=== PATIENT | female | born 1940 | race Caucasian/White ===

== ENCOUNTER 2019-02-15 12:17 | Inpatient (IN) | payer MEDICARE, OTHER ==
[~2019-02-15] VITALS: Ht 162.6 cm; Wt 83.1 kg
[~2019-02-15 12:17] MED LIST: ASP81TEC PO; MECL12.579 PO; OMG1KC PO; SULF1TAB38 PO
[2019-02-15] MEDS ORDERED: VITA1TAB17 PO (15:45)
[2019-02-15] MEDS ORDERED: [UNRECOGNIZED DRUG - OTHER] PO (15:45)
[2019-02-15] MEDS ORDERED: [UNRECOGNIZED DRUG - OTHER] PO (15:45)
[2019-02-15] MEDS ORDERED: FLAX10004 PO (15:45)
[2019-02-15] MEDS ORDERED: HYDR-3816 PO (15:45)
[2019-02-15] MEDS ORDERED: ASPI-983 PO (15:45)
[2019-02-15] MEDS ORDERED: IBUP-30 PO (15:45)
[2019-02-15] MEDS ORDERED: MELO-170 PO (15:45)
[2019-02-15] MEDS ORDERED: POTA99TA21 PO (15:45)
[2019-02-15] MEDS ORDERED: CHOL200025 PO (15:45)
[2019-02-15] MEDS ORDERED: TRAM50TA2 PO (15:45)
[2019-02-15] MEDS ORDERED: PANT40TA2 PO (15:45)
--- NOTE | 2019-02-15 15:48 | NUR ---
UPDATED MED REC WITH DISCHARGE INSTRUCTIONS FROM [facility]. NOTE THE FOLLOWING CHANGES WERE MADE AT THAT DISCHARGE: START TAKING: MOBIC 7.5MG BID TRAMADOL 50MG 2 TABS Q6H PRN HYDROCODONE 7.5-325MG 2 Q4H PRN PROTONIX 40MG DAILY ASPIRIN 81MG DAILY I WILL UPDATE THE MED REC BACK TO THE LIST OF MEDICATIONS THE PATIENT WAS TAKING PRIOR TO DISCHARGE FROM [place] [facility] AT A LATER DATE FOR PROPER DISCHARGE TO HOME ORDERS. Addendum: 02/17/19 at 1120 by LISSY SWEET [facility] REMOVED THE 5 NEW MEDICATIONS ORDERED AT DISCHARGE FROM [facility]. THE OTHER REPORTED MEDICATIONS WERE ALL OTC MEDS. THERE WAS NO RECENTLY FILLED MAINTENANCE MEDICATIONS ON THE EXT MED HX OR [facility].
--- NOTE | 2019-02-15 15:49 | NUR ---
Kehinde Ambriz admitted to room 233-1, with an admitting diagnosis of Left Total Hip, on 02/15/19 from [facility] via private vehicle, accompanied by family member.KEHINDE AMBRIZ introduced to surroundings, call light, bed controls, phone, TV, temperature control, lights, meal times, smoking policy, visitor policy, side rail policy, bathrooms and showers. Patient Rights given to patient in the handbook.KEHINDE AMBRIZ verbalizes understanding that [facility] is not responsible for the loss or damage to any personal effects or valuables that are kept in the patients possession during their hospitalization. The following Patient Care Plans were discussed with the patient and family: Discharge Planning, Impaired Mobility, and Total Hip Replacement. KEHINDE AMBRIZ verbalizes understanding of Interdisciplinary Patient Education. Patient received Patient Rights Booklet, which includes Privacy Act Statement and Data Collection Information Summary.
--- NOTE | 2019-02-15 16:04 | Occupational Therapy Eval ---
OT Evaluation-General/PLF Medical Diagnosis Admission Date Feb 15, 2019 at 15:10 Medical Diagnosis: L MATTHIAS Onset Date: Feb 15, 2019 Therapy Diagnosis Therapy Diagnosis: impaired ADLS and mobility Precautions Precautions/Isolations: Fall Prevention, Standard Precautions Weight Bear Status Weight Bearing Restriction: Weight Bearing/Tolerated Referral Referral Reason: Activity Tolerance, Self Care, Evaluation/Treatment, Strengthening/ROM Medical History Additional Medical History pt has MATTHIAS complete. WBAT. 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 Patient completes activity by themselves 4 Supervision or touching assist (CGA). [place] provide cues , steadying assist 3 The helper provides less than half the effort to complete the activity 2 The helper provides more than half the effort to complete the activity 1 Dependent. The helper does all the effort to complete an activity 7 Patient refused to complete or attempt activity 9 The patient did not perform the activity before the current illness or injury 88 Not attempted due to Medical conditions or safety concerns Functional Abilities and Goals: Independent: Patient completed the activities by him/herself, with or without an assistive device, with no assistance from a helper. Needed Some Help: Patient needed partial assistance from another person to complete activities. Dependent: A helper completed the activities for the patient. Unknown: Not Applicable: ADL PLOF Comments indep PLOF using quad cane, driving, and completing IADLS indep (shopping, cleaning) Self Care: Independent Functional Cognition: Independent DME/Equipment: Bath Bench, Shower Drive Self: Yes OT Current Status Subjective pt agreed to OT eval session and OT/ PT co treatment. pt reports having OT/ PT twice this date prior to arriving to ARU. pt reports no pain. pt is mostly deaf but reads some lips and using dry erase board for communication. Mental Status/Objective Patient Orientation: Normal For Age Current Glasses/Contacts: Yes Hearing Aids: No Dentures/Partials: Yes Hand Dominance: Right Upper Extremity ROM WFL Upper Extremity Coordination WFL Upper Extremity Sensation WFL Upper Extremity Strength 4+/5 MMT slight edema francy LE ADL-Treatment Eating (FIM): 6 (dentures ) Eating (QC): 6 Grooming (FIM): 4 (CGA while standing at sink. ) Oral Hygiene (QC): 4 Bathing (FIM): 4 (pt education on use of LHS to perform LB bathing. pt demo correctly. ) Bathing Location: L Arm, R Arm, L Upper Leg, R Upper Leg, Chest, Abdomen, Buttocks, Perineal Area Shower/Bathe Self (QC): 4 Upper Body Dressing (FIM): 4 (CGA ) Upper Body Dressing (QC): 4 Lower Body Dressing (FIM): 2 (required TA for francy socks and threading francy LE through pants. pt demo abbiltiy to d pull up/ down pants. ) Lower Body Dressing (QC): 1 On/Off Footwear (QC): 1 Toileting (FIM): 4 (CGA for safety/ balance. ) Toileting Hygiene (QC): 4 Transfers (B, C, W/C) (FIM): 4 (ue of RW ) Toilet/Commode Transfer (FIM): 4 (use of RW ) Toilet Transfer (QC): 4 (use of RW ) Shower Transfer (FIM): 4 (shower chiar, GB, and use of RW ) OT/ PT co- treatment secondary of complexity of pt deficits requiring skilled of both disciplines that a rehab techn could not complete. OT focus on ADL task, use of AE, and UE positioning, while PT focus on gross movements, functional transfers, and ambulation. post session, pt laying in bed, call light within reach, all needs met. Education OT Patient Education: Energy conservation, Modified ADL techniques, Progress toward Goal/Update tx plan, Purpose of tx/functional activities, Reviewed precautions, Rehab process, Safety issues, Transfer techniques, Use of adapted equipment Teaching Recipient: Patient Teaching Methods: Demonstration, Discussion Response to Teaching: Verbalize Understanding, Return Demonstration OT Short Term Goals Short Term Goals Bathing(FIM): 5 Lower Body Dressing(FIM): 4 1=Demonstrate adherence to instructed precautions during ADL tasks. 2=Patient will verbalize/demonstrate understanding of assistive dev ices/modifications for ADL. 3=Patient will improve strength/tolerance for activity to enable patient to perform ADL's. OT Half-Way Goals Outdoor Emergency Care Technician Goals Time Frame: Mar 15, 2019 Eating (FIM): 7 Eating (QC): 6 Groomin Oral Hygiene (QC): 6 Bathing(FIM): 6 Bathing Location: L Arm, R Arm, L Upper Leg, R Upper Leg, L Lower Leg (incl uding foot), R Lower Leg (including foot), Chest, Abdomen, Buttocks, Perineal Area Shower/Bathe Self (QC): 6 Upper Body Dressing(FIM): 7 Upper Body Dressing (QC): 6 Lower Body Dressing(FIM): 6 Lower Body Dressing (QC): 6 On/Off Footwear (QC): 6 Toileting(FIM): 6 Toileting Hygiene (QC): 6 Transfers (B,C,W/C) (FIM): 6 Toilet/Commode Transfer(FIM): 6 Toilet/Commode Transfer (QC): 6 Shower Transfer(FIM): 6 Additional Goals: 1-Demonstrate ADL Tasks, 2-Verbalize Understanding, 3-Impr oveStrength/Haydee 1=Demonstrate adherence to instructed precautions during ADL tasks. 2=Patient will verbalize/demonstrate understanding of assistive devices/modifications for ADL. 3=Patient will improve strength/tolerance for activity to enable patient to perform ADL's. OT Education/Plan Problem List/Assessment Assessment: Decreased Activ Tolerance, Decreased UE Strength, Impaired Bed Mobility, Impaired Funct Balance, Impaired I ADL's, Impaired Self-Care Skills Discharge Recommendations Plan/Recommendations: Continue POC Treatment Plan/Plan of Care Treatment,Training & Education: Yes Patient would benefit from OT for education, treatment and training to promote independence in ADL's, mobility, safety and/or upper extremity function for ADL's. Plan of Care: ADL Retraining, Functional Mobility, Group Exercise/Act as Ind, UE Funct Exercise/Act Treatment Duration: Mar 15, 2019 Frequency: At least 5 of 7 days/Wk (IRF) Estimated Hrs Per Day: 1 hour per day (60-90 minutes per day ) Agreement: Yes Rehab Potential: Good Time/GCodes Start Time: 14:55 Stop Time: 16:00 Billed Treatment Time EVM 10 minutes, ([id number]) ADL 55 minutes, 4 units, ([id number]) SHANNAN VARGAS OT Feb 15, 2019 16:04
--- NOTE | 2019-02-15 16:28 | History & Physical ---
CARLOS MANUEL ESPARZA [facility] 02/15/19 1628: History of Present Illness History of Present Illness Reason for visit/HPI CC: Hip pain 2/2 L total hip arthroplasty Ms. 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 The patient has had a progressive loss of movement over the last few months. She has a history of R Total Knee arthroplasty by Dr. 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 She presented to him with increased pain in the left hip, with reduced ability to perform ADL's, increased pain, and increased night awakenings 2/2 pain. After through workup, she decided to undergo L hip arthroplasty. She has had an uneventful post-op course. She currently does not have a primary care physician. She has a history of Selene Fever at 20 yo, causing sensorineural hearing loss. She is EGEGIK and primarially communicates via lip reading and white board. Her daughter accompanies her today. 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 She has a plan with Dr. Whyte to address the other L/E joints over the next few months. Her living situation includes living alone in 1 single bedroom apartment. There are no stairs and the floor is mostly carpeted. He has a number of items from a DME standpoint due to her recent knee surgery. She is comfortable with the process of rehab and is anxious to begin. . Date of Admission Feb 15, 2019 at 15:10 I consulted on this patient on 02/15/19 15:55 Attending Physician Nya Rangel DO Admitting Physician Myriam Ozuna MD Consult Allergies and Home Medications Allergies Coded Allergies: Sulfa (Sulfonamide Antibiotics) (Verified Allergy, Severe, 02/15/19) bezafibrate (Verified Allergy, Severe, 02/15/19) doxycycline (Verified Allergy, Severe, 02/15/19) gadoteridol (Verified Allergy, Severe, 02/15/19) phenazopyridine (Verified Allergy, Severe, 02/15/19) propoxyphene (Verified Allergy, Severe, 02/15/19) Home Medications Aspirin 81 Mg Tablet.dr, 81 MG PO DAILY, (Reported) Cholecalciferol (Vitamin D3) 2,000 Unit Tablet, 2,000 UNIT PO DAILY, (Reported) Flaxseed Oil 1,000 Mg Capsule, 1,000 MG PO DAILY, (Reported) Hydrocodone/Acetaminophen 1 Each Tablet, 2 TAB PO Q4H PRN for PAIN-MODERATE, (Reported) Ibuprofen 200 Mg Tablet, 200 MG PO Q6H PRN for PAIN-MILD, (Reported) Meloxicam 7.5 Mg Tablet, 7.5 MG PO BID, (Reported) Pantoprazole Sodium 40 Mg Tablet.dr, 40 MG PO DAILY, (Reported) Potassium Gluconate 99 Mg Tablet, 99 MG PO DAILY, (Reported) Tramadol HCl 50 Mg Tablet, 100 MG PO Q6H PRN for PAIN-MODERATE, (Reported) Vitamin B Complex 1 Each Tablet, 1 TAB PO DAILY, (Reported) [Dandelion 920MG] , 920 MG PO DAILY, (Reported) [Gotu Gigi 395MG] , 395 MG PO DAILY, (Reported) Past Vthqoun-Bqhrpm-Huwlxl Hx Immunizations Up To Date Date of Influenza Vaccine: Mar 28, 2011 Physical Exam Vital Signs Capillary Refill : Height, Weight, BMI Height: '" Weight: lbs. oz. kg; BMI Method:Stated NYA RANGEL DO 02/15/192037: History of Present Illness History of Present Illness Reason for visit/HPI Verification and Attestation of Medical Student E/M Service A medical student performed and documented this service in my presence. I reviewed and verified all information documented by the medical student and made modifications to such information, when appropriate. I personally performed the physical exam and medical decision making. Nya Rangel, Feb 15, 2019,20:37 Date of Admission 02/15/19 Date Seen by a Provider: Feb 15, 2019 Time Seen by a Provider: 16:30 Allergies and Home Medications Allergies Coded Allergies: Sulfa (Sulfonamide Antibiotics) (Verified Allergy, Severe, 02/15/19) bezafibrate (Verified Allergy, Severe, 02/15/19) doxycycline (Verified Allergy, Severe, 02/15/19) gadoteridol (Verified Allergy, Severe, 02/15/19) phenazopyridine (Verified Allergy, Severe, 02/15/19) propoxyphene (Verified Allergy, Severe, 02/15/19) Home Medications Aspirin 81 Mg Tablet.dr, 81 MG PO DAILY, (Reported) Cholecalciferol (Vitamin D3) 2,000 Unit Tablet, 2,000 UNIT PO DAILY, (Reported) Flaxseed Oil 1,000 Mg Capsule, 1,000 MG PO DAILY, (Reported) Hydrocodone/Acetaminophen 1 Each Tablet, 2 TAB PO Q4H PRN for PAIN-MODERATE, (Reported) Ibuprofen 200 Mg Tablet, 200 MG PO Q6H PRN for PAIN-MILD, (Reported) Meloxicam 7.5 Mg Tablet, 7.5 MG PO BID, (Reported) Pantoprazole Sodium 40 Mg Tablet.dr, 40 MG PO DAILY, (Reported) Potassium Gluconate 99 Mg Tablet, 99 MG PO DAILY, (Reported) Tramadol HCl 50 Mg Tablet, 100 MG PO Q6H PRN for PAIN-MODERATE, (Reported) Vitamin B Complex 1 Each Tablet, 1 TAB PO DAILY, (Reported) [Dandelion 920MG] , 920 MG PO DAILY, (Reported) [Gotu Giig 395MG] , 395 MG PO DAILY, (Reported) Patient Home Medication List Home Medication List Reviewed: Yes Past Ruanmlw-Uaibwh-Avxwbi Hx Patient Social History Marrital Status: Employed/Student: retired Review of Systems Constitutional: see HPI Physical Exam General Appearance: No Apparent Distress, WD/WN Assessment/Plan Assessment and Plan Problems: (1) Status post left hip replacement Status: Acute Admission Diagnosis Admission Status: Inpatient Order (span 2 midnights) Reason for Inpatient Admission: IRF Supervisory-Addendum Brief Verification & Attestation Participated in pt care: history, MDM, physical Personally performed: exam, history, MDM, supervision of care Care discussed with: Medical Student Procedures: n/a Results interpretation: Verified all documentation Verification and Attestation of Medical Student E/M Service A medical student performed and documented this service in my presence. I reviewed and verified all information documented by the medical student and made modifications to such information, when appropriate. I personally performed the physical exam and medical decision making. Nya Rangel Feb 15, 2019,20:38 [facility] Feb 15, 2019 16:28 NYA RANGEL DO Feb 15, 2019 20:38
--- NOTE | 2019-02-15 16:29 | Physical Therapy Evaluation ---
PT Evaluation-General Medical Diagnosis Admission Date Feb 15, 2019 at 15:10 Medical Diagnosis: L MATTHIAS Onset Date: Feb 15, 2019 Therapy Diagnosis Therapy Diagnosis: abnormal gait Precautions Precautions/Isolations: Fall Prevention, Standard Precautions Precautions include no squatting. 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 Reviewed History: Yes Social History Home: Apartment Current Living Status: Alone Entry Into Home: Level Entry PT Steps Into Home: 0 Prior/Core FIM Prior Level of Function Therapy Code Descriptions/Definitions Functional [place] Measure: 0=Not Assessed/NA 4=Minimal Assistance 1=Total Assistance 5=Supervision or Setup 2=Maximal Assistance 6=Modified [place] 3=Moderate Assistance 7=Complete [place] Therapy Quality Codes: 6 Independent with activity with or without an assistive device 5 Patient requires set up or clean up by helper. Patient completes activity by themselves 4 Supervision or touching assist (CGA). Bayard provide cues , steadying assist 3 The helper provides less than half the effort to complete the activity 2 The helper provides more than half the effort to complete the activity 1 Dependent. The helper does all the effort to complete an activity 7 Patient refused to complete or attempt activity 9 The patient did not perform the activity before the current illness or injury 88 Not attempted due to Medical conditions or safety concerns Functional Abilities and Goals: Independent: Patient completed the activities by him/herself, with or without an assistive device, with no assistance from a helper. Needed Some Help: Patient needed partial assistance from another person to complete activities. Dependent: A helper completed the activities for the patient. Unknown: Not Applicable: Bed Mobility: 7 Transfers (B,C,W/C) (FIM): 7 Gait: 6 (pt was using a cane. She has a FWW) Stairs: 6 Indoor Mobility (Ambulation): Independent Stairs: Independent Prior Devices Use: Other-see list below (cane) Pt able to care for herself, drive and do her own grocery shopping. PT Evaluation-Current Subjective Pt agreeable to PT. Reports her pain is well managed. Pt reports she is happy to be here for therapyl. Pain Numeric Pain Scale: 0-No Pain Location: No Pain Reported Objective Patient Orientation: Person, Place, Time, Situation Problem Solving: Good ROM/Strength ROM Lower Extremities WFL Strenght Lower Extremities right LE WFL; left LE grossly 4-/5 Integumentary/Posture Integumentary intact Bowel Incontinence: Yes Bladder Incontinence: Yes Posture normal and symmetrical; slight rounded shoulders. Neuromuscular (Tone, Coordination, Reflexes) intact and functional Sensory Vision: Wears Glasses Hearing: Deaf (reads lips and uses a dry erase board; can hear low voices) Hand Dominance: Right Sensation Right Lower Extremit: Intact Sensation Left Lower Extremity: Intact Transfers Therapy Code Descriptions/Definitions Functional [place] Measure: 0=Not Assessed/NA 4=Minimal Assistance 1=Total Assistance 5=Supervision or Setup 2=Maximal Assistance 6=Modified [place] 3=Moderate Assistance 7=Complete [place] Therapy Quality Codes: 6 Independent with activity with or without an assistive device 5 Patient requires set up or clean up by helper. Patient completes activity by themselves 4 Supervision or touching assist (CGA). Bayard provide cues , steadying assist 3 The helper provides less than half the effort to complete the activity 2 The helper provides more than half the effort to complete the activity 1 Dependent. The helper does all the effort to complete an activity 7 Patient refused to complete or attempt activity 9 The patient did not perform the activity before the current illness or injury 88 Not attempted due to Medical conditions or safety concerns Transfers (B, C, W/C) (FIM): 3 Roll Left to Right (QC): 4 Supine to/from Sit: 3 Sit to/from Stand: 4 Sit to Lying (QC): 3 (assist to lift both legs into bed) Lying to Sitting/Side of Bed(Q: 3 Sit to Stand (QC): 3 (assist to come to a stand) Chair/Yei-ii-Svbji Xfer(QC): 4 (CGA with use of FWW) Car Transfer (QC): 3 (mod assist to get her legs outof the car) Gait Does the Patient Walk?: Yes Mode of Locomotion: Walk Anticipated Mode of Locomotion: Walk Gait (FIM): 2 Distance (FIM): 1=up to 49 ft Walk 10 feet (QC): 4 (CGA for safety) Gait Level of Assist: 4 Gait Assistive Device: FWW Comments/Gait Description Pt walked 10-20 ft x 5 reps. She tends to roll up on her toes on the right with WB left. Step to gait right with decresed velocity and step length. Requires CGA for safety due to balance deficits. Wheelchair Training Does the Pt Use a Wheelchair?: No Balance Sitting Static: Good Sitting Dynamic: Good Standing Static: Fair Standing Dynamic: Fair Picking up an Object (QC): 88 Treatment Co treat with OT due to the need of 2 skilled clinicians to complete task. Pt requires extensive verbal and visual cues due to significant hearing impairment. Required 2 therapists to coordinate U/LE use and placment for pt to complete a shower with mulitple sit to stand transfers from shower bench, transfer in/out of shower and transfers for ADL , dressing and self care. In addition, PT addressedfunctional balance and sequencing technique with transfers and safety. Reviewed ARU goals and expectations with patient and ensured she understood the process of ARU. Pt in bed post treatment with needsmet. Assessment/Needs Post elective left THR with decreased functional strength, balance and mobility that impairs her ability to transfer, perform bed mobility and ambulate. She will benefit from skilled therapy intervention to address these deficits to allow her to return home alone and care fo rherself as before. She is very motivated to particpate andher high PLOF indicate she is a good candidate for PT. Rehab Potential: Good PT Short Term Goals Short Term Goals Time Frame: Feb 22, 2019 Transfers (B,C,W/C) (FIM): 5 Gait (FIM): 4 Distance (FIM): 3=150 ft Gait Assistive Device: FWW PT Halfway Goals Halfway Goals PT Halfway Goals Time Frame: Mar 01, 2019 Transfers (B,C,W/C) (FIM): 7 Sit to Lying (QC): 6 Lying-Sitting on Side/Bed(QC): 6 Sit to Stand (QC): 6 Roll Left to Right (QC): 6 Chair/Ldd-sv-Olgxq Xfer(QC): 6 Car Transfer (QC): 5 Does the Patient Walk: Yes Gait (FIM): 6 Gait distance (FIM): 3=150 ft Walk 10 feet (QC): 6 Walk 10ft-Uneven Surface(QC): 6 Walk 50ft with 2 Turns (QC): 6 Walk 150 ft (QC): 6 Gait Assistive Device: FWW Stairs (FIM): 5 # of Steps: 4 1 Step (curb) (QC): 6 4 Steps (QC): 6 12 Steps (QC): 88 Picking up an Object (QC): 88 PT Plan Problem List Problem List: Activity Tolerance, Functional Strength, Safety, Balance, Gait, Transfer, Bed Mobility, ROM Treatment/Plan Treatment Plan: Continue Plan of Care Treatment Plan: Bed Mobility, Education, Functional Activity Haydee, Functional Strength, Group Therapy, Gait, Safety, Therapeutic Exercise, Transfers Treatment Duration: Mar 01, 2019 Frequency: Modified Program (IRF) Estimated Hrs Per Day: 1.5 hours per day Patient and/or Family Agrees t: Yes Safety Risks/Education Patient Education: Transfer Techniques, Safety Issues Teaching Recipient: Patient Teaching Methods: Demonstration, Discussion Response to Teaching: Reinforcement Needed Discharge Recommendations Therapy D/C Recommendations: Physical Therapy Home Care Time/GCodes Time In: 1445 Time Out: 1610 (OT eval [id number]) Total Billed Treatment Time: 75 Total Billed Treatment visit EVM 10 FA 65 KYLEE ATKINSON PT Feb 15, 2019 16:28
[2019-02-15 17:30] VITALS: BP 149/71
[2019-02-15 17:39] VITALS: BP 122/71
--- NOTE | 2019-02-15 19:31 | PM&R H&P / Post Admit Assess ---
History of Present Illness HPI/Chief Complaint CC: s/p left hip replacement with slow recovery due to deafness and living alone POD # 1 HPI: This is a 77yoWF that has been in excellent health over the years although she does have significant hearing loss even near complete deafness since she had Scarlet Fever at 20yo. She does communicate with [employer] board. She lives alone and her daughter, who is a charge nurse at [facility] in [place], [place], is involved in her care and transporting her to [facility] inpatient rehab to improve success in returning home considering her disability of extreme deafness. Her prior level of functioning is remaining independent at home, had significant left hip pain precluding her from ambulating a great deal and she is motivated to return back home to live independently. She has intention of right hip replacement within the next 3 months as long as she recovers from this surgery well. Source: patient, family, RN/MD, old records Exam Limitations: no limitations Date Seen 02/15/19 Time Seen by a Provider: 16:30 Attending Physician Nya Gibson Julie A MD Referring Physician Date of Admission Feb 15, 2019 at 15:10 Home Medications & Allergies Home Medications Reviewed patient Home Medication Reconciliation performed by pharmacy medication reconciliations hazmat technician and/or nursing. Patients Allergies have been reviewed. 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) Alcohol Use: Denies Use Recreational Drug Use: No Smoking Status: Never a Smoker Physical Abuse Screen: No Sexual Abuse: No Recent Foreign Travel: No Contact w/other who traveled: No Recent Hopitalizations: Yes (LTHR) Recent Infectious Disease Expo: No Immunizations Up To Date Date of Pneumonia Vaccine: Feb 26, 2018 Date of Influenza Vaccine: Mar 28, 2011 Seasonal Allergies Seasonal Allergies: No Past Medical History Surgeries: Orthopedic Musculoskeletal: Arthritis, Fractures Loss of Vision: Bilateral Hearing Impairment: Deaf Psychosocial: Depression History of Blood Disorders: No Adverse Reaction to Blood [place]: No Family History Hypertension 19 FATHER Review of Systems Constitutional: see HPI EENTM: no symptoms reported Respiratory: no symptoms reported Cardiovascular: no symptoms reported Gastrointestinal: constipation Genitourinary: no symptoms reported Musculoskeletal: joint pain Skin: no symptoms reported Psychiatric/Neurological: No Symptoms Reported All Other Systems Reviewed Negative Unless Noted: Yes Physical Exam Exam Vital Signs Vital Signs Date Time Temp Pulse Resp B/P (MAP) Pulse Ox O2 Delivery O2 Flow Rate FiO2 02/15/19 17:39 98.5 75 20 122/71 (88) 94 Room Air Capillary Refill : General Appearance: No Apparent Distress, WD/WN, Chronically ill, Obese HEENT: PERRL/EOMI, Normal ENT Inspection, Pharynx Normal, Moist Mucous Membranes, Other Neck: Full Range of Motion, Normal Inspection, Non Tender, Supple Respiratory: Chest Non Tender, Lungs Clear, Normal Breath Sounds, No Accessory Muscle Use, No Respiratory Distress Cardiovascular: Regular Rate, Rhythm, No Edema, No Gallop, No JVD, No Murmur Gastrointestinal: Normal Bowel Sounds, No Organomegaly, No Pulsatile Mass, Non Tender, Soft Back: Normal Inspection, No CVA Tenderness, No Vertebral Tenderness Extremity: Normal Capillary Refill, Normal Inspection, Normal Range of Motion (except leg leg post op), Non Tender, No Calf Tenderness, No Pedal Edema Neurologic/Psychiatric: Alert, Oriented x3, No Motor/Sensory Deficits, Normal Mood/Affect Skin: Normal Color, Warm/Dry Lymphatic: No Adenopathy Results Results/Procedures Labs Patient resulted labs reviewed. Assessment/Plan Assessment and Plan Assess & Plan/Chief Complaint A/P: IRF protocols Pain control BM regimen Check labs in am (1) Status post left hip replacement Status: Acute (2) Deafness Status: Chronic Qualifiers: Laterality: bilateral Qualified Codes: H91.93 - Unspecified hearing loss, bilateral (3) Low vision Status: Chronic Qualifiers: Right eye visual impairment category: right - unspecified impairment Left eye visual impairment category: left - unspecified impairment Qualified Codes: H54.7 - Unspecified visual loss (4) Arthritis Status: Chronic Post Admission Physician Asses Date seen by provider: Feb 15, 2019 Time seen by provider: 16:30 Admisison Dx: (1) Status post left hip replacement Status: Acute The preadmission screen agrees with the post admission assessment that the patient is a good candidate for inpatient rehabilitation. The patient will have a comprehensive program of inpatient rehabilitation with a goal of maximizing level of functional independence prior to discharge home with family. The patient will have PT/OT ninety minutes per day, each discipline, five days a week for gait, strengthening, conditioning, balance, ADLs, any patient/family/caregiver training as necessary. Speech therapy to do cognitive assessment and treat as indicated. Rehabilitation nursing to assist with bowel, bladder, skin, wound care, medication administration, pain management. Customizer to assist with discharge planning, community reentry. SCD's for DVT prophylaxis. She appears to be well motivated to participate in three hours of therapy a day. She should be able to tolerate three hours of therapy a day from a medical standpoint. She should benefit from the three hours of therapy a day. She has a reasonable discharge plan, reasonable discharge rehabilitation goals and a supportive family. She has various comorbidities that need to be closely monitored with medications and treatments adjusted on a daily basis as needed. These include: see list Barriers to discharge for this patient who had been independent prior to this are for her to be modified independent to supervision for ADLs and mobility skills prior to discharge home with family, so as to lessen the burden of the caregivers. Risks for this patient include: 1. Fall 2. Fracture 3. DVT 4. Pulmonary embolism 5. Wound infection 6. Skin breakdown 7. Contractures 8. Poorly controlled pain 9. Urinary retention 10. UTI 11. Respiratory infection 12. Aspiration Estimated Length of Stay: 5 days Prognosis: Rehab prognosis appears good for goal of discharge home with family modified independent to supervision for ADLs and mobility skills. NYA GIBSON DO Feb 15, 2019 19:31
[2019-02-15] MEDS ORDERED: ONDANSETRON 4 MG (ZOFRAN) ORAL DISSOLVE TAB PO PRN (19:45)
[2019-02-15] MEDS ORDERED: CALCIUM CARBONATE 500 MG (TUMS) TAB.CHEW PO PRN (19:45)
[2019-02-15] MEDS ORDERED: HYDROcodone/APAP 5 MG/325 MG (LORTAB) TAB PO PRN (19:45)
[2019-02-15] MEDS ORDERED: LOPERAMIDE 2 MG (IMODIUM) TABLET PO PRN (19:45)
[2019-02-15] MEDS ORDERED: ALPRAZolam 0.25 MG (XANAX) TAB PO PRN (19:45)
[2019-02-15] MEDS ORDERED: diphenhydrAMINE 25 MG TAB (BENADRYL) PO PRN (19:45)
[2019-02-15] MEDS ORDERED: POLYETHYLENE GLYCOL 17 GM (MIRALAX) PACK PO ONE (21:00)
[2019-02-15] MEDS: MELATONIN 3 MG TABLET PO PRN (21:22)
[2019-02-16 06:00] VITALS: BP 123/72
[2019-02-16 06:27] LABS: BASOPHILS % (AUTO) 0 % (0-10); EOSINOPHILS # (AUTO) 0.1 10^3/uL (0.0-0.3); EOSINOPHILS % (AUTO) 1 % (0-10); HEMATOCRIT 34 % (35-52); HEMOGLOBIN 11.2 G/DL (11.5-16.0); LYMPHOCYTES # (AUTO) 1.7 X 10^3 (1.0-4.0); LYMPHOCYTES % (AUTO) 17 % (12-44); MEAN CORPUSCULAR HEMOGLOBIN 30 PG (25-34); MEAN CORPUSCULAR HGB CONC 33 G/DL (32-36); MEAN CORPUSCULAR VOLUME 92 FL (80-99); MEAN PLATELET VOLUME 10.3 FL (7.4-10.4); MONOCYTES # (AUTO) 0.9 X 10^3 (0.0-1.0); MONOCYTES % (AUTO) 9 % (0-12); NEUTROPHILS # (AUTO) 7.3 X 10^3 (1.8-7.8); NEUTROPHILS % (AUTO) 72 % (42-75); PLATELET COUNT 221 10^3/uL (130-400); RED CELL DISTRIBUTION WIDTH 15.1 % (10.0-14.5); WHITE BLOOD COUNT 10.1 10^3/uL (4.3-11.0)
[2019-02-16 06:48] LABS: ALANINE AMINOTRANSFERASE 19 U/L (0-55); ALBUMIN 3.6 GM/DL (3.2-4.5); ALKALINE PHOSPHATASE 53 U/L (40-136); BILIRUBIN,TOTAL 0.6 MG/DL (0.1-1.0); BUN/CREATININE RATIO 21; CALCIUM 9.1 MG/DL (8.5-10.1); CARBON DIOXIDE 26 MMOL/L (21-32); CHLORIDE 104 MMOL/L (98-107); CREATININE SERUM 0.62 MG/DL (0.60-1.30); GFR ESTIMATED > 60; GLUCOSE 135 MG/DL (70-105); POTASSIUM 4.2 MMOL/L (3.6-5.0); SODIUM 138 MMOL/L (135-145); TOTAL PROTEIN 6.1 GM/DL (6.4-8.2)
[2019-02-16] MEDS: ASPIRIN 81 MG CHEW (CHILDREN'S ASA) PO SCH (08:19)
--- NOTE | 2019-02-16 08:43 | Progress Note - Hospitalist ---
[facility]AR[facility] 02/16/19 0843: Progress Note Ms Ambriz had no acute events overnight Had a restless night sleep 2/2 new environment and being sensory impaired She reports feeling great and in no pain Is excited to begin a full day of rehab today NYA GIBSON DO 02/16/192045: Supervisory-Addendum Brief Verification & Attestation Participated in pt care: history, MDM, physical Personally performed: exam, history, MDM, supervision of care Care discussed with: Medical Student Procedures: n/a Results interpretation: Verified all documentation Verification and Attestation of Medical Student E/M Service A medical student performed and documented this service in my presence. I reviewed and verified all information documented by the medical student and made modifications to such information, when appropriate. I personally performed the physical exam and medical decision making. Nya Gibson, Feb 16, 2019,20:46 [facility] Feb 16, 2019 08:43 NYA GIBSON DO Feb 16, 2019 20:46
--- NOTE | 2019-02-16 09:07 | Occupational Ther Daily Note ---
OT Current Status-Daily Note Subjective pt sitting in recliner chair upon OT arrival. pt reports no pain. use of dry erase board for communication. pt read lips 30% of time. additional time noted secodnary to communication. pt stated she does not know sign language and her primary communication is white board. Mental Status/Objective Patient Orientation: Normal For Age Therapy Code Descriptions/Definitions Functional [place] Measure: 0=Not Assessed/NA 4=Minimal Assistance 1=Total Assistance 5=Supervision or Setup 2=Maximal Assistance 6=Modified [place] 3=Moderate Assistance 7=Complete [place] ADL-Treatment Therapy Code Descriptions/Definitions Functional [place] Measure: 0=Not Assessed/NA 4=Minimal Assistance 1=Total Assistance 5=Supervision or Setup 2=Maximal Assistance 6=Modified [place] 3=Moderate Assistance 7=Complete [place] Therapy Quality Codes: 6 Independent with activity with or without an assistive device 5 Patient requires set up or clean up by helper. Patient completes activity by themselves 4 Supervision or touching assist (CGA). [place] provide cues , steadying assist 3 The helper provides less than half the effort to complete the activity 2 The helper provides more than half the effort to complete the activity 1 Dependent. The helper does all the effort to complete an activity 7 Patient refused to complete or attempt activity 9 The patient did not perform the activity before the current illness or injury 88 Not attempted due to Medical conditions or safety concerns Eating (FIM): 6 (dentures ) Eating (QC): 6 Grooming (FIM): 5 (CGA for safety/ balnace while stanidng at sink. ) Upper Body Dressing (QC): 5 (bleach boiler puller shirt ) Lower Body Dressing (FIM): 4 (underpants, pants, francy socks, francy shoes. pt education on use of AE sock aid, dressing stick, vocational services specialist, and long handles shoe horn. pt demo ability to perform underpants, pants, and socks with AE. pt required assist to shona francy shoes. more education will be required ) Toileting (FIM): 5 (sba for safety./ balanc e) Transfers (B, C, W/C) (FIM): 4 (CGA for safety/ balnace. use of RW ) Toilet/Commode Transfer (FIM): 4 (CGA for safety/ balnace. use of RW ) pt ambulated into bathroom use with of RW. noted pt has abnormal walking patten to be addressed by PT. (please see PT note for further detail). pt perform all ADLs in bathroom. pt ambulated back to recliner chair. pt sitting in recliner chair post OT session. all needs met. Education OT Patient Education: Modified ADL techniques, Progress toward Goal/Update tx plan, Purpose of tx/functional activities, Reviewed precautions, Safety issues, Transfer techniques Teaching Recipient: Patient Teaching Methods: Demonstration, Discussion Response to Teaching: Verbalize Understanding, Return Demonstration OT Short Term Goals Short Term Goals Bathing(FIM): 5 Lower Body Dressing(FIM): 4 Transfers (B,C,W/C) (FIM): 5 1=Demonstrate adherence to instructed precautions during ADL tasks. 2=Patient will verbalize/demonstrate understanding of assistive devices/modific ations for ADL. 3=Patient will improve strength/tolerance for activity to enable patient to perform ADL's. OT Assisted Goals Assisted Goals Time Frame: Mar 15, 2019 Eating (FIM): 6 Eating (QC): 6 Groomin Oral Hygiene (QC): 6 Bathing(FIM): 6 Bathing Location: L Arm, R Arm, L Upper Leg, R Upper Leg, L Lower Leg (including foot), R Lower Leg (including foot), Chest, Abdomen, Buttocks, Perineal Area Shower/Bathe Self (QC): 6 Upper Body Dressing(FIM): 6 Upper Body Dressing (QC): 6 Lower Body Dressing(FIM): 6 Lower Body Dressing (QC): 6 On/Off Footwear (QC): 6 Toileting(FIM): 6 Toileting Hygiene (QC): 6 Transfers (B,C,W/C) (FIM): 6 Toilet/Commode Transfer(FIM): 6 Toilet/Commode Transfer (QC): 6 Shower Transfer(FIM): 6 Additional Goals: 1-Demonstrate ADL Tasks, 2-Verbalize Understanding, 3-ImproveStrength/[place] 1=Demonstrate adherence to instructed precautions during ADL tasks. 2=Patient will verbalize/demonstrate understanding of assistive devices/modifications for ADL. 3=Patient will improve strength/tolerance for activity to enable patient to perform ADL's. OT Education/Plan Problem List/Assessment Assessment: Decreased Activ Tolerance, Decreased Safety Aware, Impaired Funct Balance, Impaired I ADL's, Impaired Self-Care Skills Discharge Recommendations Plan/Recommendations: Continue POC Equpiment Recommendations-D/C: Hog Buyer, Sock Aide, Dressing Stick, Long Shoe Horn Treatment Plan/Plan of Care Treatment,Training & Education: Yes Patient would benefit from OT for education, treatment and training to promote independence in ADL's, mobility, safety and/or upper extremity function for ADL's. Plan of Care: ADL Retraining, Functional Mobility, Group Exercise/Act as Ind, UE Funct Exercise/Act Treatment Duration: Mar 15, 2019 Frequency: At least 5 of 7 days/Wk (IRF) Estimated Hrs Per Day: 1 hour per day (60-90 minutes per day ) Agreement: Yes Rehab Potential: Good Time/GCodes Start Time: 08:00 Stop Time: 09:00 Billed Treatment Time ADL 60 minute, 4 units SHANNAN VARGAS OT Feb 16, 2019 09:07
--- NOTE | 2019-02-16 09:24 | PM&R Progress Note ---
Subjective HPI/CC On Admission Date Seen by Provider: Feb 16, 2019 Time Seen by Provider: 09:15 CC: s/p left hip replacement with slow recovery due to deafness and living alone POD # 1 HPI: This is a 77yoWF that has been in excellent health over the years although she does have significant hearing loss even near complete deafness since she had Scarlet Fever at 20yo. She does communicate with [employer]. She lives simi e and her daughter, who is a charge nurse at [facility] in [place], [place], is involved in her care and transporting her to [facility] inpatient rehab to improve success in returning home considering her disability of extreme deafness. Her prior level of functioning is remaining independent at home, had significant left hip pain precluding her from ambulating a great deal and she is motivated to return back home to live independently. She has intention of right hip replacement within the next 3 months as long as she recovers from this surgery well. Subjective/Events-last exam Pt settling in well. Bowels are moving. Pain is not occurring at all but did get a pain pill before PT. Using IS. Reviewed labs and meds. Conferred with RN. Reviewed therapy notes. Overall dramatic improvement. Review of Systems General: Fatigue Musculoskeletal: leg pain Objective Exam Vital Signs Vital Signs Date Time Temp Pulse Resp B/P (MAP) Pulse Ox O2 Delivery O2 Flow Rate FiO2 02/16/19 09:00 95 Room Air 02/16/19 06:00 97.7 78 20 123/72 (89) Capillary Refill : General Appearance: No Apparent Distress, WD/WN HEENT: PERRL/EOMI, Normal ENT Inspection, Pharynx Normal, Moist Mucous Membranes, Other Neck: Full Range of Motion, Normal Inspection, Non Tender, Supple Respiratory: Chest Non Tender, Lungs Clear, Normal Breath Sounds, No Accessory Muscle Use, No Respiratory Distress Cardiovascular: Regular Rate, Rhythm, No Edema, No Gallop, No JVD, No Murmur Gastrointestinal: Normal Bowel Sounds, No Organomegaly, No Pulsatile Mass, Non Tender, Soft Back: Normal Inspection, No CVA Tenderness, No Vertebral Tenderness Extremity: Normal Capillary Refill, Normal Inspection, Normal Range of Motion (except leg leg post op), Non Tender, No Calf Tenderness, No Pedal Edema Neurologic/Psychiatric: Alert, Oriented x3, No Motor/Sensory Deficits, Normal Mood/Affect Skin: Normal Color, Warm/Dry Lymphatic: No Adenopathy Results/Procedures Lab Laboratory Tests 02/16/19 05:57 Patient resulted labs reviewed. FIM Transfers Therapy Code Descriptions/Definitions Functional [place] Measure: 0=Not Assessed/NA 4=Minimal Assistance 1=Total Assistance 5=Supervision or Setup 2=Maximal Assistance 6=Modified [place] 3=Moderate Assistance 7=Complete [place] Therapy Quality Codes: 6 Independent with activity with or without an assistive device 5 Patient requires set up or clean up by helper. Patient completes activity by themselves 4 Supervision or touching assist (CGA). [place] provide cues , steadying assist 3 The helper provides less than half the effort to complete the activity 2 The helper provides more than half the effort to complete the activity 1 Dependent. The helper does all the effort to complete an activity 7 Patient refused to complete or attempt activity 9 The patient did not perform the activity before the current illness or injury 88 Not attempted due to Medical conditions or safety concerns Transfers (B, C, W/C) (FIM): 4 (CGA for safety/ balnace. use of RW ) Roll Left to Right (QC): 4 Supine to/from Sit: 3 Sit to/from Stand: 4 Sit to Lying (QC): 3 (assist to lift both legs into bed) Sit to Stand (QC): 3 (assist to come to a stand) Chair/Pna-xf-Harpc Xfer(QC): 4 (CGA with use of FWW) Car Transfer (QC): 3 (mod assist to get her legs outof the car) Gait Training Does the Patient Walk?: Yes Gait (FIM): 2 Distance (FIM): 1=up to 49 ft Walk 10 feet (QC): 4 (CGA for safety) Gait Level of Assist: 4 Gait Assistive Device: FWW Wheelchair Training Does the Pt Use a Wheelchair?: No Balance Picking up an Object (QC): 88 ADL-Treatment Feedin (dentures ) Eating (QC): 6 Groomin (CGA for safety/ balnace while stanidng at sink. ) Oral Hygiene (QC): 4 Bathin (pt education on use of LHS to perform LB bathing. pt demo correctly. ) Bathing Location: L Arm, R Arm, L Upper Leg, R Upper Leg, Chest, Abdomen, Buttocks, Perineal Area Shower/Bathe Self (QC): 4 Upper Extremity Dressin (CGA ) Upper Body Dressing (QC): 5 (boat puller shirt ) Lower Extremity Dressin (underpants, pants, francy socks, francy shoes. pt education on use of AE sock aid, dressing stick, reed polisher, and long handles shoe horn. pt demo ability to perform underpants, pants, and socks with AE. pt required assist to shona francy shoes. more education will be required ) Lower Body Dressing (QC): 1 On/Off Footwear (QC): 1 Toiletin (sba for safety./ balanc e) Toileting Hygiene (QC): 4 Toilet/Commode Transfer: 4 (CGA for safety/ balnace. use of RW ) Toilet Transfer (QC): 4 (use of RW ) Shower: 4 (shower chiar, GB, and use of RW ) Assessment/Plan Assessment and Plan Assess & Plan/Chief Complaint A/P: IRF protocols Pain control BM regimen Check labs prn (1) Status post left hip replacement Status: Acute (2) Arthritis Status: Chronic (3) Deafness Status: Chronic Qualifiers: Laterality: bilateral Qualified Codes: H91.93 - Unspecified hearing loss, bilateral (4) Low vision Status: Chronic Qualifiers: Right eye visual impairment category: right - unspecified impairment Left eye visual impairment category: left - unspecified impairment Qualified Codes: H54.7 - Unspecified visual loss JÚNIOR RANGEL DO Feb 16, 2019 09:24
--- NOTE | 2019-02-16 09:24 | Individualized Plan of Care ---
Individualized Plan of Care Rehab Nursing IPOC Order Admission Date Feb 15, 2019 at 15:10 Current Orders Orders Admission Order(Inpt,Obs,Sdc) (02/15/19 12:46) Vital Signs: Per Unit Policy ( ,16,00 (02/15/19 12:46) Spar Cap Beveler-Inpt Rehab Con (02/15/19 12:46) Rehab Nursing Orders-Ipoc (02/15/19 12:46) Physical Therapy Rehab Orders (02/15/19 12:46) Occupational Therapy Rehab Ord (02/15/19 12:46) Speech Therapy Rehab Orders (02/15/19 12:46) General/Regular (02/15/19 Dinner) Intake & Output ,, (02/15/19 12:46) Precautions (Aru) (02/15/19 12:46) Weekly Weight (Lbs) WEEK (02/15/19 12:46) Initiate Admission Nursing Pro .admission (02/15/19 12:46) Cbc With Automated Diff (02/16/19 06:00) Comprehensive Metabolic Panel (02/16/19 06:00) Rehab-Intensity Of Therapy (02/15/19 13:45) Patient Visit (02/15/19 ) Pt Eval Moderate Complexity (02/15/19 ) Functional Activities, Ea 15 (02/15/19 ) Tramadol Tablet (Ultram Tablet) (02/15/19 17:00) Polyethylene Glycol Powder Pkt (Miralax (02/15/19 21:00) Alprazolam Tablet (Xanax Tablet) (02/15/19 19:45) Calcium Carbonate Chew Tablet (Antacid C (02/15/19 19:45) Diphenhydramine Tablet (Benadryl Tablet) (02/15/19 19:45) Docusate Sodium Capsule (Colace Capsule) (02/15/19 19:45) Hydrocodone/Apap 5/325 Tablet (Lortab 5 (02/15/19 19:45) Loperamide Tablet (Imodium Tablet) (02/15/19 19:45) Melatonin Tablet (Melatonin Tablet) (02/15/19 19:45) Ondansetron Oral Dissolve Tab (Zofran (02/15/19 19:45) Ibuprofen Tablet (Motrin Tablet) (02/15/19 19:45) Aspirin Chewable Tablet (Baby Aspirin Ch (02/16/19 09:00) Patient Visit (02/16/19 ) Gait Training, Ea 15 Min (02/16/19 ) Exercise Therap, Ea 15 Min (02/16/19 ) Patient Visit (02/16/19 ) Gait Training, Ea 15 Min (02/16/19 ) Patient Visit (02/16/19 ) Speech Sound Lang Comp (02/16/19 ) Polyethylene Glycol Powder Pkt (Miralax (02/16/19 21:00) Senna S Tablet (Senokot S Tablet) (02/16/19 21:00) Rehab Nursing Orders: Ongoing Assess. of Cognitive Status, Ongoing Assess. of Function Status, Bladder Management, Bowel Management, Bowel Training, Disease Management & Educaiton, DVT Prophylaxis, Fall Prevention, Fluid/Electrolyte/Nut rition Mgmt, Medication Management & Education, Management of Risks & Complications, Management of Skin Intergrity, Nutrition Management, Pain Management, Patient/Family Support, Safety Management Intensity of Therapy to be met Patient to be seen: 15 hrs over 7 cons. days PT IPOC Problem List: Activity Tolerance, Functional Strength, Safety, Balance, Gait, Transfer, Bed Mobility, ROM Treatment Plan: Continue Plan of Care Bed Mobility, Education, Functional Activity [place], Functional Strength, Group Therapy, Gait, Safety, Therapeutic Exercise, Transfers Treatment Duration: Mar 01, 2019 Frequency: Modified Program (IRF) Estimated Hrs Per Day: 1.5 hours per day OT IPOC Problems: Decreased Activ Tolerance, Decreased Safety Aware, Impaired Funct Balance, Impaired I ADL's, Impaired Self-Care Skills OT Treatment, Training and Edu: Yes Plan of Care: ADL Retraining, Functional Mobility, Group Exercise/Act as Ind, U E Funct Exercise/Act Treatment Duration: Mar 15, 2019 Frequency: At least 5 of 7 days/Wk (IRF) Estimated Hrs Per Day: 1 hour per day (60-90 minutes per day ) ST IPOC Speech Therapy Treatment Plan: Continue Plan of Care Treatment Duration: Feb 16, 2019 Frequency: 1 time per week Estimated Hrs Per Day: .25 hour per day Spar Cap Beveler/Case Mgmt Spar Cap Beveler/Case Managemen: Discharge Planning Dietitian/Diversified Crops Farmer Dietitian/Diversified Crops Farmer to monitor nutritional status and make changes and/or recommendations as needed and work with speech pathology on dietary upgrades as the occur. Physician IPOC Medical Issues being managed closely and that require the 24 hour availability of a physician: Deafness will require close monitoring and assurance she can hear instructions a nd prevent falls Medical Issues: Bowel/Bladder Function, DVT Prophylaxis, Falls Precautions, Fluid/Electrolyte/Nutrition Balance, Pain Management Brief Synthesis of Preadmission Screen, Post-Admission Evaluation, and Therapy Evaluations: PT will focus on retraining ambulation since hip replacement OT will focus on regaining ADL independence Medical Prognosis: Good Anticipated Length of Stay: 5 days JÚNIOR RANGEL DO Feb 16, 2019 09:24
--- NOTE | 2019-02-16 09:24 | ST Cognitive Linguistic Eval ---
Speech Evaluation-General Medical Diagnosis L MATTHIAS Onset Date: Feb 15, 2019 Therapy Diagnosis Therapy Diagnosis: Cognitive-Communication Precautions Precautions: Fall Precautions/Isolations: Fall Prevention, Standard Precautions Referral Referring Physician: Dr. Gibson Reason for Referral: Evaluation/Treatment Medical History Pertinent Medical History: OA Osteoarthritis Current History L MATTHIAS Reviewed History: Yes Social History Home: Assisted Living Current Living Status: Alone Speech PLF-Current Status Prior Level of Function The patient lives alone in her own apartment. Prior to her surgery she was independent for her daily needs. She does have the assistance from her daughter as needed. Subjective The patient was pleasant and cooperative with the cognitive evaluation. process. 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 Examination tasks were provided via white board writing. Language Eval: Verbal Language Completes Spontaneous Greeting: Functional Produces Auto, Serial Info: Functional Imitates Simple Words/Phrases: Functional Word Finding: Functional Requests Basic Needs: Functional States Basic Personal Info: Functional Expresses Complex Ideas: Functional Objective Cognitive Domain Memory: Mild Problem Solving: Functional Executive Functions: WNL Visuospatial Skills: WNL Composite Severity Rating: WNL Clock Drawing Severity Rating: WNL Objective Formal/Standardized Tests [facility] Mental Status ([facility]) Results , within normal range of function Oral Motor/Speech Production Within Functional Limits Impression The patient is a very pleasant 78 year old female who was admitted to the ARU s/p hip replacement. 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 She was able to complete the [facility] with lip reading and written tasks on the white board. The patient scored within the normal range and does not require skilled ST services at this time. Communication/Social Cognition Comprehension: 7 Expression: 7 Social Interaction: 7 Problem Solvin Memory: 7 Speech Patient Assess Expression of Ideas/Wants: Expression (4) Understanding Verbal Content: Understands (4) Brief Interview-Mental Status: Yes Repetition of Three Words: Three (3) Temporal Orientation: Year: Correct (3) Temporal Orientation: Month: Accurate within 5 days(2) Temporal Orientation: Day: Correct (1) Recall : Wear to say "Sock": Yes, no cue required (2) Recall : Color: Yes, no cue required (2) Recall : Bed: Yes, no cue required (2) Memory/Recall Ability: Current season, Location of own room, Staff names and faces, That he or she is in a hsp/hsp unit Speech-Plan Patient/Family Goals Patient/Family Goals: The patient plans on returning home post rehab with family support as needed. Treatment Plan Speech Therapy Treatment Plan: Discontinue ST The patient does not require skilled ST at this time. Treatment Duration: Feb 16, 2019 Frequency: 1 time per week Estimated Hrs Per Day: .25 hour per day Rehab Potential: Good Barriers to Learning: Patient is deaf, however no cognitive deficits are noted Pt/Family Agrees to Plan: Yes Safety Risks/Education Teaching Recipient: Patient Teaching Methods: Discussion Response to Teaching: Verbalize Understanding Education Topics Provided: Safety within her room Time Speech Therapy Time In: 09:00 Speech Therapy Time Out: 09:20 Total Billed Time: 20 Billed Treatment Time 1, SPSNDCOMP JOSR Beckham Feb 16, 2019 09:24
--- NOTE | 2019-02-16 10:35 | NUR ---
Pastoral care visit.
--- NOTE | 2019-02-16 12:01 | Physical Therapy Daily Note ---
PT Daily Note-Current Subjective Patient in recliner pre tx, agrees to PT, states she has no pain at rest, just with weight bearing. Patient is deaf and needs visual cues and has a white board to write on. Appearance Patient in recliner post tx with nurse call, phone, tray, all needs met. Mental Status Patient Orientation: Person, Place, Situation Transfers Therapy Code Descriptions/Definitions Functional [place] Measure: 0=Not Assessed/NA 4=Minimal Assistance 1=Total Assistance 5=Supervision or Setup 2=Maximal Assistance 6=Modified [place] 3=Moderate Assistance 7=Complete [place] Therapy Quality Codes: 6 Independent with activity with or without an assistive device 5 Patient requires set up or clean up by helper. Patient completes activity by themselves 4 Supervision or touching assist (CGA). [place] provide cues , steadying assist 3 The helper provides less than half the effort to complete the activity 2 The helper provides more than half the effort to complete the activity 1 Dependent. The helper does all the effort to complete an activity 7 Patient refused to complete or attempt activity 9 The patient did not perform the activity before the current illness or injury 88 Not attempted due to Medical conditions or safety concerns Transfers (B, C, W/C) (FIM): 4 Sit to/from Stand: 4 Bed to/from Chair: 4 CGA, slow but steady, appropriate use of hand placement Weight Bearing Right Lower Extremity: Right Full Weight Bearing Left Lower Extremity: Left Weight Bearing/Tolerated Gait Training Gait (FIM): 2 Distance: 100'x2, 50'x2 Walking 10ft/uneven surface-QC: 4 Gait Level of Assist: 4 Gait Persons Needed: 1 Gait Assistive Device: FWW CGA, slow but steady, vaults on the right side so she can clear foot on the left for advancement Stair Training Stairs (FIM): 1 #of Steps: 1 1 Step (curb) (QC): 4 Stairs: Pattern: Step to Level of Assist: 4 CGA, cues for foot placement Exercises Standing: Hip Abduction, Heel/toe raises, 3 way Ex=Flex, Abd, Ext (just with right leg), Marching (just with right leg) Standing Reps: 15 LAQ left side for 5 min Treatments transfers, ambulation, LE exercise Assessment Current Status: Fair Progress improved ambulation and transfers from yesterday PT Short Term Goals Short Term Goals Time Frame: Feb 22, 2019 Transfers (B,C,W/C) (FIM): 5 Gait (FIM): 4 Distance (FIM): 3=150 ft Gait Assistive Device: FWW PT Skilled Nursing Goals Power Grader Operator Goals PT Skilled Nursing Goals Time Frame: Mar 01, 2019 Transfers (B,C,W/C) (FIM): 7 Sit to Lying (QC): 6 Lying-Sitting on Side/Bed(QC): 6 Sit to Stand (QC): 6 Roll Left to Right (QC): 6 Chair/Kbf-ck-Riaed Xfer(QC): 6 Car Transfer (QC): 5 Does the Patient Walk: Yes Gait (FIM): 6 Gait distance (FIM): 3=150 ft Walk 10 feet (QC): 6 Walk 10ft-Uneven Surface(QC): 6 Walk 50ft with 2 Turns (QC): 6 Walk 150 ft (QC): 6 Gait Assistive Device: FWW Stairs (FIM): 5 # of Steps: 4 1 Step (curb) (QC): 6 4 Steps (QC): 6 12 Steps (QC): 88 Picking up an Object (QC): 88 PT Plan Problem List Problem List: Activity Tolerance, Functional Strength, Safety, Balance, Gait, Transfer, Bed Mobility, ROM Treatment/Plan Treatment Plan: Continue Plan of Care Treatment Plan: Bed Mobility, Education, Functional Activity [place], Functional Strength, Group Therapy, Gait, Safety, Therapeutic Exercise, Transfers Treatment Duration: Mar 01, 2019 Frequency: Modified Program (IRF) Estimated Hrs Per Day: 1.5 hours per day Patient and/or Family Agrees t: Yes Safety Risks/Education Patient Education: Gait Training, Transfer Techniques, Reviewed Precautions, Correct Positioning, Safety Issues Teaching Recipient: Patient Teaching Methods: Demonstration, Discussion Response to Teaching: Reinforcement Needed Time/GCodes Time In: 1100 Time Out: 1200 Total Billed Treatment Time: 60 Total Billed Treatment 1 visit EX 20' GT 40' STEPHANIE SOTO PT Feb 16, 2019 12:01
--- NOTE | 2019-02-16 14:38 | Occupational Ther Daily Note ---
OT Current Status-Daily Note Subjective Pt alert, sitting in recliner. Visitor present in room. Pt agrees to therapy. Mental Status/Objective Therapy Code Descriptions/Definitions Functional [place] Measure: 0=Not Assessed/NA 4=Minimal Assistance 1=Total Assistance 5=Supervision or Setup 2=Maximal Assistance 6=Modified [place] 3=Moderate Assistance 7=Complete [place] ADL-Treatment Therapy Code Descriptions/Definitions Functional [place] Measure: 0=Not Assessed/NA 4=Minimal Assistance 1=Total Assistance 5=Supervision or Setup 2=Maximal Assistance 6=Modified [place] 3=Moderate Assistance 7=Complete [place] Therapy Quality Codes: 6 Independent with activity with or without an assistive device 5 Patient requires set up or clean up by helper. Patient completes activity by themselves 4 Supervision or touching assist (CGA). [place] provide cues , steadying assist 3 The helper provides less than half the effort to complete the activity 2 The helper provides more than half the effort to complete the activity 1 Dependent. The helper does all the effort to complete an activity 7 Patient refused to complete or attempt activity 9 The patient did not perform the activity before the current illness or injury 88 Not attempted due to Medical conditions or safety concerns Other Treatment Pt ambulated to and from therapy gym with 1 recovery break using FWW. Min A for sit <--> stand due to increased fatigue and pain/stiffness. Arm bike completed 10 min duration at 15 mg resistance to increase strength and activity tolerance for daily functional tasks. After therapy, pt sitting in recliner with call light/phone in reach. All needs met in room. OT Short Term Goals Short Term Goals Bathing(FIM): 5 Lower Body Dressing(FIM): 4 Transfers (B,C,W/C) (FIM): 5 1=Demonstrate adherence to instructed precautions during ADL tasks. 2=Patient will verbalize/demonstrate understanding of assistive devices/modifications for ADL. 3=Patient will improve strength/tolerance for activity to enable patient to perform ADL's. OT Lobby Attendant Goals Retirement Goals Time Frame: Mar 15, 2019 Eating (FIM): 6 Eating (QC): 6 Groomin Oral Hygiene (QC): 6 Bathing(FIM): 6 Bathing Location: L Arm, R Arm, L Upper Leg, R Upper Leg, L Lower Leg (including foot), R Lower Leg (including foot), Chest, Abdomen, Buttocks, Perineal Area Shower/Bathe Self (QC): 6 Upper Body Dressing(FIM): 6 Upper Body Dressing (QC): 6 Lower Body Dressing(FIM): 6 Lower Body Dressing (QC): 6 On/Off Footwear (QC): 6 Toileting(FIM): 6 Toileting Hygiene (QC): 6 Transfers (B,C,W/C) (FIM): 6 Toilet/Commode Transfer(FIM): 6 Toilet/Commode Transfer (QC): 6 Shower Transfer(FIM): 6 Additional Goals: 1-Demonstrate ADL Tasks, 2-Verbalize Understanding, 3- ImproveStrength/[place] 1=Demonstrate adherence to instructed precautions during ADL tasks. 2=Patient will verbalize/demonstrate understanding of assistive devices/modifications for ADL. 3=Patient will improve strength/tolerance for activity to enable patient to perform ADL's. OT Education/Plan Problem List/Assessment Assessment: Decreased UE Strength, Impaired Self-Care Skills Discharge Recommendations Plan/Recommendations: Continue POC Treatment Plan/Plan of Care Patient would benefit from OT for education, treatment and training to promote independence in ADL's, mobility, safety and/or upper extremity function for ADL's. Plan of Care: ADL Retraining, Functional Mobility, Group Exercise/Act as Ind, UE Funct Exercise/Act Treatment Duration: Mar 15, 2019 Frequency: At least 5 of 7 days/Wk (IRF) Estimated Hrs Per Day: 1 hour per day (60-90 minutes per day ) Agreement: Yes Rehab Potential: Good Time/GCodes Start Time: 13:25 Stop Time: 13:55 Total Time Billed (hr/min): 30 Billed Treatment Time 1 visit-FA (20 min) EX (10 min) KYLEE BRUNSON Feb 16, 2019 14:38
[2019-02-16 16:00] VITALS: BP 122/71
--- NOTE | 2019-02-16 16:07 | Physical Therapy Daily Note ---
PT Daily Note-Current Subjective Pt asleep in recliner upon arrival. Pt agrees to PT. Pt is [place]AC[place] and lip reads or needs message on white board written for communication. Pain Numeric Pain Scale: 5-Moderate Pain Location: Left Location Body Site: Hip Pain Description: Ache, Tightness Comment: Pt reports no pain, just discomfort/soreness. Mental Status Patient Orientation: Person, Place, Time, Situation Transfers Therapy Code Descriptions/Definitions Functional [place] Measure: 0=Not Assessed/NA 4=Minimal Assistance 1=Total Assistance 5=Supervision or Setup 2=Maximal Assistance 6=Modified [place] 3=Moderate Assistance 7=Complete [place] Therapy Quality Codes: 6 Independent with activity with or without an assistive device 5 Patient requires set up or clean up by helper. Patient completes activity by themselves 4 Supervision or touching assist (CGA). [place] provide cues , steadying assist 3 The helper provides less than half the effort to complete the activity 2 The helper provides more than half the effort to complete the activity 1 Dependent. The helper does all the effort to complete an activity 7 Patient refused to complete or attempt activity 9 The patient did not perform the activity before the current illness or injury 88 Not attempted due to Medical conditions or safety concerns [place] Sit to/from Stand: 4 Sit to Stand (QC): 4 Weight Bearing Right Lower Extremity: Right Full Weight Bearing Left Lower Extremity: Left Weight Bearing/Tolerated Gait Training Does the Patient Walk?: Yes Gait (FIM): 4 Distance (FIM): 3=150 ft Distance: 175' Walk 10 feet (QC): 4 Walk 50 ft with 2 Turns(QC): 4 Walk 150 ft (QC): 4 Gait Level of Assist: 4 Gait Persons Needed: 1 Gait Assistive Device: FWW Pt walks as though her L LE is longer than R LE (circumduction gait pattern). Pt walks with very slow emilie and needs occasional RB for fatigue. Treatments Pt transfers from recliner to standing and ambulates in hallway before needing RB. Pt ambulates to Therapy Gym then takes short RB before ambulating in hallway back to room. Pt resting in recliner at end of tx with all needs met, call light next to pt. Assessment Current Status: Good Progress Pt's walking improves as she walks more. Pt does not fatigue as quickly on way back to room. PT Short Term Goals Short Term Goals Time Frame: Feb 22, 2019 Transfers (B,C,W/C) (FIM): 5 Gait (FIM): 4 Distance (FIM): 3=150 ft Gait Assistive Device: FWW PT Skid Road Worker Goals Skid Road Worker Goals PT Skid Road Worker Goals Time Frame: Mar 01, 2019 Transfers (B,C,W/C) (FIM): 7 Sit to Lying (QC): 6 Lying-Sitting on Side/Bed(QC): 6 Sit to Stand (QC): 6 Roll Left to Right (QC): 6 Chair/Xii-wz-Vppik Xfer(QC): 6 Car Transfer (QC): 5 Does the Patient Walk: Yes Gait (FIM): 6 Gait distance (FIM): 3=150 ft Walk 10 feet (QC): 6 Walk 10ft-Uneven Surface(QC): 6 Walk 50ft with 2 Turns (QC): 6 Walk 150 ft (QC): 6 Gait Assistive Device: FWW Stairs (FIM): 5 # of Steps: 4 1 Step (curb) (QC): 6 4 Steps (QC): 6 12 Steps (QC): 88 Picking up an Object (QC): 88 PT Plan Problem List Problem List: Activity Tolerance, Functional Strength, Safety, Balance, Gait, Transfer Treatment/Plan Treatment Plan: Continue Plan of Care Treatment Plan: Bed Mobility, Education, Functional Activity [place], Functional Strength, Group Therapy, Gait, Safety, Therapeutic Exercise, Transfers Treatment Duration: Mar 01, 2019 Frequency: Modified Program (IRF) Estimated Hrs Per Day: 1.5 hours per day Patient and/or Family Agrees t: Yes Safety Risks/Education Patient Education: Gait Training, Transfer Techniques, Correct Positioning, Safety Issues Teaching Recipient: Patient Teaching Methods: Discussion Response to Teaching: Verbalize Understanding Time/GCodes Time In: 1500 Time Out: 1530 Total Billed Treatment Time: 30 Total Billed Treatment 1, GT x2 (30m) DANIELE ARENAS CLOTH TEARER Feb 16, 2019 16:07
[2019-02-16] MEDS: DOCUSATE SODIUM 100 MG (COLACE) CAP PO PRN (17:37)
--- NOTE | 2019-02-16 17:58 | NUR ---
New order for miralax and senna from Dr Gibson. See physicians orders for further info. Pt states has not had BM since Wednesday.
[2019-02-16] MEDS: SENNA W/DOCUSATE (SENOKOT S) TABLET PO SCH (18:47)
[2019-02-16] MEDS: POLYETHYLENE GLYCOL 17 GM (MIRALAX) PACK PO SCH (18:47)
[2019-02-17 05:15] VITALS: BP 125/73
--- NOTE | 2019-02-17 08:33 | NUR ---
DRY CLEANING MANAGER met with patient to complete initial assessment. Patient was alert and oriented and agreeable to assessment. 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 Whyte. Prior to surgery patient resided alone in a health concierge apartment in [place], [place]. Patient was independent with ADLs, ambulating with assistance of a quad cane and continued to drive. Patient also possesses a shower chair, front-wheeled walker, raised toilet seat, grab bars and toilet safety rails. Primary contact identified as daughter, Delmy at [phone] and secondary contacts as neighbor, Susy at [phone] and granddaughter, Alicia at [phone]. Patient previously utilized Dr. Myriam Ozuna as primary care; however, patient intends to utilize Dr. Gibson going forward. Insurance verified as Medicare and [employer] with Silver prescription prescription coverage. Preferred pharmacy listed as [facility]. DRY CLEANING MANAGER reviewed typical ARU length of stay and weekly team conferences. Patient expresses no concerns or questions at this time. DRY CLEANING MANAGER will continue to follow.
--- NOTE | 2019-02-17 09:17 | Occupational Ther Daily Note ---
OT Current Status-Daily Note Subjective pt sitting in chair upon OT arrival. pt agreed to OT TX session with focus on increasing indep with dressing, UE strength, and activity tolerance for daily activities. . pt reports she did not sleep well last night. dry erase board used for communication. Pain Numeric Pain Scale: 0-No Pain Mental Status/Objective Therapy Code Descriptions/Definitions Functional [place] Measure: 0=Not Assessed/NA 4=Minimal Assistance 1=Total Assistance 5=Supervision or Setup 2=Maximal Assistance 6=Modified [place] 3=Moderate Assistance 7=Complete [place] ADL-Treatment Therapy Code Descriptions/Definitions Functional [place] Measure: 0=Not Assessed/NA 4=Minimal Assistance 1=Total Assistance 5=Supervision or Setup 2=Maximal Assistance 6=Modified [place] 3=Moderate Assistance 7=Complete [place] Therapy Quality Codes: 6 Independent with activity with or without an assistive device 5 Patient requires set up or clean up by helper. Patient completes activity by themselves 4 Supervision or touching assist (CGA). [place] provide cues , steadying assist 3 The helper provides less than half the effort to complete the activity 2 The helper provides more than half the effort to complete the activity 1 Dependent. The helper does all the effort to complete an activity 7 Patient refused to complete or attempt activity 9 The patient did not perform the activity before the current illness or injury 88 Not attempted due to Medical conditions or safety concerns Grooming (FIM): 5 (standing at sink ) Upper Body (FIM): 5 (set up ) Lower Body Dressing (FIM): 4 (required assist with left shoes. pt demo ability to shona pants, underpants, francy socks with use of AE. ) Toileting (FIM): 5 Transfers (B, C, W/C) (FIM): 5 (use of RW. ) Toilet/Commode Transfer (FIM): 5 (use of RW. ) Other Treatment once ADLs completed pt ambulated to TX gym with close SBA for safety/ balance. pt education on HEP with 2# weights to increase UE Strength for daily activities. pt perform 15X2 chest press, chest pulls, lateral rises, front r ises, upright rows, and biceps curls. noted slight pain at right shoulder with activity. pt then perform UBE 10 minutes with 25 WATT. post session pt ambulated back to room with use of RW and close SBA. pt seated in recliner chair,, call light within reach, all needs met. Education OT Patient Education: Correct positioning, Energy conservation, Exercise program, Home exercise program, Modified ADL techniques, Progress toward Goal/Update tx plan, Purpose of tx/functional activities, Reviewed precautions, Safety issues, Transfer techniques, Use of adapted equipment Teaching Recipient: Patient Teaching Methods: Demonstration, Discussion Response to Teaching: Verbalize Understanding, Return Demonstration OT Short Term Goals Short Term Goals Bathing(FIM): 5 Lower Body Dressing(FIM): 4 Transfers (B,C,W/C) (FIM): 5 1=Demonstrate adherence to instructed precautions during ADL tasks. 2=Patient will verbalize/demonstrate understanding of assistive devices/mo difications for ADL. 3=Patient will improve strength/tolerance for activity to enable patient to perform ADL's. OT Bander And Cellophaner Machine Helper Goals Bander And Cellophaner Machine Helper Goals Time Frame: Mar 15, 2019 Eating (FIM): 6 Eating (QC): 6 Groomin Oral Hygiene (QC): 6 Bathing(FIM): 6 Bathing Location: L Arm, R Arm, L Upper Leg, R Upper Leg, L Lower Leg (including foot), R Lower Leg (including foot), Chest, Abdomen, Buttocks, Perineal Area Shower/Bathe Self (QC): 6 Upper Body Dressing(FIM): 6 Upper Body Dressing (QC): 6 Lower Body Dressing(FIM): 6 Lower Body Dressing (QC): 6 On/Off Footwear (QC): 6 Toileting(FIM): 6 Toileting Hygiene (QC): 6 Transfers (B,C,W/C) (FIM): 6 Toilet/Commode Transfer(FIM): 6 Toilet/Commode Transfer (QC): 6 Shower Transfer(FIM): 6 Additional Goals: 1-Demonstrate ADL Tasks, 2-Verbalize Understanding, 3-ImproveStrength/[place] 1=Demonstrate adherence to instructed precautions during ADL tasks. 2=Patient will verbalize/demonstrate understanding of assistive devices/modifications for ADL. 3=Patient will improve strength/tolerance for activity to enable patient to perform ADL's. OT Education/Plan Problem List/Assessment Assessment: Decreased Activ Tolerance, Decreased UE Strength, Impaired I ADL's, Impaired Self-Care Skills Discharge Recommendations Plan/Recommendations: Continue POC Treatment Plan/Plan of Care Treatment,Training & Education: Yes Patient would benefit from OT for education, treatment and training to promote independence in ADL's, mobility, safety and/or upper extremity function for ADL's. Plan of Care: ADL Retraining, Functional Mobility, Group Exercise/Act as Ind, UE Funct Exercise/Act Treatment Duration: Mar 15, 2019 Frequency: At least 5 of 7 days/Wk (IRF) Estimated Hrs Per Day: 1 hour per day (60-90 minutes per day ) Agreement: Yes Rehab Potential: Good Time/GCodes Start Time: 08:00 Stop Time: 09:30 Billed Treatment Time ADL 45 minutes, 3 units EX 45 minutes, 3 units SHANNAN VARGAS OT Feb 17, 2019 09:17
[2019-02-17] MEDS: SENNA W/DOCUSATE (SENOKOT S) TABLET PO SCH ×2 (09:57→21:15)
[2019-02-17] MEDS: POLYETHYLENE GLYCOL 17 GM (MIRALAX) PACK PO SCH ×2 (09:58→21:15)
[2019-02-17] MEDS: ASPIRIN 81 MG CHEW (CHILDREN'S ASA) PO SCH (09:58)
--- NOTE | 2019-02-17 10:11 | PM&R Progress Note ---
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 She does communicate with [employer]. She lives alone and her daughter, who is a charge nurse at [facility] in [place], [place], is involved in her care and transporting her to [facility] inpatient rehab to improve success in returning home considering her disability of extreme deafness. Her prior level of functioning is remaining independent at home, had significant left hip pain precluding her from ambulating a great deal and she is motivated to return back home to live independently. She has intention of right hip replacement within the next 3 months as long as she recovers from this surgery well. Subjective/Events-last exam No bowel movement since 02/13 so suppository and fleets and soapsuds enema will be initiated until resolved Does not want to take the Ultram it makes her feel weird and have muscle twitc briseyda Ibuprofen will be taken instead Conferred with RN Reviewed therapy notes Check meds and labs Review of Systems General: Fatigue Neurological: Weakness Objective Exam Vital Signs Vital Signs Date Time Temp Pulse Resp B/P (MAP) Pulse Ox O2 Delivery O2 Flow Rate FiO2 02/17/19 16:00 97.3 76 16 128/74 (92) 97 Room Air Capillary Refill : General Appearance: No Apparent Distress, WD/WN HEENT: PERRL/EOMI, Normal ENT Inspection, Pharynx Normal, Moist Mucous Membranes, Other Neck: Full Range of Motion, Normal Inspection, Non Tender, Supple Respiratory: Chest Non Tender, Lungs Clear, Normal Breath Sounds, No Accessory Muscle Use, No Respiratory Distress Cardiovascular: Regular Rate, Rhythm, No Edema, No Gallop, No JVD, No Murmur Gastrointestinal: Normal Bowel Sounds, No Organomegaly, No Pulsatile Mass, Non Tender, Soft Back: Normal Inspection, No CVA Tenderness, No Vertebral Tenderness Extremity: Normal Capillary Refill, Normal Inspection, Normal Range of Motion (except leg leg post op), Non Tender, No Calf Tenderness, No Pedal Edema Neurologic/Psychiatric: Alert, Oriented x3, No Motor/Sensory Deficits, Normal Mood/Affect Skin: Normal Color, Warm/Dry Lymphatic: No Adenopathy Results/Procedures Lab Patient resulted labs reviewed. FIM Transfers Therapy Code Descriptions/Definitions Functional [place] Measure: 0=Not Assessed/NA 4=Minimal Assistance 1=Total Assistance 5=Supervision or Setup 2=Maximal Assistance 6=Modified [place] 3=Moderate Assistance 7=Complete [place] Therapy Quality Codes: 6 Independent with activity with or without an assistive device 5 Patient requires set up or clean up by helper. Patient completes activity by themselves 4 Supervision or touching assist (CGA). [place] provide cues , steadying assist 3 The helper provides less than half the effort to complete the activity 2 The helper provides more than half the effort to complete the activity 1 Dependent. The helper does all the effort to complete an activity 7 Patient refused to complete or attempt activity 9 The patient did not perform the activity before the current illness or injury 88 Not attempted due to Medical conditions or safety concerns Transfers (B, C, W/C) (FIM): 5 (use of RW. ) Scootin Roll Left to Right (QC): 4 Supine to/from Sit: 3 Sit to/from Stand: 4 Sit to Lying (QC): 3 (assist to lift both legs into bed) Sit to Stand (QC): 4 Chair/Ffh-dp-Zlujw Xfer(QC): 4 (CGA with use of FWW) Bed to/from Chair: 4 Car Transfer (QC): 3 (mod assist to get her legs outof the car) Gait Training Does the Patient Walk?: Yes Gait (FIM): 4 Distance (FIM): 3=150 ft Distance: 175' Walk 10 feet (QC): 4 Walk 50 ft with 2 Turns(QC): 4 Walk 150 ft (QC): 4 Walking 10ft/uneven surface-QC: 4 Gait Level of Assist: 4 Gait Persons Needed: 1 Gait Assistive Device: FWW Wheelchair Training Does the Pt Use a Wheelchair?: No Stair Training Stairs (FIM): 1 #of Steps: 1 1 Step (curb) (QC): 4 Stairs: Pattern: Step to Level of Assist: 4 Balance Picking up an Object (QC): 88 Mental Status/Objective Comprehension: 7 Expression: 7 Social Interaction: 7 Problem Solvin Memory: 7 ADL-Treatment Feedin (dentures ) Eating (QC): 6 Groomin (standing at sink ) Oral Hygiene (QC): 4 Bathin (pt education on use of LHS to perform LB bathing. pt demo correctly. ) Bathing Location: L Arm, R Arm, L Upper Leg, R Upper Leg, Chest, Abdomen, Buttocks, Perineal Area Shower/Bathe Self (QC): 4 Upper Extremity Dressin (set up ) Upper Body Dressing (QC): 5 (pan puller shirt ) Lower Extremity Dressin (required assist with left shoes. pt demo ability to shona pants, underpants, francy socks with use of AE. ) Lower Body Dressing (QC): 1 On/Off Footwear (QC): 1 Toiletin Toileting Hygiene (QC): 4 Toilet/Commode Transfer: 5 (use of RW. ) Toilet Transfer (QC): 4 (use of RW ) Shower: 4 (shower chiar, GB, and use of RW ) Assessment/Plan Assessment and Plan Assess & Plan/Chief Complaint A/P: IRF protocols Pain control BM regimen Check labs prn DC Ultram Ibuprofen BM regimen (1) Status post left hip replacement Status: Acute (2) Arthritis Status: Chronic (3) Deafness Status: Chronic Qualifiers: Laterality: bilateral Qualified Codes: H91.93 - Unspecified hearing loss, bilateral (4) Low vision Status: Chronic Qualifiers: Right eye visual impairment category: right - unspecified impairment Left eye visual impairment category: left - unspecified impairment Qualified Codes: H54.7 - Unspecified visual loss JÚNIOR RANGEL DO Feb 17, 2019 10:11
[2019-02-17] MEDS: IBUPROFEN TABLET 200 MG TAB PO PRN ×2 (10:20→21:15)
--- NOTE | 2019-02-17 10:45 | Progress Note - Hospitalist ---
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 Increasing bowel regimen with suppositories and Miralax Doing really well in therapy. Noticed some decomp during longer walks NYA GIBSON DO 02/17/19 2144: Supervisory-Addendum Brief Verification & Attestation Participated in pt care: history, MDM, physical Personally performed: exam, history, MDM, supervision of care Care discussed with: Medical Student Procedures: n/a Results interpretation: Verified all documentation Verification and Attestation of Medical Student E/M Service A medical student performed and documented this service in my presence. I reviewed and verified all information documented by the medical student and made modifications to such information, when appropriate. I personally performed the physical exam and medical decision making. Nya Gibson, Feb 17, 2019,21:44 CARLOS MANUEL ESPAR[facility] [place] Feb 17, 2019 10:45 NYA GIBSON DO Feb 17, 2019 21:44
--- NOTE | 2019-02-17 11:55 | Physical Therapy Daily Note ---
PT Daily Note-Current Subjective Patient in recliner pre tx, agrees to PT, has no complaints of pain at rest. Appearance Patient in recliner post tx with nurse call,phone, tray, all needs met. Mental Status Patient Orientation: Person, Place, Situation Transfers Therapy Code Descriptions/Definitions Functional [place] Measure: 0=Not Assessed/NA 4=Minimal Assistance 1=Total Assistance 5=Supervision or Setup 2=Maximal Assistance 6=Modified [place] 3=Moderate Assistance 7=Complete [place] Therapy Quality Codes: 6 Independent with activity with or without an assistive device 5 Patient requires set up or clean up by helper. Patient completes activity by themselves 4 Supervision or touching assist (CGA). [place] provide cues , steadying assist 3 The helper provides less than half the effort to complete the activity 2 The helper provides more than half the effort to complete the activity 1 Dependent. The helper does all the effort to complete an activity 7 Patient refused to complete or attempt activity 9 The patient did not perform the activity before the current illness or injury 88 Not attempted due to Medical conditions or safety concerns Transfers (B, C, W/C) (FIM): 3 Scootin Rollin Supine to/from Sit: 3 Sit to/from Stand: 4 Bed to/from Chair: 4 Min assist for sit to supine but mod assist for supine to sit. Weight Bearing Right Lower Extremity: Right Full Weight Bearing Left Lower Extremity: Left Weight Bearing/Tolerated Gait Training Gait (FIM): 4 Distance: 150', 100', 50' Gait Level of Assist: 4 Gait Assistive Device: FWW slow, antalgic, less vaulting with right side, has trouble with step through on left side. Exercises Supine Ex: Ankle pumps, Quad Set, Glut sets, Heel Slides (LLE), Short Arc Quads (LLE), Hip abd/add (LLE) Supine Reps: 15 Standing: Hip Abduction, Hamstring curls, Heel/toe raises, Marching (only RLE) Standing Reps: 15 LAQ left side for 5 min Treatments LE exercise, ambulation, bed mobility and transfers Assessment Current Status: Fair Progress improving ambulation and endurance, has a lot of difficulty with supine to sit PT Short Term Goals Short Term Goals Time Frame: Feb 22, 2019 Transfers (B,C,W/C) (FIM): 5 Gait (FIM): 4 Distance (FIM): 3=150 ft Gait Assistive Device: FWW PT Nursing Home Goals Cook Pie Goals PT Cook Pie Goals Time Frame: Mar 01, 2019 Transfers (B,C,W/C) (FIM): 7 Sit to Lying (QC): 6 Lying-Sitting on Side/Bed(QC): 6 Sit to Stand (QC): 6 Roll Left to Right (QC): 6 Chair/Jcv-je-Uggmi Xfer(QC): 6 Car Transfer (QC): 5 Does the Patient Walk: Yes Gait (FIM): 6 Gait distance (FIM): 3=150 ft Walk 10 feet (QC): 6 Walk 10ft-Uneven Surface(QC): 6 Walk 50ft with 2 Turns (QC): 6 Walk 150 ft (QC): 6 Gait Assistive Device: FWW Stairs (FIM): 5 # of Steps: 4 1 Step (curb) (QC): 6 4 Steps (QC): 6 12 Steps (QC): 88 Picking up an Object (QC): 88 PT Plan Problem List Problem List: Activity Tolerance, Functional Strength, Safety, Balance, Gait, Transfer, Bed Mobility, ROM Treatment/Plan Treatment Plan: Continue Plan of Care Treatment Plan: Bed Mobility, Education, Functional Activity [place], Functional Strength, Group Therapy, Gait, Safety, Therapeutic Exercise, Transfers Treatment Duration: Mar 01, 2019 Frequency: Modified Program (IRF) Estimated Hrs Per Day: 1.5 hours per day Patient and/or Family Agrees t: Yes Safety Risks/Education Patient Education: Gait Training, Transfer Techniques, Correct Positioning, Safety Issues Teaching Recipient: Patient Teaching Methods: Demonstration, Discussion Response to Teaching: Reinforcement Needed Time/GCodes Time In: 1100 Time Out: 1200 Total Billed Treatment Time: 60 Total Billed Treatment 1 visit GT 30' EX 30' STEPHANIE SOTO PT Feb 17, 2019 11:55
--- NOTE | 2019-02-17 14:08 | Physical Therapy Daily Note ---
PT Daily Note-Current Subjective Patient in recliner pre tx, agrees to PT, has no complaints of pain at rest. Appearance Patient in recliner post tx with nurse call, phone, tray, all needs met. Mental Status Patient Orientation: Normal For Age Transfers Therapy Code Descriptions/Definitions Functional [place] Measure: 0=Not Assessed/NA 4=Minimal Assistance 1=Total Assistance 5=Supervision or Setup 2=Maximal Assistance 6=Modified [place] 3=Moderate Assistance 7=Complete [place] Therapy Quality Codes: 6 Independent with activity with or without an assistive device 5 Patient requires set up or clean up by helper. Patient completes activity by themselves 4 Supervision or touching assist (CGA). [place] provide cues , steadying assist 3 The helper provides less than half the effort to complete the activity 2 The helper provides more than half the effort to complete the activity 1 Dependent. The helper does all the effort to complete an activity 7 Patient refused to complete or attempt activity 9 The patient did not perform the activity before the current illness or injury 88 Not attempted due to Medical conditions or safety concerns Transfers (B, C, W/C) (FIM): 5 Sit to/from Stand: 5 Bed to/from Chair: 5 sit to stand take effort but she can do it without assist Weight Bearing Right Lower Extremity: Right Full Weight Bearing Left Lower Extremity: Left Weight Bearing/Tolerated Gait Training Gait (FIM): 5 Distance: 150'x2 Gait Level of Assist: 5 Gait Persons Needed: 1 Gait Assistive Device: FWW slow, antalgic, has trouble advancing her left leg, will vault on the right side to assist this but even this has already improved Exercises NuStep Minutes: 15 NuStep Workload: 1 (ROM) Treatments LE exercise, ambulation Assessment Current Status: Fair Progress improving ambulation and endurance PT Short Term Goals Short Term Goals Time Frame: Feb 22, 2019 Transfers (B,C,W/C) (FIM): 5 Gait (FIM): 4 Distance (FIM): 3=150 ft Gait Assistive Device: FWW PT Cleaner Operator Goals Snf Goals PT Cleaner Operator Goals Time Frame: Mar 01, 2019 Transfers (B,C,W/C) (FIM): 7 Sit to Lying (QC): 6 Lying-Sitting on Side/Bed(QC): 6 Sit to Stand (QC): 6 Rollin Roll Left to Right (QC): 6 Chair/Xqu-ss-Wrypf Xfer(QC): 6 Car Transfer (QC): 5 Does the Patient Walk: Yes Gait (FIM): 6 Gait distance (FIM): 3=150 ft Walk 10 feet (QC): 6 Walk 10ft-Uneven Surface(QC): 6 Walk 50ft with 2 Turns (QC): 6 Walk 150 ft (QC): 6 Gait Assistive Device: FWW Stairs (FIM): 5 # of Steps: 4 1 Step (curb) (QC): 6 4 Steps (QC): 6 12 Steps (QC): 88 Picking up an Object (QC): 88 PT Plan Problem List Problem List: Activity Tolerance, Functional Strength, Safety, Balance, Gait, Transfer, Bed Mobility, ROM Treatment/Plan Treatment Plan: Continue Plan of Care Treatment Plan: Bed Mobility, Education, Functional Activity [place], Functional Strength, Group Therapy, Gait, Safety, Therapeutic Exercise, Transfers Treatment Duration: Mar 01, 2019 Frequency: Modified Program (IRF) Estimated Hrs Per Day: 1.5 hours per day Patient and/or Family Agrees t: Yes Safety Risks/Education Patient Education: Gait Training, Transfer Techniques, Correct Positioning, Safety Issues Teaching Recipient: Patient Teaching Methods: Demonstration, Discussion Response to Teaching: Reinforcement Needed Time/GCodes Time In: 1330 Time Out: 1400 Total Billed Treatment Time: 30 Total Billed Treatment 1 visit EX 15' GT 15' STEPHANIE SOTO PT Feb 17, 2019 14:08
[2019-02-17 16:00] VITALS: BP 128/74
[2019-02-18 06:00] VITALS: BP 119/65
[2019-02-18] MEDS: IBUPROFEN TABLET 200 MG TAB PO PRN ×2 (08:21→20:52)
[2019-02-18] MEDS: SENNA W/DOCUSATE (SENOKOT S) TABLET PO SCH ×2 (08:21→19:39)
[2019-02-18] MEDS: ASPIRIN 81 MG CHEW (CHILDREN'S ASA) PO SCH (08:21)
[2019-02-18] MEDS: POLYETHYLENE GLYCOL 17 GM (MIRALAX) PACK PO SCH ×2 (08:21→19:38)
[2019-02-18] MEDS: BISACODYL 10 MG SUPP (DULCOLAX) PR SCH (08:22)
--- NOTE | 2019-02-18 11:54 | Physical Therapy Daily Note ---
PT Daily Note-Current Subjective Agrees to PT. Denies pain, but reports she feels "sore" Transfers Therapy Code Descriptions/Definitions Functional [place] Measure: 0=Not Assessed/NA 4=Minimal Assistance 1=Total Assistance 5=Supervision or Setup 2=Maximal Assistance 6=Modified [place] 3=Moderate Assistance 7=Complete [place] Therapy Quality Codes: 6 Independent with activity with or without an assistive device 5 Patient requires set up or clean up by helper. Patient completes activity by themselves 4 Supervision or touching assist (CGA). [place] provide cues , steadying assist 3 The helper provides less than half the effort to complete the activity 2 The helper provides more than half the effort to complete the activity 1 Dependent. The helper does all the effort to complete an activity 7 Patient refused to complete or attempt activity 9 The patient did not perform the activity before the current illness or injury 88 Not attempted due to Medical conditions or safety concerns Weight Bearing Right Lower Extremity: Right Full Weight Bearing Left Lower Extremity: Left Weight Bearing/Tolerated Treatments Sit to stand with CGA and skilled cues for sequencing and hand placement. Pt ambulated 150 ft x 4 with FWW with CGA and skilled cues for foot placment and gait pattern. Sit to stand 2x 5 to promote hip and knee ext strength. Seated B LE ther ex x 15 for AP, LAQ, hip flexion and hip abduction and ham curls. Pt on toilet post treatment with needs met. Assessment Current Status: Good Progress Pt making good functional gains and reports she feels near ready to discharge home. Pt is SB-CGA with mobility for safety. PT Short Term Goals Short Term Goals Time Frame: Feb 22, 2019 Transfers (B,C,W/C) (FIM): 5 (met) Gait (FIM): 4 (met) Distance (FIM): 3=150 ft Gait Assistive Device: FWW PT Cnc Service Engineer Goals Fdc Goals PT Fdc Goals Time Frame: Mar 01, 2019 Transfers (B,C,W/C) (FIM): 7 Sit to Lying (QC): 6 Lying-Sitting on Side/Bed(QC): 6 Sit to Stand (QC): 6 Rollin Roll Left to Right (QC): 6 Chair/Kib-lx-Fjyff Xfer(QC): 6 Car Transfer (QC): 5 Does the Patient Walk: Yes Gait (FIM): 6 Gait distance (FIM): 3=150 ft Walk 10 feet (QC): 6 Walk 10ft-Uneven Surface(QC): 6 Walk 50ft with 2 Turns (QC): 6 Walk 150 ft (QC): 6 Gait Assistive Device: FWW Stairs (FIM): 5 # of Steps: 4 1 Step (curb) (QC): 6 4 Steps (QC): 6 12 Steps (QC): 88 Picking up an Object (QC): 88 PT Plan Problem List Problem List: Activity Tolerance, Functional Strength, Safety, Balance, Gait, Transfer, Bed Mobility Treatment/Plan Treatment Plan: Continue Plan of Care Treatment Plan: Bed Mobility, Education, Functional Activity [place], Functional Strength, Group Therapy, Gait, Safety, Therapeutic Exercise, Transfers Treatment Duration: Mar 01, 2019 Frequency: Modified Program (IRF) Estimated Hrs Per Day: 1.5 hours per day Patient and/or Family Agrees t: Yes Safety Risks/Education Patient Education: Transfer Techniques, Safety Issues Teaching Recipient: Patient Teaching Methods: Demonstration, Discussion Response to Teaching: Reinforcement Needed Discharge Recommendations Therapy D/C Recommendations: Physical Therapy Home Care Time/GCodes Time In: 740 Time Out: 825 Total Billed Treatment Time: 45 Total Billed Treatment visit GT 30 EX 15 KYLEE ATKINSON PT Feb 18, 2019 11:54
--- NOTE | 2019-02-18 12:28 | PM&R Progress Note ---
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 She does communicate with [employer]. She lives alone and her daughter, who is a charge nurse at [facility] in [place], [place], is involved in her care and transporting her to [facility] inpatient rehab to improve success in returning home considering her disability of extreme deafness. Her prior level of functioning is remaining independent at home, had significant left hip pain precluding her from ambulating a great deal and she is motivated to return back home to live independently. She has intention of right hip replacement within the next 3 months as long as she recovers from this surgery well. Subjective/Events-last exam Bowel evacuation achieved yesterday Does not want to take the Ultram it makes her feel weird and have muscle twitching so Ibuprofen will be taken instead Feels more confident every day Conferred with RN Reviewed therapy notes Check meds and labs Review of Systems General: Fatigue Musculoskeletal: leg pain Objective Exam Vital Signs Vital Signs Date Time Temp Pulse Resp B/P (MAP) Pulse Ox O2 Delivery O2 Flow Rate FiO2 02/18/19 17:19 99.1 74 18 135/65 (88) 99 Room Air Capillary Refill : General Appearance: No Apparent Distress, WD/WN HEENT: PERRL/EOMI, Normal ENT Inspection, Pharynx Normal, Moist Mucous Membranes, Other Neck: Full Range of Motion, Normal Inspection, Non Tender, Supple Respiratory: Chest Non Tender, Lungs Clear, Normal Breath Sounds, No Accessory Muscle Use, No Respiratory Distress Cardiovascular: Regular Rate, Rhythm, No Edema, No Gallop, No JVD, No Murmur Gastrointestinal: Normal Bowel Sounds, No Organomegaly, No Pulsatile Mass, Non Tender, Soft Back: Normal Inspection, No CVA Tenderness, No Vertebral Tenderness Extremity: Normal Capillary Refill, Normal Inspection, Normal Range of Motion (except leg leg post op), Non Tender, No Calf Tenderness, No Pedal Edema Neurologic/Psychiatric: Alert, Oriented x3, No Motor/Sensory Deficits, Normal Mood/Affect Skin: Normal Color, Warm/Dry Lymphatic: No Adenopathy Results/Procedures Lab Patient resulted labs reviewed. FIM Transfers Therapy Code Descriptions/Definitions Functional [place] Measure: 0=Not Assessed/NA 4=Minimal Assistance 1=Total Assistance 5=Supervision or Setup 2=Maximal Assistance 6=Modified [place] 3=Moderate Assistance 7=Complete [place] Therapy Quality Codes: 6 Independent with activity with or without an assistive device 5 Patient requires set up or clean up by helper. Patient completes activity by themselves 4 Supervision or touching assist (CGA). [place] provide cues , steadying assist 3 The helper provides less than half the effort to complete the activity 2 The helper provides more than half the effort to complete the activity 1 Dependent. The helper does all the effort to complete an activity 7 Patient refused to complete or attempt activity 9 The patient did not perform the activity before the current illness or injury 88 Not attempted due to Medical conditions or safety concerns Transfers (B, C, W/C) (FIM): 5 Scootin Rollin Roll Left to Right (QC): 4 Supine to/from Sit: 3 Sit to/from Stand: 5 Sit to Lying (QC): 3 (assist to lift both legs into bed) Sit to Stand (QC): 4 Chair/Qbp-rm-Cqbue Xfer(QC): 4 (CGA with use of FWW) Bed to/from Chair: 5 Car Transfer (QC): 3 (mod assist to get her legs outof the car) Gait Training Does the Patient Walk?: Yes Gait (FIM): 5 Distance (FIM): 3=150 ft Distance: 150'x2 Walk 10 feet (QC): 4 Walk 50 ft with 2 Turns(QC): 4 Walk 150 ft (QC): 4 Walking 10ft/uneven surface-QC: 4 Gait Level of Assist: 5 Gait Persons Needed: 1 Gait Assistive Device: FWW Wheelchair Training Does the Pt Use a Wheelchair?: No Stair Training Stairs (FIM): 1 #of Steps: 1 1 Step (curb) (QC): 4 Stairs: Pattern: Step to Level of Assist: 4 Balance Picking up an Object (QC): 88 Mental Status/Objective Comprehension: 7 Expression: 7 Social Interaction: 7 Problem Solvin Memory: 7 ADL-Treatment Feedin (dentures ) Eating (QC): 6 Groomin (standing at sink ) Oral Hygiene (QC): 4 Bathin (pt education on use of LHS to perform LB bathing. pt demo correctly. ) Bathing Location: L Arm, R Arm, L Upper Leg, R Upper Leg, Chest, Abdomen, Buttocks, Perineal Area Shower/Bathe Self (QC): 4 Upper Extremity Dressin (set up ) Upper Body Dressing (QC): 5 (pipe puller shirt ) Lower Extremity Dressin (required assist with left shoes. pt demo ability to shona pants, underpants, francy socks with use of AE. ) Lower Body Dressing (QC): 1 On/Off Footwear (QC): 1 Toiletin Toileting Hygiene (QC): 4 Toilet/Commode Transfer: 5 (use of RW. ) Toilet Transfer (QC): 4 (use of RW ) Shower: 4 (shower chiar, GB, and use of RW ) Assessment/Plan Assessment and Plan Assess & Plan/Chief Complaint A/P: IRF protocols Pain control BM regimen Check labs prn DC Ultram Ibuprofen BM regimen to continue to prevent constipation (1) Status post left hip replacement Status: Acute (2) Arthritis Status: Chronic (3) Deafness Status: Chronic Qualifiers: Laterality: bilateral Qualified Codes: H91.93 - Unspecified hearing loss, bilateral (4) Low vision Status: Chronic Qualifiers: Right eye visual impairment category: right - unspecified impairment Left eye visual impairment category: left - unspecified impairment Qualified Codes: H54.7 - Unspecified visual loss JÚNIOR RANGEL DO Feb 18, 2019 12:27
[2019-02-18 17:19] VITALS: BP 135/65
[2019-02-19 06:04] VITALS: BP 126/74
[2019-02-19] MEDS: ASPIRIN 81 MG CHEW (CHILDREN'S ASA) PO SCH (08:03)
[2019-02-19] MEDS: SENNA W/DOCUSATE (SENOKOT S) TABLET PO SCH ×2 (08:03→21:33)
[2019-02-19] MEDS: POLYETHYLENE GLYCOL 17 GM (MIRALAX) PACK PO SCH ×2 (08:03→19:36)
[2019-02-19] MEDS: BISACODYL 10 MG SUPP (DULCOLAX) PR SCH (08:04)
--- NOTE | 2019-02-19 12:03 | PM&R Progress Note ---
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 She does communicate with [employer]. She lives alone and her daughter, who is a charge nurse at [facility] in [place], [place], is involved in her care and transporting her to [facility] inpatient rehab to improve success in returning home considering her disability of extreme deafness. Her prior level of functioning is remaining independent at home, had significant left hip pain precluding her from ambulating a great deal and she is motivated to return back home to live independently. She has intention of right hip replacement within the next 3 months as long as she recovers from this surgery well. Subjective/Events-last exam Bowel evacuation achieved Wednesday but she wants Colace every day to prevent repeat Ibuprofen handling the pain Had some congestion in the morning but she has this at home and declines any meds Feels more confident every day Conferred with RN Reviewed therapy notes Check meds and labs Review of Systems General: Fatigue Musculoskeletal: leg pain Objective Exam Vital Signs Vital Signs Date Time Temp Pulse Resp B/P (MAP) Pulse Ox O2 Delivery O2 Flow Rate FiO2 02/19/19 09:59 Room Air 02/19/19 06:04 97.6 76 16 126/74 (91) 96 Capillary Refill : General Appearance: No Apparent Distress, WD/WN HEENT: PERRL/EOMI, Normal ENT Inspection, Pharynx Normal, Moist Mucous Membranes, Other Neck: Full Range of Motion, Normal Inspection, Non Tender, Supple Respiratory: Chest Non Tender, Lungs Clear, Normal Breath Sounds, No Accessory Muscle Use, No Respiratory Distress Cardiovascular: Regular Rate, Rhythm, No Edema, No Gallop, No JVD, No Murmur Gastrointestinal: Normal Bowel Sounds, No Organomegaly, No Pulsatile Mass, Non Tender, Soft Back: Normal Inspection, No CVA Tenderness, No Vertebral Tenderness Extremity: Normal Capillary Refill, Normal Inspection, Normal Range of Motion (except leg leg post op), Non Tender, No Calf Tenderness, No Pedal Edema Neurologic/Psychiatric: Alert, Oriented x3, No Motor/Sensory Deficits, Normal Mood/Affect Skin: Normal Color, Warm/Dry Lymphatic: No Adenopathy Results/Procedures Lab Patient resulted labs reviewed. FIM Transfers Therapy Code Descriptions/Definitions Functional [place] Measure: 0=Not Assessed/NA 4=Minimal Assistance 1=Total Assistance 5=Supervision or Setup 2=Maximal Assistance 6=Modified [place] 3=Moderate Assistance 7=Complete [place] Therapy Quality Codes: 6 Independent with activity with or without an assistive device 5 Patient requires set up or clean up by helper. Patient completes activity by themselves 4 Supervision or touching assist (CGA). [place] provide cues , steadying assist 3 The helper provides less than half the effort to complete the activity 2 The helper provides more than half the effort to complete the activity 1 Dependent. The helper does all the effort to complete an activity 7 Patient refused to complete or attempt activity 9 The patient did not perform the activity before the current illness or injury 88 Not attempted due to Medical conditions or safety concerns Transfers (B, C, W/C) (FIM): 5 Scootin Rollin Roll Left to Right (QC): 4 Supine to/from Sit: 3 Sit to/from Stand: 5 Sit to Lying (QC): 3 (assist to lift both legs into bed) Sit to Stand (QC): 4 Chair/Lyu-rw-Zcmcf Xfer(QC): 4 (CGA with use of FWW) Bed to/from Chair: 5 Car Transfer (QC): 3 (mod assist to get her legs outof the car) Gait Training Does the Patient Walk?: Yes Gait (FIM): 5 Distance (FIM): 3=150 ft Distance: 150'x2 Walk 10 feet (QC): 4 Walk 50 ft with 2 Turns(QC): 4 Walk 150 ft (QC): 4 Walking 10ft/uneven surface-QC: 4 Gait Level of Assist: 5 Gait Persons Needed: 1 Gait Assistive Device: FWW Wheelchair Training Does the Pt Use a Wheelchair?: No Stair Training Stairs (FIM): 1 #of Steps: 1 1 Step (curb) (QC): 4 Stairs: Pattern: Step to Level of Assist: 4 Balance Picking up an Object (QC): 88 Mental Status/Objective Comprehension: 7 Expression: 7 Social Interaction: 7 Problem Solvin Memory: 7 ADL-Treatment Feedin (dentures ) Eating (QC): 6 Groomin (standing at sink ) Oral Hygiene (QC): 4 Bathin (pt education on use of LHS to perform LB bathing. pt demo correctly. ) Bathing Location: L Arm, R Arm, L Upper Leg, R Upper Leg, Chest, Abdomen, Buttocks, Perineal Area Shower/Bathe Self (QC): 4 Upper Extremity Dressin (set up ) Upper Body Dressing (QC): 5 (tube puller shirt ) Lower Extremity Dressin (required assist with left shoes. pt demo ability to shona pants, underpants, francy socks with use of AE. ) Lower Body Dressing (QC): 1 On/Off Footwear (QC): 1 Toiletin Toileting Hygiene (QC): 4 Toilet/Commode Transfer: 5 (use of RW. ) Toilet Transfer (QC): 4 (use of RW ) Shower: 4 (shower chiar, GB, and use of RW ) Assessment/Plan Assessment and Plan Assess & Plan/Chief Complaint A/P: IRF protocols Pain control BM regimen Check labs prn DC Ultram Ibuprofen BM regimen to continue to prevent constipation (1) Status post left hip replacement Status: Acute (2) Arthritis Status: Chronic (3) Deafness Status: Chronic Qualifiers: Laterality: bilateral Qualified Codes: H91.93 - Unspecified hearing loss, bilateral (4) Low vision Status: Chronic Qualifiers: Right eye visual impairment category: right - unspecified impairment Left eye visual impairment category: left - unspecified impairment Qualified Codes: H54.7 - Unspecified visual loss JÚNIOR RANGEL DO Feb 19, 2019 12:03
[2019-02-19 17:28] VITALS: BP 137/78
[2019-02-19] MEDS: MELATONIN 3 MG TABLET PO PRN (21:31)
[2019-02-19] MEDS: IBUPROFEN TABLET 200 MG TAB PO PRN (21:31)
[2019-02-20 05:26] LABS: BASOPHILS % (AUTO) 1 % (0-10); EOSINOPHILS # (AUTO) 0.4 10^3/uL (0.0-0.3); EOSINOPHILS % (AUTO) 4 % (0-10); HEMATOCRIT 37 % (35-52); HEMOGLOBIN 12.1 G/DL (11.5-16.0); LYMPHOCYTES # (AUTO) 2.7 X 10^3 (1.0-4.0); LYMPHOCYTES % (AUTO) 31 % (12-44); MEAN CORPUSCULAR HEMOGLOBIN 30 PG (25-34); MEAN CORPUSCULAR HGB CONC 33 G/DL (32-36); MEAN CORPUSCULAR VOLUME 91 FL (80-99); MEAN PLATELET VOLUME 9.1 FL (7.4-10.4); MONOCYTES # (AUTO) 0.6 X 10^3 (0.0-1.0); MONOCYTES % (AUTO) 7 % (0-12); NEUTROPHILS # (AUTO) 4.9 X 10^3 (1.8-7.8); NEUTROPHILS % (AUTO) 57 % (42-75); PLATELET COUNT 331 10^3/uL (130-400); RED CELL DISTRIBUTION WIDTH 15.7 % (10.0-14.5); WHITE BLOOD COUNT 8.6 10^3/uL (4.3-11.0)
[2019-02-20 05:37] VITALS: BP 118/71
[2019-02-20 05:48] LABS: ALANINE AMINOTRANSFERASE 21 U/L (0-55); ALBUMIN 3.6 GM/DL (3.2-4.5); ALKALINE PHOSPHATASE 48 U/L (40-136); BILIRUBIN,TOTAL 0.6 MG/DL (0.1-1.0); BUN/CREATININE RATIO 24; CALCIUM 9.4 MG/DL (8.5-10.1); CARBON DIOXIDE 25 MMOL/L (21-32); CHLORIDE 105 MMOL/L (98-107); CREATININE SERUM 0.66 MG/DL (0.60-1.30); GFR ESTIMATED > 60; GLUCOSE 120 MG/DL (70-105); POTASSIUM 4.5 MMOL/L (3.6-5.0); SODIUM 140 MMOL/L (135-145); TOTAL PROTEIN 6.2 GM/DL (6.4-8.2)
--- NOTE | 2019-02-20 08:09 | PM&R Progress Note ---
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 She does communicate with [employer]. She lives simi e and her daughter, who is a charge nurse at [facility] in [place], [place], is involved in her care and transporting her to [facility] inpatient rehab to improve success in returning home considering her disability of extreme deafness. Her prior level of functioning is remaining independent at home, had significant left hip pain precluding her from ambulating a great deal and she is motivated to return back home to live independently. She has intention of right hip replacement within the next 3 months as long as she recovers from this surgery well. Subjective/Events-last exam Ultram is being given during the day per her daughters directions She is left stiff today Labs remain stable, no concerns Bowels are moving Overall participating in therapy and will likely go home sometime this week Conferred with RN Reviewed therapy notes Check meds and labs Review of Systems Musculoskeletal: leg pain Objective Exam Vital Signs Vital Signs Date Time Temp Pulse Resp B/P (MAP) Pulse Ox O2 Delivery O2 Flow Rate FiO2 02/20/19 18:12 98.4 83 20 136/79 (98) 96 Room Air Capillary Refill : General Appearance: No Apparent Distress, WD/WN HEENT: PERRL/EOMI, Normal ENT Inspection, Pharynx Normal, Moist Mucous Membranes, Other Neck: Full Range of Motion, Normal Inspection, Non Tender, Supple Respiratory: Chest Non Tender, Lungs Clear, Normal Breath Sounds, No Accessory Muscle Use, No Respiratory Distress Cardiovascular: Regular Rate, Rhythm, No Edema, No Gallop, No JVD, No Murmur Gastrointestinal: Normal Bowel Sounds, No Organomegaly, No Pulsatile Mass, Non Tender, Soft Back: Normal Inspection, No CVA Tenderness, No Vertebral Tenderness Extremity: Normal Capillary Refill, Normal Inspection, Normal Range of Motion (except leg leg post op), Non Tender, No Calf Tenderness, No Pedal Edema Neurologic/Psychiatric: Alert, Oriented x3, No Motor/Sensory Deficits, Normal Mood/Affect Skin: Normal Color, Warm/Dry Lymphatic: No Adenopathy Results/Procedures Lab Laboratory Tests 02/20/19 05:10 Patient resulted labs reviewed. FIM Transfers Therapy Code Descriptions/Definitions Functional [place] Measure: 0=Not Assessed/NA 4=Minimal Assistance 1=Total Assistance 5=Supervision or Setup 2=Maximal Assistance 6=Modified [place] 3=Moderate Assistance 7=Complete [place] Therapy Quality Codes: 6 Independent with activity with or without an assistive device 5 Patient requires set up or clean up by helper. Patient completes activity by themselves 4 Supervision or touching assist (CGA). [place] provide cues , steadying assist 3 The helper provides less than half the effort to complete the activity 2 The helper provides more than half the effort to complete the activity 1 Dependent. The helper does all the effort to complete an activity 7 Patient refused to complete or attempt activity 9 The patient did not perform the activity before the current illness or injury 88 Not attempted due to Medical conditions or safety concerns Transfers (B, C, W/C) (FIM): 5 Scootin Rollin Roll Left to Right (QC): 4 Supine to/from Sit: 3 Sit to/from Stand: 5 Sit to Lying (QC): 3 (assist to lift both legs into bed) Sit to Stand (QC): 4 Chair/Lqp-zl-Qpkwn Xfer(QC): 4 (CGA with use of FWW) Bed to/from Chair: 5 Car Transfer (QC): 3 (mod assist to get her legs outof the car) Gait Training Does the Patient Walk?: Yes Gait (FIM): 5 Distance (FIM): 3=150 ft Distance: 150'x2 Walk 10 feet (QC): 4 Walk 50 ft with 2 Turns(QC): 4 Walk 150 ft (QC): 4 Walking 10ft/uneven surface-QC: 4 Gait Level of Assist: 5 Gait Persons Needed: 1 Gait Assistive Device: FWW Wheelchair Training Does the Pt Use a Wheelchair?: No Stair Training Stairs (FIM): 1 #of Steps: 1 1 Step (curb) (QC): 4 Stairs: Pattern: Step to Level of Assist: 4 Balance Picking up an Object (QC): 88 Mental Status/Objective Comprehension: 7 Expression: 7 Social Interaction: 7 Problem Solvin Memory: 7 ADL-Treatment Feedin (dentures ) Eating (QC): 6 Groomin (standing at sink ) Oral Hygiene (QC): 4 Bathin (pt education on use of LHS to perform LB bathing. pt demo correctly. ) Bathing Location: L Arm, R Arm, L Upper Leg, R Upper Leg, Chest, Abdomen, Buttocks, Perineal Area Shower/Bathe Self (QC): 4 Upper Extremity Dressin (set up ) Upper Body Dressing (QC): 5 (ear pull machine operator shirt ) Lower Extremity Dressin (required assist with left shoes. pt demo ability to shona pants, underpants, francy socks with use of AE. ) Lower Body Dressing (QC): 1 On/Off Footwear (QC): 1 Toiletin Toileting Hygiene (QC): 4 Toilet/Commode Transfer: 5 (use of RW. ) Toilet Transfer (QC): 4 (use of RW ) Shower: 4 (shower chiar, GB, and use of RW ) Assessment/Plan Assessment and Plan Assess & Plan/Chief Complaint A/P: IRF protocols Pain control BM regimen Check labs prn DC Ultram Ibuprofen BM regimen to continue to prevent constipation (1) Status post left hip replacement Status: Acute (2) Arthritis Status: Chronic (3) Deafness Status: Chronic Qualifiers: Laterality: bilateral Qualified Codes: H91.93 - Unspecified hearing loss, bilateral (4) Low vision Status: Chronic Qualifiers: Right eye visual impairment category: right - unspecified impairment Left eye visual impairment category: left - unspecified impairment Qualified Codes: H54.7 - Unspecified visual loss JÚNIOR RANGEL DO Feb 20, 2019 08:09
--- NOTE | 2019-02-20 08:16 | Occupational Ther Daily Note ---
OT Current Status-Daily Note Subjective pt sitting in recliner chair upon OT arrival eating breakfast. pt agreed to OT TX session with focus on increasing indep with ADLS and functional transfers. Pain Numeric Pain Scale: 0-No Pain Mental Status/Objective Patient Orientation: Normal For Age Therapy Code Descriptions/Definitions Functional [place] Measure: 0=Not Assessed/NA 4=Minimal Assistance 1=Total Assistance 5=Supervision or Setup 2=Maximal Assistance 6=Modified [place] 3=Moderate Assistance 7=Complete [place] ADL-Treatment Therapy Code Descriptions/Definitions Functional [place] Measure: 0=Not Assessed/NA 4=Minimal Assistance 1=Total Assistance 5=Supervision or Setup 2=Maximal Assistance 6=Modified [place] 3=Moderate Assistance 7=Complete [place] Therapy Quality Codes: 6 Independent with activity with or without an assistive device 5 Patient requires set up or clean up by helper. Patient completes activity by themselves 4 Supervision or touching assist (CGA). [place] provide cues , steadying assist 3 The helper provides less than half the effort to complete the activity 2 The helper provides more than half the effort to complete the activity 1 Dependent. The helper does all the effort to complete an activity 7 Patient refused to complete or attempt activity 9 The patient did not perform the activity before the current illness or injury 88 Not attempted due to Medical conditions or safety concerns Eating (FIM): 6 (dentures ) Eating (QC): 6 Grooming (FIM): 6 (brush hair, brush teeth, wash face, style hair, apply lotion. standing at sink ) Oral Hygiene (QC): 6 Bathing (FIM): 6 (use of LHS, shower chair, GB ) Bathing Location: L Arm, R Arm, L Upper Leg, R Upper Leg, L Lower Leg (including foot), R Lower Leg (including foot), Chest, Abdomen, Buttocks, Manisha derrell Area Shower/Bathe Self (QC): 6 Upper Body (FIM): 7 (bra, bone puller shirt.) Upper Body Dressing (QC): 6 Lower Body Dressing (FIM): 4 (underpants, pants, francy socks, and francy shoes. pt still required assist with donning left shoe ) Lower Body Dressing (QC): 3 On/Off Footwear (QC): 3 Toileting (FIM): 6 (3/3 use of GB ) Toileting Hygiene (QC): 6 Transfers (B, C, W/C) (FIM): 6 (use of RW ) Toilet/Commode Transfer (FIM): 6 (use of RW ) Toilet Transfer (QC): 6 Shower Transfer(FIM): 6 (use of RW, GB, shower chair) pt demo ability to gather clothing from closet with use of RW and SPV for cuing of placement of RW. pt set up bathroom and perform all ADLs in bathroom with use of AE. no safety concerns noted. pt demo ability to gather clothing from bathroom and put away. pt gathered all dirty clothing and place in dirty bin. post OT session, pt sitting in recliner chair , call light, tray, phone within reach, all needs met. Education OT Patient Education: Correct positioning, Progress toward Goal/Update tx plan, Purpose of tx/functional activities, Safety issues, Transfer techniques Teaching Recipient: Patient Teaching Methods: Demonstration, Discussion Response to Teaching: Verbalize Understanding, Return Demonstration OT Short Term Goals Short Term Goals Bathing(FIM): 5 Lower Body Dressing(FIM): 4 Transfers (B,C,W/C) (FIM): 5 (met) 1=Demonstrate adherence to instructed precautions during ADL tasks. 2=Patient will verbalize/demonstrate understanding of assistive devices/modifications for ADL. 3=Patient will improve strength/tolerance for activity to enable patient to perform ADL's. OT Base Filler Goals Base Filler Goals Time Frame: Mar 15, 2019 Eating (FIM): 6 Eating (QC): 6 Groomin Oral Hygiene (QC): 6 Bathing(FIM): 6 Bathing Location: L Arm, R Arm, L Upper Leg, R Upper Leg, L Lower Leg (including foot), R Lower Leg (including foot), Chest, Abdomen, Buttocks, Perineal Area Shower/Bathe Self (QC): 6 Upper Body Dressing(FIM): 6 Upper Body Dressing (QC): 6 Lower Body Dressing(FIM): 6 Lower Body Dressing (QC): 6 On/Off Footwear (QC): 6 Toileting(FIM): 6 Toileting Hygiene (QC): 6 Transfers (B,C,W/C) (FIM): 6 Toilet/Commode Transfer(FIM): 6 Toilet/Commode Transfer (QC): 6 Shower Transfer(FIM): 6 Additional Goals: 1-Demonstrate ADL Tasks, 2-Verbalize Understanding, 3- ImproveStrength/[place] 1=Demonstrate adherence to instructed precautions during ADL tasks. 2=Patient will verbalize/demonstrate understanding of assistive devices/modifications for ADL. 3=Patient will improve strength/tolerance for activity to enable patient to perform ADL's. OT Education/Plan Problem List/Assessment Assessment: Decreased Activ Tolerance pt continues to make good progress towards goals. pt still requied assist with donning left shoes. more education will be required. Discharge Recommendations Plan/Recommendations: Continue POC Treatment Plan/Plan of Care Treatment,Training & Education: Yes Patient would benefit from OT for education, treatment and training to promote independence in ADL's, mobility, safety and/or upper extremity function for AD L's. Plan of Care: ADL Retraining, Functional Mobility, Group Exercise/Act as Ind, UE Funct Exercise/Act Treatment Duration: Mar 15, 2019 Frequency: At least 5 of 7 days/Wk (IRF) Estimated Hrs Per Day: 1 hour per day (60-90 minutes per day ) Agreement: Yes Rehab Potential: Good Time/GCodes Start Time: 08:00 Stop Time: 09:30 Billed Treatment Time ADL 90 minutes, 6 units SHANNAN VARGAS OT Feb 20, 2019 08:16
[2019-02-20] MEDS: ASPIRIN 81 MG CHEW (CHILDREN'S ASA) PO SCH (08:39)
[2019-02-20] MEDS: DOCUSATE SODIUM 100 MG (COLACE) CAP PO PRN (08:39)
[2019-02-20] MEDS: SENNA W/DOCUSATE (SENOKOT S) TABLET PO SCH ×2 (08:39→19:59)
[2019-02-20] MEDS: POLYETHYLENE GLYCOL 17 GM (MIRALAX) PACK PO SCH ×2 (08:40→19:44)
[2019-02-20] MEDS: BISACODYL 10 MG SUPP (DULCOLAX) PR SCH (08:40)
--- NOTE | 2019-02-20 11:05 | Physical Therapy Daily Note ---
PT Daily Note-Current Subjective Pt. explains that she has had several orthopedic surgeries and has struggled to rehab. Agrees to Rx Pain Numeric Pain Scale: 4 Location: Left Location Body Site: Hip Pain Description: Ache Mental Status Patient Orientation: Normal For Age Transfers Therapy Code Descriptions/Definitions Functional [place] Measure: 0=Not Assessed/NA 4=Minimal Assistance 1=Total Assistance 5=Supervision or Setup 2=Maximal Assistance 6=Modified [place] 3=Moderate Assistance 7=Complete [place] Therapy Quality Codes: 6 Independent with activity with or without an assistive device 5 Patient requires set up or clean up by helper. Patient completes activity by themselves 4 Supervision or touching assist (CGA). [place] provide cues , steadying assist 3 The helper provides less than half the effort to complete the activity 2 The helper provides more than half the effort to complete the activity 1 Dependent. The helper does all the effort to complete an activity 7 Patient refused to complete or attempt activity 9 The patient did not perform the activity before the current illness or injury 88 Not attempted due to Medical conditions or safety concerns Transfers (B, C, W/C) (FIM): 3 Scootin Rollin Supine to/from Sit: 3 Sit to/from Stand: 5 Weight Bearing Right Lower Extremity: Right Full Weight Bearing Left Lower Extremity: Left Weight Bearing/Tolerated Gait Training Does the Patient Walk?: Yes Gait (FIM): 2 Distance (FIM): 7=022-18 ft (125x2) Gait Level of Assist: 5 Gait Persons Needed: 1 Gait Assistive Device: FWW occas cues for sequence Exercises Supine Ex: Ankle pumps, Quad Set, Glut sets, Heel Slides, Short Arc Quads, Scooting, Hip abd/add Supine Reps: 10 (x2) Seated Therapy Exercises: Ankle pumps, Sit to stand, Long arc quads Seated Reps: 15 NuStep Minutes: 11 NuStep Workload: 5 Assessment Current Status: Good Progress needs time and instruction/education PT Short Term Goals Short Term Goals Time Frame: Feb 22, 2019 Transfers (B,C,W/C) (FIM): 5 (met) Gait (FIM): 4 (met) Distance (FIM): 3=150 ft Gait Assistive Device: FWW PT Penitentiary Goals Penitentiary Goals PT Plate Painter Goals Time Frame: Mar 01, 2019 Transfers (B,C,W/C) (FIM): 7 Sit to Lying (QC): 6 Lying-Sitting on Side/Bed(QC): 6 Sit to Stand (QC): 6 Rollin Roll Left to Right (QC): 6 Chair/Ygq-wt-Rofmx Xfer(QC): 6 Car Transfer (QC): 5 Does the Patient Walk: Yes Gait (FIM): 6 Gait distance (FIM): 3=150 ft Walk 10 feet (QC): 6 Walk 10ft-Uneven Surface(QC): 6 Walk 50ft with 2 Turns (QC): 6 Walk 150 ft (QC): 6 Gait Assistive Device: FWW Stairs (FIM): 5 # of Steps: 4 1 Step (curb) (QC): 6 4 Steps (QC): 6 12 Steps (QC): 88 Picking up an Object (QC): 88 PT Plan Treatment/Plan Treatment Plan: Continue Plan of Care Treatment Plan: Bed Mobility, Education, Functional Activity [place], Functional Strength, Group Therapy, Gait, Safety, Therapeutic Exercise, Transfers Treatment Duration: Mar 01, 2019 Frequency: Modified Program (IRF) Estimated Hrs Per Day: 1.5 hours per day Patient and/or Family Agrees t: Yes Safety Risks/Education Patient Education: Gait Training, Transfer Techniques, Correct Positioning, Disease Process, Safety Issues Teaching Recipient: Patient Teaching Methods: Demonstration, Discussion Response to Teaching: Verbalize Understanding, Return Demonstration, Reinforcement Needed Time/GCodes Time In: 1000 Time Out: 1100 Total Billed Treatment Time: 60 Total Billed Treatment 1,GT25m,EX35m PANCHITO BLAIR PIPE BOWLS PAINT TRIMMER Feb 20, 2019 11:05
--- NOTE | 2019-02-20 12:58 | Physical Therapy Daily Note ---
PT Daily Note-Current Subjective Pt. agrees to Rx and states she is really feeling positive that she is making progress. Pain Numeric Pain Scale: 4 Location: Left Location Body Site: Hip Pain Description: Ache Mental Status Patient Orientation: Normal For Age Transfers Therapy Code Descriptions/Definitions Functional [place] Measure: 0=Not Assessed/NA 4=Minimal Assistance 1=Total Assistance 5=Supervision or Setup 2=Maximal Assistance 6=Modified [place] 3=Moderate Assistance 7=Complete [place] Therapy Quality Codes: 6 Independent with activity with or without an assistive device 5 Patient requires set up or clean up by helper. Patient completes activity by themselves 4 Supervision or touching assist (CGA). [place] provide cues , steadying assist 3 The helper provides less than half the effort to complete the activity 2 The helper provides more than half the effort to complete the activity 1 Dependent. The helper does all the effort to complete an activity 7 Patient refused to complete or attempt activity 9 The patient did not perform the activity before the current illness or injury 88 Not attempted due to Medical conditions or safety concerns sit to stand 6-8 trials SBA. Pt. instructed to step left foot forward with stand to sit to alleviate discomfort Weight Bearing Right Lower Extremity: Right Full Weight Bearing Left Lower Extremity: Left Weight Bearing/Tolerated Gait Training Does the Patient Walk?: Yes Gait Assistive Device: FWW gait 125ft x2, 50 ft x 1 FWW slow, difficulty advancing LLE, good sequence Exercises Seated Therapy Exercises: Ankle pumps, Sit to stand, Long arc quads, Hip abd/add Seated Reps: 12 Standing: Hip Abduction, Heel/toe raises Standing Reps: 15 (left only for abd) Treatments toileted SBA for all Assessment Current Status: Good Progress PT Short Term Goals Short Term Goals Time Frame: Feb 22, 2019 Transfers (B,C,W/C) (FIM): 5 (met) Gait (FIM): 4 (met) Distance (FIM): 3=150 ft Gait Assistive Device: FWW PT Snf Goals Gauge And Weigh Machine Adjuster Goals PT Snf Goals Time Frame: Mar 01, 2019 Transfers (B,C,W/C) (FIM): 7 Sit to Lying (QC): 6 Lying-Sitting on Side/Bed(QC): 6 Sit to Stand (QC): 6 Rollin Roll Left to Right (QC): 6 Chair/Epx-iv-Wcofm Xfer(QC): 6 Car Transfer (QC): 5 Does the Patient Walk: Yes Gait (FIM): 6 Gait distance (FIM): 3=150 ft Walk 10 feet (QC): 6 Walk 10ft-Uneven Surface(QC): 6 Walk 50ft with 2 Turns (QC): 6 Walk 150 ft (QC): 6 Gait Assistive Device: FWW Stairs (FIM): 5 # of Steps: 4 1 Step (curb) (QC): 6 4 Steps (QC): 6 12 Steps (QC): 88 Picking up an Object (QC): 88 PT Plan Treatment/Plan Treatment Plan: Continue Plan of Care Treatment Plan: Bed Mobility, Education, Functional Activity [place], Functional Strength, Group Therapy, Gait, Safety, Therapeutic Exercise, Transfers Treatment Duration: Mar 01, 2019 Frequency: Modified Program (IRF) Estimated Hrs Per Day: 1.5 hours per day Patient and/or Family Agrees t: Yes Safety Risks/Education Patient Education: Gait Training, Transfer Techniques, Correct Positioning, Disease Process, Safety Issues Teaching Recipient: Patient Teaching Methods: Demonstration, Discussion Response to Teaching: Verbalize Understanding, Return Demonstration, Reinforcement Needed Time/GCodes Time In: 1230 Time Out: 1300 Total Billed Treatment Time: 30 Total Billed Treatment 1,GT15m,EX15m PANCHITO BLAIR MILK HAULER Feb 20, 2019 12:58
[2019-02-20 18:12] VITALS: BP 136/79
[2019-02-20] MEDS: IBUPROFEN TABLET 200 MG TAB PO PRN ×2 (18:14→18:48)
[2019-02-21 06:03] VITALS: BP 127/77
[2019-02-21] MEDS: POLYETHYLENE GLYCOL 17 GM (MIRALAX) PACK PO SCH ×2 (08:28→19:04)
[2019-02-21] MEDS: ASPIRIN 81 MG CHEW (CHILDREN'S ASA) PO SCH (08:28)
[2019-02-21] MEDS: BISACODYL 10 MG SUPP (DULCOLAX) PR SCH (08:28)
[2019-02-21] MEDS: SENNA W/DOCUSATE (SENOKOT S) TABLET PO SCH ×2 (08:28→21:07)
[2019-02-21] MEDS: IBUPROFEN TABLET 200 MG TAB PO PRN ×2 (08:32→22:16)
--- NOTE | 2019-02-21 08:46 | PM&R Progress Note ---
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 She does communicate with [employer]. She lives alone and her daughter, who is a charge nurse at [facility] in [place], [place], is involved in her care and transporting her to [facility] inpatient rehab to improve success in returning home considering her disability of extreme deafness. Her prior level of functioning is remaining independent at home, had significant left hip pain precluding her from ambulating a great deal and she is motivated to return back home to live independently. She has intention of right hip replacement within the next 3 months as long as she recovers from this surgery well. Subjective/Events-last exam No major issues. Wants to go home later this week. Bowels are moving yesterday. No pain is reported. Ultram helps the stiffness and her ability to participate in physical therapy is increased. Conferred with RN Reviewed therapy notes Check meds and labs Review of Systems Musculoskeletal: leg pain Objective Exam Vital Signs Vital Signs Date Time Temp Pulse Resp B/P (MAP) Pulse Ox O2 Delivery O2 Flow Rate FiO2 02/21/19 18:03 97.7 72 18 107/70 (82) 98 Room Air Capillary Refill : General Appearance: No Apparent Distress, WD/WN HEENT: PERRL/EOMI, Normal ENT Inspection, Pharynx Normal, Moist Mucous Membranes, Other Neck: Full Range of Motion, Normal Inspection, Non Tender, Supple Respiratory: Chest Non Tender, Lungs Clear, Normal Breath Sounds, No Accessory Muscle Use, No Respiratory Distress Cardiovascular: Regular Rate, Rhythm, No Edema, No Gallop, No JVD, No Murmur Gastrointestinal: Normal Bowel Sounds, No Organomegaly, No Pulsatile Mass, Non Tender, Soft Back: Normal Inspection, No CVA Tenderness, No Vertebral Tenderness Extremity: Normal Capillary Refill, Normal Inspection, Normal Range of Motion (except leg leg post op), Non Tender, No Calf Tenderness, No Pedal Edema Neurologic/Psychiatric: Alert, Oriented x3, No Motor/Sensory Deficits, Normal Mood/Affect Skin: Normal Color, Warm/Dry Lymphatic: No Adenopathy Results/Procedures Lab Patient resulted labs reviewed. FIM Transfers Therapy Code Descriptions/Definitions Functional [place] Measure: 0=Not Assessed/NA 4=Minimal Assistance 1=Total Assistance 5=Supervision or Setup 2=Maximal Assistance 6=Modified [place] 3=Moderate Assistance 7=Complete [place] Therapy Quality Codes: 6 Independent with activity with or without an assistive device 5 Patient requires set up or clean up by helper. Patient completes activity by themselves 4 Supervision or touching assist (CGA). [place] provide cues , steadying assist 3 The helper provides less than half the effort to complete the activity 2 The helper provides more than half the effort to complete the activity 1 Dependent. The helper does all the effort to complete an activity 7 Patient refused to complete or attempt activity 9 The patient did not perform the activity before the current illness or injury 88 Not attempted due to Medical conditions or safety concerns Transfers (B, C, W/C) (FIM): 3 Scootin Rollin Roll Left to Right (QC): 4 Supine to/from Sit: 3 Sit to/from Stand: 5 Sit to Lying (QC): 3 (assist to lift both legs into bed) Sit to Stand (QC): 4 Chair/Rff-zq-Hiilr Xfer(QC): 4 (CGA with use of FWW) Bed to/from Chair: 5 Car Transfer (QC): 3 (mod assist to get her legs outof the car) Gait Training Does the Patient Walk?: Yes Gait (FIM): 2 Distance (FIM): 5=260-48 ft (125x2) Distance: 150'x2 Walk 10 feet (QC): 4 Walk 50 ft with 2 Turns(QC): 4 Walk 150 ft (QC): 4 Walking 10ft/uneven surface-QC: 4 Gait Level of Assist: 5 Gait Persons Needed: 1 Gait Assistive Device: FWW Wheelchair Training Does the Pt Use a Wheelchair?: No Stair Training Stairs (FIM): 1 #of Steps: 1 1 Step (curb) (QC): 4 Stairs: Pattern: Step to Level of Assist: 4 Balance Picking up an Object (QC): 88 Mental Status/Objective Comprehension: 7 Expression: 7 Social Interaction: 7 Problem Solvin Memory: 7 ADL-Treatment Feedin (dentures ) Eating (QC): 6 Groomin (brush hair, brush teeth, wash face, style hair, apply lotion. standing at sink ) Oral Hygiene (QC): 6 Bathin (use of LHS, shower chair, GB ) Bathing Location: L Arm, R Arm, L Upper Leg, R Upper Leg, L Lower Leg (including foot), R Lower Leg (including foot), Chest, Abdomen, Buttocks, Perineal Area Shower/Bathe Self (QC): 6 Upper Extremity Dressin (bra, tie puller shirt.) Upper Body Dressing (QC): 6 Lower Extremity Dressin (underpants, pants, francy socks, and francy shoes. pt still required assist with donning left shoe ) Lower Body Dressing (QC): 3 On/Off Footwear (QC): 3 Toiletin (3/3 use of GB ) Toileting Hygiene (QC): 6 Toilet/Commode Transfer: 6 (use of RW ) Toilet Transfer (QC): 6 Shower: 6 (use of RW, GB, shower chair) Assessment/Plan Assessment and Plan Assess & Plan/Chief Complaint A/P: IRF protocols Pain control BM regimen Check labs prn DC Ultram Ibuprofen BM regimen to continue to prevent constipation DC later this week (1) Status post left hip replacement Status: Acute (2) Arthritis Status: Chronic (3) Deafness Status: Chronic Qualifiers: Laterality: bilateral Qualified Codes: H91.93 - Unspecified hearing loss, bilateral (4) Low vision Status: Chronic Qualifiers: Right eye visual impairment category: right - unspecified impairment Left eye visual impairment category: left - unspecified impairment Qualified Codes: H54.7 - Unspecified visual loss JÚNIOR RANGEL DO Feb 21, 2019 08:46
--- NOTE | 2019-02-21 09:08 | Occupational Ther Daily Note ---
OT Current Status-Daily Note Subjective pt sitting in recliner chair upon OT arrival. pt agreed to OT TX session with focus on ADLs and increasing activity tolerance for daily activities. pt stared no pain, but soreness." Mental Status/Objective Patient Orientation: Normal For Age Therapy Code Descriptions/Definitions Functional [place] Measure: 0=Not Assessed/NA 4=Minimal Assistance 1=Total Assistance 5=Supervision or Setup 2=Maximal Assistance 6=Modified [place] 3=Moderate Assistance 7=Complete [place] ADL-Treatment Therapy Code Descriptions/Definitions Functional [place] Measure: 0=Not Assessed/NA 4=Minimal Assistance 1=Total Assistance 5=Supervision or Setup 2=Maximal Assistance 6=Modified [place] 3=Moderate Assistance 7=Complete [place] Therapy Quality Codes: 6 Independent with activity with or without an assistive device 5 Patient requires set up or clean up by helper. Patient completes activity by themselves 4 Supervision or touching assist (CGA). [place] provide cues , steadying assist 3 The helper provides less than half the effort to complete the activity 2 The helper provides more than half the effort to complete the activity 1 Dependent. The helper does all the effort to complete an activity 7 Patient refused to complete or attempt activity 9 The patient did not perform the activity before the current illness or injury 88 Not attempted due to Medical conditions or safety concerns Grooming (FIM): 6 (intermitted sitting/ standing. ) Upper Body (FIM): 7 (casing puller shirt ) Lower Body Dressing (FIM): 6 (underpants, pants, francy socks, francy shoes. additioning timing noted to shona left shoe . noted use of AE ) Toileting (FIM): 6 Transfers (B, C, W/C) (FIM): 6 (use of RW ) Toilet/Commode Transfer (FIM): 6 (use of RW) Other Treatment post ADLS pt demo ability to gather dirty clothing and place them in a bag. pt transported via w/c to laundry room secondary to increase "soreness" in left hip. pt stood to complete laundry task MOD I. pt then transported to TX gym and perform 6 minutes X2 UBE with 25WATTs. pt then given handout on energy conservation techniques with the "4'P's" pt read through handout and all questions/ concerns addressed. pt pt transported back to room and perform transfer from w/c to recliner MOD I stand pivot using RW. call light within reach, all needs met. Education OT Patient Education: Energy conservation, Modified ADL techniques, Progress toward Goal/Update tx plan, Purpose of tx/functional activities, Safety issues, Transfer techniques, Use of adapted equipment Teaching Recipient: Patient Teaching Methods: Demonstration, Discussion Response to Teaching: Verbalize Understanding, Return Demonstration OT Short Term Goals Short Term Goals Bathing(FIM): 5 Lower Body Dressing(FIM): 4 Transfers (B,C,W/C) (FIM): 5 (met) 1=Demonstrate adherence to instructed precautions during ADL tasks. 2=Patient will verbalize/demonstrate understanding of assistive devices/modifications for ADL. 3=Patient will improve strength/tolerance for activity to enable patient to perform ADL's. OT Senior Accounting Clerk Goals Assisted Goals Time Frame: Mar 15, 2019 Eating (FIM): 6 Eating (QC): 6 Groomin Oral Hygiene (QC): 6 Bathing(FIM): 6 Bathing Location: L Arm, R Arm, L Upper Leg, R Upper Leg, L Lower Leg (including foot), R Lower Leg (including foot), Chest, Abdomen, Buttocks, Perineal Area Shower/Bathe Self (QC): 6 Upper Body Dressing(FIM): 6 Upper Body Dressing (QC): 6 Lower Body Dressing(FIM): 6 Lower Body Dressing (QC): 6 On/Off Footwear (QC): 6 Toileting(FIM): 6 Toileting Hygiene (QC): 6 Transfers (B,C,W/C) (FIM): 6 Toilet/Commode Transfer(FIM): 6 Toilet/Commode Transfer (QC): 6 Shower Transfer(FIM): 6 Additional Goals: 1-Demonstrate ADL Tasks, 2-Verbalize Understanding, 3- ImproveStrength/[place] 1=Demonstrate adherence to instructed precautions during ADL tasks. 2=Patient will verbalize/demonstrate understanding of assistive devices/modifications for ADL. 3=Patient will improve strength/tolerance for activity to enable patient to perform ADL's. OT Education/Plan Problem List/Assessment Assessment: Decreased Activ Tolerance pt continues to make good progress towards goals. pt still requied assist with donning left shoes. more education will be required. Discharge Recommendations Plan/Recommendations: Continue POC Therapy D/C Recommendations: Home w/ Family Support Equpiment Recommendations-D/C: Commercial Shrimping Captain, Sock Aide, Dressing Stick, Long Shoe Horn Treatment Plan/Plan of Care Treatment,Training & Education: Yes Patient would benefit from OT for education, treatment and training to promote independence in ADL's, mobility, safety and/or upper extremity function for ADL's. Plan of Care: ADL Retraining, Functional Mobility, Group Exercise/Act as Ind, UE Funct Exercise/Act Treatment Duration: Mar 15, 2019 Frequency: At least 5 of 7 days/Wk (IRF) Estimated Hrs Per Day: 1 hour per day (60-90 minutes per day ) Agreement: Yes Rehab Potential: Good Time/GCodes Start Time: 08:00 Stop Time: 09:30 Billed Treatment Time ADL 55 minutes, 4 units FA 35 minutes, 2 unit SHANNAN VARGAS OT Feb 21, 2019 09:08
--- NOTE | 2019-02-21 11:36 | Physical Therapy Daily Note ---
PT Daily Note-Current Subjective Pt sitting in recliner upon arrival. Pt agrees to PT. Pain Numeric Pain Scale: 3 Location: Left Location Body Site: Hip Pain Description: Ache, Tightness Mental Status Patient Orientation: Person, Place, Time, Situation Pt is [place] and uses dry erase board as well as reads lips to communicate. Transfers Therapy Code Descriptions/Definitions Functional [place] Measure: 0=Not Assessed/NA 4=Minimal Assistance 1=Total Assistance 5=Supervision or Setup 2=Maximal Assistance 6=Modified [place] 3=Moderate Assistance 7=Complete [place] Therapy Quality Codes: 6 Independent with activity with or without an assistive device 5 Patient requires set up or clean up by helper. Patient completes activity by themselves 4 Supervision or touching assist (CGA). [place] provide cues , steadying assist 3 The helper provides less than half the effort to complete the activity 2 The helper provides more than half the effort to complete the activity 1 Dependent. The helper does all the effort to complete an activity 7 Patient refused to complete or attempt activity 9 The patient did not perform the activity before the current illness or injury 88 Not attempted due to Medical conditions or safety concerns Scootin Sit to/from Stand: 5 Sit to Stand (QC): 5 Weight Bearing Right Lower Extremity: Right Full Weight Bearing Left Lower Extremity: Left Weight Bearing/Tolerated Gait Training Does the Patient Walk?: Yes Gait (FIM): 5 Distance (FIM): 3=150 ft Distance: 175' Walk 10 feet (QC): 5 Walk 50 ft with 2 Turns(QC): 5 Walk 150 ft (QC): 5 Gait Level of Assist: 5 Gait Persons Needed: 1 Gait Assistive Device: FWW Pt fatigues easily and needs more RB today vs previous tx. Exercises Seated Therapy Exercises: Ankle pumps, Long arc quads, Hip flexion, Kicking activity, Glut set Seated Reps: 20 NuStep Minutes: 10 NuStep Workload: 5 Treatments Pt transfers from recliner to standing and ambulates in hallway. Pt uses NuStep for 10m at WL 5 then takes short RB. Pt completes Seated Ex in chair before ambulating in hallway then back to room. Pt uses restroom at end of tx before resting in recliner. Pt has all needs met, call light in hand. Assessment Current Status: Good Progress Pt fatigues easily and needs RB to recover. PT Short Term Goals Short Term Goals Time Frame: Feb 22, 2019 Transfers (B,C,W/C) (FIM): 5 (met) Gait (FIM): 4 (met) Distance (FIM): 3=150 ft Gait Assistive Device: FWW PT Director Of Health Education Goals Director Of Health Education Goals PT Director Of Health Education Goals Time Frame: Mar 01, 2019 Transfers (B,C,W/C) (FIM): 7 Sit to Lying (QC): 6 Lying-Sitting on Side/Bed(QC): 6 Sit to Stand (QC): 6 Rollin Roll Left to Right (QC): 6 Chair/Iij-no-Cgawj Xfer(QC): 6 Car Transfer (QC): 5 Does the Patient Walk: Yes Gait (FIM): 6 Gait distance (FIM): 3=150 ft Walk 10 feet (QC): 6 Walk 10ft-Uneven Surface(QC): 6 Walk 50ft with 2 Turns (QC): 6 Walk 150 ft (QC): 6 Gait Assistive Device: FWW Stairs (FIM): 5 # of Steps: 4 1 Step (curb) (QC): 6 4 Steps (QC): 6 12 Steps (QC): 88 Picking up an Object (QC): 88 PT Plan Problem List Problem List: Activity Tolerance, Functional Strength Treatment/Plan Treatment Plan: Continue Plan of Care Treatment Plan: Bed Mobility, Education, Functional Activity [place], Functional Strength, Group Therapy, Gait, Safety, Therapeutic Exercise, Transfers Treatment Duration: Mar 01, 2019 Frequency: Modified Program (IRF) Estimated Hrs Per Day: 1.5 hours per day Patient and/or Family Agrees t: Yes Safety Risks/Education Patient Education: Gait Training, Transfer Techniques, Correct Positioning, Safety Issues Teaching Recipient: Patient Teaching Methods: Discussion Response to Teaching: Verbalize Understanding Time/GCodes Time In: 1030 Time Out: 1145 Total Billed Treatment Time: 45 Total Billed Treatment 1, GT (15m), EX x2 (30m) & FA (15m) DANIELE ARENAS PTA Feb 21, 2019 11:36
--- NOTE | 2019-02-21 14:45 | Physical Therapy Daily Note ---
PT Daily Note-Current Subjective Pt sitting in recliner upon arrival. Pt agrees to PT. Pain Numeric Pain Scale: 3 Location: Left Location Body Site: Hip Pain Description: Ache, Dull, Tightness Mental Status Patient Orientation: Person, Place, Situation Attachments: Other-See Comments Pt is [place] [employer] [place] [employer] & requires dry erase board or lip reading for communication. Transfers Therapy Code Descriptions/Definitions Functional [place] Measure: 0=Not Assessed/NA 4=Minimal Assistance 1=Total Assistance 5=Supervision or Setup 2=Maximal Assistance 6=Modified [place] 3=Moderate Assistance 7=Complete [place] Therapy Quality Codes: 6 Independent with activity with or without an assistive device 5 Patient requires set up or clean up by helper. Patient completes activity by themselves 4 Supervision or touching assist (CGA). [place] provide cues , steadying assist 3 The helper provides less than half the effort to complete the activity 2 The helper provides more than half the effort to complete the activity 1 Dependent. The helper does all the effort to complete an activity 7 Patient refused to complete or attempt activity 9 The patient did not perform the activity before the current illness or injury 88 Not attempted due to Medical conditions or safety concerns Scootin Sit to/from Stand: 5 Sit to Stand (QC): 5 Weight Bearing Right Lower Extremity: Right Full Weight Bearing Left Lower Extremity: Left Weight Bearing/Tolerated Gait Training Does the Patient Walk?: Yes Gait (FIM): 5 Distance (FIM): 3=150 ft Distance: 150' Walk 10 feet (QC): 5 Walk 50 ft with 2 Turns(QC): 5 Walk 150 ft (QC): 5 Gait Level of Assist: 5 Gait Persons Needed: 1 Gait Assistive Device: FWW Pt fatigues quicker in afternoon tx than in morning tx. Exercises Standing: Marching, Mini squats, Sit to Stand, Weight shifts Standing Reps: 15 Treatments Pt transfers from recliner to standing then ambulates in hallway using FWW. Pt completes Standing EX at //bars before ambulating back to room at end of tx. Pt has all needs met, call light in hand. Assessment Current Status: Fair Progress Pt fatigues quicker in afternoon tx. Pt needs more frequent RB. PT Short Term Goals Short Term Goals Time Frame: Feb 22, 2019 Transfers (B,C,W/C) (FIM): 5 (met) Gait (FIM): 4 (met) Distance (FIM): 3=150 ft Gait Assistive Device: FWW PT Fdc Goals Fdc Goals PT Bell Clerk Goals Time Frame: Mar 01, 2019 Transfers (B,C,W/C) (FIM): 7 Sit to Lying (QC): 6 Lying-Sitting on Side/Bed(QC): 6 Sit to Stand (QC): 6 Rollin Roll Left to Right (QC): 6 Chair/Hgm-iv-Uclll Xfer(QC): 6 Car Transfer (QC): 5 Does the Patient Walk: Yes Gait (FIM): 6 Gait distance (FIM): 3=150 ft Walk 10 feet (QC): 6 Walk 10ft-Uneven Surface(QC): 6 Walk 50ft with 2 Turns (QC): 6 Walk 150 ft (QC): 6 Gait Assistive Device: FWW Stairs (FIM): 5 # of Steps: 4 1 Step (curb) (QC): 6 4 Steps (QC): 6 12 Steps (QC): 88 Picking up an Object (QC): 88 PT Plan Problem List Problem List: Activity Tolerance, Functional Strength Treatment/Plan Treatment Plan: Continue Plan of Care Treatment Plan: Bed Mobility, Education, Functional Activity [place], Functional Strength, Group Therapy, Gait, Safety, Therapeutic Exercise, Transfers Treatment Duration: Mar 01, 2019 Frequency: Modified Program (IRF) Estimated Hrs Per Day: 1.5 hours per day Patient and/or Family Agrees t: Yes Safety Risks/Education Patient Education: Gait Training, Transfer Techniques, Correct Positioning, Safety Issues Teaching Recipient: Patient Teaching Methods: Discussion Response to Teaching: Verbalize Understanding Time/GCodes Time In: 1400 Time Out: 1430 Total Billed Treatment Time: 30 Total Billed Treatment 1, GT (15m) & EX (15m) DANIELE ARENAS HOSEMAN Feb 21, 2019 14:45
[2019-02-21 18:03] VITALS: BP 107/70
[2019-02-21] MEDS: MELATONIN 3 MG TABLET PO PRN (22:17)
[2019-02-22 06:08] VITALS: BP 101/65
[2019-02-22] MEDS: SENNA W/DOCUSATE (SENOKOT S) TABLET PO SCH ×3 (08:26→20:12)
[2019-02-22] MEDS: ASPIRIN 81 MG CHEW (CHILDREN'S ASA) PO SCH (08:27)
[2019-02-22] MEDS: BISACODYL 10 MG SUPP (DULCOLAX) PR SCH (09:57)
--- NOTE | 2019-02-22 09:57 | Occupational Ther Daily Note ---
OT Current Status-Daily Note Subjective pt sitting in chair upon OT arrival. pt reports no pain, but stated i'm just "sore." dry erase board used for communication. . Mental Status/Objective Therapy Code Descriptions/Definitions Functional [place] Measure: 0=Not Assessed/NA 4=Minimal Assistance 1=Total Assistance 5=Supervision or Setup 2=Maximal Assistance 6=Modified [place] 3=Moderate Assistance 7=Complete [place] ADL-Treatment Therapy Code Descriptions/Definitions Functional [place] Measure: 0=Not Assessed/NA 4=Minimal Assistance 1=Total Assistance 5=Supervision or Setup 2=Maximal Assistance 6=Modified [place] 3=Moderate Assistance 7=Complete [place] Therapy Quality Codes: 6 Independent with activity with or without an assistive device 5 Patient requires set up or clean up by helper. Patient completes activity by themselves 4 Supervision or touching assist (CGA). [place] provide cues , steadying assist 3 The helper provides less than half the effort to complete the activity 2 The helper provides more than half the effort to complete the activity 1 Dependent. The helper does all the effort to complete an activity 7 Patient refused to complete or attempt activity 9 The patient did not perform the activity before the current illness or injury 88 Not attempted due to Medical conditions or safety concerns Eating (FIM): 6 (dentures ) Eating (QC): 6 Grooming (FIM): 6 (comb hair, wash hands/ face, apply deoderant ) Oral Hygiene (QC): 6 Upper Body (FIM): 7 (bra, gum puller shirt ) Upper Body Dressing (QC): 6 Lower Body Dressing (FIM): 6 (additional timing, francy socks, francy shoes, underpats, pants, use of AE. ) Lower Body Dressing (QC): 6 On/Off Footwear (QC): 6 Toileting (FIM): 7 Toileting Hygiene (QC): 6 Transfers (B, C, W/C) (FIM): 6 (use of RW ) Toilet/Commode Transfer (FIM): 6 (use of RW ) Toilet Transfer (QC): 6 (use of RW ) pt decline shower this date and requited to perform shower next day. pt stated she hope to d/c this Wednesday. will be mention in team conference meeting. pt would benefit from having AE when discharging to increase indep with LB dressing (microphone operator, soft shell sock aid, dressing stick, long handed shoe horn). pt reports she already has high raised toilet seat at home but will needed a shower chair. noted pitting edema in LLE Other Treatment pt transported to [place] gym via w/c. once in gym pt perform UBE 5 minutes X3; 25 WATT to increase activity tolerance for daily activities. pt concerns of buying AE. microphone operator completed online of where the cheapest place to buy AE from [place] ([facility]) will be notified of pt concerns. pt transported outside and perform UE ex. with 2# weights to increase strength for daily activities. pt perform 15X2 shoulder all planes, and 15X2 elbow all planes. pt transported back to room and perform functional mobility 25 ft using RW MOD I to recliner chair. pt sitting in recliner chair, post session, call light within reach, all needs met. Education OT Patient Education: Correct positioning, Energy conservation, Modified ADL techniques, Progress toward Goal/Update tx plan, Purpose of tx/functional activities, Safety issues, Transfer techniques, Use of adapted equipment Teaching Recipient: Patient Teaching Methods: Demonstration, Discussion Response to Teaching: Verbalize Understanding, Return Demonstration OT Short Term Goals Short Term Goals Bathing(FIM): 5 Lower Body Dressing(FIM): 4 Transfers (B,C,W/C) (FIM): 5 (met) 1=Demonstrate adherence to instructed precautions during ADL tasks. 2=Patient will verbalize/demonstrate understanding of assistive devices/modifications for ADL. 3=Patient will improve strength/tolerance for activity to enable patient to perform ADL's. OT Equipment Coordinator Goals [place] Goals Time Frame: Mar 15, 2019 Eating (FIM): 6 (MET ) Eating (QC): 6 (MET ) Groomin (MET ) Oral Hygiene (QC): 6 (MET ) Bathing(FIM): 6 Bathing Location: L Arm, R Arm, L Upper Leg, R Upper Leg, L Lower Leg (including foot), R Lower Leg (including foot), Chest, Abdomen, Buttocks, Perine al Area Shower/Bathe Self (QC): 6 Upper Body Dressing(FIM): 6 (MET ) Upper Body Dressing (QC): 6 (MET ) Lower Body Dressing(FIM): 6 (MET ) Lower Body Dressing (QC): 6 (MET ) On/Off Footwear (QC): 6 (MET ) Toileting(FIM): 6 (MET ) Toileting Hygiene (QC): 6 (MET ) Transfers (B,C,W/C) (FIM): 6 (MET ) Toilet/Commode Transfer(FIM): 6 (MET ) Toilet/Commode Transfer (QC): 6 (MET ) Shower Transfer(FIM): 6 Additional Goals: 1-Demonstrate ADL Tasks, 2-Verbalize Understanding, 3-ImproveStrength/[place] 1=Demonstrate adherence to instructed precautions during ADL tasks. 2=Patient will verbalize/demonstrate understanding of assistive devices/modifications for ADL. 3=Patient will improve strength/tolerance for activity to enable patient to perf orm ADL's. OT Education/Plan Problem List/Assessment Assessment: Decreased Activ Tolerance, Impaired Funct Balance pt continues to make good progress towards goals. pt still requied assist with donning left shoes. more education will be required. Discharge Recommendations Plan/Recommendations: Continue POC Therapy D/C Recommendations: Home w/ Family Support Treatment Plan/Plan of Care Treatment,Training & Education: Yes Patient would benefit from OT for education, treatment and training to promote i ndependence in ADL's, mobility, safety and/or upper extremity function for ADL's. Plan of Care: ADL Retraining, Functional Mobility, Group Exercise/Act as Ind, UE Funct Exercise/Act Treatment Duration: Mar 15, 2019 Frequency: At least 5 of 7 days/Wk (IRF) Estimated Hrs Per Day: 1 hour per day (60-90 minutes per day ) Agreement: Yes Rehab Potential: Good Time/GCodes Start Time: 09:15 Stop Time: 10:45 Billed Treatment Time ADL 45 minutes, 3 units EX 45 minutes, 3 units SHANNAN VARGAS OT Feb 22, 2019 09:57
--- NOTE | 2019-02-22 09:58 | PM&R Progress Note ---
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 She does communicate with [employer]. She lives alone and her daughter, who is a charge nurse at [facility] in [place], [place], is involved in her care and transporting her to [facility] inpatient rehab to improve success in returning home considering her disability of extreme deafness. Her prior level of functioning is remaining independent at home, had significant left hip pain precluding her from ambulating a great deal and she is motivated to return back home to live independently. She has intention of right hip replacement within the next 3 months as long as she recovers from this surgery well. Subjective/Events-last exam Sleeping in the recliner most of the time. Bowels are moving. Ibuprofen taken for the pain. Wednesday discharge at 8 P.M. Overall feels much better and confident. Conferred with RN Reviewed therapy notes Check meds and labs Review of Systems General: Fatigue Musculoskeletal: leg pain Objective Exam Vital Signs Vital Signs Date Time Temp Pulse Resp B/P (MAP) Pulse Ox O2 Delivery O2 Flow Rate FiO2 02/22/19 20:45 Room Air 02/22/19 18:00 99.4 78 18 135/80 (98) 95 Capillary Refill : General Appearance: No Apparent Distress, WD/WN HEENT: PERRL/EOMI, Normal ENT Inspection, Pharynx Normal, Moist Mucous Membranes, Other Neck: Full Range of Motion, Normal Inspection, Non Tender, Supple Respiratory: Chest Non Tender, Lungs Clear, Normal Breath Sounds, No Accessory Muscle Use, No Respiratory Distress Cardiovascular: Regular Rate, Rhythm, No Edema, No Gallop, No JVD, No Murmur Gastrointestinal: Normal Bowel Sounds, No Organomegaly, No Pulsatile Mass, Non Tender, Soft Back: Normal Inspection, No CVA Tenderness, No Vertebral Tenderness Extremity: Normal Capillary Refill, Normal Inspection, Normal Range of Motion (except leg leg post op), Non Tender, No Calf Tenderness, No Pedal Edema Neurologic/Psychiatric: Alert, Oriented x3, No Motor/Sensory Deficits, Normal Mood/Affect Skin: Normal Color, Warm/Dry Lymphatic: No Adenopathy Results/Procedures Lab Patient resulted labs reviewed. FIM Transfers Therapy Code Descriptions/Definitions Functional [place] Measure: 0=Not Assessed/NA 4=Minimal Assistance 1=Total Assistance 5=Supervision or Setup 2=Maximal Assistance 6=Modified [place] 3=Moderate Assistance 7=Complete [place] Therapy Quality Codes: 6 Independent with activity with or without an assistive device 5 Patient requires set up or clean up by helper. Patient completes activity by themselves 4 Supervision or touching assist (CGA). [place] provide cues , steadying assist 3 The helper provides less than half the effort to complete the activity 2 The helper provides more than half the effort to complete the activity 1 Dependent. The helper does all the effort to complete an activity 7 Patient refused to complete or attempt activity 9 The patient did not perform the activity before the current illness or injury 88 Not attempted due to Medical conditions or safety concerns Transfers (B, C, W/C) (FIM): 6 (use of RW ) Scootin Rollin Roll Left to Right (QC): 4 Supine to/from Sit: 3 Sit to/from Stand: 5 Sit to Lying (QC): 3 (assist to lift both legs into bed) Sit to Stand (QC): 5 Chair/Kks-fo-Pbjqf Xfer(QC): 4 (CGA with use of FWW) Bed to/from Chair: 5 Car Transfer (QC): 3 (mod assist to get her legs outof the car) Gait Training Does the Patient Walk?: Yes Gait (FIM): 5 Distance (FIM): 3=150 ft Distance: 150' Walk 10 feet (QC): 5 Walk 50 ft with 2 Turns(QC): 5 Walk 150 ft (QC): 5 Walking 10ft/uneven surface-QC: 4 Gait Level of Assist: 5 Gait Persons Needed: 1 Gait Assistive Device: FWW Wheelchair Training Does the Pt Use a Wheelchair?: No Stair Training Stairs (FIM): 1 #of Steps: 1 1 Step (curb) (QC): 4 Stairs: Pattern: Step to Level of Assist: 4 Balance Picking up an Object (QC): 88 Mental Status/Objective Comprehension: 7 Expression: 7 Social Interaction: 7 Problem Solvin Memory: 7 ADL-Treatment Feedin (dentures ) Eating (QC): 6 Groomin (comb hair, wash hands/ face, apply deoderant ) Oral Hygiene (QC): 6 Bathin (use of LHS, shower chair, GB ) Bathing Location: L Arm, R Arm, L Upper Leg, R Upper Leg, L Lower Leg (including foot), R Lower Leg (including foot), Chest, Abdomen, Buttocks, Perineal Area Shower/Bathe Self (QC): 6 Upper Extremity Dressin (bra, black puller shirt ) Upper Body Dressing (QC): 6 Lower Extremity Dressin (additional timing, francy socks, francy shoes, underpats, pants, use of AE. ) Lower Body Dressing (QC): 6 On/Off Footwear (QC): 6 Toiletin Toileting Hygiene (QC): 6 Toilet/Commode Transfer: 6 (use of RW ) Toilet Transfer (QC): 6 (use of RW ) Shower: 6 (use of RW, GB, shower chair) Assessment/Plan Assessment and Plan Assess & Plan/Chief Complaint A/P: IRF protocols Pain control BM regimen Check labs prn DC Ultram Ibuprofen BM regimen to continue to prevent constipation DC Wednesday (1) Status post left hip replacement Status: Acute (2) Arthritis Status: Chronic (3) Deafness Status: Chronic Qualifiers: Laterality: bilateral Qualified Codes: H91.93 - Unspecified hearing loss, bilateral (4) Low vision Status: Chronic Qualifiers: Right eye visual impairment category: right - unspecified impairment Left eye visual impairment category: left - unspecified impairment Qualified Codes: H54.7 - Unspecified visual loss JÚNIOR RANGEL DO Feb 22, 2019 09:58
[2019-02-22] MEDS: POLYETHYLENE GLYCOL 17 GM (MIRALAX) PACK PO SCH ×2 (10:10→19:32)
--- NOTE | 2019-02-22 11:05 | Physical Therapy Daily Note ---
PT Daily Note-Current Subjective Pt sitting in recliner upon arrival. Pt agrees to PT for FIM scoring for possible D/C tomorrow (02/23). Pt is a little leery though since she will be at home by self on Wednesday (02/24). Pain Numeric Pain Scale: 3 Location: Left Location Body Site: Hip Pain Description: Ache, Tightness Mental Status Patient Orientation: Person, Place, Time, Situation Transfers Therapy Code Descriptions/Definitions Functional [place] Measure: 0=Not Assessed/NA 4=Minimal Assistance 1=Total Assistance 5=Supervision or Setup 2=Maximal Assistance 6=Modified [place] 3=Moderate Assistance 7=Complete [place] Therapy Quality Codes: 6 Independent with activity with or without an assistive device 5 Patient requires set up or clean up by helper. Patient completes activity by themselves 4 Supervision or touching assist (CGA). [place] provide cues , steadying assist 3 The helper provides less than half the effort to complete the activity 2 The helper provides more than half the effort to complete the activity 1 Dependent. The helper does all the effort to complete an activity 7 Patient refused to complete or attempt activity 9 The patient did not perform the activity before the current illness or injury 88 Not attempted due to Medical conditions or safety concerns Transfers (B, C, W/C) (FIM): 5 Scootin Rollin Roll Left to Right (QC): 6 Supine to/from Sit: 5 Sit to/from Stand: 6 Sit to Lying (QC): 5 Sit to Stand (QC): 6 Chair/Fsa-wq-Eytkl Xfer(QC): 6 Bed to/from Chair: 6 Car Transfer (QC): 5 Weight Bearing Right Lower Extremity: Right Full Weight Bearing Left Lower Extremity: Left Weight Bearing/Tolerated Gait Training Does the Patient Walk?: Yes Gait (FIM): 5 Distance (FIM): 3=150 ft Distance: 150' Walk 10 feet (QC): 5 Walk 50 ft with 2 Turns(QC): 5 Walk 150 ft (QC): 5 Walking 10ft/uneven surface-QC: 5 Gait Level of Assist: 5 Gait Persons Needed: 1 Gait Assistive Device: FWW Pt walks with slight flexion of L knee due to discomfort and weakness. Wheelchair Training Does the Pt Use a Wheelchair?: No Stair Training Stairs (FIM): 88 Pt is not able to pickling solution maker L LE enough to make step but will not encounter stairs at home. Balance Picking up an Object (QC): 88 Special Test Comments This is not tested due to unsafe item at this time per L hip & knee. Treatments Pt completes FIM scoring items including bed mobility, transfers including car transfer, ambulation including across varying surface. Pt was not tested on stairs nor picking up object from floor due to safety at this time. Pt returns to room at end of tx with all needs met, call light in hand. Assessment Current Status: Good Progress Pt is limited by weakness from L hip & knee at this time. Pt is motivated to continue to work on strength at home. Tx does take extended time to complete due to communication limits of [facility] & use of dry erase board. PT Short Term Goals Short Term Goals Time Frame: Feb 22, 2019 Transfers (B,C,W/C) (FIM): 5 (met) Gait (FIM): 4 (met) Distance (FIM): 3=150 ft Gait Assistive Device: FWW PT Guest Relations Coordinator Goals Prison Goals PT Guest Relations Coordinator Goals Time Frame: Mar 01, 2019 Transfers (B,C,W/C) (FIM): 7 Sit to Lying (QC): 6 Lying-Sitting on Side/Bed(QC): 6 Sit to Stand (QC): 6 Rollin Roll Left to Right (QC): 6 Chair/Zht-vf-Qklcw Xfer(QC): 6 Car Transfer (QC): 5 Does the Patient Walk: Yes Gait (FIM): 6 Gait distance (FIM): 3=150 ft Walk 10 feet (QC): 6 Walk 10ft-Uneven Surface(QC): 6 Walk 50ft with 2 Turns (QC): 6 Walk 150 ft (QC): 6 Gait Assistive Device: FWW Stairs (FIM): 5 # of Steps: 4 1 Step (curb) (QC): 6 4 Steps (QC): 6 12 Steps (QC): 88 Picking up an Object (QC): 88 PT Plan Problem List Problem List: Activity Tolerance, Functional Strength Treatment/Plan Treatment Plan: Continue Plan of Care Treatment Plan: Bed Mobility, Education, Functional Activity [place], Functional Strength, Group Therapy, Gait, Safety, Therapeutic Exercise, Transfers Treatment Duration: Mar 01, 2019 Frequency: Modified Program (IRF) Estimated Hrs Per Day: 1.5 hours per day Patient and/or Family Agrees t: Yes Safety Risks/Education Patient Education: Transfer Techniques, Correct Positioning, Safety Issues Teaching Recipient: Patient Teaching Methods: Discussion Response to Teaching: Verbalize Understanding Time/GCodes Time In: 800 Time Out: 900 Total Billed Treatment Time: 60 Total Billed Treatment 1, GT (20m) & FA x3 (40m) DANIELE ARENAS WARD AIDE Feb 22, 2019 11:05
[2019-02-22] MEDS: IBUPROFEN TABLET 200 MG TAB PO PRN ×2 (14:26→22:18)
--- NOTE | 2019-02-22 14:59 | Physical Therapy Daily Note ---
PT Daily Note-Current Subjective Pt sitting in recliner upon arrival. Pt agrees to PT. Dietitian Helper and pt have talked about D/C for Wednesday evening instead of tomorrow (02/23). Therapy will reFIM tomorrow. Pain Numeric Pain Scale: 3 Location: Left Location Body Site: Hip Pain Description: Ache, Tightness Mental Status Patient Orientation: Person, Place, Time, Situation Attachments: Other-See Comments ([place] board for communication) Transfers Therapy Code Descriptions/Definitions Functional [place] Measure: 0=Not Assessed/NA 4=Minimal Assistance 1=Total Assistance 5=Supervision or Setup 2=Maximal Assistance 6=Modified [place] 3=Moderate Assistance 7=Complete [place] Therapy Quality Codes: 6 Independent with activity with or without an assistive device 5 Patient requires set up or clean up by helper. Patient completes activity by themselves 4 Supervision or touching assist (CGA). [place] provide cues , steadying assist 3 The helper provides less than half the effort to complete the activity 2 The helper provides more than half the effort to complete the activity 1 Dependent. The helper does all the effort to complete an activity 7 Patient refused to complete or attempt activity 9 The patient did not perform the activity before the current illness or injury 88 Not attempted due to Medical conditions or safety concerns Scootin Sit to/from Stand: 6 Sit to Stand (QC): 6 Weight Bearing Right Lower Extremity: Right Full Weight Bearing Left Lower Extremity: Left Weight Bearing/Tolerated Exercises Seated Therapy Exercises: Ankle pumps, Long arc quads, Hip flexion, Kicking activity, Glut set Seated Reps: 20 Treatments Pt completes Seated Ex in recliner with RB. WAF[employer] PRODUCTION LEAD WORKER then provides HEP for Supine & Seated Ex to discuss. Pt resting at end of tx with all needs met, call light next to pt. Assessment Current Status: Good Progress Pt feels more confident with D/C and continues to gain strength. PT Short Term Goals Short Term Goals Time Frame: Feb 22, 2019 Transfers (B,C,W/C) (FIM): 5 (met) Gait (FIM): 4 (met) Distance (FIM): 3=150 ft Gait Assistive Device: FWW PT E Business Manager Goals E Business Manager Goals PT E Business Manager Goals Time Frame: Mar 01, 2019 Transfers (B,C,W/C) (FIM): 7 Sit to Lying (QC): 6 Lying-Sitting on Side/Bed(QC): 6 Sit to Stand (QC): 6 Rollin Roll Left to Right (QC): 6 Chair/Bys-wo-Pipww Xfer(QC): 6 Car Transfer (QC): 5 Does the Patient Walk: Yes Gait (FIM): 6 Gait distance (FIM): 3=150 ft Walk 10 feet (QC): 6 Walk 10ft-Uneven Surface(QC): 6 Walk 50ft with 2 Turns (QC): 6 Walk 150 ft (QC): 6 Gait Assistive Device: FWW Stairs (FIM): 5 # of Steps: 4 1 Step (curb) (QC): 6 4 Steps (QC): 6 12 Steps (QC): 88 Picking up an Object (QC): 88 PT Plan Problem List Problem List: Activity Tolerance, Functional Strength, Gait Treatment/Plan Treatment Plan: Continue Plan of Care Treatment Plan: Bed Mobility, Education, Functional Activity [place], Functional Strength, Group Therapy, Gait, Safety, Therapeutic Exercise, Transfers Treatment Duration: Mar 01, 2019 Frequency: Modified Program (IRF) Estimated Hrs Per Day: 1.5 hours per day Patient and/or Family Agrees t: Yes Safety Risks/Education Patient Education: Issued Written HEP, Correct Positioning, Safety Issues Teaching Recipient: Patient Teaching Methods: Discussion Response to Teaching: Verbalize Understanding Time/GCodes Time In: 1330 Time Out: 1400 Total Billed Treatment Time: 30 Total Billed Treatment 1, EX x2 (30m) DANIELE ARENAS WAFER PRODUCTION LEAD WORKER Feb 22, 2019 14:59
[2019-02-22 18:00] VITALS: BP 135/80
[2019-02-22] MEDS: MELATONIN 3 MG TABLET PO PRN (22:18)
[2019-02-23 06:25] VITALS: BP 127/72
[2019-02-23] MEDS: ASPIRIN 81 MG CHEW (CHILDREN'S ASA) PO SCH (07:46)
[2019-02-23] MEDS: IBUPROFEN TABLET 200 MG TAB PO PRN ×2 (07:47→22:00)
[2019-02-23] MEDS: SENNA W/DOCUSATE (SENOKOT S) TABLET PO SCH ×2 (07:47→20:52)
[2019-02-23] MEDS: BISACODYL 10 MG SUPP (DULCOLAX) PR SCH (07:47)
[2019-02-23] MEDS: POLYETHYLENE GLYCOL 17 GM (MIRALAX) PACK PO SCH ×2 (07:47→20:56)
--- NOTE | 2019-02-23 08:34 | Occupational Ther Daily Note ---
OT Current Status-Daily Note Subjective pt sitting in chair upon OT arrival. pt agreed to OT TX session with focus on iADLs and functional mobility. pt reports no pain. noted increase edema in LLE. Mental Status/Objective Patient Orientation: Normal For Age Therapy Code Descriptions/Definitions Functional [place] Measure: 0=Not Assessed/NA 4=Minimal Assistance 1=Total Assistance 5=Supervision or Setup 2=Maximal Assistance 6=Modified [place] 3=Moderate Assistance 7=Complete [place] ADL-Treatment Therapy Code Descriptions/Definitions Functional [place] Measure: 0=Not Assessed/NA 4=Minimal Assistance 1=Total Assistance 5=Supervision or Setup 2=Maximal Assistance 6=Modified [place] 3=Moderate Assistance 7=Complete [place] Therapy Quality Codes: 6 Independent with activity with or without an assistive device 5 Patient requires set up or clean up by helper. Patient completes activity by themselves 4 Supervision or touching assist (CGA). [place] provide cues , steadying assist 3 The helper provides less than half the effort to complete the activity 2 The helper provides more than half the effort to complete the activity 1 Dependent. The helper does all the effort to complete an activity 7 Patient refused to complete or attempt activity 9 The patient did not perform the activity before the current illness or inju ry 88 Not attempted due to Medical conditions or safety concerns Eating (FIM): 6 (dentures) Eating (QC): 6 Grooming (FIM): 7 (standing at sink. brush hair, wash face, hands, style hair, brush teeth. intermitted sitting and standing. pt has chair in bathrom at home. ) Oral Hygiene (QC): 6 Bathing (FIM): 6 (use of SC, GB in bathroom. pt intermitted sitting/ standing. ) Bathing Location: L Arm, R Arm, L Upper Leg, R Upper Leg, L Lower Leg (including foot), R Lower Leg (including foot), Chest, Abdomen, Buttocks, Perineal Area Shower/Bathe Self (QC): 6 Upper Body (FIM): 7 (bra, taffy puller shirt) Upper Body Dressing (QC): 6 Lower Body Dressing (FIM): 6 (underpatns, pants, francy socks, francy shoes. use of loss control representative, sock aid, dressing stick, long handled shoe horn ) Lower Body Dressing (QC): 6 On/Off Footwear (QC): 6 Toileting (FIM): 7 (3/3 ) Toileting Hygiene (QC): 6 Transfers (B, C, W/C) (FIM): 6 (use of RW) Toilet/Commode Transfer (FIM): 6 (use of RW) Toilet Transfer (QC): 6 Tub Transfer(FIM): 6 (shower transfers. use of RW sc, and GB ) Shower Transfer(FIM): 6 (shower transfers. use of RW sc, and GB ) pt demo ability to gather clothing from closet MOD I with use of RW. noted proper placement of RW and transport method of clothing MOD I. pt completed all ADLs in bathroom MOD I/ indep with use of AE. please refer to FIMs for additional details. post completing ADLs pt demo ability to clean up bathroom with use of loss control representative to gather clothing from floor and place back in closet. Other Treatment post ADLs pt demo ability to perform HEP with 2# weights 10X2 indep with no cueing to increase UE strength for daily living.. pt sitting in recliner chair, ice of left hip, all needs met. Education OT Patient Education: Progress toward Goal/Update tx plan, Purpose of tx/functional activities Teaching Recipient: Patient Teaching Methods: Discussion Response to Teaching: Verbalize Understanding OT Short Term Goals Short Term Goals Bathing(FIM): 5 Lower Body Dressing(FIM): 4 Transfers (B,C,W/C) (FIM): 5 (met) 1=Demonstrate adherence to instructed precautions during ADL tasks. 2=Patient will verbalize/demonstrate understanding of assistive devices/modifications for ADL. 3=Patient will improve strength/tolerance for activity to enable patient to perform ADL's. OT Snf Goals Manager [place] Goals Time Frame: Mar 15, 2019 Eating (FIM): 6 (MET ) Eating (QC): 6 (MET ) Groomin (MET ) Oral Hygiene (QC): 6 (MET ) Bathing(FIM): 6 (met) Bathing Location: L Arm, R Arm, L Upper Leg, R Upper Leg, L Lower Leg (incl uding foot), R Lower Leg (including foot), Chest, Abdomen, Buttocks, Perineal Area Shower/Bathe Self (QC): 6 (met) Upper Body Dressing(FIM): 6 (MET ) Upper Body Dressing (QC): 6 (MET ) Lower Body Dressing(FIM): 6 (MET ) Lower Body Dressing (QC): 6 (MET ) On/Off Footwear (QC): 6 (MET ) Toileting(FIM): 6 (MET ) Toileting Hygiene (QC): 6 (MET ) Transfers (B,C,W/C) (FIM): 6 (MET ) Toilet/Commode Transfer(FIM): 6 (MET ) Toilet/Commode Transfer (QC): 6 (MET ) Shower Transfer(FIM): 6 (met) Additional Goals: 1-Demonstrate ADL Tasks, 2-Verbalize Understanding, 3- ImproveStrength/[place] 1=Demonstrate adherence to instructed precautions during ADL tasks. 2=Patient will verbalize/demonstrate understanding of assistive devices/modifications for ADL. 3=Patient will improve strength/tolerance for activity to enable patient to perform ADL's. OT Education/Plan Problem List/Assessment Assessment: Decreased Activ Tolerance Discharge Recommendations Plan/Recommendations: Continue POC Equpiment Recommendations-D/C: Bath Chair, Voting Machine Repairer, Sock Aide, Dressing Stick, Long Shoe Horn Treatment Plan/Plan of Care Treatment,Training & Education: Yes Patient would benefit from OT for education, treatment and training to promote independence in ADL's, mobility, safety and/or upper extremity function for ADL's. Plan of Care: ADL Retraining, Functional Mobility, Group Exercise/Act as Ind, UE Funct Exercise/Act Treatment Duration: Mar 15, 2019 Frequency: At least 5 of 7 days/Wk (IRF) Estimated Hrs Per Day: 1 hour per day (60-90 minutes per day ) Agreement: Yes Rehab Potential: Good Time/GCodes Start Time: 08:00 Stop Time: 09:30 Billed Treatment Time ADL 75 minutes, 5 units EX 15 minutes, 1 unit SHANNAN VARGAS OT Feb 23, 2019 08:33
--- NOTE | 2019-02-23 09:06 | PM&R Progress Note ---
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 She does communicate with bodaplanes. She lives alone and her daughter, who is a charge nurse at [facility] in [place], [place], is involved in her care and transporting her to [facility] inpatient rehab to improve success in returning home considering her disability of extreme deafness. Her prior level of functioning is remaining independent at home, had significant left hip pain precluding her from ambulating a great deal and she is motivated to return back home to live independently. She has intention of right hip replacement within the next 3 months as long as she recovers from this surgery well. Subjective/Events-last exam Having some dysuria and thinks she has a UTI so will order an in-and-out catheter UA specimen. Pyridium is on her allergy list so can't use that. Bowels are moving. Overall doing well and will be ready for discharge tomorrow night at 8 after her daughter gets off of work. Conferred with RN Reviewed therapy notes Check meds and labs Review of Systems General: Fatigue Musculoskeletal: leg pain Objective Exam Vital Signs Vital Signs Date Time Temp Pulse Resp B/P (MAP) Pulse Ox O2 Delivery O2 Flow Rate FiO2 02/23/19 17:07 98.1 78 16 137/67 (90) 98 Room Air Capillary Refill : General Appearance: No Apparent Distress, WD/WN HEENT: PERRL/EOMI, Normal ENT Inspection, Pharynx Normal, Moist Mucous Membranes, Other Neck: Full Range of Motion, Normal Inspection, Non Tender, Supple Respiratory: Chest Non Tender, Lungs Clear, Normal Breath Sounds, No Accessory Muscle Use, No Respiratory Distress Cardiovascular: Regular Rate, Rhythm, No Edema, No Gallop, No JVD, No Murmur Gastrointestinal: Normal Bowel Sounds, No Organomegaly, No Pulsatile Mass, Non Tender, Soft Back: Normal Inspection, No CVA Tenderness, No Vertebral Tenderness Extremity: Normal Capillary Refill, Normal Inspection, Normal Range of Motion (except leg leg post op), Non Tender, No Calf Tenderness, No Pedal Edema Neurologic/Psychiatric: Alert, Oriented x3, No Motor/Sensory Deficits, Normal Mood/Affect Skin: Normal Color, Warm/Dry Lymphatic: No Adenopathy Results/Procedures Lab Patient resulted labs reviewed. FIM Transfers Therapy Code Descriptions/Definitions Functional [place] Measure: 0=Not Assessed/NA 4=Minimal Assistance 1=Total Assistance 5=Supervision or Setup 2=Maximal Assistance 6=Modified [place] 3=Moderate Assistance 7=Complete [place] Therapy Quality Codes: 6 Independent with activity with or without an assistive device 5 Patient requires set up or clean up by helper. Patient completes activity by themselves 4 Supervision or touching assist (CGA). [place] provide cues , steadying assist 3 The helper provides less than half the effort to complete the activity 2 The helper provides more than half the effort to complete the activity 1 Dependent. The helper does all the effort to complete an activity 7 Patient refused to complete or attempt activity 9 The patient did not perform the activity before the current illness or injury 88 Not attempted due to Medical conditions or safety concerns Transfers (B, C, W/C) (FIM): 6 (use of RW) Scootin Rollin Roll Left to Right (QC): 6 Supine to/from Sit: 5 Sit to/from Stand: 6 Sit to Lying (QC): 5 Sit to Stand (QC): 6 Chair/Skr-hf-Cfzip Xfer(QC): 6 Bed to/from Chair: 6 Car Transfer (QC): 5 Gait Training Does the Patient Walk?: Yes Gait (FIM): 5 Distance (FIM): 3=150 ft Distance: 150' Walk 10 feet (QC): 5 Walk 50 ft with 2 Turns(QC): 5 Walk 150 ft (QC): 5 Walking 10ft/uneven surface-QC: 5 Gait Level of Assist: 5 Gait Persons Needed: 1 Gait Assistive Device: FWW Wheelchair Training Does the Pt Use a Wheelchair?: No Stair Training Stairs (FIM): 88 #of Steps: 1 1 Step (curb) (QC): 4 Stairs: Pattern: Step to Level of Assist: 4 Balance Picking up an Object (QC): 88 Mental Status/Objective Comprehension: 7 Expression: 7 Social Interaction: 7 Problem Solvin Memory: 7 ADL-Treatment Feedin (dentures) Eating (QC): 6 Groomin (standing at sink. brush hair, wash face, hands, style hair, brush teeth. intermitted sitting and standing. pt has chair in bathrom at home. ) Oral Hygiene (QC): 6 Bathin (use of SC, GB in bathroom. pt intermitted sitting/ standing. ) Bathing Location: L Arm, R Arm, L Upper Leg, R Upper Leg, L Lower Leg (including foot), R Lower Leg (including foot), Chest, Abdomen, Buttocks, Perineal Area Shower/Bathe Self (QC): 6 Upper Extremity Dressin (bra, dust puller shirt) Upper Body Dressing (QC): 6 Lower Extremity Dressin (underpatns, pants, francy socks, francy shoes. use of chief of anesthesiology, sock aid, dressing stick, long handled shoe horn ) Lower Body Dressing (QC): 6 On/Off Footwear (QC): 6 Toiletin (3/3 ) Toileting Hygiene (QC): 6 Toilet/Commode Transfer: 6 (use of RW) Toilet Transfer (QC): 6 Tub: 6 (shower transfers. use of RW sc, and GB ) Shower: 6 (shower transfers. use of RW sc, and GB ) Assessment/Plan Assessment and Plan Assess & Plan/Chief Complaint A/P: IRF protocols Pain control BM regimen Check labs prn DC Ultram Ibuprofen BM regimen to continue to prevent constipation DC Wednesday (1) Status post left hip replacement Status: Acute (2) Arthritis Status: Chronic (3) Deafness Status: Chronic Qualifiers: Laterality: bilateral Qualified Codes: H91.93 - Unspecified hearing loss, bilateral (4) Low vision Status: Chronic Qualifiers: Right eye visual impairment category: right - unspecified impairment Left eye visual impairment category: left - unspecified impairment Qualified Codes: H54.7 - Unspecified visual loss JÚNIOR RANGEL DO Feb 23, 2019 09:06
--- NOTE | 2019-02-23 09:26 | NUR ---
HOSPITAL RECEPTIONIST met with patient to review team conference summary. As patient is standby assist to mod I with all activities, team is recommended patient proceed with discharge on 830. Patient will have family in town at that time to stay with her for the first few days upon returning home. HOSPITAL RECEPTIONIST reviewed recommendation of home health services for PT, OT and RN services. Patient prefers to utilize [facility] health. HOSPITAL RECEPTIONIST will notify home health liaison. Patient is in need of a dressing stick and a soft sock aide. Patient reports being on a fixed income and is unsure if she will be able to purchase these items. HOSPITAL RECEPTIONIST reached out to patient's daughter to inquire about her ability to cover these expenses. Delmy has an [employer] account and intends on ordering both items today. Patient expresses no concerns with discharge plan. HOSPITAL RECEPTIONIST reviewed IMM and patient choice letter. Patient provided signature on both. Please see discharge summary for further information.
[2019-02-23 11:00] VITALS: BP 120/64
--- NOTE | 2019-02-23 12:09 | Physical Therapy Daily Note ---
PT Daily Note-Current Subjective Pt sitting in recliner upon arrival. Pt agrees to PT. Pt is [place] and uses dry erase board or lip reading for communication. Pain Numeric Pain Scale: 3 Location: Left Location Body Site: Hip Pain Description: Ache, Tightness Mental Status Patient Orientation: Person, Place, Time, Situation Attachments: Other-See Comments (Dry erase board for communication) Transfers Therapy Code Descriptions/Definitions Functional [place] Measure: 0=Not Assessed/NA 4=Minimal Assistance 1=Total Assistance 5=Supervision or Setup 2=Maximal Assistance 6=Modified [place] 3=Moderate Assistance 7=Complete [place] Therapy Quality Codes: 6 Independent with activity with or without an assistive device 5 Patient requires set up or clean up by helper. Patient completes activity by themselves 4 Supervision or touching assist (CGA). [place] provide cues , steadying assist 3 The helper provides less than half the effort to complete the activity 2 The helper provides more than half the effort to complete the activity 1 Dependent. The helper does all the effort to complete an activity 7 Patient refused to complete or attempt activity 9 The patient did not perform the activity before the current illness or injury 88 Not attempted due to Medical conditions or safety concerns Transfers (B, C, W/C) (FIM): 6 Scootin Rollin Roll Left to Right (QC): 6 Supine to/from Sit: 6 Sit to/from Stand: 6 Sit to Lying (QC): 6 Sit to Stand (QC): 6 Chair/Bwq-bq-Vwjqz Xfer(QC): 6 Bed to/from Chair: 6 Car Transfer (QC): 88 Car transfer not attempted with simulator since seat cannot scoot back. Pt's knee cannot bend enough to get it in car comfortably. Weight Bearing Right Lower Extremity: Right Full Weight Bearing Left Lower Extremity: Left Weight Bearing/Tolerated Gait Training Does the Patient Walk?: Yes Gait (FIM): 6 Distance (FIM): 3=150 ft Distance: 150' Walk 10 feet (QC): 6 Walk 50 ft with 2 Turns(QC): 6 Walk 150 ft (QC): 6 Walking 10ft/uneven surface-QC: 6 Gait Level of Assist: 6 Gait Persons Needed: 1 Gait Assistive Device: FWW Pt has slow emilie. Wheelchair Training Does the Pt Use a Wheelchair?: No Stair Training Stair Training: Handrails/: uses walker Stairs (FIM): 2 #of Steps: 2 1 Step (curb) (QC): 5 4 Steps (QC): 88 12 Steps (QC): 88 Stairs: Pattern: Step to Level of Assist: 5 Pt attempts single step twice, first with ascending/descending with up with strong leg/down with weak then with stepping down backward. Backward stepping was completed with much more ease. Balance Picking up an Object (QC): 88 Special Test Comments This is not tested for safety of hip. Exercises NuStep Minutes: 15 NuStep Workload: 5 Treatments Pt completes FIM scoring items including bed mobility, transfers, ambulation including across varying surface, & steps. Pt not not attempt car transfer nor picking up object from floor due to safety. Pt uses NuStep for 15m at WL 5 then takes short RB before returning to room. Pt rests in recliner at end of tx with all needs met, call light next to pt & lunch in front of pt. Assessment Pt has improved with strength and mobility but is limited with some pain & tightness. PT Short Term Goals Short Term Goals Time Frame: Feb 22, 2019 Transfers (B,C,W/C) (FIM): 5 (met) Gait (FIM): 4 (met) Distance (FIM): 3=150 ft Gait Assistive Device: FWW PT White Shoe Ragger Goals White Sh[place] Ragger Goals PT Senior Care Goals Time Frame: Mar 01, 2019 Transfers (B,C,W/C) (FIM): 7 Sit to Lying (QC): 6 Lying-Sitting on Side/Bed(QC): 6 Sit to Stand (QC): 6 Rollin Roll Left to Right (QC): 6 Chair/Idu-aq-Fggin Xfer(QC): 6 Car Transfer (QC): 5 Does the Patient Walk: Yes Gait (FIM): 6 Gait distance (FIM): 3=150 ft Walk 10 feet (QC): 6 Walk 10ft-Uneven Surface(QC): 6 Walk 50ft with 2 Turns (QC): 6 Walk 150 ft (QC): 6 Gait Assistive Device: FWW Stairs (FIM): 5 # of Steps: 4 1 Step (curb) (QC): 6 4 Steps (QC): 6 12 Steps (QC): 88 Picking up an Object (QC): 88 PT Plan Problem List Problem List: Activity Tolerance, Gait Treatment/Plan Treatment Plan: Continue Plan of Care Treatment Plan: Bed Mobility, Education, Functional Activity [place], Functional Strength, Group Therapy, Gait, Safety, Therapeutic Exercise, Transfers Treatment Duration: Mar 01, 2019 Frequency: Modified Program (IRF) Estimated Hrs Per Day: 1.5 hours per day Patient and/or Family Agrees t: Yes Safety Risks/Education Patient Education: Transfer Techniques, Steps, Correct Positioning, Safety Issues Teaching Recipient: Patient Teaching Methods: Discussion Response to Teaching: Verbalize Understanding Time/GCodes Time In: 1100 Time Out: 1200 Total Billed Treatment Time: 60 Total Billed Treatment 1, GT (15m), EX (15m) & FA x2 (30m) DANIELE ARENAS CONCRETE PANEL INSTALLER Feb 23, 2019 12:09
--- NOTE | 2019-02-23 14:42 | Physical Therapy Daily Note ---
PT Daily Note-Current Subjective Pt sitting in recliner upon arrival. Pt agrees to PT. Pain Numeric Pain Scale: 3 Location Body Site: Hip Pain Description: Ache, Tightness Mental Status Patient Orientation: Person, Place, Time, Situation Attachments: Other-See Comments (Dry erase board for communication) Transfers Therapy Code Descriptions/Definitions Functional [place] Measure: 0=Not Assessed/NA 4=Minimal Assistance 1=Total Assistance 5=Supervision or Setup 2=Maximal Assistance 6=Modified [place] 3=Moderate Assistance 7=Complete [place] Therapy Quality Codes: 6 Independent with activity with or without an assistive device 5 Patient requires set up or clean up by helper. Patient completes activity by themselves 4 Supervision or touching assist (CGA). [place] provide cues , steadying assist 3 The helper provides less than half the effort to complete the activity 2 The helper provides more than half the effort to complete the activity 1 Dependent. The helper does all the effort to complete an activity 7 Patient refused to complete or attempt activity 9 The patient did not perform the activity before the current illness or injury 88 Not attempted due to Medical conditions or safety concerns Scootin Sit to/from Stand: 6 Sit to Stand (QC): 6 Weight Bearing Right Lower Extremity: Right Full Weight Bearing Left Lower Extremity: Left Weight Bearing/Tolerated Gait Training Does the Patient Walk?: Yes Gait (FIM): 6 Distance (FIM): 3=150 ft Distance: 250' Walk 10 feet (QC): 6 Walk 50 ft with 2 Turns(QC): 6 Walk 150 ft (QC): 6 Gait Level of Assist: 6 Gait Persons Needed: 1 Gait Assistive Device: FWW Pt fatigues easily and needs RB for recovery. Wheelchair Training Does the Pt Use a Wheelchair?: No Treatments Pt transfers from chair and uses restroom before ambulating in hallway. Pt returns to room to rest in recliner. AGRICULTURAL SERVICE WORKER & pt discuss HEP, AD that had been ordered and D/C progress tomorrow (02/24). Pt resting at end of tx with all needs met, call light next to pt. Assessment Current Status: Good Progress Pt's ambulation is limited by discomfort and stiffness in L gluteal/ low back region. PT Short Term Goals Short Term Goals Time Frame: Feb 22, 2019 Transfers (B,C,W/C) (FIM): 5 (met) Gait (FIM): 4 (met) Distance (FIM): 3=150 ft Gait Assistive Device: FWW PT Director Of Informatics Goals Director Of Informatics Goals PT Correction Goals Time Frame: Mar 01, 2019 Transfers (B,C,W/C) (FIM): 7 Sit to Lying (QC): 6 Lying-Sitting on Side/Bed(QC): 6 Sit to Stand (QC): 6 Rollin Roll Left to Right (QC): 6 Chair/Hsk-oh-Rxbdd Xfer(QC): 6 Car Transfer (QC): 5 Does the Patient Walk: Yes Gait (FIM): 6 Gait distance (FIM): 3=150 ft Walk 10 feet (QC): 6 Walk 10ft-Uneven Surface(QC): 6 Walk 50ft with 2 Turns (QC): 6 Walk 150 ft (QC): 6 Gait Assistive Device: FWW Stairs (FIM): 5 # of Steps: 4 1 Step (curb) (QC): 6 4 Steps (QC): 6 12 Steps (QC): 88 Picking up an Object (QC): 88 PT Plan Problem List Problem List: Activity Tolerance, Gait Treatment/Plan Treatment Plan: Continue Plan of Care Treatment Plan: Bed Mobility, Education, Functional Activity [place], Functional Strength, Group Therapy, Gait, Safety, Therapeutic Exercise, Transfers Treatment Duration: Mar 01, 2019 Frequency: Modified Program (IRF) Estimated Hrs Per Day: 1.5 hours per day Patient and/or Family Agrees t: Yes Safety Risks/Education Patient Education: Gait Training, Transfer Techniques, Correct Positioning, Safety Issues Teaching Recipient: Patient Teaching Methods: Discussion Response to Teaching: Verbalize Understanding Time/GCodes Time In: 1400 Time Out: 1430 Total Billed Treatment Time: 30 Total Billed Treatment 1, GT (15m) & FA (15m) DANIELE ARENAS AGRICULTURAL SERVICE WORKER Feb 23, 2019 14:42
[2019-02-23 17:07] VITALS: BP 137/67
--- NOTE | 2019-02-23 19:24 | NUR ---
bedside report received from CAITLYN BEARD, assume care of pt
[2019-02-23] MEDS: DOCUSATE SODIUM 100 MG (COLACE) CAP PO PRN (20:52)
--- NOTE | 2019-02-23 20:55 | NUR ---
assessments & interventions completed, see assessments & interventions up in the chair visiting with daughter, refused miralax but took ace & Pilo
--- NOTE | 2019-02-23 22:00 | NUR ---
requesting Motrin 400mg for pain level 4/10 on numeric scale
[2019-02-23] MEDS ORDERED: ASPI-999 PO (22:23)
[2019-02-23] MEDS ORDERED: TRAM50TA2 PO (22:23)
--- NOTE | 2019-02-23 22:24 | NUR ---
straight cath for U/A received 450ml clear yellow urine, U/A sent to lab
--- NOTE | 2019-02-23 22:25 | D/C HH Face to Face Order ---
D/C Face to Face Orders Reconcile Patient Problems Problems Reviewed?: Yes Instructions for Patient [facility], Patient Instructions/FollowUp: Dr Gibson in 2 weeks Physician to follow Patient: Dr Gibson Discharge Diet for Home: No Restrictions Patient Problems: Hip replacement Deafness Goals for Patient: Return to independent living Patient Data-Allergies,Ht & Wt Patient Allergies: Coded Allergies: Sulfa (Sulfonamide Antibiotics) (Verified Allergy, Severe, 02/15/19) bezafibrate (Verified Allergy, Severe, 02/15/19) doxycycline (Verified Allergy, Severe, 02/15/19) gadoteridol (Verified Allergy, Severe, 02/15/19) phenazopyridine (Verified Allergy, Severe, 02/15/19) propoxyphene (Verified Allergy, Severe, 02/15/19) Height (Feet): 5 Height (Inches): 4.00 Weight (Pounds): 183 Weight (Ounces): 0.0 Home Health Need/Face to Face Date of Face to Face: Feb 23, 2019 Clinical Findings: Generalized weakness and fatigue, Instability, Muscle weakness, Pain with ambulation, Unsteady gait I have seen Pt [id number]: Yes Discharged To: Home Diagnosis/Conditions: Hip replacement Patient is Homebound due to: Muscle weakness, Pain w/ambulation Homebound Status Due to the above stated illness, injury or surgical procedure (medical condition or diagnosis) and associated clinical findings, the patient is homebound because of his/her inability to leave home except with aid of a supportive device and/or person AND leaving the home requires a considerable and taxing effort or is medically contraindicated. Pt req the following assistanc: Walker Home Health Nursing Orders Home Health Services Order: Combination Welder Apprentice-Evaluate & Treat, Physical Therapy-Evaluate & Treat Certify Stmt I certify that this patient is under my care and that I, a nurse practitioner or a physician; a assistant banquet manager working with me, had a face to face encounter that - meets the physician face to face encounter requirements with this patient as dated. JÚNIOR GIBSON DO Feb 23, 2019 22:25
[2019-02-23 22:38] LABS: BILIRUBIN,URINE NEGATIVE (NEGATIVE); CLARITY,URINE CLEAR; COLOR,URINE YELLOW; GLUCOSE, URINE (UA) NEGATIVE (NEGATIVE); KETONES,URINE NEGATIVE (NEGATIVE); LEUKOCYTE ESTERASE ,URINE NEGATIVE (NEGATIVE); NITRITE,URINE NEGATIVE (NEGATIVE); PH,URINE 7 (5-9); PROTEIN,URINE NEGATIVE (NEGATIVE); UROBILINOGEN,URINE NORMAL (NORMAL)
[2019-02-23 22:45] LABS: BACTERIA,URINE TRACE /HPF
--- NOTE | 2019-02-23 22:45 | NUR ---
resting quietly in the chair pain level 0/10 on flacc scale
[2019-02-24 06:57] VITALS: BP 121/73
--- NOTE | 2019-02-24 07:07 | NUR ---
bedside report given to ESTELA BEARD
--- NOTE | 2019-02-24 08:00 | NUR ---
PLEASANT AND COOPERATIVE. LOOKS FORWARD TO GOING HOME AND DENIES PAIN OR PROBLEMS. STATES NO PROBLEMS WITH URINATING NOW.
[2019-02-24] MEDS: SENNA W/DOCUSATE (SENOKOT S) TABLET PO SCH (08:48)
[2019-02-24] MEDS: ASPIRIN 81 MG CHEW (CHILDREN'S ASA) PO SCH (08:48)
[2019-02-24] MEDS: POLYETHYLENE GLYCOL 17 GM (MIRALAX) PACK PO SCH (08:49)
[2019-02-24] MEDS: BISACODYL 10 MG SUPP (DULCOLAX) PR SCH (08:49)
--- NOTE | 2019-02-24 09:41 | Discharge Summary ---
Diagnosis/Chief Complaint Date of Admission Feb 15, 2019 at 15:10 Date of Discharge Discharge Date: Feb 24, 2019 Discharge Diagnosis Assess & Plan/Chief Complaint A/P: IRF protocols Pain control BM regimen Check labs prn DC Ultram Ibuprofen BM regimen to continue to prevent constipation DC Wednesday (1) Status post left hip replacement Status: Acute (2) Arthritis Status: Chronic (3) Deafness Status: Chronic Qualifiers: Laterality: bilateral Qualified Codes: H91.93 - Unspecified hearing loss, bilateral (4) Low vision Status: Chronic Qualifiers: Right eye visual impairment category: right - unspecified impairment Left eye visual impairment category: left - unspecified impairment Qualified Codes: H54.7 - Unspecified visual loss Reason Hospital Visit Verification and Attestation of Medical Student E/M Service A medical student performed and documented this service in my presence. I reviewed and verified all information documented by the medical student and made modifications to such information, when appropriate. I personally performed the physical exam and medical decision making. Nya Grimaldo Arthur, Feb 15, 2019,20:37 Discharge Summary Discharge Physical Examination Allergies: Coded Allergies: Sulfa (Sulfonamide Antibiotics) (Verified Allergy, Severe, 02/15/19) bezafibrate (Verified Allergy, Severe, 02/15/19) doxycycline (Verified Allergy, Severe, 02/15/19) gadoteridol (Verified Allergy, Severe, 02/15/19) phenazopyridine (Verified Allergy, Severe, 02/15/19) propoxyphene (Verified Allergy, Severe, 02/15/19) Vitals & I&Os Vital Signs Date Time Temp Pulse Resp B/P (MAP) Pulse Ox O2 Delivery O2 Flow Rate FiO2 02/24/19 09:00 Room Air 02/24/19 06:57 97.9 84 20 121/73 (89) 98 General Appearance: Alert, Oriented X3, Cooperative Respiratory: Clear to Auscultation Cardiovascular: Regular Rate Neuro: Normal Gait, Normal Speech, Strength at 5/5 X4 Ext Psych/Mental Status: Mental Status NL, Mood NL Hospital Course Was the Problem List Reviewed?: Yes Hospital course: Patient had an uneventful hospital course for a total of 10 days in inpatient rehab after undergoing a left hip replacement. It was uncomplicated surgery by Dr. Whyte and was sent to inpatient rehab for intensive therapy prior to going home and living independently. She participated in all treatment plan protocols by therapy and had no evidence of any decompensation during her hospital stay. Bowel function regained normalcy after laxatives and were maintained good routine during her stay. She thought she had a UTI and catheter was placed but no evidence of any infection. She regained enough function to be near her baseline of prior level of functioning and will participate in in-home physical therapy and will have close follow-up with primary care provider and Dr. Whyte. Labs (last 24 hrs) Laboratory Tests 02/16/19 05:57: White Blood Count 10.1, Red Blood Count 3.71L, Hemoglobin 11.2L, Hematocrit 34L, Mean Corpuscular Volume 92, Mean Corpuscular Hemoglobin 30, Mean Corpuscular Hemoglobin Concent 33, Red Cell Distribution Width 15.1H, Platelet Count 221, Mean Platelet Volume 10.3, Neutrophils (%) (Auto) 72, Lymphocytes (%) (Auto) 17, Monocytes (%) (Auto) 9, Eosinophils (%) (Auto) 1, Basophils (%) (Auto) 0, Neutrophils # (Auto) 7.3, Lymphocytes # (Auto) 1.7, Monocytes # (Auto) 0.9, Eosinophils # (Auto) 0.1, Basophils # (Auto) 0.0, Sodium Level 138, Potassium Level 4.2, Chloride Level 104, Carbon Dioxide Level 26, Anion Gap 8, Blood Urea Nitrogen 13, Creatinine 0.62, Estimat Glomerular Filtration Rate > 60, BUN/Creatinine Ratio 21, Glucose Level 135H, Calcium Level 9.1, Corrected Calcium 9.4, Total Bilirubin 0.6, Aspartate Amino Transf (AST/SGOT) 24, Alanine Aminotransferase (ALT/SGPT) 19, Alkaline Phosphatase 53, Total Protein 6.1L, Albumin 3.6 02/20/19 05:10: White Blood Count 8.6, Red Blood Count 4.03L, Hemoglobin 12.1, Hematocrit 37, Mean Corpuscular Volume 91, Mean Corpuscular Hemoglobin 30, Mean Corpuscular Hemoglobin Concent 33, Red Cell Distribution Width 15.7H, Platelet Count 331, Mean Platelet Volume 9.1, Neutrophils (%) (Auto) 57, Lymphocytes (%) (Auto) 31, Monocytes (%) (Auto) 7, Eosinophils (%) (Auto) 4, Basophils (%) (Auto) 1, Neutrophils # (Auto) 4.9, Lymphocytes # (Auto) 2.7, Monocytes # (Auto) 0.6, Eosinophils # (Auto) 0.4H, Basophils # (Auto) 0.0, Sodium Level 140, Potassium Level 4.5, Chloride Level 105, Carbon Dioxide Level 25, Anion Gap 10, Blood Urea Nitrogen 16, Creatinine 0.66, Estimat Glomerular Filtration Rate > 60, BUN/Creatinine Ratio 24, Glucose Level 120H, Calcium Level 9.4, Corrected Calcium 9.7, Total Bilirubin 0.6, Aspartate Amino Transf (AST/SGOT) 21, Alanine Aminotransferase (ALT/SGPT) 21, Alkaline Phosphatase 48, Total Protein 6.2L, Albumin 3.6 02/23/19 20:24: Urine Color YELLOW, Urine Clarity CLEAR, Urine pH 7, Urine Specific [place] 1.010L, Urine Protein NEGATIVE, Urine Glucose (UA) NEGATIVE, Urine Ketones NEGATIVE, Urine Nitrite NEGATIVE, Urine Bilirubin NEGATIVE, Urine Urobilinogen NORMAL, Urine Leukocyte Esterase NEGATIVE, Urine RBC (Auto) NEGATIVE, Urine RBC NONE, Urine WBC NONE, Urine Crystals NONE, Urine Bacteria TRACE, Urine Casts NONE, Urine Mucus NEGATIVE, Urine Culture Indicated NO Pending Labs Laboratory Tests 02/16/19 05:57: White Blood Count 10.1, Red Blood Count 3.71, Hemoglobin 11.2, Hematocrit 34, Mean Corpuscular Volume 92, Mean Corpuscular Hemoglobin 30, Mean Corpuscular Hemoglobin Concent 33, Red Cell Distribution Width 15.1, Platelet Count 221, Mean Platelet Volume 10.3, Neutrophils (%) (Auto) 72, Lymphocytes (%) (Auto) 17, Monocytes (%) (Auto) 9, Eosinophils (%) (Auto) 1, Basophils (%) (Auto) 0, Neutrophils # (Auto) 7.3, Lymphocytes # (Auto) 1.7, Monocytes # (Auto) 0.9, Eosinophils # (Auto) 0.1, Basophils # (Auto) 0.0, Sodium Level 138, Potassium Level 4.2, Chloride Level 104, Carbon Dioxide Level 26, Anion Gap 8, Blood Urea Nitrogen 13, Creatinine 0.62, Estimat Glomerular Filtration Rate > 60, BUN/Creatinine Ratio 21, Glucose Level 135, Calcium Level 9.1, Corrected Calcium 9.4, Total Bilirubin 0.6, Aspartate Amino Transf (AST/SGOT) 24, Alanine Aminotransferase (ALT/SGPT) 19, Alkaline Phosphatase 53, Total Protein 6.1, Albumin 3.6 02/20/19 05:10: White Blood Count 8.6, Red Blood Count 4.03, Hemoglobin 12.1, Hematocrit 37, Mean Corpuscular Volume 91, Mean Corpuscular Hemoglobin 30, Mean Corpuscular Hemoglobin Concent 33, Red Cell Distribution Width 15.7, Platelet Count 331, Mean Platelet Volume 9.1, Neutrophils (%) (Auto) 57, Lymphocytes (%) (Auto) 31, Monocytes (%) (Auto) 7, Eosinophils (%) (Auto) 4, Basophils (%) (Auto) 1, Neutrophils # (Auto) 4.9, Lymphocytes # (Auto) 2.7, Monocytes # (Auto) 0.6, Eosinophils # (Auto) 0.4, Basophils # (Auto) 0.0, Sodium Level 140, Potassium Level 4.5, Chloride Level 105, Carbon Dioxide Level 25, Anion Gap 10, Blood Urea Nitrogen 16, Creatinine 0.66, Estimat Glomerular Filtration Rate > 60, BUN/Creatinine Ratio 24, Glucose Level 120, Calcium Level 9.4, Corrected Calcium 9.7, Total Bilirubin 0.6, Aspartate Amino Transf (AST/SGOT) 21, Alanine Aminotransferase (ALT/SGPT) 21, Alkaline Phosphatase 48, Total Protein 6.2, Albumin 3.6 02/23/19 20:24: Urine Color YELLOW, Urine Clarity CLEAR, Urine pH 7, Urine Specific Corning 1.010, Urine Protein NEGATIVE, Urine Glucose (UA) NEGATIVE, Urine Ketones NEGATIVE, Urine Nitrite NEGATIVE, Urine Bilirubin NEGATIVE, Urine Urobilinogen NORMAL, Urine Leukocyte Esterase NEGATIVE, Urine RBC (Auto) NEGATIVE, Urine RBC NONE, Urine WBC NONE, Urine Crystals NONE, Urine Bacteria TRACE, Urine Casts NONE, Urine Mucus NEGATIVE, Urine Culture Indicated NO Discharge Home Medications: Active Scripts Active Tramadol HCl 50 Mg Tablet 100 Mg PO Q6HR PRN Aspirin 81 Mg Tab.chew 81 Mg PO DAILY Reported [Gotu Gigi 395MG] 395 Mg PO DAILY Vitamin D3 (Cholecalciferol (Vitamin D3)) 2,000 Unit Tablet 2,000 Unit PO DAILY Flaxseed Oil 1,000 Mg Capsule 1,000 Mg PO DAILY [Dandelion 920MG] 920 Mg PO DAILY Vitamin B Complex 1 Each Tablet 1 Tab PO DAILY Potassium (Potassium Gluconate) 99 Mg Tablet 99 Mg PO DAILY Advil (Ibuprofen) 200 Mg Tablet 200 Mg PO Q6H PRN Instructions to patient/family Please see electronic discharge instructions given to patient. Diagnosis/Problems Diagnosis/Problems (1) Status post left hip replacement Status: Acute (2) Arthritis Status: Chronic (3) Deafness Status: Chronic Qualifiers: Qualified Codes: H91.93 - Unspecified hearing loss, bilateral (4) Low vision Status: Chronic Qualifiers: Qualified Codes: H54.7 - Unspecified visual loss Clinical Quality Measures DVT/VTE Risk/Contraindication: Risk Factor Score Per Nursin RFS Level Per Nursing on Admit: 4+=Very High NYA RANGEL DO Feb 24, 2019 09:41
--- NOTE | 2019-02-24 10:31 | Therapy Team Discharge Summary ---
Therapy Discharge Summary Discharge Recommendations Date of Discharge Therapy D/C Recommendations: Home w/ Family Support Occupational Therapy OT has focus on increasing indep with ADLS, functional mobility, UE strength, standing tolerance, energy conservation, use of AE and DME and overall safety with functional tasks in sitting and standing. pt currently can complete all ADLS and mobility MOD I / indep with use of AE with good safety awareness.recommend the following AE: soft shell sock aid, dressing stick, shower chair, and RW. pt to d/c home this date with daily support. pt has met all OT goals. Decreased Activ Tolerance PT Instrument And Control Service Person Goals Fpc Goals PT Instrument And Control Service Person Goals Time Frame: Mar 01, 2019 Transfers (B,C,W/C) (FIM): 7 Roll Left to Right (QC): 6 Sit to Lying (QC): 6 Lying-Sitting on Side/Bed(QC): 6 Sit to Stand (QC): 6 Chair/Vnz-yg-Dftgz Xfer(QC): 6 Car Transfer (QC): 5 Does the Patient Walk: Yes Gait (FIM): 6 Gait distance (FIM): 3=150 ft Walk 10 feet (QC): 6 Walk 10ft-Uneven Surface(QC): 6 Walk 50ft with 2 Turns (QC): 6 Walk 150 ft (QC): 6 Gait Assistive Device: FWW Stairs (FIM): 5 # of Steps: 4 1 Step (curb) (QC): 6 4 Steps (QC): 6 12 Steps (QC): 88 Picking up an Object (QC): 88 OT Fpc Goals Fpc Goals Time Frame: Mar 15, 2019 Eating (FIM): 6 (MET ) Eating (QC): 6 (MET ) Oral Hygiene (QC): 6 (MET ) Grooming(FIM): 6 (MET ) Bathing(FIM): 6 (met) Bathing Location: L Arm, R Arm, L Upper Leg, R Upper Leg, L Lower Leg (including foot), R Lower Leg (including foot), Chest, Abdomen, Buttocks, Perineal Area Shower/Bathe Self (QC): 6 (met) Upper Body Dressing(FIM): 6 (MET ) Upper Body Dressing (QC): 6 (MET ) Lower Body Dressing(FIM): 6 (MET ) Lower Body Dressing (QC): 6 (MET ) On/Off Footwear (QC): 6 (MET ) Toileting(FIM): 6 (MET ) Toileting Hygiene (QC): 6 (MET ) Transfers (B,C,W/C) (FIM): 6 (MET ) Toilet/Commode Transfer(FIM): 6 (MET ) Toilet/Commode Transfer (QC): 6 (MET ) Shower Transfer(FIM): 6 (met) Additional Goals: 1-Demonstrate ADL Tasks, 2-Verbalize Understanding, 3- ImproveStrength/Haydee 1=Demonstrate adherence to instructed precautions during ADL tasks. 2=Patient will verbalize/demonstrate understanding of assistive devices/modifications for ADL. 3=Patient will improve strength/tolerance for activity to enable patient to perform ADL's. SHANNAN VARGAS OT Feb 24, 2019 10:31
--- NOTE | 2019-02-24 11:00 | NUR ---
CLARIFIED WITH DR. HANSEN ANY FURTHER INCISION ORDERS SINCE AQUACEL DRESSING DC'D ORDERED. HE STATES TO JUST WASH WITH SOAP AND H2O AND TO AIR DRY WELL.
--- NOTE | 2019-02-24 11:13 | Therapy Team Discharge Summary ---
Therapy Discharge Summary Discharge Recommendations Date of Discharge Therapy D/C Recommendations: Home w/ Family Support, Physical Therapy Home Care Physical Therapy This patient was admitted to ARU post elective L MATTHIAS. Prior to surgery, she lived alone and was indep to mod indep with all mobility. Upon initial evaluation, she required mod assist with transfers and walked short distances with a FWW with CG-min assist. Treatment focused on functional strength and balance to promote transfers and gait progression. She made excellent progress and is mod indep with transfers and gait at discharge, meeting all goals to a satisfactory level. She is to discharge home alone with family support as needed and recommended HHC PT. DC from ARU at this time. Occupational Therapy Decreased Activ Tolerance PT Nail Technician Teacher Goals Nail Technician Teacher Goals PT Nail Technician Teacher Goals Time Frame: Mar 01, 2019 Transfers (B,C,W/C) (FIM): 7 (scored a 6) Roll Left to Right (QC): 6 Sit to Lying (QC): 6 Lying-Sitting on Side/Bed(QC): 6 Sit to Stand (QC): 6 Chair/Ejp-ef-Xemao Xfer(QC): 6 Car Transfer (QC): 5 Does the Patient Walk: Yes Gait (FIM): 6 (et) Gait distance (FIM): 3=150 ft Walk 10 feet (QC): 6 Walk 10ft-Uneven Surface(QC): 6 Walk 50ft with 2 Turns (QC): 6 Walk 150 ft (QC): 6 Gait Assistive Device: FWW Stairs (FIM): 5 (scored a 2) # of Steps: 4 1 Step (curb) (QC): 6 4 Steps (QC): 6 12 Steps (QC): 88 Picking up an Object (QC): 88 OT Usp Goals Nail Technician Teacher Goals Time Frame: Mar 15, 2019 Eating (FIM): 6 (MET ) Eating (QC): 6 (MET ) Oral Hygiene (QC): 6 (MET ) Grooming(FIM): 6 (MET ) Bathing(FIM): 6 (met) Bathing Location: L Arm, R Arm, L Upper Leg, R Upper Leg, L Lower Leg (including foot), R Lower Leg (including foot), Chest, Abdomen, Buttocks, Perineal Area Shower/Bathe Self (QC): 6 (met) Upper Body Dressing(FIM): 6 (MET ) Upper Body Dressing (QC): 6 (MET ) Lower Body Dressing(FIM): 6 (MET ) Lower Body Dressing (QC): 6 (MET ) On/Off Footwear (QC): 6 (MET ) Toileting(FIM): 6 (MET ) Toileting Hygiene (QC): 6 (MET ) Transfers (B,C,W/C) (FIM): 6 (MET ) Toilet/Commode Transfer(FIM): 6 (MET ) Toilet/Commode Transfer (QC): 6 (MET ) Shower Transfer(FIM): 6 (met) Additional Goals: 1-Demonstrate ADL Tasks, 2-Verbalize Understanding, 3-ImproveStrength/Haydee 1=Demonstrate adherence to instructed precautions during ADL tasks. 2=Patient will verbalize/demonstrate understanding of assistive devices/modifications for ADL. 3=Patient will improve strength/tolerance for activity to enable patient to perform ADL's. KYLEE ATKINSON PT Feb 24, 2019 11:13
[2019-02-24 17:33] VITALS: BP 127/74
[2019-02-24] MEDS: IBUPROFEN TABLET 200 MG TAB PO PRN (19:15)
[2019-02-24 19:49] VITALS: BP 127/74
== END 2019-02-24 19:25 | disposition home health service (06) | DRG 561 ==
PROVIDERS: ADMIT Internal Medicine; ATTEND Internal Medicine
DX: Z47.1 Aftercare following joint replacement surgery (principal); Z96.642 Presence of left artificial hip joint; H91.93 Unspecified hearing loss, bilateral; H54.3 Unqualified visual loss, both eyes; F32.9 Major depressive disorder, single episode, unspecified
CPT/HCPCS: 36415; 80053; 81000; 85025

== ENCOUNTER 2019-05-11 13:32 | Outpatient (RCR) | payer MEDICARE, OTHER ==
[~2019-05-11 13:32] MED LIST changes: +ASPI-983 PO; +ASPI-999 PO; +CHOL200025 PO; +FLAX10004 PO; +HYDR-3816 PO; +IBUP-30 PO; +MELO-170 PO; +PANT40TA2 PO; +POTA99TA21 PO; +TRAM50TA2 PO; +VITA1TAB17 PO; +[UNRECOGNIZED DRUG - OTHER] PO; +[UNRECOGNIZED DRUG - OTHER] PO
== END 2019-05-11 15:07 | disposition home or self-care (01) ==
PROVIDERS: ATTEND Physician Assistant
DX: M16.11 Unilateral primary osteoarthritis, right hip (principal); R29.898 Other symptoms and signs involving the musculoskeletal system; Z96.642 Presence of left artificial hip joint

== ENCOUNTER 2019-05-17 11:51 | Inpatient (IN) | payer MEDICARE, OTHER ==
[~2019-05-17] VITALS: Ht 170.2 cm; Wt 90.4 kg
[2019-05-17] MEDS ORDERED: DOCUSATE SODIUM 100 MG (COLACE) CAP PO PRN (12:15)
[2019-05-17] MEDS ORDERED: MELATONIN 3 MG TABLET PO PRN (12:15)
[2019-05-17] MEDS ORDERED: CALCIUM CARBONATE 500 MG (TUMS) TAB.CHEW PO PRN (12:15)
[2019-05-17] MEDS ORDERED: ALPRAZolam 0.25 MG (XANAX) TAB PO PRN (12:15)
[2019-05-17] MEDS ORDERED: LOPERAMIDE 2 MG (IMODIUM) TABLET PO PRN (12:15)
[2019-05-17] MEDS ORDERED: BISACODYL 10 MG SUPP (DULCOLAX) PR PRN (12:15)
[2019-05-17] MEDS ORDERED: FLEET ENEMA ADULT 1 EA BTL PR PRN (12:15)
[2019-05-17] MEDS ORDERED: ONDANSETRON 4 MG (ZOFRAN) ORAL DISSOLVE TAB PO PRN (12:15)
[2019-05-17] MEDS ORDERED: guaiFENesin/CODEINE (ROBITUSSIN AC) 10ML UDC PO PRN (12:15)
[2019-05-17] MEDS ORDERED: ACETAMINOPHEN 500 MG TAB (TYLENOL) PO PRN (12:15)
[2019-05-17] MEDS ORDERED: diphenhydrAMINE 25 MG TAB (BENADRYL) PO PRN (12:15)
[2019-05-17] MEDS ORDERED: IBUPROFEN TABLET 200 MG TAB PO PRN (12:15)
[2019-05-17] MEDS ORDERED: LACTULOSE SYRUP 10GM/15ML (ENULOSE) 30ML UDC PO PRN (12:15)
[2019-05-17 13:20] VITALS: BP 129/72
--- NOTE | 2019-05-17 13:20 | NUR ---
Pt admitted to room 233-1, with an admitting diagnosis of S/P Rt THR from PSI via w/c, accompanied by dgtr, & staff. KEHINDE SPANGLER introduced to surroundings, call light, bed controls, phone, TV, temperature control, lights, meal times, smoking policy, visitor policy, side rail policy, bathrooms and showers. Patient Rights given to patient in the handbook. KEHINDE SPANGLER acknowledges understanding that [facility] is not responsible for the loss or damage to any personal effects or valuables that are kept in the patients posession during their hospitalization. The following Patient Care Plans were discussed with the pt: Discharge Planning, Impaired Mobiity, Fall Precautions, Potential for Injury, Alteration in Skin integrity. KEHINDE SPANGLER acknowledges understanding of Interdisciplinary Patient Education. Patient and/or family were informed about the Rapid Response Team and its purpose. Patient received Patient Rights Booklet, which includes Privacy Act Statement and Data Collection Information Summary.
--- NOTE | 2019-05-17 14:08 | Physical Therapy Evaluation ---
PT Evaluation-General Medical Diagnosis Admission Date May 17, 2019 at 13:20 Medical Diagnosis: S/P R MATTHIAS Onset Date: May 15, 2019 Therapy Diagnosis Therapy Diagnosis: decreased activity donny, weakness, imbalance, decreased ROM Height/Weight Height (Feet): 5 Height (Inches): 4.00 Weight (Pounds): 183 Weight (Ounces): 3.2 Precautions Precautions/Isolations: Fall Prevention, Standard Precautions Weight Bear Status Right Lower Extremity: Right Weight Bearing/Tolerated Left Lower Extremity: Left Full Weight Bearing Referral Physician: Arthur Reason for Referral: Evaluation/Treatment, Strengthening Medical History Pertinent Medical History: OA Additional Medical History Nerve deafness, lumpectomy, cataract, arthritis, depression, UTI, migraine Reviewed History: Yes Social History Home: Single Level Current Living Status: Alone Entry Into Home: Ramp small threshold into house Prior Prior Level of Function SCALE: Activities may be completed with or without assistive devices. 3-Argvvnlhic-lavwzfs completes the activity by him/herself with no assistance from a helper. 5-Set-up or Clean-up Assistance-helper sets up or cleans up; patient completes activity. [place] assists only prior to or following the activity. 4-Supervision or Touching Assistance-helper provides verbal cues and/or touching/steadying and/or contact guard assistance as patient completes activity. Assistance may be provided throughout the activity or intermittently. 3-Partial/Moderate Assistance-helper does LESS THAN HALF the effort. [place] lifts, holds or supports trunk or limbs, but provides less than half the effort. 2-Substantial/Maximal Assistance-helper does MORE THAN HALF the effort. [place] lifts or holds trunk or limbs and provides more than half the effort. 2-Detkuwpze-ctlsgo does ALL the effort. Patient does none of the effort to complete the activity. Or, the assistance of 2 or more helpers is required for the patient to complete the activity. If activity was not attempted, code reason: 7-Patient Refused. 9-Not Applicable-not attempted and the patient did not perform the activity before the current illness, exacerbation or injury. 10-Not Attempted due to Environmental Limitations-(lack of equipment, weather restraints, etc.). 88-Not Attempted due to Medical Conditions or Safety Concerns. Bed Mobility: 6 Transfers (B,C,W/C): 6 Gait: 6 Stairs: 6 Indoor Mobility (Ambulation): Independent Stairs: Independent Prior Devices Use: Manual wheelchair, Walker, Other-see list below (cane) pt daughter reports pt would use quad cane or FWW around the house and would use 4wheeled walker when she left the house. daughter reports the pt was independent with grab bars on toilet and in shower and with grabber and shoe horn. PT Evaluation-Current Subjective pt sitting EOB pre-tx agrees to therapy reports no pain just soreness in the R hip Pt sitting EOB post-tx with OT and RN in room to continue OT post-tx. pt with all needs met at this time. Pt/Family Goals pt goal is to return to independence. Objective Patient Orientation: Person, Place, Time, Situation Integumentary/Posture Integumentary see nursing notes Bowel Incontinence: Yes Bladder Incontinence: Yes Sensory Vision: Wears Glasses Hearing: Deaf Hand Dominance: Right Sensation Right Lower Extremit: Intact Sensation Left Lower Extremity: Intact Transfers Roll Left to Right (QC): 3 (Cheng) Sit to Lying (QC): 3 (modA) Lying to Sitting/Side of Bed(Q: 3 (Cheng) Sit to Stand (QC): 4 (CGA) Chair/Weh-jj-Hdasu Xfer(QC): 4 (CGA) Car Transfer (QC): 3 (Cheng) Gait Does the Patient Walk?: Yes Mode of Locomotion: Both Anticipated Mode of Locomotion: Both Walk 10 feet (QC): 4 (CGA) Walk 50 ft with 2 Turns(QC): 4 (CGA) Walk 150 ft (QC): 4 (CGA) Walking 10ft/uneven surface-QC: 4 (CGA) Distance: 200', 120' Gait Assistive Device: FWW Comments/Gait Description pt has good ambulation with step through pattern and little to no pause during gait. Slow but steady. Wheelchair Training Does the Pt Use a Wheelchair?: No Wheel 50 ft with 2 turns (QC): 9 Wheel 150 ft (QC): 9 Type of Wheelchair: Manual Stairs 1 Step (curb) (QC): 3 (Cheng) 4 Steps (QC): 88 12 Steps (QC): 88 Balance Sitting Static: Normal Sitting Dynamic: Normal Standing Static: Good Standing Dynamic: Good Picking up an Object (QC): 88 Treatment Pt performed bed mobility training, transfer training, skilled ambulation training, and education. Assessment/Needs pt ambulation was limited by fatigue of the RLE. Pt is pleasant and motivated to work with therapy. Pt requires use of white board or written message while working with therapy and has difficulty reading lips with increased stimulation. Rehab Potential: Good PT Short Term Goals Short Term Goals Time Frame: May 24, 2019 Roll Left & Right: 4 (SBA) Sit to lyin (Cheng) Lying to sitting on side of be: 4 (CGA) Sit to stand: 4 (SBA) Chair/vez-li-upchg transfer: 4 (SBA) Toilet transfer: 4 (SBA) Car transfer: 4 (SBA) Walk 10 feet: 4 (SBA) Walk 50 feet with two turns: 4 (SBA) Walk 150 feet: 4 (SBA) Walking 10ft on uneven surface: 4 (SBA) 1 step (curb): 4 (SBA) 4 steps: 4 (SBA) PT Toaster Operator Goals Toaster Operator Goals PT Halfway Goals Time Frame: Jun 07, 2019 Roll Left & Right (QC): 6 Sit to Lying (QC): 6 Lying-Sitting on Side/Bed(QC): 6 Sit to Stand (QC): 6 Chair/Rmw-hj-Uzeik Xfer(QC): 6 Toilet Transfer (QC): 6 Car Transfer (QC): 6 Does the Patient Walk: Yes Walk 10 feet (QC): 6 Walk 50ft with 2 Turns (QC): 6 Walk 150 ft (QC): 6 Walking 10ft on Uneven Surface: 5 1 Step (curb) (QC): 4 4 Steps (QC): 4 12 Steps (QC): 4 Picking up an Object (QC): 4 Does the Pt use WC or Scooter?: No Type: N/A Type: N/A PT Plan Problem List Problem List: Activity Tolerance, Functional Strength, Safety, Balance, Gait, Transfer, Bed Mobility, ROM Treatment/Plan Treatment Plan: Continue Plan of Care Treatment Plan: Bed Mobility, Concurrent Therapy, Education, Functional Activity Haydee, Functional Strength, Group Therapy, Gait, Safety, Therapeutic Exercise, Transfers Treatment Duration: Jun 07, 2019 Frequency: At least 5 of 7 days/Wk (IRF) Estimated Hrs Per Day: 1.5 hours per day Patient and/or Family Agrees t: Yes Safety Risks/Education Patient Education: Gait Training, Transfer Techniques, Steps, Correct Positioning, Safety Issues Teaching Recipient: Patient Teaching Methods: Demonstration, Discussion Response to Teaching: Return Demonstration, Reinforcement Needed Discharge Recommendations Plan pt will perform functional LE strengthening/endurance training, bed mobility training, transfer training, skilled ambulation training, and education. Time/GCodes Time In: 1320 Time Out: 1400 Total Billed Treatment Time: 40 Total Billed Treatment 1 visit LUZ 10' FA 30' STEPHANIE SOTO PT May 17, 2019 14:08 POS
[2019-05-17] MEDS ORDERED: MELO-170 PO (14:51)
[2019-05-17] MEDS ORDERED: TURM538C PO (14:51)
[2019-05-17] MEDS ORDERED: PANT40TA2 PO (14:51)
[2019-05-17] MEDS ORDERED: ASPI-999 PO (14:51)
[2019-05-17] MEDS ORDERED: CHOL10007 PO (14:51)
[2019-05-17] MEDS ORDERED: CYAN100081 PO (14:51)
[2019-05-17] MEDS ORDERED: HYDR-3816 PO (14:51)
[2019-05-17] MEDS ORDERED: DOCU-143 PO (14:51)
--- NOTE | 2019-05-17 14:52 | NUR ---
UPDATED MED REC WITH DISCHARGE INSTRUCTIONS FROM [facility]. NOTE THE FOLLOWING CHANGES WERE MADE AT THAT DISCHARGE: START TAKING: MOBIC 7.5MG BID HYDROCODONE 7.5-325MG 2 Q4H PRN PROTONIX 40MG DAILY STOP TAKING: IBU 200MG Q6H PRN I WILL UPDATE THE MED REC BACK TO THE LIST OF MEDS THE PATIENT WAS TAKING PRIOR TO THIS DISCHARGE AT A LATER DATE FOR PROPER DISCHARGE TO HOME ORDERS. Addendum: 05/18/19 at 0809 by LISSY SWEET [facility] REMOVED THE 3 NEW MEDICATIONS ORDERED UPON DISCHARGE FROM [facility] AND ADDED BACK THE IBU 200MG Q6H THAT WAS DISCONTINUED AT THIS TIME FOR PROPER DISCHARGE TO HOME ORDERS.
--- NOTE | 2019-05-17 15:25 | Occupational Therapy Eval ---
OT Evaluation-General/PLF Medical Diagnosis Admission Date May 17, 2019 at 13:20 Medical Diagnosis: S/P R MATTHIAS Onset Date: May 15, 2019 Therapy Diagnosis Therapy Diagnosis: Decreased functional mobility and ADL function Height/Weight Height (Feet): 5 Height (Inches): 4.00 Weight (Pounds): 183 Weight (Ounces): 3.2 Precautions Precautions/Isolations: Fall Prevention, Standard Precautions Referral Physician: Arthur Referral Reason: Activity Tolerance, Self Care, Evaluation/Treatment, Strengthening/ROM Medical History Pertinent Medical History: OA Additional Medical History L MATTHIAS 02/14/19 with stay at [facility] 2 weeks Current R MATTHIAS Current History Nerve deafness, lumpectomy, cataract, arthritis, depression, UTI, migraine Reviewed History: Yes Social History Home: Single Level Current Living Status: Alone Entry Into Home: Ramp ADL-Prior Level of Function SCALE: Activities may be completed with or without assistive devices. 3-Npeuymcopm-zifnkxf completes the activity by him/herself with no assistance from a helper. 5-Set-up or Clean-up Assistance-helper sets up or cleans up; patient completes activity. [place] assists only prior to or following the activity. 4-Supervision or Touching Assistance-helper provides verbal cues and/or touching/steadying and/or contact guard assistance as patient completes activity. Assistance may be provided throughout the activity or intermittently. 3-Partial/Moderate Assistance-helper does LESS THAN HALF the effort. Driver lifts, holds or supports trunk or limbs, but provides less than half the effort. 2-Substantial/Maximal Assistance-helper does MORE THAN HALF the effort. Driver lifts or holds trunk or limbs and provides more than half the effort. 5-Skvwhpkri-rqpfsk does ALL the effort. Patient does none of the effort to c omplete the activity. Or, the assistance of 2 or more helpers is required for the patient to complete the activity. If activity was not attempted, code reason: 7-Patient Refused. 9-Not Applicable-not attempted and the patient did not perform the activity before the current illness, exacerbation or injury. 10-Not Attempted due to Environmental Limitations-(lack of equipment, weather restraints, etc.). 88-Not Attempted due to Medical Conditions or Safety Concerns. ADL PLOF Comments Pt was IND with ADLs with use of FWW for functional mobility Pt drove self, but required assist for grocery shopping or larger chores outside of home. Self Care: Independent Functional Cognition: Independent DME/Equipment: Grab Bars, Reachers, Shower, Sock Aid, Toilet/Riser DME/Equipment Comments FWW, cane, ramp, toilet riser, gb in shower and toilet, shower chair. Pt's sister plans to stay with pt upon d/c for one week. Pt's daughter present at time of evaluation, able to provide additional hx Occupation: retired Drive Self: Yes Leisure Interests: crafts OT Current Status Subjective Pt states no current pain, seen with PT into room. Pt agreeable to OT evaluation and OT/ PT cotreatment within room. Mental Status/Objective Patient Orientation: Person, Place, Situation, Normal For Age Current Glasses/Contacts: Yes Hearing Aids: No Dentures/Partials: Yes Hand Dominance: Right Upper Extremity ROM WFL BUE Upper Extremity Coordination WFL BUE Upper Extremity Sensation WFL BUE, no paresthesias Upper Extremity Strength (4-/5 bilaterally) ADL-Treatment Eating (QC): 6 (opens and drinks from soda bottle) Oral Hygiene (QC): 7 (Pt refuses, states soaks each morning) Shower/Bathe Self (QC): 4 (Pt completes sponge bath at chair level. CGA in stance. Pt requires assist with feet but states she completes with loofa at home and is able to complete IND. ) Upper Body Dressing (QC): 5 (s/u) Lower Body Dressing (QC): 4 (Pt has harbor master, sock aide, shoe horn, and dressing stick at home. Pt utilizes these AEs to complete doffing/ donning LB dressing. Pt has thigh-high siria hose on, requires max A to don with siria hose krystle- pt states she went home from rehab with these on previous stay and will wear them at home if needed but states she did not complete the donning/ doffing process on own prior. ) On/Off Footwear (QC): 4 (Pt able to complete with harbor master, dressing stick, and shoe horn. Pt requires intermittent assist for shoe donning due to difficulty managing elastic strap with harbor master.) Toileting Hygiene (QC): 4 (Pt states incontenence and urgency issue. Able to ambulate to toilet with CGA. CGA in stance for hygiene- urination.) Toilet Transfer (QC): 4 (CGA. Pt sits on standard toilet, able to sit to stand with mod A. Pt sits on raised commode, completes with CGA. Pt states she has toilet riser at home.) Other Treatments OT evaluation from 0767-5117; OT/ PT cotreatment from 2883-4866; OT individual tx from [id number]. OT/ PT co-treatment rendered due to safety concerns during mobility and transfer tasks. OT focused on ADL, AE, and fine/ UE movements; PT focused on functional transfers and balance, gross motor movements, and LE movements. Pt's daughter present during evaluation. Pt extremely hard of hearing, able to read lips at times but benefits from written forms of communication- pt's daughter provides white erase board. Pt completes ADLs in room, completes with AE as pt completes with AE at home. Pt states post-[facility], pt received HH services and received DME/ AE that allowed her to complete tasks with IND. Pt educated on ARU OT role, UE exercises, and benefits of seated position throughout day. Returns to recliner chair, call light in reach, all needs met, table s/u for comfort and activities in front of pt. Education OT Patient Education: Correct positioning, Exercise program, Home exercise program, Modified ADL techniques, Progress toward Goal/Update tx plan, Purpose of tx/functional activities, Reviewed precautions (no deep squats), Rehab process, Safety issues, Transfer techniques, Use of adapted equipment Teaching Recipient: Patient Teaching Methods: Demonstration, Handout (written words ), Discussion Response to Teaching: Verbalize Understanding, Return Demonstration, Reinforcement Needed OT Blanker Press Operator Goals Senior Care Goals Time Frame: May 31, 2019 Eating (QC): 6 Oral Hygiene (QC): 6 Toileting Hygiene (QC): 6 Shower/Bathe Self (QC): 6 Upper Body Dressing (QC): 6 Lower Body Dressing (QC): 6 On/Off Footwear (QC): 6 Additional Goals: 1-Demonstrate ADL Tasks, 2-Verbalize Understanding, 3-ImproveStrength/[place] 1=Demonstrate adherence to instructed precautions during ADL tasks. 2=Patient will verbalize/demonstrate understanding of assistive devices/modifications for ADL. 3=Patient will improve strength/tolerance for activity to enable patient to perform ADL's. OT Education/Plan Problem List/Assessment Assessment: Decreased Activ Tolerance, Impaired Funct Balance, Impaired I ADL's, Impaired Self-Care Skills Discharge Recommendations Plan/Recommendations: Continue POC Therapy Discharge Recommendati: Intermittent Supervision, Home & Family Patient/Family Goals Pt desires to walk "without issues" Treatment Plan/Plan of Care Treatment,Training & Education: Yes Patient would benefit from OT for education, treatment and training to promote independence in ADL's, mobility, safety and/or upper extremity function for ADL's. Plan of Care: ADL Retraining, Caregiver Training, Concurrent Therapy, Functional Mobility, Group Exercise/Act as Ind, UE Funct Exercise/Act Treatment Duration: May 31, 2019 Frequency: At least 5 of 7 days/Wk (IRF) Estimated Hrs Per Day: 1.5 hours per day Rehab Potential: Good Time/GCodes Start Time: 14:00 Stop Time: 15:15 Total Time Billed (hr/min): 75 Billed Treatment Time 1, EVM (10), ADL 4 (65)= 75 OT evaluation from 1161-5068; OT/ PT cotreatment from [id number]; OT individual tx from [id number]. OT/ PT co-treatment rendered due to safety concerns during mobility and transfer tasks. OT focused on ADL, AE, and fine/ UE movements; PT focused on functional transfers and balance, gross motor movements, and LE movements. YVON YANEZ OTR May 17, 2019 15:25 POS
[2019-05-17] MEDS: ENOXAPARIN 40 MG/0.4 ML (LOVENOX) SYR SC SCH (15:38)
--- NOTE | 2019-05-17 15:45 | Physical Therapy Daily Note ---
PT Daily Note-Current Subjective Agreeable to continued PT therapy. Pt does report feeling tired. Mental Status Patient Orientation: Person, Place, Time, Situation Transfers SCALE: Activities may be completed with or without assistive devices. 5-Ycmuzxbrng-xxibvhs completes the activity by him/herself with no assistance from a helper. 5-Set-up or Clean-up Assistance-helper sets up or cleans up; patient completes activity. [place] assists only prior to or following the activity. 4-Supervision or Touching Assistance-helper provides verbal cues and/or touching/steadying and/or contact guard assistance as patient completes activity. Assistance may be provided throughout the activity or intermittently. 3-Partial/Moderate Assistance-helper does LESS THAN HALF the effort. [place] lifts, holds or supports trunk or limbs, but provides less than half the effort. 2-Substantial/Maximal Assistance-helper does MORE THAN HALF the effort. [place] lifts or holds trunk or limbs and provides more than half the effort. 0-Jsudptmpl-pfstmq does ALL the effort. Patient does none of the effort to complete the activity. Or, the assistance of 2 or more helpers is required for the patient to complete the activity. If activity was not attempted, code reason: 7-Patient Refused. 9-Not Applicable-not attempted and the patient did not perform the activity before the current illness, exacerbation or injury. 10-Not Attempted due to Environmental Limitations-(lack of equipment, weather restraints, etc.). 88-Not Attempted due to Medical Conditions or Safety Concerns. Sit to Lying (QC): 2 (mod asssit for both legs) Lying to Sitting/Side of Bed(Q: 2 (mod assist. ) Sit to Stand (QC): 3 (min to CGA throughout treatment) Weight Bearing Right Lower Extremity: Right Weight Bearing/Tolerated Left Lower Extremity: Left Full Weight Bearing Treatments Co treat with OT due to the need for multiple cues and skill of 2 clinicians and assist with functional transfers, standing balance and safety needs as she completed OT ADL care. OT addressed self care of bathing and dressing as PT addressed sequencing and safety with transfers, standing static and dynamic balance and gait to move throughout the room to complete self care. Pt requires min to CGA for transfers sit to stand depending on the surface; CGA for static and dynamic balance. Assessment Current Status: Good Progress Pt needs assist with all functional mobiltiy for safety and sequencing. She follows cues well and demonstrates good carryover. PT Short Term Goals Short Term Goals Time Frame: May 24, 2019 Roll Left & Right: 4 (SBA) Sit to lyin (Cheng) Lying to sitting on side of be: 4 (CGA) Sit to stand: 4 (SBA) Chair/nso-yi-ioynw transfer: 4 (SBA) Toilet transfer: 4 (SBA) Car transfer: 4 (SBA) Walk 10 feet: 4 (SBA) Walk 50 feet with two turns: 4 (SBA) Walk 150 feet: 4 (SBA) Walking 10ft on uneven surface: 4 (SBA) 1 step (curb): 4 (SBA) 4 steps: 4 (SBA) PT Prison Goals Marker Machine Attendant Goals PT Prison Goals Time Frame: Jun 07, 2019 Roll Left & Right (QC): 6 Sit to Lying (QC): 6 Lying-Sitting on Side/Bed(QC): 6 Sit to Stand (QC): 6 Chair/Gsh-pd-Npuul Xfer(QC): 6 Toilet Transfer (QC): 6 Car Transfer (QC): 6 Does the Patient Walk: Yes Walk 10 feet (QC): 6 Walk 50ft with 2 Turns (QC): 6 Walk 150 ft (QC): 6 Walking 10ft on Uneven Surface: 5 1 Step (curb) (QC): 4 4 Steps (QC): 4 12 Steps (QC): 4 Picking up an Object (QC): 4 Does the Pt use WC or Scooter?: No Type: N/A Type: N/A PT Plan Problem List Problem List: Activity Tolerance, Functional Strength, Safety, Balance, Gait, Transfer, Bed Mobility Treatment/Plan Treatment Plan: Continue Plan of Care Treatment Plan: Bed Mobility, Concurrent Therapy, Education, Functional Activity [place], Functional Strength, Group Therapy, Gait, Safety, Therapeutic Exercise, Transfers Treatment Duration: Jun 07, 2019 Frequency: At least 5 of 7 days/Wk (IRF) Estimated Hrs Per Day: 1.5 hours per day Patient and/or Family Agrees t: Yes Safety Risks/Education Patient Education: Transfer Techniques, Safety Issues Teaching Recipient: Patient Teaching Methods: Demonstration, Discussion Response to Teaching: Return Demonstration, Reinforcement Needed Time/GCodes Time In: 1410 Time Out: 1500 Total Billed Treatment Time: 50 Total Billed Treatment co treat with OT Visit FA 50 KYLEE ATKINSON PT May 17, 2019 15:45 POS
--- NOTE | 2019-05-17 15:48 | ST Cognitive Linguistic Eval ---
Speech Evaluation-General Medical Diagnosis S/P R MATTHIAS Onset Date: May 15, 2019 Therapy Diagnosis Therapy Diagnosis: Cognitive-communication Referral Referring Physician: Dr. Gibson Medical History Pertinent Medical History: OA Reviewed History: Yes Social History Current Living Status: Alone Speech PLF-Current Status Prior Level of Function Patient lives alone where she is independent for most of her daily needs. She has a daughter near by who assists the patient as needed. Subjective Patient was pleasant and cooperative with the cognitive assessment. Language Eval: Auditory Comprehends Simple Yes/No Ques: Functional Indent/Objects Multiple [place]: Functional Ident/Pics in Multiple [place]: Functional Follows 1-Step Commands: Functional Follows Complex Directions: Functional Follows General Conversations: Functional Language Eval: Verbal Language Completes Spontaneous Greeting: Functional Produces Auto, Serial Info: Functional Imitates Simple Words/Phrases: Functional Word Finding: Functional Requests Basic Needs: Functional States Basic Personal Info: Functional Expresses Complex Ideas: Functional Objective Cognitive Domain Attention: WNL Memory: Mild Problem Solving: Functional Executive Functions: WNL Visuospatial Skills: WNL Composite Severity Rating: WNL Clock Drawing Severity Rating: WNL Objective Formal/Standardized Tests [facility] Mental Status ([facility]) Results 28/30, within normal range of function Oral Motor/Speech Production Patient has hearing loss, however her speech is intelligible Impression The patient is a pleasant 79 year old female known to me from a previous admission to the ARU. Patient was admitted to the unit for therapy s/p hip replacement. The patient was given the UMS with 28/30 score obtained. This score falls in the normal range of function. The patient does not require critical access hospital services from at this time. Speech Patient Assess Expression of Ideas/Wants: Expression (4) Understanding Verbal Content: Understands (4) Brief Interview-Mental Status: Yes Repetition of Three Words: Three (3) Temporal Orientation: Year: Correct (3) Temporal Orientation: Month: Accurate within 5 days(2) Temporal Orientation: Day: Correct (1) Recall : Wear to say "Sock": Yes, no cue required (2) Recall : Color: Yes, after cueing (1) Recall : Bed: Yes, no cue required (2) Memory/Recall Ability: Current season, Location of own room, That he or she is in a hsp/hsp unit Speech-Plan Patient/Family Goals Patient/Family Goals: Patient plans on returning to her home post rehab. Treatment Plan Speech Therapy Treatment Plan: Discontinue ST Patient does not warrant skilled ST at this time. Treatment Duration: May 17, 2019 Frequency: 1 time per week Estimated Hrs Per Day: .25 hour per day Rehab Potential: Good Barriers to Learning: None identified Pt/Family Agrees to Plan: Yes Safety Risks/Education Teaching Recipient: Patient Teaching Methods: Discussion Response to Teaching: Verbalize Understanding Education Topics Provided: Safety within her room and communication of wants/needs Time Speech Therapy Time In: 15:25 Speech Therapy Time Out: 15:40 Total Billed Time: 15 Billed Treatment Time 1, SPSNDCOMP JOSR Beckham May 17, 2019 15:48 POS
[2019-05-17 18:27] VITALS: BP 126/84
[2019-05-17] MEDS: MELOXICAM 7.5 MG (MOBIC) TABLET PO SCH (20:37)
[2019-05-17] MEDS: SENNA W/DOCUSATE (SENOKOT S) TABLET PO SCH (20:39)
[2019-05-17] MEDS: POLYETHYLENE GLYCOL 17 GM (MIRALAX) PACK PO SCH (20:39)
[2019-05-17] MEDS ORDERED: NON-FORMULARY MEDICATION 1 EA EA (Meloxicam (Mobic) 7.5 MG) PO SCH (21:00)
--- NOTE | 2019-05-17 21:19 | PM&R Post Admission Assessment ---
PM&R HP Date of Visit: May 17, 2019 Time of Visit: 13:45 History of Present Illness Chief complaint: Debility following right hip replacement complicated with deafness chronic condition History of present illness: This is a 79-year-old white female clinic patient of [facility] who has a past medical history of deafness lifelong who presents to the inpatient rehab following an uncomplicated right hip replacement by Dr. Whyte in [facility] on Wednesday. She had a recent stay in inpatient rehab following a left hip replacement which went extremely well and she was able to go home and live independently and this surgery has gone even better and has not required any narcotics and has done extremely well. Her goal is to be able to assure that the nerve block once dissipated allows patient to participate in therapy without severe pain and able to regain independence in order to return home to live independently. Her daughter is a nurse and she brought the patient and I did speak with her. She is on Mobic 7.5 mg twice daily and we will restart that along with her supplements. Past Tsgouvw-Ayfdzc-Ffhewd Hx Past Med/Social Hx: Reviewed Nursing Past Med/Soc Hx, Reviewed and Corrections made Patient Social History Marrital Status: Employed/Student: retired Alcohol Use: Denies Use Recreational Drug Use: No Smoking Status: Never a Smoker Physical Abuse Screen: No Sexual Abuse: No Recent Foreign Travel: No Contact w/other who traveled: No Recent Hopitalizations: Yes (right total hip) Recent Infectious Disease Expo: No Immunizations Up To Date Pediatric: No Date of Pneumonia Vaccine: Feb 26, 2018 Date of Influenza Vaccine: Mar 28, 2019 Seasonal Allergies Seasonal Allergies: No Past Medical History Surgeries: Orthopedic Currently Using CPAP: No Currently Using BIPAP: No Musculoskeletal: Arthritis, Fractures Loss of Vision: Bilateral Hearing Impairment: Deaf Psychosocial: Depression History of Blood Disorders: No Adverse Reaction to Blood [place]: No Family History Hypertension 19 FATHER Prior Level of Function Bed Mobility: 6 Transfers: 6 Gait: 6 Stairs: 6 Indoor Mobility (Ambulation): Independent Stairs: Independent Prior Devices Use: Manual wheelchair, Walker, Other-see list below (cane) Self Care: Independent Functional Cognition: Independent Occupation: retired Drive Self: Yes Leisure Interests: crafts Current Level of Fuctioning Roll Left to Right: 3 (Cheng) Sit to Lyin (mod asssit for both legs) Lying to Sitting/Side of Bed: 2 (mod assist. ) Sit to Stand: 3 (min to CGA throughout treatment) Chair/Erj-qb-Qjoeh Xfer: 4 (CGA) Car Transfer: 3 (Cheng) Does the Patient Walk: Yes Mode of Locomotion: Both Anticipated Mode of Locomotion: Both Walk 10 feet: 4 (CGA) Walk 50 ft with 2 Turns: 4 (CGA) Walk 150 ft: 4 (CGA) Walking 10ft on uneven surface: 4 (CGA) Gait Assistive Device: FWW Does the Pt Use a Wheelchair: No Wheel 50 ft with 2 turns: 9 Wheel 150 ft: 9 Type of Wheelchair: Manual 1 Step (curb): 3 (Cheng) 4 Steps: 88 12 Steps: 88 Picking up an Object: 88 Eatin (opens and drinks from soda bottle) Oral Hygiene: 7 (Pt refuses, states soaks each morning) Shower/Bathe Self: 4 (Pt completes sponge bath at chair level. CGA in stance. Pt requires assist with feet but states she completes with loofa at home and is able to complete IND. 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 Pt utilizes these AEs to complete doffing/ donning LB dressing. Pt has thigh-high siria hose on, requires max A to don with siria hose krystle- pt states she went home from rehab with these on previous stay and will wear them at home if needed but states she did not complete the donning/ doffing process on own prior. ) On/Off Footwear: 4 (Pt able to complete with career and technology education teacher, dressing stick, and shoe horn. Pt requires intermittent assist for shoe donning due to difficulty managin g elastic strap with career and technology education teacher.) Toileting Hygiene: 4 (Pt states incontenence and urgency issue. Able to amb ulate to toilet with CGA. CGA in stance for hygiene- urination.) Toilet Transfer: 4 (CGA. Pt sits on standard toilet, able to sit to stand with mod A. Pt sits on raised commode, completes with CGA. Pt states she has toilet riser at home.) PM&R Allergy/Meds/Data Review Allergies Coded Allergies: Sulfa (Sulfonamide Antibiotics) (Verified Allergy, Severe, 02/15/19) bezafibrate (Verified Allergy, Severe, 02/15/19) doxycycline (Verified Allergy, Severe, 02/15/19) gadoteridol (Verified Allergy, Severe, 02/15/19) phenazopyridine (Verified Allergy, Severe, 02/15/19) propoxyphene (Verified Allergy, Severe, 02/15/19) Home Medications Scheduled Aspirin (Aspirin), 81 MG PO DAILY, (Reported) Cholecalciferol (Vitamin D3) (Vitamin D3), 1,000 UNIT PO DAILY, (Reported) Cyanocobalamin (Vitamin B-12) (Vitamin B-12), 1,000 MCG PO DAILY, (Reported) Docusate Sodium (Colace), 100 MG PO DAILY, (Reported) Flaxseed Oil (Flaxseed Oil), 1,000 MG PO DAILY, (Reported) Meloxicam (Mobic), 7.5 MG PO BID, (Reported) Pantoprazole Sodium (Protonix), 40 MG PO DAILY, (Reported) Potassium Gluconate (Potassium), 99 MG PO DAILY, (Reported) Turmeric Root Extract (Turmeric), 500 MG PO DAILY, (Reported) [Dandelion 920MG], 920 MG PO DAILY, (Reported) [Gotu Gigi 395MG], 395 MG PO DAILY, (Reported) Scheduled PRN Hydrocodone/Acetaminophen (Hydrocodone-Acetamin 7.5-325), 2 TAB PO Q4H PRN for PAIN-MODERATE (5-7), (Reported) Discontinued Medications Cholecalciferol (Vitamin D3) (Vitamin D3), 2,000 UNIT PO DAILY, (Reported) Discontinued Reason: Prescription changed Ibuprofen (Advil), 200 MG PO Q6H PRN for PAIN-MILD, (Reported) Discontinued Reason: No Longer Taking Tramadol HCl (Tramadol HCl), 100 MG PO Q6HR PRN for PAIN-MODERATE Discontinued Reason: No Longer Taking Vitamin B Complex (Vitamin B Complex), 1 TAB PO DAILY, (Reported) Discontinued Reason: No Longer Taking Current Medications Current Medications Reviewed Review of Systems Constitutional: see HPI, malaise, weakness EENTM: no symptoms reported Respiratory: no symptoms reported Cardiovascular: no symptoms reported Gastrointestinal: constipation Genitourinary: no symptoms reported Musculoskeletal: joint pain Skin: no symptoms reported Psychiatric/Neurological: No Symptoms Reported All Other Systems Reviewed Negative Unless Noted: Yes Physical Exam Physical Exam Vital Signs Vital Signs - First Documented 05/17/19 13:20 Temp 36.6 Pulse 67 Resp 18 B/P (MAP) 129/72 Pulse Ox 96 O2 Delivery Room Air Capillary Refill : Height, Weight, BMI Height: 5'4.00" Weight: 183lbs. 3.2oz. [id number]; 31.48 BMI Method:Stated General Appearance: No Apparent Distress, WD/WN, Chronically ill Eyes: Bilateral Eye Normal Inspection, Bilateral Eye PERRL HEENT: PERRL/EOMI, Normal ENT Inspection, Pharynx Normal, Other (deafness) Neck: Full Range of Motion, Normal Inspection, Non Tender, Supple, Carotid Bruit Respiratory: Chest Non Tender, Lungs Clear, Normal Breath Sounds, No Accessory Muscle Use, No Respiratory Distress Cardiovascular: Regular Rate, Rhythm, No Edema, No Gallop, No JVD, No Murmur, Normal Peripheral Pulses Gastrointestinal: Normal Bowel Sounds, No Organomegaly, No Pulsatile Mass, Non Tender, Soft Back: Normal Inspection, No CVA Tenderness, No Vertebral Tenderness Extremity: Normal Capillary Refill, Normal Inspection, Normal Range of Motion (except right hip), Non Tender, No Calf Tenderness, No Pedal Edema Neurologic/Psychiatric: Alert, Oriented x3, No Motor/Sensory Deficits, Normal Mood/Affect Skin: Normal Color, Warm/Dry Lymphatic: No Adenopathy PM&R Medical Assessment & Plan REHAB/MEDICAL ASSESSMENT AND PLAN: REHAB IMPAIRMENT GROUP: Right hip replacement ETIOLOGIC DIAGNOSIS: Right hip degeneration The comorbidities that impact the patients function and/or functional outcome by: Deafness limits recovery and can place her at risk for inability to remove self from environmental hazards until ambulation returns REHAB PLAN: The patient is being admitted to our comprehensive inpatient rehabilitation facility and can tolerate the intensity of service consisting of at least: 180 minutes of therapy a day, 5 out of 7 days a week Rehab treatment will consist of: PT will focus on increasing ROM right hip and OT will focus on independence of ADL's The patient/family has a good understanding of our discharge process and will benefit from an interdisciplinary inpatient rehabilitation program. The patient has potential to make improvement and is in need of at least two of the following multidisciplinary therapies including but not limited to physical, occupational, speech, and prosthetics and orthotics. Additionally the patient will need services from respiratory, nutritional services, wound care, psychology, etc. (Customize this to each patient). Given the patients complex condition and risk of further medical complications, rehabilitation services cannot be safely or effectively provided at a lower level of care such as a [place] [facility] facility. BARRIERS TO DISCHARGE: Deafness, lives completely along with nurse daughter involved in care ESTIMATED LOS: 5 days DISPOSITION: Home RELEVANT CHANGES SINCE PREADMISSION SCREENING: I have compared the patients medical and functional status at the time of the preadmission screening and there are: no changes PROGNOSIS: Good REHABILITATION GOALS: 1. PT will help improve ROM right hip with specific therapies 2. OT will help regain independent ADL's in order to return home to live alone All the above goals were reviewed with the patient and he/she is in agreement. By signing this document, I acknowledge that I have personally performed a full physical examination on this patient within 24 hours of admission to this inpatient rehabilitation facility and have determined the patient to be able to tolerate the above course of treatment at an intensive level for a reasonable period of time. I will be completing a detailed individualized Plan of Care for this patient by day #4 of the patients stay based upon the Preadmission Screen, the Post-Admission Evaluation, and the therapy evaluations. Admission Dx/Comorbidities: (1) Status post right hip replacement ICD Codes: Z96.641 - Presence of right artificial hip joint (2) Deafness Status: Chronic ICD Codes: H91.90 - Unspecified hearing loss, unspecified ear (3) Low vision Status: Chronic ICD Codes: H54.7 - Unspecified visual loss (4) Arthritis Status: Chronic ICD Codes: M19.90 - Unspecified osteoarthritis, unspecified site JÚNIOR RANGEL DO May 17, 2019 21:19 POS
[2019-05-17] MEDS: HYDROcodone/APAP 5 MG/325 MG (LORTAB) TAB PO PRN (22:59)
[2019-05-18 06:02] VITALS: BP 133/69
[2019-05-18] MEDS: CYANOCOBALAMIN 1,000 MCG (VITAMIN B-12) TABLET PO SCH (06:27)
[2019-05-18] MEDS: PANTOPRAZOLE 40 MG (PROTONIX) TAB PO SCH (06:27)
[2019-05-18] MEDS: MELOXICAM 7.5 MG (MOBIC) TABLET PO SCH ×2 (06:27→17:14)
[2019-05-18 06:54] LABS: BASOPHILS % (AUTO) 0 % (0-10); EOSINOPHILS # (AUTO) 0.1 10^3/uL (0.0-0.3); EOSINOPHILS % (AUTO) 1 % (0-10); HEMATOCRIT 40 % (35-52); HEMOGLOBIN 12.8 G/DL (11.5-16.0); LYMPHOCYTES # (AUTO) 2.4 X 10^3 (1.0-4.0); LYMPHOCYTES % (AUTO) 23 % (12-44); MEAN CORPUSCULAR HEMOGLOBIN 28 PG (25-34); MEAN CORPUSCULAR HGB CONC 32 G/DL (32-36); MEAN CORPUSCULAR VOLUME 88 FL (80-99); MONOCYTES # (AUTO) 0.6 X 10^3 (0.0-1.0); MONOCYTES % (AUTO) 6 % (0-12); NEUTROPHILS # (AUTO) 7.2 X 10^3 (1.8-7.8); NEUTROPHILS % (AUTO) 70 % (42-75); PLATELET COUNT 274 10^3/uL (130-400); RED CELL DISTRIBUTION WIDTH 15.6 % (10.0-14.5); WHITE BLOOD COUNT 10.4 10^3/uL (4.3-11.0)
[2019-05-18 07:23] LABS: ALANINE AMINOTRANSFERASE 19 U/L (0-55); ALBUMIN 4.2 GM/DL (3.2-4.5); ALKALINE PHOSPHATASE 64 U/L (40-136); BILIRUBIN,TOTAL 0.5 MG/DL (0.1-1.0); BUN/CREATININE RATIO 24; CALCIUM 9.6 MG/DL (8.5-10.1); CARBON DIOXIDE 26 MMOL/L (21-32); CHLORIDE 107 MMOL/L (98-107); CREATININE SERUM 0.67 MG/DL (0.60-1.30); GFR ESTIMATED > 60; GLUCOSE 106 MG/DL (70-105); POTASSIUM 4.1 MMOL/L (3.6-5.0); SODIUM 144 MMOL/L (135-145); TOTAL PROTEIN 6.9 GM/DL (6.4-8.2)
[2019-05-18] MEDS ORDERED: IBUP-2186 PO (08:08)
[2019-05-18] MEDS: POLYETHYLENE GLYCOL 17 GM (MIRALAX) PACK PO SCH ×2 (08:32→21:34)
[2019-05-18] MEDS: HYDROcodone/APAP 5 MG/325 MG (LORTAB) TAB PO PRN ×2 (08:33→21:34)
[2019-05-18] MEDS: DOCUSATE SODIUM 100 MG (COLACE) CAP PO SCH (08:33)
[2019-05-18] MEDS: VITAMIN D3 1,000 UNITS (CHOLECALCIFEROL) TABLET PO SCH (08:33)
[2019-05-18] MEDS: ASPIRIN 81 MG CHEW (CHILDREN'S ASA) PO SCH (08:33)
[2019-05-18] MEDS: SENNA W/DOCUSATE (SENOKOT S) TABLET PO SCH ×2 (08:34→21:34)
[2019-05-18] MEDS ORDERED: NON-FORMULARY MEDICATION 1 EA EA (Cholecalciferol (Vitamin D3) (Vitamin D3) 1,000 UNIT) PO SCH (09:00)
[2019-05-18] MEDS ORDERED: NON-FORMULARY MEDICATION 1 EA EA (Flaxseed Oil 1,000 MG) PO SCH (09:00)
[2019-05-18] MEDS ORDERED: [UNRECOGNIZED DRUG - OTHER] PO SCH (09:00)
[2019-05-18] MEDS ORDERED: NON-FORMULARY MEDICATION 1 EA EA (Cyanocobalamin (Vitamin B-12) (Vitamin B-12) 1,000 MCG) PO SCH (09:00)
[2019-05-18] MEDS ORDERED: TURMERIC ROOT EXTRACT 500 MG PO SCH (09:00)
[2019-05-18] MEDS ORDERED: [UNRECOGNIZED DRUG - OTHER] PO SCH (09:00)
[2019-05-18] MEDS ORDERED: NON-FORMULARY MEDICATION 1 EA EA (Potassium Gluconate (Potassium) 99 MG) PO SCH (09:00)
--- NOTE | 2019-05-18 09:53 | PM&R Progress Note ---
Subjective HPI/CC On Admission Date Seen by Provider: May 18, 2019 Time Seen by Provider: 08:15 Subjective/Events-last exam Pt doing very well. Labs reviewed, everything within normal limits. Pain increased overnight as expected since the block obviously wore off. I updated her on everything she had going on. MiraLax and other laxatives given, no BM yet but she feels as if that will be very successful. Checked meds and labs Conferred with RN Reviewed therapy notes Review of Systems Musculoskeletal: leg pain Objective Exam Vital Signs Vital Signs Date Time Temp Pulse Resp B/P (MAP) Pulse Ox O2 Delivery O2 Flow Rate FiO2 05/18/19 18:00 37.6 64 18 120/82 (95) 98 Room Air Capillary Refill : General Appearance: No Apparent Distress, WD/WN, Chronically ill HEENT: PERRL/EOMI, Normal ENT Inspection, Pharynx Normal, Other (deafness) Neck: Full Range of Motion, Normal Inspection, Non Tender, Supple, Carotid Bruit Respiratory: Chest Non Tender, Lungs Clear, Normal Breath Sounds, No Accessory Muscle Use, No Respiratory Distress Cardiovascular: Regular Rate, Rhythm, No Edema, No Gallop, No JVD, No Murmur, Normal Peripheral Pulses Gastrointestinal: Normal Bowel Sounds, No Organomegaly, No Pulsatile Mass, Non Tender, Soft Back: Normal Inspection, No CVA Tenderness, No Vertebral Tenderness Extremity: Normal Capillary Refill, Normal Inspection, Normal Range of Motion (except right hip), Non Tender, No Calf Tenderness, No Pedal Edema Neurologic/Psychiatric: Alert, Oriented x3, No Motor/Sensory Deficits, Normal Mood/Affect Skin: Normal Color, Warm/Dry Lymphatic: No Adenopathy Results/Procedures Lab Laboratory Tests 05/18/19 06:45 Patient resulted labs reviewed. FIM Transfers Therapy Code Descriptions/Definitions Functional [place] Measure: 0=Not Assessed/NA 4=Minimal Assistance 1=Total Assistance 5=Supervision or Setup 2=Maximal Assistance 6=Modified [place] 3=Moderate Assistance 7=Complete IndependenceSCALE: Activities may be completed with or without assistive devices. 6-Maqekcbwml-csgeblg completes the activity by him/herself with no assistance from a helper. 5-Set-up or Clean-up Assistance-helper sets up or cleans up; patient completes activity. [place] assists only prior to or following the activity. 4-Supervision or Touching Assistance-helper provides verbal cues and/or touching/steadying and/or contact guard assistance as patient completes activity. Assistance may be provided throughout the activity or intermittently. 3-Partial/Moderate Assistance-helper does LESS THAN HALF the effort. [place] lifts, holds or supports trunk or limbs, but provides less than half the effort. 2-Substantial/Maximal Assistance-helper does MORE THAN HALF the effort. [place] lifts or holds trunk or limbs and provides more than half the effort. 8-Aomwffywr-pgjkdb does ALL the effort. Patient does none of the effort to complete the activity. Or, the assistance of 2 or more helpers is required for the patient to complete the activity. If activity was not attempted, code reason: 7-Patient Refused. 9-Not Applicable-not attempted and the patient did not perform the activity before the current illness, exacerbation or injury. 10-Not Attempted due to Environmental Limitations-(lack of equipment, weather restraints, etc.). 88-Not Attempted due to Medical Conditions or Safety Concerns. Roll Left to Right (QC): 3 (Cheng) Sit to Lying (QC): 2 (mod asssit for both legs) Sit to Stand (QC): 3 (min to CGA throughout treatment) Chair/Yeh-rh-Svooc Xfer(QC): 4 (CGA) Car Transfer (QC): 3 (Cheng) Gait Training Does the Patient Walk?: Yes Walk 10 feet (QC): 4 (CGA) Walk 50 ft with 2 Turns(QC): 4 (CGA) Walk 150 ft (QC): 4 (CGA) Walking 10ft/uneven surface-QC: 4 (CGA) Gait Assistive Device: FWW Wheelchair Training Does the Pt Use a Wheelchair?: No Wheel 50 ft with 2 turns (QC): 9 Wheel 150 ft (QC): 9 Type of Wheelchair: Manual Stair Training 1 Step (curb) (QC): 3 (Cheng) 4 Steps (QC): 88 12 Steps (QC): 88 Balance Picking up an Object (QC): 88 ADL-Treatment Eating (QC): 6 (opens and drinks from soda bottle) Oral Hygiene (QC): 7 (Pt refuses, states soaks each morning) Shower/Bathe Self (QC): 4 (Pt completes sponge bath at chair level. CGA in stance. Pt requires assist with feet but states she completes with loofa at home and is able to complete IND. ) Upper Body Dressing (QC): 5 (s/u) Lower Body Dressing (QC): 4 (Pt has morning caregiver, sock aide, shoe horn, and dressing stick at home. Pt utilizes these AEs to complete doffing/ donning LB dressing. Pt has thigh-high siria hose on, requires max A to don with siria hose krystle- pt states she went home from rehab with these on previous stay and will wear them at home if needed but states she did not complete the donning/ doffing process on own prior. ) On/Off Footwear (QC): 4 (Pt able to complete with morning caregiver, dressing stick, and shoe horn. Pt requires intermittent assist for shoe donning due to difficulty m anaging elastic strap with morning caregiver.) Toileting Hygiene (QC): 4 (Pt states incontenence and urgency issue. Able to ambulate to toilet with CGA. CGA in stance for hygiene- urination.) Toilet Transfer (QC): 4 (CGA. Pt sits on standard toilet, able to sit to stand with mod A. Pt sits on raised commode, completes with CGA. Pt states she has toilet riser at home.) Assessment/Plan Assessment and Plan Assess & Plan/Chief Complaint Assessment: Right hip replacement Severe pain started after block dissipated last night Deafness Low vision Plan: BM regimen Pain control IRF protocol (1) Status post right hip replacement (2) Deafness Status: Chronic (3) Low vision Status: Chronic (4) Arthritis Status: Chronic JÚNIOR RANGEL DO May 18, 2019 09:53 POS
--- NOTE | 2019-05-18 10:52 | Occupational Ther Daily Note ---
OT Current Status-Daily Note Subjective No pain reported. Appearance Pt. is up in chair in therapy gym. Has just finished PT. Pt. is dressed for the day. Very TEJON so communication is with white board. Mental Status/Objective Patient Orientation: Person, Place ADL-Treatment Therapy Code Descriptions/Definitions Functional [place] Measure: 0=Not Assessed/NA 4=Minimal Assistance 1=Total Assistance 5=Supervision or Setup 2=Maximal Assistance 6=Modified [place] 3=Moderate Assistance 7=Complete IndependenceSCALE: Activities may be completed with or without assistive devices. 9-Knrbvwihpt-yutujwo completes the activity by him/herself with no assistance from a helper. 5-Set-up or Clean-up Assistance-helper sets up or cleans up; patient completes activity. [place] assists only prior to or following the activity. 4-Supervision or Touching Assistance-helper provides verbal cues and/or touching/steadying and/or contact guard assistance as patient completes activity. Assistance may be provided throughout the activity or intermittently. 3-Partial/Moderate Assistance-helper does LESS THAN HALF the effort. [place] lifts, holds or supports trunk or limbs, but provides less than half the effort. 2-Substantial/Maximal Assistance-helper does MORE THAN HALF the effort. [place] lifts or holds trunk or limbs and provides more than half the effort. 4-Buhzoxlcv-dtxfyf does ALL the effort. Patient does none of the effort to complete the activity. Or, the assistance of 2 or more helpers is required for the patient to complete the activity. If activity was not attempted, code reason: 7-Patient Refused. 9-Not Applicable-not attempted and the patient did not perform the activity before the current illness, exacerbation or injury. 10-Not Attempted due to Environmental Limitations-(lack of equipment, weather restraints, etc.). 88-Not Attempted due to Medical Conditions or Safety Concerns. Oral Hygiene (QC): 5 (Set up early this morning per pt.) Toileting Hygiene (QC): 4 (CGA) Toilet Transfer (QC): 4 Min assist (3) with doffing/donning footwear using AE. Pt. able to doff/don slipper socks with SBA, but requires min assist to don shoes with AE. Pt. reports that she attempted to use sock aide yesterday to don MALLIKA hose. OT attempted to demonstrate appropriate MALLIKA hose krystle to her, but pt. would like to wait until tomorrow. Pt. agrees to wait for OT to come into room tomorrow before completing ADL tasks. Declines shower or sponge bath today, as she completed one yesterday. Pt. donned 1 lb. wrist weights and completed fine motor task with reaching using therapy pegs. Completed this to increase overall strength and independence. Pt. doffed wrist weights and completed 3 bilateral UE exercises x 15 reps each in all planes, with red theraband for improved str ength. After rest break, completed arm bike x 15 minutes at mod resistance with several brief rest breaks. Tolerated this well. Ambulated back to room with CGA and completed toileting task with CGA in stance. Pt. was not sure at first if she would be able to reach rear kellie area due to hip surgery, so toilet tongs were obtained for her. Pt. was educated on them, but did not end up needing them to cleanse self thoroughly. Pt. transferred back to chair with all needs met. Education OT Patient Education: Correct positioning, Modified ADL techniques, Progress toward Goal/Update tx plan, Purpose of tx/functional activities, Reviewed precautions, Rehab process, Transfer techniques, Use of adapted equipment Teaching Recipient: Patient Teaching Methods: Demonstration, Discussion Response to Teaching: Verbalize Understanding, Return Demonstration OT Paralegal Specialist Goals [facility] Goals Time Frame: May 31, 2019 Eating (QC): 6 Oral Hygiene (QC): 6 Toileting Hygiene (QC): 6 Shower/Bathe Self (QC): 6 Upper Body Dressing (QC): 6 Lower Body Dressing (QC): 6 On/Off Footwear (QC): 6 Additional Goals: 1-Demonstrate ADL Tasks, 2-Verbalize Understanding, 3- ImproveStrength/[place] 1=Demonstrate adherence to instructed precautions during ADL tasks. 2=Patient will verbalize/demonstrate understanding of assistive devices/modifications for ADL. 3=Patient will improve strength/tolerance for activity to enable patient to perform ADL's. OT Education/Plan Problem List/Assessment Assessment: Decreased Activ Tolerance, Decreased UE Strength, Dependent Transfe rs, Impaired I ADL's, Impaired Self-Care Skills Discharge Recommendations Plan/Recommendations: Continue POC Therapy Discharge Recommendati: Post Acute OT Comment Pt. has hip kit at home that she has been practicing with already. Treatment Plan/Plan of Care Treatment,Training & Education: Yes Patient would benefit from OT for education, treatment and training to promote independence in ADL's, mobility, safety and/or upper extremity function for ADL's. Plan of Care: ADL Retraining, Caregiver Training, Concurrent Therapy, Functional Mobility, Group Exercise/Act as Ind, UE Funct Exercise/Act Treatment Duration: May 31, 2019 Frequency: At least 5 of 7 days/Wk (IRF) Estimated Hrs Per Day: 1.5 hours per day Agreement: Yes Rehab Potential: Good Time/GCodes Start Time: 09:00 Stop Time: 10:30 Total Time Billed (hr/min): 90 Billed Treatment Time 1, ADL x 30minutes, EX x 30minutes, FA x 30minutes HONG VÁSQUEZ OT May 18, 2019 10:52 POS
[2019-05-18] MEDS: ENOXAPARIN 40 MG/0.4 ML (LOVENOX) SYR SC SCH (14:02)
--- NOTE | 2019-05-18 15:25 | Physical Therapy Daily Note ---
PT Daily Note-Current Subjective Pt agreeable to PT session, gunner augustese board used to communicate to pt due to nerve deafness hearing loss, pt is able to speak. States this hip surgery is more sore than what she remembers her other hip surgery being Pain Numeric Pain Scale: 5-Moderate Pain Location: Right Location Body Site: Hip Comment: pain increased during tx session, pt req pain med and nsg administered Appearance Pt sitting up in recliner awake and alert upon arrival. White kalyanise board used to communicate to pt due to hearing loss, pt able to speak. At end of session, pt sitting up in chair in therapy gym with OT. Mental Status Patient Orientation: Person, Place, Time, Eyes Open, Situation Transfers SCALE: Activities may be completed with or without assistive devices. 1-Xfsokwrqjf-rtocvyd completes the activity by him/herself with no assistance from a helper. 5-Set-up or Clean-up Assistance-helper sets up or cleans up; patient completes activity. [place] assists only prior to or following the activity. 4-Supervision or Touching Assistance-helper provides verbal cues and/or touching/steadying and/or contact guard assistance as patient completes activity. Assistance may be provided throughout the activity or intermittently. 3-Partial/Moderate Assistance-helper does LESS THAN HALF the effort. [place] lifts, holds or supports trunk or limbs, but provides less than half the effort. 2-Substantial/Maximal Assistance-helper does MORE THAN HALF the effort. [place] lifts or holds trunk or limbs and provides more than half the effort. 0-Feyvyevjb-xequap does ALL the effort. Patient does none of the effort to complete the activity. Or, the assistance of 2 or more helpers is required for the patient to complete the activity. If activity was not attempted, code reason: 7-Patient Refused. 9-Not Applicable-not attempted and the patient did not perform the activity before the current illness, exacerbation or injury. 10-Not Attempted due to Environmental Limitations-(lack of equipment, weather restraints, etc.). 88-Not Attempted due to Medical Conditions or Safety Concerns. Sit to Stand (QC): 4 Chair/Bme-ri-Slukc Xfer(QC): 4 Weight Bearing Right Lower Extremity: Right Weight Bearing/Tolerated Left Lower Extremity: Left Full Weight Bearing Gait Training Does the Patient Walk?: Yes Distance: 150 x2 Walk 10 feet (QC): 4 Walk 50 ft with 2 Turns(QC): 4 Walk 150 ft (QC): 4 Gait Persons Needed: 1 Gait Assistive Device: FWW pt gait beginning with step to pattern, improved to step through after ~20 ft, antalgic with decreased step length and stance time due to hip pain Wheelchair Training Does the Pt Use a Wheelchair?: No Exercises Seated Therapy Exercises: Ankle pumps (50), Sit to stand (2 x5), Long arc quads (20), Hip flexion (20, RLE AAROM), Hip abd/add (20) Standing: Hip Abduction, Marching, Mini squats Standing Reps: 10 (BUE support in // bars) NuStep Minutes: 10 NuStep Workload: 3 (seat 10 arms 9) Treatments AM session: education, safety, transfers, gait, balance, strength, functional mobility, activity tolerance. PM session: pt up in chair upon arrival. report of pain 1-2/10 in R hip. Sit to and from stand transfers SBA, GT CGA to SBA with report of pain increasing to 4/10. Noted decreased L knee extension, antalgic gait, decreased step length and stance time. Performed sitting ex's x20 each: AF, LAQ, HF, BARNES. Sit to stand x10. Standing in // bars with BUE support x10 each: hip flexion, hip abd, mini squats. Pt requesting and assisted to restroom. At end of session, pt in recliner with call light, phone and bedside table within reach. Assessment Current Status: Good Progress PT Short Term Goals Short Term Goals Time Frame: May 24, 2019 Roll Left & Right: 4 (SBA) Sit to lyin (Cheng) Lying to sitting on side of be: 4 (CGA) Sit to stand: 4 (SBA) Chair/hes-ok-fstvb transfer: 4 (SBA) Toilet transfer: 4 (SBA) Car transfer: 4 (SBA) Walk 10 feet: 4 (SBA) Walk 50 feet with two turns: 4 (SBA) Walk 150 feet: 4 (SBA) Walking 10ft on uneven surface: 4 (SBA) 1 step (curb): 4 (SBA) 4 steps: 4 (SBA) PT Half-Way Goals Half-Way Goals PT Half-Way Goals Time Frame: Jun 07, 2019 Roll Left & Right (QC): 6 Sit to Lying (QC): 6 Lying-Sitting on Side/Bed(QC): 6 Sit to Stand (QC): 6 Chair/Xej-pt-Xbqwh Xfer(QC): 6 Toilet Transfer (QC): 6 Car Transfer (QC): 6 Does the Patient Walk: Yes Walk 10 feet (QC): 6 Walk 50ft with 2 Turns (QC): 6 Walk 150 ft (QC): 6 Walking 10ft on Uneven Surface: 5 1 Step (curb) (QC): 4 4 Steps (QC): 4 12 Steps (QC): 4 Picking up an Object (QC): 4 Does the Pt use WC or Scooter?: No Type: N/A Type: N/A PT Plan Treatment/Plan Treatment Plan: Continue Plan of Care Treatment Plan: Bed Mobility, Concurrent Therapy, Education, Functional Activity [place], Functional Strength, Group Therapy, Gait, Safety, Therapeutic Exercise, Transfers Treatment Duration: Jun 07, 2019 Frequency: At least 5 of 7 days/Wk (IRF) Estimated Hrs Per Day: 1.5 hours per day Patient and/or Family Agrees t: Yes Safety Risks/Education Patient Education: Gait Training, Transfer Techniques, Reviewed Precautions, Safety Issues Teaching Recipient: Patient Teaching Methods: Demonstration, Discussion Time/GCodes Time In: 800 (1300) Time Out: 900 (1330) Total Billed Treatment Time: 60 (30) Total Billed Treatment AM: 1 visit, EX x30 min, GT x15 min, FA x15 min. PM: 1 visit, GT x10 min, EX x15 min GAIL CHINO APPRENTICE ELECTRICIAN May 18, 2019 15:25 POS
--- NOTE | 2019-05-18 15:55 | NUR ---
"RD ASSESSMENT PMHx: osteoarthritis PT INTERACTION: Pt was awake and pleasant during nutrition assessment. Note pt hard of hearing, RD used whiteboard to communicate. Pt states current appetite is pretty good and has been for some time. Note pt avg PO intake of 100% x2meal, per chart review. Pt states following a regular diet at home, and has a little difficulty swallowing some fluids. Pt states no recent issues with n/v at this time. Pt states having some issues with constipation. Note no BM has been recorded and pt currently on bowel regimen of colace qd; miralax BID; senna BID; bisacodyl PRN, per chart review. Pt states some recent wt gain, but could not give details to amount or timeframe. Note 17# wt gain x2mon, per chart review. ABNORMAL NUTRITION-RELATED LAB VALUES: glu 106 (H) Est. kcal needs: 0773-3694 kcal | 20-25 kcal/kg Est. Pro needs: 73-91 g Pro | 0.8-1.0 g Pro/kg PES STATEMENT: Given pt's PO intake, no nutrition diagnosis at this time (NO-1.1) INTERVENTION: Continue with current diet order of Regular diet. Will continue to follow and reassess as pt needs and status change. MONITOR/EVALUATE: PO Intake; Plan of Care; Hydration Status; Weight Status; Lab Values Dana Weber, MS, RD, LD"
[2019-05-18 16:39] VITALS: BP 112/66
[2019-05-18 18:00] VITALS: BP 120/82
--- NOTE | 2019-05-18 19:26 | NUR ---
bedside report received from EVERETTE BEARD, assume care of pt
--- NOTE | 2019-05-18 21:34 | NUR ---
refused miralax & senoskot, as pt reported several stools today, c/o rt hip pain level 8/10 on numeric scale, Lortab 5 1 tab given
--- NOTE | 2019-05-18 21:59 | Individualized Plan of Care ---
Individualized Plan of Care Rehab Nursing IPOC Order Admission Date May 17, 2019 at 13:20 Current Orders Orders Admission Order(Inpt,Obs,Sdc) (05/17/19 12:09) Vital Signs: Per Unit Policy ( 08,16,00 (05/17/19 12:09) Guillermo Delgado (05/17/19 12:09) Sequential Compression Device Q4H (05/17/19 12:09) Hotel Recreational Facilities Manager-Inpt Rehab Con (05/17/19 12:09) Rehab Nursing Orders-Ipoc (05/17/19 12:09) Physical Therapy Rehab Orders (05/17/19 12:09) Occupational Therapy Rehab Ord (05/17/19 12:09) Speech Therapy Rehab Orders (05/17/19 12:09) Cbc With Automated Diff (05/18/19 06:00) Comprehensive Metabolic Panel (05/18/19 06:00) General/Regular (05/17/19 Dinner) Intake & Output 06,14, (05/17/19 12:09) Precautions (Aru) (05/17/19 12:09) Weekly Weight WEEK (05/17/19 12:09) Rehab-Intensity Of Therapy (05/17/19 12:09) Initiate Admission Nursing Pro .admission (05/17/19 12:09) Acetaminophen Tablet (Tylenol Tablet) (05/17/19 12:15) Alprazolam Tablet (Xanax Tablet) (05/17/19 12:15) Calcium Carbonate Chew Tablet (Antacid C (05/17/19 12:15) Diphenhydramine Tablet (Benadryl Tablet) (05/17/19 12:15) Docusate Sodium Capsule (Colace Capsule) (05/17/19 12:15) Bisacodyl Suppository (Dulcolax Supposit (05/17/19 12:15) Lactulose Oral Solution (Enulose Oral So (05/17/19 12:15) Na Phos/Na Biphos Enema (Fleet Enema Triston (05/17/19 12:15) Guaifenesin/Codeine Syrup (Robitussin Ac (05/17/19 12:15) Hydrocodone/Apap 5/325 Tablet (Lortab 5 (05/17/19 12:15) Ibuprofen Tablet (Motrin Tablet) (05/17/19 12:15) Loperamide Tablet (Imodium Tablet) (05/17/19 12:15) Enoxaparin Injection (Lovenox Injection) (05/17/19 12:15) Melatonin Tablet (Melatonin Tablet) (05/17/19 12:15) Polyethylene Glycol Powder Pkt (Miralax (05/17/19 21:00) Ondansetron Oral Dissolve Tab (Zofran (05/17/19 12:15) Senna S Tablet (Senokot S Tablet) (05/17/19 21:00) Tramadol Tablet (Ultram Tablet) (05/17/19 12:15) Ambulate (05/17/19 13:56) Sequential Compression Device Q4H (05/17/19 13:56) Dvt/Vte Risk - Notifiy Physici Q4H (05/17/19 13:56) Patient Visit (05/17/19 ) Functional Activities, Ea 15 (05/17/19 ) Patient Visit (05/17/19 ) Speech Sound Lang Comp (05/17/19 ) Patient Visit (05/17/19 ) Pt Eval Moderate Complexity (05/17/19 ) Functional Activities, Ea 15 (05/17/19 ) Aspirin Chewable Tablet (Baby Aspirin Ch (05/18/19 09:00) Docusate Sodium Capsule (Colace Capsule) (05/18/19 09:00) Pantoprazole Tablet (Protonix Tablet) (05/18/19 07:00) (Nf) Cholecalciferol (Vitamin D3) (Vitam (05/18/19 09:00) (Nf) Cyanocobalamin (Vitamin B-12) ([place]loane (05/18/19 09:00) (Nf) Flaxseed Oil (05/18/19 09:00) (Nf) Meloxicam (Mobic) (05/17/19 21:00) (Nf) Potassium Gluconate (Potassium) (05/18/19 09:00) (Nf) Turmeric Root Extract (Turmeric) (05/18/19 09:00) (Nf) [Dandelion 920mg] (05/18/19 09:00) (Nf) [Gotu Gigi 395mg] (05/18/19 09:00) Cholecalciferol Capsule/Tablet (Vitamin (05/18/19 09:00) Cyanocobalamin Tablet (Vitamin B-12 Tabl (05/18/19 07:00) Meloxicam Tablet (Mobic Tablet) (05/17/19 19:00) Patient Visit (05/18/19 ) Exercise Therap, Ea 15 Min (05/18/19 ) Gait Training, Ea 15 Min (05/18/19 ) Functional Activities, Ea 15 (05/18/19 ) Patient Visit (05/18/19 ) Exercise Therap, Ea 15 Min (05/18/19 ) Gait Training, Ea 15 Min (05/18/19 ) Rehab Nursing Orders: Ongoing Assess. of Cognitive Status, Ongoing Assess. of Function Status, Bladder Training, Bowel Management, Disease Management & Educaiton, DVT Prophylaxis, Fall Prevention, Fluid/Electrolyte/Nutrition Mgmt, Infection Prevention, Medication Management & Education, Management of Risks & Complications, Management of Skin Intergrity, Nutrition Management, Pain Management, Patient/Family Support, Safety Management Intensity of Therapy to be met Patient to be seen: Min.3h per day/5 of 7d PT IPOC Problem List: Activity Tolerance, Functional Strength, Safety, Balance, Gait, Transfer, Bed Mobility Treatment Plan: Continue Plan of Care Bed Mobility, Concurrent Therapy, Education, Functional Activity Haydee, Functional Strength, Group Therapy, Gait, Safety, Therapeutic Exercise, Transfers Treatment Duration: Jun 07, 2019 Frequency: At least 5 of 7 days/Wk (IRF) Estimated Hrs Per Day: 1.5 hours per day OT IPOC Problems: Decreased Activ Tolerance, Decreased UE Strength, Dependent Transfers, Impaired I ADL's, Impaired Self-Care Skills OT Treatment, Training and Edu: Yes Plan of Care: ADL Retraining, Caregiver Training, Concurrent Therapy, Functional Mobility, Group Exercise/Act as Ind, UE Funct Exercise/Act Treatment Duration: May 31, 2019 Frequency: At least 5 of 7 days/Wk (IRF) Estimated Hrs Per Day: 1.[address] IPOC Speech Therapy Treatment Plan: Discontinue ST Treatment Duration: May 17, 2019 Frequency: 1 time per week Estimated Hrs Per Day: .25 hour per day Hotel Recreational Facilities Manager/Case Mgmt Hotel Recreational Facilities Manager/Case Managemen: Discharge Planning Dietitian/Product Tester Dietitian/Product Tester to monitor nutritional status and make changes and/or recommendations as needed and work with speech pathology on dietary upgrades as the occur. Physician IPOC Medical Issues being managed closely and that require the 24 hour availability of a physician: Patient with deafness will require close monitoring due to fall risk and pain management to prevent decompensation Medical Issues: Bowel/Bladder Function, DVT Prophylaxis, Falls Precautions, Fluid/Electrolyte/Nutrition Balance, Infection Protection, Pain Management Brief Synthesis of Preadmission Screen, Post-Admission Evaluation, and Therapy Evaluations: PT will focus on ambulation with assist device with fall prevention skills OT we'll focus on regaining independent ADL function Medical Prognosis: Good Anticipated Length of Stay: 7 days JÚNIOR RANGEL DO May 18, 2019 21:59 POS
--- NOTE | 2019-05-18 22:20 | NUR ---
resting quietly in bed, pain level 0/10 on flacc scale
[2019-05-19 05:55] VITALS: BP 131/69
[2019-05-19] MEDS: PANTOPRAZOLE 40 MG (PROTONIX) TAB PO SCH (06:37)
[2019-05-19] MEDS: CYANOCOBALAMIN 1,000 MCG (VITAMIN B-12) TABLET PO SCH (06:37)
[2019-05-19] MEDS: MELOXICAM 7.5 MG (MOBIC) TABLET PO SCH ×2 (06:38→17:39)
--- NOTE | 2019-05-19 07:20 | NUR ---
bedside report given to GALA BEARD
[2019-05-19] MEDS: SENNA W/DOCUSATE (SENOKOT S) TABLET PO SCH ×2 (09:00→20:59)
[2019-05-19] MEDS: POLYETHYLENE GLYCOL 17 GM (MIRALAX) PACK PO SCH ×2 (09:00→21:00)
[2019-05-19] MEDS: DOCUSATE SODIUM 100 MG (COLACE) CAP PO SCH (09:10)
[2019-05-19] MEDS: ASPIRIN 81 MG CHEW (CHILDREN'S ASA) PO SCH (09:10)
[2019-05-19] MEDS: VITAMIN D3 1,000 UNITS (CHOLECALCIFEROL) TABLET PO SCH (09:10)
--- NOTE | 2019-05-19 10:00 | Occupational Ther Daily Note ---
OT Current Status-Daily Note Subjective No c/o of pain. Appearance Pt seated in recliner when OT entered the room. Pt agrees to therapy treatment. Mental Status/Objective Patient Orientation: Person, Place, Time, Situation ADL-Treatment Therapy Code Descriptions/Definitions Functional [place] Measure: 0=Not Assessed/NA 4=Minimal Assistance 1=Total Assistance 5=Supervision or Setup 2=Maximal Assistance 6=Modified [place] 3=Moderate Assistance 7=Complete IndependenceSCALE: Activities may be completed with or without assistive devices. 6-Tvxllsxayx-iwmtcey completes the activity by him/herself with no assistance from a helper. 5-Set-up or Clean-up Assistance-helper sets up or cleans up; patient completes activity. [place] assists only prior to or following the activity. 4-Supervision or Touching Assistance-helper provides verbal cues and/or touching/steadying and/or contact guard assistance as patient completes activity. Assistance may be provided throughout the activity or intermittently. 3-Partial/Moderate Assistance-helper does LESS THAN HALF the effort. [place] lifts, holds or supports trunk or limbs, but provides less than half the effort. 2-Substantial/Maximal Assistance-helper does MORE THAN HALF the effort. [place] lifts or holds trunk or limbs and provides more than half the effort. 9-Uqnzivxpa-jbqdyt does ALL the effort. Patient does none of the effort to complete the activity. Or, the assistance of 2 or more helpers is required for the patient to complete the activity. If activity was not attempted, code reason: 7-Patient Refused. 9-Not Applicable-not attempted and the patient did not perform the activity before the current illness, exacerbation or injury. 10-Not Attempted due to Environmental Limitations-(lack of equipment, weather restraints, etc.). 88-Not Attempted due to Medical Conditions or Safety Concerns. Oral Hygiene (QC): 5 (Pt completed oral hygine sitting at sink with set up. ) Bathing Location: L Arm, R Arm, L Upper Leg, R Upper Leg, L Lower Leg (including foot), R Lower Leg (including foot), Chest, Abdomen, Buttocks, Perineal Area Shower/Bathe Self (QC): 4 (Using grabbars and hand held shower, pt required supervision when completing the tasks.) Upper Body Dressing (QC): 3 (Pt required min tre to don bra. Pt was able to don shirt with set up.) Lower Body Dressing (QC): 4 (Pt required CGA in stance to hike pants/underwear over hips.) Toileting Hygiene (QC): 4 (using grabbars, pt required CGA while cleansing and manipulating clothes.) Toilet Transfer (QC): 4 (CGA while transferring to the toilet and shower bench.) Footwear (3)Pt required min assist to don shoe. Pt utilized mallika hose aid but required cueing when donning mallika hose Other Treatment Pt ambulated from recliner with walker to the shower room. After shower, pt sat on the chair to complete dressing. OT demonstrated to pt how to use MALLIKA hose aid. Pt demonstrated understanding but required cues while using it. Pt utilized dressing stick, checkroom chief to completed LB dressings. Pt completed oral hygiene and brushing hair while seated at the sink. After shower, pt ambulated to therapy gym with walker requiring CGA. Pt completed bilateral UE stren gthening exercise with mod resistance for 15minutes to increase activity tolerance for functional tasks. Pt took several rest breaks while completing the exercise. Pt ambulated to her room with walker and required CGA . Pt seated in recliner using phone at the end of session. Call light in reach. All needs met in room. Education OT Patient Education: Energy conservation, Exercise program, Modified ADL techniques, Progress toward Goal/Update tx plan, Purpose of tx/functional activities, Reviewed precautions, Rehab process, Safety issues, Transfer techniques, Use of adapted equipment Teaching Recipient: Patient Teaching Methods: Demonstration, Discussion Response to Teaching: Verbalize Understanding, Return Demonstration OT Environment Artist Goals Environment Artist Goals Time Frame: May 31, 2019 Eating (QC): 6 Oral Hygiene (QC): 6 Toileting Hygiene (QC): 6 Shower/Bathe Self (QC): 6 Upper Body Dressing (QC): 6 Lower Body Dressing (QC): 6 On/Off Footwear (QC): 6 Additional Goals: 1-Demonstrate ADL Tasks, 2-Verbalize Understanding, 3- ImproveStrength/[place] 1=Demonstrate adherence to instructed precautions during ADL tasks. 2=Patient will verbalize/demonstrate understanding of assistive devices/modifications for ADL. 3=Patient will improve strength/tolerance for activity to enable patient to perform ADL's. OT Education/Plan Problem List/Assessment Assessment: Decreased Activ Tolerance, Decreased UE Strength, Impaired Funct Balance, Impaired I ADL's, Impaired Self-Care Skills Discharge Recommendations Plan/Recommendations: Continue POC Therapy Discharge Recommendati: Post Acute OT Equpiment Recommendations-D/C: Hip Kit Treatment Plan/Plan of Care Treatment,Training & Education: Yes Patient would benefit from OT for education, treatment and training to promote independence in ADL's, mobility, safety and/or upper extremity function for ADL's. Plan of Care: ADL Retraining, Caregiver Training, Concurrent Therapy, Function al Mobility, Group Exercise/Act as Ind, UE Funct Exercise/Act Treatment Duration: May 31, 2019 Frequency: At least 5 of 7 days/Wk (IRF) Estimated Hrs Per Day: 1.5 hours per day Agreement: Yes Rehab Potential: Good Time/GCodes Start Time: 08:30 Stop Time: 10:00 Total Time Billed (hr/min): 90 Billed Treatment Time 1, ADL x 4 (60 Min ) EX x 2 ( 30 Min ) KYLEE BRUNSON May 19, 2019 10:00 POS
--- NOTE | 2019-05-19 10:20 | PM&R Progress Note ---
Subjective HPI/CC On Admission Date Seen by Provider: May 19, 2019 Time Seen by Provider: 08:30 Subjective/Events-last exam Bowel movement good one yesterday and now a little bit loose Pain is much improved Overall feels very good but the pain was prohibitive during the night but now much better Overall pleased with her results Checked meds and labs Conferred with RN Reviewed therapy notes Review of Systems General: Fatigue Musculoskeletal: leg pain Objective Exam Vital Signs Vital Signs Date Time Temp Pulse Resp B/P (MAP) Pulse Ox O2 Delivery O2 Flow Rate FiO2 05/19/19 16:35 37.3 87 16 117/73 (88) 97 Room Air Capillary Refill : General Appearance: No Apparent Distress, WD/WN, Chronically ill HEENT: PERRL/EOMI, Normal ENT Inspection, Pharynx Normal, Other (deafness) Neck: Full Range of Motion, Normal Inspection, Non Tender, Supple, Carotid Bruit Respiratory: Chest Non Tender, Lungs Clear, Normal Breath Sounds, No Accessory Muscle Use, No Respiratory Distress Cardiovascular: Regular Rate, Rhythm, No Edema, No Gallop, No JVD, No Murmur, Normal Peripheral Pulses Gastrointestinal: Normal Bowel Sounds, No Organomegaly, No Pulsatile Mass, Non Tender, Soft Back: Normal Inspection, No CVA Tenderness, No Vertebral Tenderness Extremity: Normal Capillary Refill, Normal Inspection, Normal Range of Motion (except right hip), Non Tender, No Calf Tenderness, No Pedal Edema Neurologic/Psychiatric: Alert, Oriented x3, No Motor/Sensory Deficits, Normal Mood/Affect Skin: Normal Color, Warm/Dry Lymphatic: No Adenopathy Results/Procedures Lab Patient resulted labs reviewed. FIM Transfers Therapy Code Descriptions/Definitions Functional [place] Measure: 0=Not Assessed/NA 4=Minimal Assistance 1=Total Assistance 5=Supervision or Setup 2=Maximal Assistance 6=Modified [place] 3=Moderate Assistance 7=Complete IndependenceSCALE: Activities may be completed with or without assistive devices. 1-Xhorrawwgw-uqwafqt completes the activity by him/herself with no assistance from a helper. 5-Set-up or Clean-up Assistance-helper sets up or cleans up; patient completes activity. [place] assists only prior to or following the activity. 4-Supervision or Touching Assistance-helper provides verbal cues and/or touching/steadying and/or contact guard assistance as patient completes activity. Assistance may be provided throughout the activity or intermittently. 3-Partial/Moderate Assistance-helper does LESS THAN HALF the effort. [place] lifts, holds or supports trunk or limbs, but provides less than half the effort. 2-Substantial/Maximal Assistance-helper does MORE THAN HALF the effort. [place] lifts or holds trunk or limbs and provides more than half the effort. 7-Jnqnhjqzd-chsbha does ALL the effort. Patient does none of the effort to complete the activity. Or, the assistance of 2 or more helpers is required for the patient to complete the activity. If activity was not attempted, code reason: 7-Patient Refused. 9-Not Applicable-not attempted and the patient did not perform the activity before the current illness, exacerbation or injury. 10-Not Attempted due to Environmental Limitations-(lack of equipment, weather restraints, etc.). 88-Not Attempted due to Medical Conditions or Safety Concerns. Roll Left to Right (QC): 3 (Cheng) Sit to Lying (QC): 2 (mod asssit for both legs) Sit to Stand (QC): 4 Chair/Boa-ke-Ywhdh Xfer(QC): 4 Car Transfer (QC): 3 (Cheng) Gait Training Does the Patient Walk?: Yes Distance: 150 x2 Walk 10 feet (QC): 4 Walk 50 ft with 2 Turns(QC): 4 Walk 150 ft (QC): 4 Walking 10ft/uneven surface-QC: 4 (CGA) Gait Persons Needed: 1 Gait Assistive Device: FWW Wheelchair Training Does the Pt Use a Wheelchair?: No Wheel 50 ft with 2 turns (QC): 9 Wheel 150 ft (QC): 9 Type of Wheelchair: Manual Stair Training 1 Step (curb) (QC): 3 (Cheng) 4 Steps (QC): 88 12 Steps (QC): 88 Balance Picking up an Object (QC): 88 ADL-Treatment Eating (QC): 6 (opens and drinks from soda bottle) Oral Hygiene (QC): 5 (Set up early this morning per pt.) Shower/Bathe Self (QC): 4 (Pt completes sponge bath at chair level. CGA in stance. Pt requires assist with feet but states she completes with loofa at home and is able to complete IND. ) Upper Body Dressing (QC): 5 (s/u) Lower Body Dressing (QC): 4 (Pt has linux architect, sock aide, shoe horn, and dressing stick at home. Pt utilizes these AEs to complete doffing/ donning LB dressing. Pt has thigh-high siria hose on, requires max A to don with siria hose krystle- pt states she went home from rehab with these on previous stay and will wear them at home if needed but states she did not complete the donning/ doffing process on own prior. ) On/Off Footwear (QC): 4 (Pt able to complete with linux architect, dressing stick, and shoe horn. Pt requires intermittent assist for shoe donning due to difficulty managing elastic strap with linux architect.) Toileting Hygiene (QC): 4 (CGA) Toilet Transfer (QC): 4 Assessment/Plan Assessment and Plan Assess & Plan/Chief Complaint Assessment: Right hip replacement Severe pain started after block dissipated last night Deafness Low vision Plan: BM regimen Pain control IRF protocol (1) Status post right hip replacement (2) Deafness Status: Chronic (3) Low vision Status: Chronic (4) Arthritis Status: Chronic JÚNIOR RANGEL DO May 19, 2019 10:20 POS
--- NOTE | 2019-05-19 11:16 | Physical Therapy Daily Note ---
PT Daily Note-Current Subjective Pt. agrees to Rx, states she really cant c/o pain as much as soreness and burning palak with TRFs Pain Location: No Pain Reported Comment: sore and burning with TRFs Mental Status Patient Orientation: Normal For Age Transfers SCALE: Activities may be completed with or without assistive devices. 8-Rozqkusfcw-ybbbkxu completes the activity by him/herself with no assistance from a helper. 5-Set-up or Clean-up Assistance-helper sets up or cleans up; patient completes activity. [place] assists only prior to or following the activity. 4-Supervision or Touching Assistance-helper provides verbal cues and/or touching/steadying and/or contact guard assistance as patient completes activit y. Assistance may be provided throughout the activity or intermittently. 3-Partial/Moderate Assistance-helper does LESS THAN HALF the effort. [place] lifts, holds or supports trunk or limbs, but provides less than half the effort. 2-Substantial/Maximal Assistance-helper does MORE THAN HALF the effort. [place] lifts or holds trunk or limbs and provides more than half the effort. 4-Mmaiwbwzw-jzhnpo does ALL the effort. Patient does none of the effort to complete the activity. Or, the assistance of 2 or more helpers is required for the patient to complete the activity. If activity was not attempted, code reason: 7-Patient Refused. 9-Not Applicable-not attempted and the patient did not perform the activity before the current illness, exacerbation or injury. 10-Not Attempted due to Environmental Limitations-(lack of equipment, weather restraints, etc.). 88-Not Attempted due to Medical Conditions or Safety Concerns. Roll Left & Right (QC): 4 Sit to Lying (QC): 3 Lying to Sitting/Side of Bed(Q: 3 Sit to Stand (QC): 5 Chair/Vht-mb-Jadco Xfer(QC): 5 Toilet Transfer (QC): 5 Weight Bearing Right Lower Extremity: Right Weight Bearing/Tolerated Left Lower Extremity: Left Full Weight Bearing Gait Training Does the Patient Walk?: Yes Walk 10 feet (QC): 5 Walk 50 ft with 2 Turns(QC): 5 Walk 150 ft (QC): 5 Gait Persons Needed: 1 Gait Assistive Device: FWW Exercises Supine Ex: Ankle pumps, Quad Set, Rolling, Glut sets, Heel Slides, Short Arc Quads, Scooting, Hip abd/add Supine Reps: 15 Seated Therapy Exercises: Ankle pumps, Sit to stand, Long arc quads, Hip abd/add Seated Reps: 15 NuStep Minutes: 10 NuStep Workload: 3 Treatments toileted and washed hands with SBA Assessment Current Status: Good Progress PT Short Term Goals Short Term Goals Time Frame: May 24, 2019 Roll Left & Right: 4 (SBA) Sit to lyin (Cheng) Lying to sitting on side of be: 4 (CGA) Sit to stand: 4 (SBA) Chair/czo-kb-xxjtm transfer: 4 (SBA) Toilet transfer: 4 (SBA) Car transfer: 4 (SBA) Walk 10 feet: 4 (SBA) Walk 50 feet with two turns: 4 (SBA) Walk 150 feet: 4 (SBA) Walking 10ft on uneven surface: 4 (SBA) 1 step (curb): 4 (SBA) 4 steps: 4 (SBA) PT Chip Silo Tender Goals [facility] Goals PT Chip Silo Tender Goals Time Frame: Jun 07, 2019 Roll Left & Right (QC): 6 Sit to Lying (QC): 6 Lying-Sitting on Side/Bed(QC): 6 Sit to Stand (QC): 6 Chair/Rkl-lp-Acdlg Xfer(QC): 6 Toilet Transfer (QC): 6 Car Transfer (QC): 6 Does the Patient Walk: Yes Walk 10 feet (QC): 6 Walk 50ft with 2 Turns (QC): 6 Walk 150 ft (QC): 6 Walking 10ft on Uneven Surface: 5 1 Step (curb) (QC): 4 4 Steps (QC): 4 12 Steps (QC): 4 Picking up an Object (QC): 4 Does the Pt use WC or Scooter?: No Type: N/A Type: N/A PT Plan Treatment/Plan Treatment Plan: Continue Plan of Care Treatment Plan: Bed Mobility, Concurrent Therapy, Education, Functional Activity [place], Functional Strength, Group Therapy, Gait, Safety, Therapeutic Exercise, Transfers Treatment Duration: Jun 07, 2019 Frequency: At least 5 of 7 days/Wk (IRF) Estimated Hrs Per Day: 1.5 hours per day Patient and/or Family Agrees t: Yes Safety Risks/Education Patient Education: Gait Training, Transfer Techniques, Correct Positioning, Disease Process, Safety Issues Teaching Recipient: Patient Teaching Methods: Demonstration, Discussion Response to Teaching: Verbalize Understanding, Return Demonstration, Reinforcement Needed Time/GCodes Time In: 1000 Time Out: 1100 Total Billed Treatment Time: 60 Total Billed Treatment 1, EX30m,GT15m,FA15m PANCHITO BLAIR DIE CUTTER APPRENTICE May 19, 2019 11:16 POS
[2019-05-19] MEDS: ENOXAPARIN 40 MG/0.4 ML (LOVENOX) SYR SC SCH (13:44)
--- NOTE | 2019-05-19 14:11 | Physical Therapy Daily Note ---
PT Daily Note-Current Subjective Patient agrees to PT at this time. Reports she has no pain, just some soreness present. Pain Numeric Pain Scale: 0-No Pain Location: No Pain Reported Mental Status Patient Orientation: Normal For Age Transfers SCALE: Activities may be completed with or without assistive devices. 6-Dmelakpzdy-qcobsed completes the activity by him/herself with no assistance from a helper. 5-Set-up or Clean-up Assistance-helper sets up or cleans up; patient completes activity. [place] assists only prior to or following the activity. 4-Supervision or Touching Assistance-helper provides verbal cues and/or touching/steadying and/or contact guard assistance as patient completes activity. Assistance may be provided throughout the activity or intermittently. 3-Partial/Moderate Assistance-helper does LESS THAN HALF the effort. [place] lifts, holds or supports trunk or limbs, but provides less than half the effort. 2-Substantial/Maximal Assistance-helper does MORE THAN HALF the effort. [place] lifts or holds trunk or limbs and provides more than half the effort. 6-Otpgbdxck-vbdzrs does ALL the effort. Patient does none of the effort to complete the activity. Or, the assistance of 2 or more helpers is required for the patient to complete the activity. If activity was not attempted, code reason: 7-Patient Refused. 9-Not Applicable-not attempted and the patient did not perform the activity before the current illness, exacerbation or injury. 10-Not Attempted due to Environmental Limitations-(lack of equipment, weather restraints, etc.). 88-Not Attempted due to Medical Conditions or Safety Concerns. Sit to Stand (QC): 4 (CGA) Toilet Transfer (QC): 4 (CGA) Car Transfer (QC): 3 (Cheng) Weight Bearing Right Lower Extremity: Right Weight Bearing/Tolerated Left Lower Extremity: Left Full Weight Bearing Gait Training Does the Patient Walk?: Yes Distance: 150', 75' x2 Walk 10 feet (QC): 4 Walk 50 ft with 2 Turns(QC): 4 Gait Assistive Device: FWW Slightly antalgic, slow gait, reciprocal pattern Exercises NuStep Minutes: 10 NuStep Workload: 4 Assessment Patient stood from chair CGA and was able to complete toileting CGA. Ambulated 150' with FWW with slow slightly antalgic gait, but steady. Patient completed 10 minutes on NuStep for BLE strengthening and mobility. Patient ambulated another 75'x2 during session. Performed car transfer with Cheng to lift and bend BLEs into and out of car, otherwise able to sit and scoot into and out of car without help. Patient returned to chair in room. PT Short Term Goals Short Term Goals Time Frame: May 24, 2019 Roll Left & Right: 4 (SBA) Sit to lyin (Cheng) Lying to sitting on side of be: 4 (CGA) Sit to stand: 4 (SBA) Chair/tin-vi-jgapd transfer: 4 (SBA) Toilet transfer: 4 (SBA) Car transfer: 4 (SBA) Walk 10 feet: 4 (SBA) Walk 50 feet with two turns: 4 (SBA) Walk 150 feet: 4 (SBA) Walking 10ft on uneven surface: 4 (SBA) 1 step (curb): 4 (SBA) 4 steps: 4 (SBA) PT Operations Advisor Goals Operations Advisor Goals PT Operations Advisor Goals Time Frame: Jun 07, 2019 Roll Left & Right (QC): 6 Sit to Lying (QC): 6 Lying-Sitting on Side/Bed(QC): 6 Sit to Stand (QC): 6 Chair/Sjj-zw-Wjmek Xfer(QC): 6 Toilet Transfer (QC): 6 Car Transfer (QC): 6 Does the Patient Walk: Yes Walk 10 feet (QC): 6 Walk 50ft with 2 Turns (QC): 6 Walk 150 ft (QC): 6 Walking 10ft on Uneven Surface: 5 1 Step (curb) (QC): 4 4 Steps (QC): 4 12 Steps (QC): 4 Picking up an Object (QC): 4 Does the Pt use WC or Scooter?: No Type: N/A Type: N/A PT Plan Treatment/Plan Treatment Plan: Continue Plan of Care Treatment Plan: Bed Mobility, Concurrent Therapy, Education, Functional Activity [place], Functional Strength, Group Therapy, Gait, Safety, Therapeutic Exercise, Transfers Treatment Duration: Jun 07, 2019 Frequency: At least 5 of 7 days/Wk (IRF) Estimated Hrs Per Day: 1.5 hours per day Patient and/or Family Agrees t: Yes Time/GCodes Time In: 1335 Time Out: 1405 Total Billed Treatment Time: 30 Total Billed Treatment 1 visit FA 20min EX 10min RENETTA AGUILAR PT May 19, 2019 14:11 POS
--- NOTE | 2019-05-19 15:26 | NUR ---
Completed initial assessment with patient admitted to ARU 05/17/19 after right hip replacement 05/16/19. Because patient had left hip replaced earlier this year in January, she is experienced about the course of her recovery and post hospital needs. She resides in handicap accessible apartments and has been independent within her normal ranges. DME: She has FWW and/or rollator walker, multi canes, stool riser, hip kit items. Will monitor for any additional items recommended by therapy. HHC: Patient utilized [facility] in January and stated she prefers this agency as her provider upon discharge. She is alert and oriented, pleasant, nearly deaf bilateral ears. She uses a white board for communication, stating she can read lips but is concerned she may miss parts and wants full clarity on information. Her sister will be staying with her for 2-3 weeks when she discharges. Patient also has her daughter Delmy Ambriz and a granddaughter she describes as very attentive and supportive. Patient understands the process of the weekly team conference and has been on our unit prior re same. Continue intermittent review for recommendations or changes in post hospital planning. Delmy Ambriz, Daughter [phone]
[2019-05-19 16:35] VITALS: BP 117/73
[2019-05-20 06:00] VITALS: BP 131/70
[2019-05-20] MEDS: PANTOPRAZOLE 40 MG (PROTONIX) TAB PO SCH (06:11)
[2019-05-20] MEDS: CYANOCOBALAMIN 1,000 MCG (VITAMIN B-12) TABLET PO SCH (06:11)
[2019-05-20] MEDS: MELOXICAM 7.5 MG (MOBIC) TABLET PO SCH ×2 (06:12→16:59)
[2019-05-20] MEDS: VITAMIN D3 1,000 UNITS (CHOLECALCIFEROL) TABLET PO SCH (08:26)
[2019-05-20] MEDS: ASPIRIN 81 MG CHEW (CHILDREN'S ASA) PO SCH (08:26)
[2019-05-20] MEDS: DOCUSATE SODIUM 100 MG (COLACE) CAP PO SCH (08:26)
[2019-05-20] MEDS: SENNA W/DOCUSATE (SENOKOT S) TABLET PO SCH ×2 (08:26→21:33)
[2019-05-20] MEDS: POLYETHYLENE GLYCOL 17 GM (MIRALAX) PACK PO SCH ×2 (08:27→21:33)
--- NOTE | 2019-05-20 10:01 | Physical Therapy Daily Note ---
PT Daily Note-Current Subjective Pt agreeable to PT session. States her hip is just sore, no real pain. States it is getting better every day. use of white erase board to communicate to pt, pt is able to verbalize Pain Numeric Pain Scale: 0-No Pain Appearance Pt sitting up in chair with nursing present upon arrival. At end of session, pt sitting up in recliner with call light, phone and bedside table within reach Mental Status Patient Orientation: Person, Place, Time, Eyes Open, Situation Transfers SCALE: Activities may be completed with or without assistive devices. 2-Naqhbmqinb-antfbin completes the activity by him/herself with no assistance from a helper. 5-Set-up or Clean-up Assistance-helper sets up or cleans up; patient completes activity. [place] assists only prior to or following the activity. 4-Supervision or Touching Assistance-helper provides verbal cues and/or touching/steadying and/or contact guard assistance as patient completes activity. Assistance may be provided throughout the activity or intermittently. 3-Partial/Moderate Assistance-helper does LESS THAN HALF the effort. [place] lifts, holds or supports trunk or limbs, but provides less than half the effort. 2-Substantial/Maximal Assistance-helper does MORE THAN HALF the effort. [place] lifts or holds trunk or limbs and provides more than half the effort. 7-Rmtsyvads-fcgzln does ALL the effort. Patient does none of the effort to complete the activity. Or, the assistance of 2 or more helpers is required for the patient to complete the activity. If activity was not attempted, code reason: 7-Patient Refused. 9-Not Applicable-not attempted and the patient did not perform the activity before the current illness, exacerbation or injury. 10-Not Attempted due to Environmental Limitations-(lack of equipment, weather restraints, etc.). 88-Not Attempted due to Medical Conditions or Safety Concerns. Sit to Stand (QC): 4 Weight Bearing Right Lower Extremity: Right Weight Bearing/Tolerated Left Lower Extremity: Left Full Weight Bearing Gait Training Does the Patient Walk?: Yes Distance: 160 x2 Walk 10 feet (QC): 5 Walk 50 ft with 2 Turns(QC): 5 Walk 150 ft (QC): 5 Gait Persons Needed: 1 Gait Assistive Device: Cane Large Base Quad supervision, slight antalgic, fair pace, steady without LOB, slight fwd flexed posture Exercises NuStep Minutes: 10 NuStep Workload: 6 (seat 9 arms 11) Treatments education, safety, transfers, gait, balance, strength, activity tolerance, functional mobility Assessment Current Status: Good Progress PT Short Term Goals Short Term Goals Time Frame: May 24, 2019 Roll Left & Right: 4 (SBA) Sit to lyin (Cheng) Lying to sitting on side of be: 4 (CGA) Sit to stand: 4 (SBA) Chair/btk-ln-rbvou transfer: 4 (SBA) Toilet transfer: 4 (SBA) Car transfer: 4 (SBA) Walk 10 feet: 4 (SBA) Walk 50 feet with two turns: 4 (SBA) Walk 150 feet: 4 (SBA) Walking 10ft on uneven surface: 4 (SBA) 1 step (curb): 4 (SBA) 4 steps: 4 (SBA) PT Chcf Goals Umbrella Supervisor Goals PT Umbrella Supervisor Goals Time Frame: Jun 07, 2019 Roll Left & Right (QC): 6 Sit to Lying (QC): 6 Lying-Sitting on Side/Bed(QC): 6 Sit to Stand (QC): 6 Chair/Wqr-zz-Yvouy Xfer(QC): 6 Toilet Transfer (QC): 6 Car Transfer (QC): 6 Does the Patient Walk: Yes Walk 10 feet (QC): 6 Walk 50ft with 2 Turns (QC): 6 Walk 150 ft (QC): 6 Walking 10ft on Uneven Surface: 5 1 Step (curb) (QC): 4 4 Steps (QC): 4 12 Steps (QC): 4 Picking up an Object (QC): 4 Does the Pt use WC or Scooter?: No Type: N/A Type: N/A PT Plan Treatment/Plan Treatment Plan: Continue Plan of Care Treatment Plan: Bed Mobility, Concurrent Therapy, Education, Functional Activity [place], Functional Strength, Group Therapy, Gait, Safety, Therapeutic Exercise, Transfers Treatment Duration: Jun 07, 2019 Frequency: At least 5 of 7 days/Wk (IRF) Estimated Hrs Per Day: 1.5 hours per day Patient and/or Family Agrees t: Yes Safety Risks/Education Patient Education: Gait Training, Transfer Techniques, Reviewed Precautions, Reviewed Use of Ice, Safety Issues Teaching Recipient: Patient Teaching Methods: Discussion Response to Teaching: Verbalize Understanding Time/GCodes Time In: 947 Time Out: 1010 Total Billed Treatment Time: 23 Total Billed Treatment 1 visit, EX x10 min, GT x13 min GAIL CHINO MOBILE HOME LABORER May 20, 2019 10:01 POS
[2019-05-20] MEDS: ENOXAPARIN 40 MG/0.4 ML (LOVENOX) SYR SC SCH (11:52)
--- NOTE | 2019-05-20 12:29 | PM&R Progress Note ---
Subjective HPI/CC On Admission Date Seen by Provider: May 20, 2019 Time Seen by Provider: 10:30 Subjective/Events-last exam Bowel movement good one today again Pain is much improved Overall feels very good but the pain was prohibitive during the night but now much better Overall pleased with her results Checked meds and labs Conferred with RN Reviewed therapy notes Review of Systems General: Fatigue Musculoskeletal: leg pain Objective Exam Vital Signs Vital Signs Date Time Temp Pulse Resp B/P (MAP) Pulse Ox O2 Delivery O2 Flow Rate FiO2 05/20/19 09:52 Room Air 05/20/19 06:00 36.6 78 16 131/70 (90) 95 Capillary Refill : General Appearance: No Apparent Distress, WD/WN, Chronically ill HEENT: PERRL/EOMI, Normal ENT Inspection, Pharynx Normal, Other (deafness) Neck: Full Range of Motion, Normal Inspection, Non Tender, Supple, Carotid Bruit Respiratory: Chest Non Tender, Lungs Clear, Normal Breath Sounds, No Accessory Muscle Use, No Respiratory Distress Cardiovascular: Regular Rate, Rhythm, No Edema, No Gallop, No JVD, No Murmur, Normal Peripheral Pulses Gastrointestinal: Normal Bowel Sounds, No Organomegaly, No Pulsatile Mass, Non Tender, Soft Back: Normal Inspection, No CVA Tenderness, No Vertebral Tenderness Extremity: Normal Capillary Refill, Normal Inspection, Normal Range of Motion (except right hip), Non Tender, No Calf Tenderness, No Pedal Edema Neurologic/Psychiatric: Alert, Oriented x3, No Motor/Sensory Deficits, Normal Mood/Affect Skin: Normal Color, Warm/Dry Lymphatic: No Adenopathy Results/Procedures Lab Patient resulted labs reviewed. FIM Transfers Therapy Code Descriptions/Definitions Functional [place] Measure: 0=Not Assessed/NA 4=Minimal Assistance 1=Total Assistance 5=Supervision or Setup 2=Maximal Assistance 6=Modified [place] 3=Moderate Assistance 7=Complete IndependenceSCALE: Activities may be completed with or without assistive devices. 6-Mtcuvdjulb-xuyvkxs completes the activity by him/herself with no assistance from a helper. 5-Set-up or Clean-up Assistance-helper sets up or cleans up; patient completes activity. [place] assists only prior to or following the activity. 4-Supervision or Touching Assistance-helper provides verbal cues and/or touching/steadying and/or contact guard assistance as patient completes activity. Assistance may be provided throughout the activity or intermittently. 3-Partial/Moderate Assistance-helper does LESS THAN HALF the effort. [place] lifts, holds or supports trunk or limbs, but provides less than half the effort. 2-Substantial/Maximal Assistance-helper does MORE THAN HALF the effort. [place] lifts or holds trunk or limbs and provides more than half the effort. 5-Vhmpxpuot-ibuoxm does ALL the effort. Patient does none of the effort to complete the activity. Or, the assistance of 2 or more helpers is required for the patient to complete the activity. If activity was not attempted, code reason: 7-Patient Refused. 9-Not Applicable-not attempted and the patient did not perform the activity before the current illness, exacerbation or injury. 10-Not Attempted due to Environmental Limitations-(lack of equipment, weather restraints, etc.). 88-Not Attempted due to Medical Conditions or Safety Concerns. Roll Left to Right (QC): 4 Sit to Lying (QC): 3 Sit to Stand (QC): 4 Chair/Gvl-nc-Fafqx Xfer(QC): 5 Car Transfer (QC): 3 (Cheng) Gait Training Does the Patient Walk?: Yes Distance: 160 x2 Walk 10 feet (QC): 5 Walk 50 ft with 2 Turns(QC): 5 Walk 150 ft (QC): 5 Walking 10ft/uneven surface-QC: 4 (CGA) Gait Persons Needed: 1 Gait Assistive Device: Cane Large Base Quad Wheelchair Training Does the Pt Use a Wheelchair?: No Wheel 50 ft with 2 turns (QC): 9 Wheel 150 ft (QC): 9 Type of Wheelchair: Manual Stair Training 1 Step (curb) (QC): 3 (Cheng) 4 Steps (QC): 88 12 Steps (QC): 88 Balance Picking up an Object (QC): 88 ADL-Treatment Eating (QC): 6 (opens and drinks from soda bottle) Oral Hygiene (QC): 5 (Pt completed oral hygine sitting at sink with set up. ) Bathing Location: L Arm, R Arm, L Upper Leg, R Upper Leg, L Lower Leg (including foot), R Lower Leg (including foot), Chest, Abdomen, Buttocks, Perineal Area Shower/Bathe Self (QC): 4 (Using grabbars and hand held shower, pt required supervision when completing the tasks.) Upper Body Dressing (QC): 3 (Pt required min tre to don bra. Pt was able to don shirt with set up.) Lower Body Dressing (QC): 4 (Pt required CGA in stance to hike pants/underwear over hips.) On/Off Footwear (QC): 4 (Pt able to complete with inspector machine cut glass, dressing stick, and shoe horn. Pt requires intermittent assist for shoe donning due to difficulty managing elastic strap with inspector machine cut glass.) Toileting Hygiene (QC): 4 (using grabbars, pt required CGA while cleansing and manipulating clothes.) Toilet Transfer (QC): 4 (CGA while transferring to the toilet and shower bench.) Assessment/Plan Assessment and Plan Assess & Plan/Chief Complaint Assessment: Right hip replacement Severe pain started after block dissipated last night Deafness Low vision Plan: BM regimen Pain control IRF protocol Maintain IS use (1) Status post right hip replacement (2) Deafness Status: Chronic (3) Low vision Status: Chronic (4) Arthritis Status: Chronic JÚNIOR RANGEL DO May 20, 2019 12:29 POS
[2019-05-20 16:29] VITALS: BP 127/78
[2019-05-21 05:50] VITALS: BP 134/72
[2019-05-21] MEDS: CYANOCOBALAMIN 1,000 MCG (VITAMIN B-12) TABLET PO SCH (06:22)
[2019-05-21] MEDS: PANTOPRAZOLE 40 MG (PROTONIX) TAB PO SCH (06:22)
[2019-05-21] MEDS: MELOXICAM 7.5 MG (MOBIC) TABLET PO SCH ×2 (06:22→16:47)
[2019-05-21] MEDS: POLYETHYLENE GLYCOL 17 GM (MIRALAX) PACK PO SCH ×2 (07:56→21:27)
[2019-05-21] MEDS: SENNA W/DOCUSATE (SENOKOT S) TABLET PO SCH ×2 (07:56→21:22)
[2019-05-21] MEDS: DOCUSATE SODIUM 100 MG (COLACE) CAP PO SCH (08:08)
[2019-05-21] MEDS: VITAMIN D3 1,000 UNITS (CHOLECALCIFEROL) TABLET PO SCH (08:08)
[2019-05-21] MEDS: ASPIRIN 81 MG CHEW (CHILDREN'S ASA) PO SCH (08:08)
--- NOTE | 2019-05-21 09:29 | NUR ---
Pt is up/has had bath/dressed for day. Pt sitting in chair. Denies pain. Lungs are clear but diminished. MALLIKA hose in place. Pt feels MALLIKA hose have been successful with reducing swelling in lower extremities. Pt elevates legs while in recliner.
--- NOTE | 2019-05-21 11:50 | PM&R Progress Note ---
Subjective HPI/CC On Admission Date Seen by Provider: May 21, 2019 Time Seen by Provider: 11:45 Subjective/Events-last exam Bowel movement are regular now Pain is much improved Overall feels very good Overall pleased with her results Likely DC this week Checked meds and labs Conferred with RN Reviewed therapy notes Review of Systems General: Fatigue Musculoskeletal: leg pain Objective Exam Vital Signs Vital Signs Date Time Temp Pulse Resp B/P (MAP) Pulse Ox O2 Delivery O2 Flow Rate FiO2 05/21/19 09:02 Room Air 05/21/19 05:50 36.5 76 16 134/72 (92) 94 Capillary Refill : General Appearance: No Apparent Distress, WD/WN, Chronically ill HEENT: PERRL/EOMI, Normal ENT Inspection, Pharynx Normal, Other (deafness) Neck: Full Range of Motion, Normal Inspection, Non Tender, Supple, Carotid Bruit Respiratory: Chest Non Tender, Lungs Clear, Normal Breath Sounds, No Accessory Muscle Use, No Respiratory Distress Cardiovascular: Regular Rate, Rhythm, No Edema, No Gallop, No JVD, No Murmur, Normal Peripheral Pulses Gastrointestinal: Normal Bowel Sounds, No Organomegaly, No Pulsatile Mass, Non Tender, Soft Back: Normal Inspection, No CVA Tenderness, No Vertebral Tenderness Extremity: Normal Capillary Refill, Normal Inspection, Normal Range of Motion (except right hip), Non Tender, No Calf Tenderness, No Pedal Edema Neurologic/Psychiatric: Alert, Oriented x3, No Motor/Sensory Deficits, Normal Mood/Affect Skin: Normal Color, Warm/Dry Lymphatic: No Adenopathy Results/Procedures Lab Patient resulted labs reviewed. FIM Transfers Therapy Code Descriptions/Definitions Functional [place] Measure: 0=Not Assessed/NA 4=Minimal Assistance 1=Total Assistance 5=Supervision or Setup 2=Maximal Assistance 6=Modified [place] 3=Moderate Assistance 7=Complete IndependenceSCALE: Activities may be completed with or without assistive devices. 8-Wkeiowkssu-fmrhkqp completes the activity by him/herself with no assistance from a helper. 5-Set-up or Clean-up Assistance-helper sets up or cleans up; patient completes activity. [place] assists only prior to or following the activity. 4-Supervision or Touching Assistance-helper provides verbal cues and/or touching/steadying and/or contact guard assistance as patient completes activity. Assistance may be provided throughout the activity or intermittently. 3-Partial/Moderate Assistance-helper does LESS THAN HALF the effort. [place] lifts, holds or supports trunk or limbs, but provides less than half the effort. 2-Substantial/Maximal Assistance-helper does MORE THAN HALF the effort. [place] lifts or holds trunk or limbs and provides more than half the effort. 0-Zecgqmgfw-tzjkuq does ALL the effort. Patient does none of the effort to complete the activity. Or, the assistance of 2 or more helpers is required for the patient to complete the activity. If activity was not attempted, code reason: 7-Patient Refused. 9-Not Applicable-not attempted and the patient did not perform the activity before the current illness, exacerbation or injury. 10-Not Attempted due to Environmental Limitations-(lack of equipment, weather restraints, etc.). 88-Not Attempted due to Medical Conditions or Safety Concerns. Roll Left to Right (QC): 4 Sit to Lying (QC): 3 Sit to Stand (QC): 4 Chair/Mti-gx-Egrio Xfer(QC): 5 Car Transfer (QC): 3 (Cheng) Gait Training Does the Patient Walk?: Yes Distance: 160 x2 Walk 10 feet (QC): 5 Walk 50 ft with 2 Turns(QC): 5 Walk 150 ft (QC): 5 Walking 10ft/uneven surface-QC: 4 (CGA) Gait Persons Needed: 1 Gait Assistive Device: Cane Large Base Quad Wheelchair Training Does the Pt Use a Wheelchair?: No Wheel 50 ft with 2 turns (QC): 9 Wheel 150 ft (QC): 9 Type of Wheelchair: Manual Stair Training 1 Step (curb) (QC): 3 (Cheng) 4 Steps (QC): 88 12 Steps (QC): 88 Balance Picking up an Object (QC): 88 ADL-Treatment Eating (QC): 6 (opens and drinks from soda bottle) Oral Hygiene (QC): 5 (Pt completed oral hygine sitting at sink with set up. ) Bathing Location: L Arm, R Arm, L Upper Leg, R Upper Leg, L Lower Leg (including foot), R Lower Leg (including foot), Chest, Abdomen, Buttocks, Perineal Area Shower/Bathe Self (QC): 4 (Using grabbars and hand held shower, pt required supervision when completing the tasks.) Upper Body Dressing (QC): 3 (Pt required min tre to don bra. Pt was able to don shirt with set up.) Lower Body Dressing (QC): 4 (Pt required CGA in stance to hike pants/underwear over hips.) On/Off Footwear (QC): 4 (Pt able to complete with apartment community manager, dressing stick, and shoe horn. Pt requires intermittent assist for shoe donning due to difficulty managing elastic strap with apartment community manager.) Toileting Hygiene (QC): 4 (using grabbars, pt required CGA while cleansing and manipulating clothes.) Toilet Transfer (QC): 4 (CGA while transferring to the toilet and shower bench.) Assessment/Plan Assessment and Plan Assess & Plan/Chief Complaint Assessment: Right hip replacement Severe pain started after block dissipated last night Deafness Low vision Plan: BM regimen Pain control IRF protocol Maintain IS use DC this week (1) Status post right hip replacement (2) Deafness Status: Chronic (3) Low vision Status: Chronic (4) Arthritis Status: Chronic JÚNIOR RANGEL DO May 21, 2019 11:50 POS
[2019-05-21] MEDS: ENOXAPARIN 40 MG/0.4 ML (LOVENOX) SYR SC SCH (12:20)
[2019-05-21 17:50] VITALS: BP 136/84
--- NOTE | 2019-05-21 19:15 | NUR ---
bedside report received from ASYA BEARD/ CAITLYN BEARD, assume care of pt
--- NOTE | 2019-05-21 21:22 | NUR ---
pt refused miralax but took Senokot
[2019-05-22 05:58] VITALS: BP 128/72
[2019-05-22] MEDS: PANTOPRAZOLE 40 MG (PROTONIX) TAB PO SCH (06:37)
[2019-05-22] MEDS: MELOXICAM 7.5 MG (MOBIC) TABLET PO SCH ×2 (06:37→17:18)
[2019-05-22] MEDS: CYANOCOBALAMIN 1,000 MCG (VITAMIN B-12) TABLET PO SCH (06:37)
--- NOTE | 2019-05-22 07:24 | NUR ---
bedside report given to ESTELA BEARD
[2019-05-22] MEDS: SENNA W/DOCUSATE (SENOKOT S) TABLET PO SCH ×2 (08:18→21:39)
[2019-05-22] MEDS: ASPIRIN 81 MG CHEW (CHILDREN'S ASA) PO SCH (08:18)
[2019-05-22] MEDS: DOCUSATE SODIUM 100 MG (COLACE) CAP PO SCH (08:18)
[2019-05-22] MEDS: VITAMIN D3 1,000 UNITS (CHOLECALCIFEROL) TABLET PO SCH (08:18)
[2019-05-22] MEDS: POLYETHYLENE GLYCOL 17 GM (MIRALAX) PACK PO SCH ×2 (09:36→21:39)
[2019-05-22 09:37] LABS: BASOPHILS % (AUTO) 0 % (0-10); EOSINOPHILS # (AUTO) 0.4 10^3/uL (0.0-0.3); EOSINOPHILS % (AUTO) 5 % (0-10); HEMATOCRIT 40 % (35-52); HEMOGLOBIN 12.9 G/DL (11.5-16.0); LYMPHOCYTES # (AUTO) 1.8 X 10^3 (1.0-4.0); LYMPHOCYTES % (AUTO) 22 % (12-44); MEAN CORPUSCULAR HEMOGLOBIN 29 PG (25-34); MEAN CORPUSCULAR HGB CONC 32 G/DL (32-36); MEAN CORPUSCULAR VOLUME 89 FL (80-99); MEAN PLATELET VOLUME 9.4 FL (7.4-10.4); MONOCYTES # (AUTO) 0.5 X 10^3 (0.0-1.0); MONOCYTES % (AUTO) 6 % (0-12); NEUTROPHILS # (AUTO) 5.5 X 10^3 (1.8-7.8); NEUTROPHILS % (AUTO) 68 % (42-75); PLATELET COUNT 335 10^3/uL (130-400); RED CELL DISTRIBUTION WIDTH 16.1 % (10.0-14.5); WHITE BLOOD COUNT 8.2 10^3/uL (4.3-11.0)
--- NOTE | 2019-05-22 09:47 | PM&R Progress Note ---
Subjective HPI/CC On Admission Date Seen by Provider: May 22, 2019 Time Seen by Provider: 08:15 Subjective/Events-last exam No new issues Bowels are moving Maintain the ice on the hip Denies any significant new issues DC planned for soon Checked meds and labs Conferred with RN Reviewed therapy notes Review of Systems General: Fatigue Pulmonary: Dyspnea Musculoskeletal: leg pain Objective Exam Vital Signs Vital Signs Date Time Temp Pulse Resp B/P (MAP) Pulse Ox O2 Delivery O2 Flow Rate FiO2 05/22/19 16:03 36.8 79 16 110/71 (84) 93 Room Air Capillary Refill : General Appearance: No Apparent Distress, WD/WN, Chronically ill HEENT: PERRL/EOMI, Normal ENT Inspection, Pharynx Normal, Other (deafness) Neck: Full Range of Motion, Normal Inspection, Non Tender, Supple, Carotid Bruit Respiratory: Chest Non Tender, Lungs Clear, Normal Breath Sounds, No Accessory Muscle Use, No Respiratory Distress Cardiovascular: Regular Rate, Rhythm, No Edema, No Gallop, No JVD, No Murmur, Normal Peripheral Pulses Gastrointestinal: Normal Bowel Sounds, No Organomegaly, No Pulsatile Mass, Non Tender, Soft Back: Normal Inspection, No CVA Tenderness, No Vertebral Tenderness Extremity: Normal Capillary Refill, Normal Inspection, Normal Range of Motion (except right hip), Non Tender, No Calf Tenderness, No Pedal Edema Neurologic/Psychiatric: Alert, Oriented x3, No Motor/Sensory Deficits, Normal Mood/Affect Skin: Normal Color, Warm/Dry Lymphatic: No Adenopathy Results/Procedures Lab Laboratory Tests 05/22/19 09:30 Patient resulted labs reviewed. FIM Transfers Therapy Code Descriptions/Definitions Functional [place] Measure: 0=Not Assessed/NA 4=Minimal Assistance 1=Total Assistance 5=Supervision or Setup 2=Maximal Assistance 6=Modified [place] 3=Moderate Assistance 7=Complete IndependenceSCALE: Activities may be completed with or without assistive devices. 4-Qvbbjsnghd-seodtvu completes the activity by him/herself with no assistance from a helper. 5-Set-up or Clean-up Assistance-helper sets up or cleans up; patient completes activity. [place] assists only prior to or following the activity. 4-Supervision or Touching Assistance-helper provides verbal cues and/or touching/steadying and/or contact guard assistance as patient completes activity. Assistance may be provided throughout the activity or intermittently. 3-Partial/Moderate Assistance-helper does LESS THAN HALF the effort. [place] lifts, holds or supports trunk or limbs, but provides less than half the effort. 2-Substantial/Maximal Assistance-helper does MORE THAN HALF the effort. [place] lifts or holds trunk or limbs and provides more than half the effort. 1-Oahsbdikb-zfhdrz does ALL the effort. Patient does none of the effort to complete the activity. Or, the assistance of 2 or more helpers is required for the patient to complete the activity. If activity was not attempted, code reason: 7-Patient Refused. 9-Not Applicable-not attempted and the patient did not perform the activity before the current illness, exacerbation or injury. 10-Not Attempted due to Environmental Limitations-(lack of equipment, weather restraints, etc.). 88-Not Attempted due to Medical Conditions or Safety Concerns. Roll Left to Right (QC): 4 Sit to Lying (QC): 3 Sit to Stand (QC): 4 Chair/Mpx-bc-Xehme Xfer(QC): 5 Car Transfer (QC): 3 (Cheng) Gait Training Does the Patient Walk?: Yes Distance: 160 x2 Walk 10 feet (QC): 5 Walk 50 ft with 2 Turns(QC): 5 Walk 150 ft (QC): 5 Walking 10ft/uneven surface-QC: 4 (CGA) Gait Persons Needed: 1 Gait Assistive Device: Cane Large Base Quad Wheelchair Training Does the Pt Use a Wheelchair?: No Wheel 50 ft with 2 turns (QC): 9 Wheel 150 ft (QC): 9 Type of Wheelchair: Manual Stair Training 1 Step (curb) (QC): 3 (Cheng) 4 Steps (QC): 88 12 Steps (QC): 88 Balance Picking up an Object (QC): 88 ADL-Treatment Eating (QC): 6 (opens and drinks from soda bottle) Oral Hygiene (QC): 5 (Pt completed oral hygine sitting at sink with set up. ) Bathing Location: L Arm, R Arm, L Upper Leg, R Upper Leg, L Lower Leg (including foot), R Lower Leg (including foot), Chest, Abdomen, Buttocks, Perineal Area Shower/Bathe Self (QC): 4 (Using grabbars and hand held shower, pt required supervision when completing the tasks.) Upper Body Dressing (QC): 3 (Pt required min tre to don bra. Pt was able to don shirt with set up.) Lower Body Dressing (QC): 4 (Pt required CGA in stance to hike pants/underwear over hips.) On/Off Footwear (QC): 4 (Pt able to complete with medical aide, dressing stick, and shoe horn. Pt requires intermittent assist for shoe donning due to difficulty managing elastic strap with medical aide.) Toileting Hygiene (QC): 4 (using grabbars, pt required CGA while cleansing and manipulating clothes.) Toilet Transfer (QC): 4 (CGA while transferring to the toilet and shower bench.) Assessment/Plan Assessment and Plan Assess & Plan/Chief Complaint Assessment: Right hip replacement Severe pain started after block dissipated last night Deafness Low vision Plan: BM regimen Pain control IRF protocol Maintain IS use DC this week (1) Status post right hip replacement (2) Deafness Status: Chronic (3) Low vision Status: Chronic (4) Arthritis Status: Chronic JÚNIOR RANGEL DO May 22, 2019 09:47 POS
--- NOTE | 2019-05-22 09:56 | Occupational Ther Daily Note ---
OT Current Status-Daily Note Subjective No complaint of pain. Appearance Pt seated in recliner when OT entered the room. Nurse present. Pt agrees to therapy treatment. Mental Status/Objective Patient Orientation: Person, Place, Time, Situation ADL-Treatment Therapy Code Descriptions/Definitions Functional [place] Measure: 0=Not Assessed/NA 4=Minimal Assistance 1=Total Assistance 5=Supervision or Setup 2=Maximal Assistance 6=Modified [place] 3=Moderate Assistance 7=Complete IndependenceSCALE: Activities may be completed with or without assistive devices. 7-Gesmrzzncp-fbrfrux completes the activity by him/herself with no assistance from a helper. 5-Set-up or Clean-up Assistance-helper sets up or cleans up; patient completes activity. [place] assists only prior to or following the activity. 4-Supervision or Touching Assistance-helper provides verbal cues and/or touching/steadying and/or contact guard assistance as patient completes activity. Assistance may be provided throughout the activity or intermittently. 3-Partial/Moderate Assistance-helper does LESS THAN HALF the effort. [place] lifts, holds or supports trunk or limbs, but provides less than half the effort. 2-Substantial/Maximal Assistance-helper does MORE THAN HALF the effort. [place] lifts or holds trunk or limbs and provides more than half the effort. 4-Fwjpwfoqo-ewpaqb does ALL the effort. Patient does none of the effort to complete the activity. Or, the assistance of 2 or more helpers is required for the patient to complete the activity. If activity was not attempted, code reason: 7-Patient Refused. 9-Not Applicable-not attempted and the patient did not perform the activity before the current illness, exacerbation or injury. 10-Not Attempted due to Environmental Limitations-(lack of equipment, weather restraints, etc.). 88-Not Attempted due to Medical Conditions or Safety Concerns. Oral Hygiene (QC): 6 (Pt completed oral hygiene independently seated at the sink.) Bathing Location: L Arm, R Arm, L Upper Leg, R Upper Leg, L Lower Leg (inc luding foot), R Lower Leg (including foot), Chest, Abdomen, Buttocks, Perineal Area Shower/Bathe Self (QC): 5 (Using grabbars, handheld shower hose, pt completed shower seated on the bench with set up.) Upper Body Dressing (QC): 5 (Pt completed UB dressing with set up.) Lower Body Dressing (QC): 4 (Pt utilized dressing stick to complete LB dressing. SBA in stance to hike pants over hips.) Toileting Hygiene (QC): 4 (Using grabbars and walker, pt was able to cleanse self and manipulate clothing. Pt required SBA when completing the tasks.) Toilet Transfer (QC): 4 (SBA when transfering to shower bench.) Footwear (3). Pt. required min assist to fasten shoe and tuck the tongue of bilateral shoes. Other Treatment Pt transferred from the recliner to the walker requiring SBA for safety. Pt ambulated with walker to the bathroom. Pt completed shower seated on the bench. Pt transferred to the chair to complete dressing. Pt utilized AE to complete dressing. Pt brushed hair while seated at the sink. Pt then ambulated with walker to therapy gym requiring SBA. Pt participated in armbike exercise x15 min with min resistance to improve strength and activity tolerance for functional tasks. Pt completed 4 UE strengthening exercises using mod resistance theraband,10 reps of each to increase overall strength. Pt ambulated with walker and SBA to the room. Pt seated in recliner with call light/phone in reach. All needs met in room. Education OT Patient Education: Exercise program, Modified ADL techniques, Progress toward Goal/Update tx plan, Purpose of tx/functional activities, Reviewed precautions, Rehab process, Safety issues, Use of adapted equipment Teaching Recipient: Patient Teaching Methods: Demonstration Response to Teaching: Verbalize Understanding, Return Demonstration OT [facility] Goals Supervisor Mechanic Boilermaking Goals Time Frame: May 31, 2019 Eating (QC): 6 Oral Hygiene (QC): 6 Toileting Hygiene (QC): 6 Shower/Bathe Self (QC): 6 Upper Body Dressing (QC): 6 Lower Body Dressing (QC): 6 On/Off Footwear (QC): 6 Additional Goals: 1-Demonstrate ADL Tasks, 2-Verbalize Understanding, 3-Improve Strength/[place] 1=Demonstrate adherence to instructed precautions during ADL tasks. 2=Patient will verbalize/demonstrate understanding of assistive devices/modifications for ADL. 3=Patient will improve strength/tolerance for activity to enable patient to pe rform ADL's. OT Education/Plan Problem List/Assessment Assessment: Decreased Activ Tolerance, Decreased UE Strength, Impaired I ADL's, Impaired Self-Care Skills Discharge Recommendations Plan/Recommendations: Continue POC Equpiment Recommendations-D/C: Hip Kit Treatment Plan/Plan of Care Treatment,Training & Education: Yes Patient would benefit from OT for education, treatment and training to promote independence in ADL's, mobility, safety and/or upper extremity function for ADL's. Plan of Care: ADL Retraining, Caregiver Training, Concurrent Therapy, Functional Mobility, Group Exercise/Act as Ind, UE Funct Exercise/Act Treatment Duration: May 31, 2019 Frequency: At least 5 of 7 days/Wk (IRF) Estimated Hrs Per Day: 1.5 hours per day Agreement: Yes Rehab Potential: Good Time/GCodes Start Time: 08:15 Stop Time: 09:45 Total Time Billed (hr/min): 90 Billed Treatment Time 1, ADL x 3 (50 Min ) EX x 3 (40 Min ) HONG VÁSQUEZ OT May 22, 2019 09:56 POS
[2019-05-22 10:03] LABS: ALANINE AMINOTRANSFERASE 22 U/L (0-55); ALBUMIN 4.1 GM/DL (3.2-4.5); ALKALINE PHOSPHATASE 60 U/L (40-136); BILIRUBIN,TOTAL 0.5 MG/DL (0.1-1.0); BUN/CREATININE RATIO 24; CALCIUM 9.5 MG/DL (8.5-10.1); CARBON DIOXIDE 25 MMOL/L (21-32); CHLORIDE 104 MMOL/L (98-107); CREATININE SERUM 0.67 MG/DL (0.60-1.30); GFR ESTIMATED > 60; GLUCOSE 115 MG/DL (70-105); SODIUM 140 MMOL/L (135-145); TOTAL PROTEIN 7.2 GM/DL (6.4-8.2)
--- NOTE | 2019-05-22 10:25 | Physical Therapy Daily Note ---
PT Daily Note-Current Subjective Pt agreeable to PT session. States having soreness and burning in R hip, but not really any pain. States she is using ice. Pain Numeric Pain Scale: 0-No Pain (reports just burning and soreness, "no real pain") Appearance Pt sitting up in recliner awake and alert upon arrival. Pt sitting up in recliner with LE's elevated, ice on R hip, call light, phone and bedside table within reach Mental Status Patient Orientation: Person, Place, Time, Eyes Open, Situation Transfers SCALE: Activities may be completed with or without assistive devices. 8-Hvtsfwakkb-gslqqqf completes the activity by him/herself with no assistance from a helper. 5-Set-up or Clean-up Assistance-helper sets up or cleans up; patient completes activity. [place] assists only prior to or following the activity. 4-Supervision or Touching Assistance-helper provides verbal cues and/or touching/steadying and/or contact guard assistance as patient completes activity. Assistance may be provided throughout the activity or intermittently. 3-Partial/Moderate Assistance-helper does LESS THAN HALF the effort. [place] lifts, holds or supports trunk or limbs, but provides less than half the effort. 2-Substantial/Maximal Assistance-helper does MORE THAN HALF the effort. [place] lifts or holds trunk or limbs and provides more than half the effort. 0-Cixghuirr-zlravk does ALL the effort. Patient does none of the effort to complete the activity. Or, the assistance of 2 or more helpers is required for the patient to complete the activity. If activity was not attempted, code reason: 7-Patient Refused. 9-Not Applicable-not attempted and the patient did not perform the activity before the current illness, exacerbation or injury. 10-Not Attempted due to Environmental Limitations-(lack of equipment, weather restraints, etc.). 88-Not Attempted due to Medical Conditions or Safety Concerns. Sit to Stand (QC): 4 pt using good safe techniques with sit to and from stand transfers, noted increased difficulty and effort required to stand from lower softer surfaces and 2-3 attempts to successfully stand Weight Bearing Right Lower Extremity: Right Weight Bearing/Tolerated Left Lower Extremity: Left Full Weight Bearing Gait Training Does the Patient Walk?: Yes Distance: 500 x2, 100 Walk 10 feet (QC): 4 Walk 50 ft with 2 Turns(QC): 4 Walk 150 ft (QC): 4 Gait Persons Needed: 1 (SBA) Gait Assistive Device: FWW slight trunk flexion, no LOB, good step length, decreasing antalgic gait, slow pace, relies on walker with UE's for WB through UE's to decrease WB through LE's Exercises Supine Ex: Straight leg raise (reclined in recliner, AAROM RLE, AROM but with effort LLE, 2x10 each) Seated Therapy Exercises: Ankle pumps (25), Sit to stand, Long arc quads (BLE simultaneously), Hip flexion (alt LE's, able to now perform AROM RLE), Hip abd/add (simultaneously with knees extended) Seated Reps: 20 (skilled instruction to perform slow and controlled) NuStep Minutes: 15 NuStep Workload: 6 (Seat 10, arms 9, occasional brief stopping rest breaks) Treatments education, safety, transfers, gait, balance, strength, activity tolerance, functional mobility Assessment Current Status: Good Progress PT Short Term Goals Short Term Goals Time Frame: May 24, 2019 Roll Left & Right: 4 (SBA) Sit to lyin (Cheng) Lying to sitting on side of be: 4 (CGA) Sit to stand: 4 (SBA) Chair/viy-rf-tspzg transfer: 4 (SBA) Toilet transfer: 4 (SBA) Car transfer: 4 (SBA) Walk 10 feet: 4 (SBA) Walk 50 feet with two turns: 4 (SBA) Walk 150 feet: 4 (SBA) Walking 10ft on uneven surface: 4 (SBA) 1 step (curb): 4 (SBA) 4 steps: 4 (SBA) PT Group Home Goals Group Home Goals PT Group Home Goals Time Frame: Jun 07, 2019 Roll Left & Right (QC): 6 Sit to Lying (QC): 6 Lying-Sitting on Side/Bed(QC): 6 Sit to Stand (QC): 6 Chair/Zep-uk-Rbsxe Xfer(QC): 6 Toilet Transfer (QC): 6 Car Transfer (QC): 6 Does the Patient Walk: Yes Walk 10 feet (QC): 6 Walk 50ft with 2 Turns (QC): 6 Walk 150 ft (QC): 6 Walking 10ft on Uneven Surface: 5 1 Step (curb) (QC): 4 4 Steps (QC): 4 12 Steps (QC): 4 Picking up an Object (QC): 4 Does the Pt use WC or Scooter?: No Type: N/A Type: N/A PT Plan Treatment/Plan Treatment Plan: Continue Plan of Care Treatment Plan: Bed Mobility, Concurrent Therapy, Education, Functional Activity [place], Functional Strength, Group Therapy, Gait, Safety, Therapeutic Exercise, Transfers Treatment Duration: Jun 07, 2019 Frequency: At least 5 of 7 days/Wk (IRF) Estimated Hrs Per Day: 1.5 hours per day Patient and/or Family Agrees t: Yes Safety Risks/Education Patient Education: Gait Training, Transfer Techniques, Reviewed Precautions, Reviewed Use of Ice, Disease Process, Safety Issues Teaching Recipient: Patient Teaching Methods: Discussion Response to Teaching: Verbalize Understanding Time/GCodes Time In: 1000 Time Out: 1100 Total Billed Treatment Time: 60 Total Billed Treatment 1 visit, GT x25 min, EX x35 min GAIL CHINO CABLE RIGGER May 22, 2019 10:25 POS
--- NOTE | 2019-05-22 10:35 | NUR ---
Pastoral care visit.
[2019-05-22] MEDS: ENOXAPARIN 40 MG/0.4 ML (LOVENOX) SYR SC SCH (11:52)
--- NOTE | 2019-05-22 11:54 | NUR ---
Visited with patient and her daughter, Delmy Ambriz, in anticipation of discharge this week. 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 HH: Patient preference agency [facility] can not staff admissions this week or next, discussed other agencies in this service area. New preference is [facility], will make referral when orders received. SUPPORT: Daughter Delmy is primary contact and support, patient's sister will be coming from [place] to stay with her 2-3 weeks to assist. DME: As earlier noted, patient has no new DME needs at this time.
--- NOTE | 2019-05-22 15:33 | Physical Therapy Daily Note ---
PT Daily Note-Current Subjective Agrees to PT. Reports her right hip is sore upon immediate standing and walking but it loosens with time. Transfers SCALE: Activities may be completed with or without assistive devices. 5-Fidjbuknjx-wftwutk completes the activity by him/herself with no assistance from a helper. 5-Set-up or Clean-up Assistance-helper sets up or cleans up; patient completes activity. [place] assists only prior to or following the activity. 4-Supervision or Touching Assistance-helper provides verbal cues and/or touching/steadying and/or contact guard assistance as patient completes activity. Assistance may be provided throughout the activity or intermittently. 3-Partial/Moderate Assistance-helper does LESS THAN HALF the effort. [place] lifts, holds or supports trunk or limbs, but provides less than half the effort. 2-Substantial/Maximal Assistance-helper does MORE THAN HALF the effort. [place] lifts or holds trunk or limbs and provides more than half the effort. 9-Xpidpoxad-zvmxfv does ALL the effort. Patient does none of the effort to complete the activity. Or, the assistance of 2 or more helpers is required for the patient to complete the activity. If activity was not attempted, code reason: 7-Patient Refused. 9-Not Applicable-not attempted and the patient did not perform the activity bef ore the current illness, exacerbation or injury. 10-Not Attempted due to Environmental Limitations-(lack of equipment, weather r estraints, etc.). 88-Not Attempted due to Medical Conditions or Safety Concerns. Sit to Stand (QC): 5 Weight Bearing Right Lower Extremity: Right Weight Bearing/Tolerated Left Lower Extremity: Left Full Weight Bearing Gait Training Walk 150 ft (QC): 5 Gait Assistive Device: FWW Pt ambulated 200 ft x 2 and 50 ft x 2 with FWW with set up assist. Pt walked into the bathroom with FWW and completed toilet task all with SBA. Exercises Seated Therapy Exercises: Ankle pumps, Long arc quads, Hamstring Curls (red theraband), Hip abd/add (isometric with a ball), Glut set Seated Reps: 15 (LE strengthening to promote functional transfers and gait. ) Assessment Current Status: Good Progress Sore today but notes it improves with movement. PT Short Term Goals Short Term Goals Time Frame: May 24, 2019 Roll Left & Right: 4 (SBA) Sit to lyin (Cheng) Lying to sitting on side of be: 4 (CGA) Sit to stand: 4 (SBA) Chair/cox-vn-jprhh transfer: 4 (SBA) Toilet transfer: 4 (SBA) Car transfer: 4 (SBA) Walk 10 feet: 4 (SBA) Walk 50 feet with two turns: 4 (SBA) Walk 150 feet: 4 (SBA) Walking 10ft on uneven surface: 4 (SBA) 1 step (curb): 4 (SBA) 4 steps: 4 (SBA) PT Snf Goals Virtual Assistant Goals PT Virtual Assistant Goals Time Frame: Jun 07, 2019 Roll Left & Right (QC): 6 Sit to Lying (QC): 6 Lying-Sitting on Side/Bed(QC): 6 Sit to Stand (QC): 6 Chair/Mbd-qn-Udeub Xfer(QC): 6 Toilet Transfer (QC): 6 Car Transfer (QC): 6 Does the Patient Walk: Yes Walk 10 feet (QC): 6 Walk 50ft with 2 Turns (QC): 6 Walk 150 ft (QC): 6 Walking 10ft on Uneven Surface: 5 1 Step (curb) (QC): 4 4 Steps (QC): 4 12 Steps (QC): 4 Picking up an Object (QC): 4 Does the Pt use WC or Scooter?: No Type: N/A Type: N/A PT Plan Problem List Problem List: Activity Tolerance, Functional Strength, Safety, Balance, Gait, Transfer Treatment/Plan Treatment Plan: Continue Plan of Care Treatment Plan: Bed Mobility, Concurrent Therapy, Education, Functional Activity [place], Functional Strength, Group Therapy, Gait, Safety, Therapeutic Exercise, Transfers Treatment Duration: Jun 07, 2019 Frequency: At least 5 of 7 days/Wk (IRF) Estimated Hrs Per Day: 1.5 hours per day Patient and/or Family Agrees t: Yes Safety Risks/Education Patient Education: Safety Issues Teaching Recipient: Patient Teaching Methods: Discussion Response to Teaching: Verbalize Understanding Time/GCodes Time In: 1430 Time Out: 1500 Total Billed Treatment Time: 30 Total Billed Treatment visit EX 15 GT 15 KYLEE ATKINSON PT May 22, 2019 15:32 POS
[2019-05-22 16:03] VITALS: BP 110/71
--- NOTE | 2019-05-22 19:20 | NUR ---
bedside report received from GALA BEARD, assume care of pt
[2019-05-22] MEDS: HYDROcodone/APAP 5 MG/325 MG (LORTAB) TAB PO PRN (21:40)
--- NOTE | 2019-05-22 21:40 | NUR ---
pt took Senokot but refused miralax, c/o rt hip pain level 5/10 on numeric scale, Lortab 5 1 tab given
--- NOTE | 2019-05-22 22:20 | NUR ---
resting quietly in bed, pain level 0/10 on flacc scale
[2019-05-23 06:14] VITALS: BP 129/76
[2019-05-23] MEDS: CYANOCOBALAMIN 1,000 MCG (VITAMIN B-12) TABLET PO SCH (06:47)
[2019-05-23] MEDS: MELOXICAM 7.5 MG (MOBIC) TABLET PO SCH ×2 (06:48→18:16)
[2019-05-23] MEDS: PANTOPRAZOLE 40 MG (PROTONIX) TAB PO SCH (06:48)
--- NOTE | 2019-05-23 07:28 | NUR ---
bedside report given to CAYDEN BEARD
--- NOTE | 2019-05-23 09:49 | PM&R Progress Note ---
Subjective HPI/CC On Admission Date Seen by Provider: May 23, 2019 Time Seen by Provider: 08:30 Subjective/Events-last exam No new issues Bowels are moving Discharge plan for tomorrow Denies any significant new issues Checked meds and labs Conferred with RN Reviewed therapy notes Review of Systems General: Fatigue Musculoskeletal: leg pain Objective Exam Vital Signs Vital Signs Date Time Temp Pulse Resp B/P (MAP) Pulse Ox O2 Delivery O2 Flow Rate FiO2 05/23/19 06:14 36.5 76 18 129/76 (93) 94 Room Air Capillary Refill : General Appearance: No Apparent Distress, WD/WN, Chronically ill HEENT: PERRL/EOMI, Normal ENT Inspection, Pharynx Normal, Other (deafness) Neck: Full Range of Motion, Normal Inspection, Non Tender, Supple, Carotid Bruit Respiratory: Chest Non Tender, Lungs Clear, Normal Breath Sounds, No Accessory Muscle Use, No Respiratory Distress Cardiovascular: Regular Rate, Rhythm, No Edema, No Gallop, No JVD, No Murmur, Normal Peripheral Pulses Gastrointestinal: Normal Bowel Sounds, No Organomegaly, No Pulsatile Mass, Non Tender, Soft Back: Normal Inspection, No CVA Tenderness, No Vertebral Tenderness Extremity: Normal Capillary Refill, Normal Inspection, Normal Range of Motion (except right hip), Non Tender, No Calf Tenderness, No Pedal Edema Neurologic/Psychiatric: Alert, Oriented x3, No Motor/Sensory Deficits, Normal Mood/Affect Skin: Normal Color, Warm/Dry Lymphatic: No Adenopathy Results/Procedures Lab Patient resulted labs reviewed. FIM Transfers Therapy Code Descriptions/Definitions Functional [place] Measure: 0=Not Assessed/NA 4=Minimal Assistance 1=Total Assistance 5=Supervision or Setup 2=Maximal Assistance 6=Modified [place] 3=Moderate Assistance 7=Complete IndependenceSCALE: Activities may be completed with or without assistive devices. 9-Naigqstpre-lhgkhrz completes the activity by him/herself with no assistance from a helper. 5-Set-up or Clean-up Assistance-helper sets up or cleans up; patient completes activity. [place] assists only prior to or following the activity. 4-Supervision or Touching Assistance-helper provides verbal cues and/or touching/steadying and/or contact guard assistance as patient completes activity. Assistance may be provided throughout the activity or intermittently. 3-Partial/Moderate Assistance-helper does LESS THAN HALF the effort. [place] lifts, holds or supports trunk or limbs, but provides less than half the effort. 2-Substantial/Maximal Assistance-helper does MORE THAN HALF the effort. [place] lifts or holds trunk or limbs and provides more than half the effort. 6-Uprxdeqxu-bvozxh does ALL the effort. Patient does none of the effort to complete the activity. Or, the assistance of 2 or more helpers is required for the patient to complete the activity. If activity was not attempted, code reason: 7-Patient Refused. 9-Not Applicable-not attempted and the patient did not perform the activity before the current illness, exacerbation or injury. 10-Not Attempted due to Environmental Limitations-(lack of equipment, weather restraints, etc.). 88-Not Attempted due to Medical Conditions or Safety Concerns. Roll Left to Right (QC): 4 Sit to Lying (QC): 3 Sit to Stand (QC): 5 Chair/Kxo-al-Pmldu Xfer(QC): 5 Car Transfer (QC): 3 (Cheng) Gait Training Does the Patient Walk?: Yes Distance: 500 x2, 100 Walk 10 feet (QC): 4 Walk 50 ft with 2 Turns(QC): 4 Walk 150 ft (QC): 5 Walking 10ft/uneven surface-QC: 4 (CGA) Gait Persons Needed: 1 (SBA) Gait Assistive Device: FWW Wheelchair Training Does the Pt Use a Wheelchair?: No Wheel 50 ft with 2 turns (QC): 9 Wheel 150 ft (QC): 9 Type of Wheelchair: Manual Stair Training 1 Step (curb) (QC): 3 (Cheng) 4 Steps (QC): 88 12 Steps (QC): 88 Balance Picking up an Object (QC): 88 ADL-Treatment Eating (QC): 6 (opens and drinks from soda bottle) Oral Hygiene (QC): 6 (Pt completed oral hygiene independently seated at the sink.) Bathing Location: L Arm, R Arm, L Upper Leg, R Upper Leg, L Lower Leg (including foot), R Lower Leg (including foot), Chest, Abdomen, Buttocks, Perineal Area Shower/Bathe Self (QC): 5 (Using grabbars, handheld shower hose, pt completed shower seated on the bench with set up.) Upper Body Dressing (QC): 5 (Pt completed UB dressing with set up.) Lower Body Dressing (QC): 4 (Pt utilized dressing stick to complete LB dressing. SBA in stance to hike pants over hips.) On/Off Footwear (QC): 4 (Pt able to complete with press set up, dressing stick, and shoe horn. Pt requires intermittent assist for shoe donning due to difficulty managing elastic strap with press set up.) Toileting Hygiene (QC): 4 (Using grabbars and walker, pt was able to cleanse self and manipulate clothing. Pt required SBA when completing the tasks.) Toilet Transfer (QC): 4 (SBA when transfering to shower bench.) Assessment/Plan Assessment and Plan Assess & Plan/Chief Complaint Assessment: Right hip replacement Severe pain started after block dissipated last night Deafness Low vision Plan: BM regimen Pain control IRF protocol Maintain IS use DC tomorrow (1) Status post right hip replacement (2) Deafness Status: Chronic (3) Low vision Status: Chronic (4) Arthritis Status: Chronic JÚNIOR RANGEL DO May 23, 2019 09:49 POS
[2019-05-23] MEDS: ASPIRIN 81 MG CHEW (CHILDREN'S ASA) PO SCH (10:13)
[2019-05-23] MEDS: DOCUSATE SODIUM 100 MG (COLACE) CAP PO SCH (10:13)
[2019-05-23] MEDS: VITAMIN D3 1,000 UNITS (CHOLECALCIFEROL) TABLET PO SCH (10:13)
[2019-05-23] MEDS: POLYETHYLENE GLYCOL 17 GM (MIRALAX) PACK PO SCH ×2 (10:13→20:45)
[2019-05-23] MEDS: SENNA W/DOCUSATE (SENOKOT S) TABLET PO SCH ×2 (10:13→20:46)
[2019-05-23] MEDS ORDERED: ACHD5005 PO (10:51)
--- NOTE | 2019-05-23 10:52 | D/C HH Face to Face Order ---
D/C Face to Face Orders Reconcile Patient Problems Problems Reviewed?: Yes Instructions for Patient Home Health Patient Instructions/FollowUp: Dr. Gibson in [address] Whyte as scheduled Physician to follow Patient: Dr. Nya Gibson Discharge Diet for Home: No Restrictions Patient Problems: Right hip replacement Low-vision Deafness Goals for Patient: Return to independent living Patient Data-Allergies,Ht & Wt Patient Allergies: Coded Allergies: Sulfa (Sulfonamide Antibiotics) (Verified Allergy, Severe, 02/15/19) bezafibrate (Verified Allergy, Severe, 02/15/19) doxycycline (Verified Allergy, Severe, 02/15/19) gadoteridol (Verified Allergy, Severe, 02/15/19) phenazopyridine (Verified Allergy, Severe, 02/15/19) propoxyphene (Verified Allergy, Severe, 02/15/19) Height (Feet): 5 Height (Inches): 4.00 Weight (Pounds): 183 Weight (Ounces): 3.2 Home Health Need/Face to Face Date of Face to Face: May 23, 2019 Clinical Findings: Generalized weakness and fatigue, Instability, Muscle weakness, Pain with ambulation, Unsteady gait I have seen Pt lqoq-rs-caci: Yes Discharged To: Home Diagnosis/Conditions: Right hip replacement Low-vision Deafness Patient is Homebound due to: [place] fall risk due to instabilty, Muscle weakness, Pain w/ambulation Homebound Status Due to the above stated illness, injury or surgical procedure (medical condition or diagnosis) and associated clinical findings, the patient is homebound because of his/her inability to leave home except with aid of a supportive device and/or person AND leaving the home requires a considerable and taxing effort or is medically contraindicated. Pt req the following assistanc: Walker Home Health Nursing Orders Home Health Services Order: Nursing Services, Civil Engineering Design Draftsperson-Evaluate & Treat, Physical Therapy-Evaluate & Treat Certify Stmt I certify that this patient is under my care and that I, a nurse practitioner or a physician; a painter assistant working with me, had a face to face encounter that - meets the physician face to face encounter requirements with this patient as dated. NYA GIBSON DO May 23, 2019 10:52 POS
--- NOTE | 2019-05-23 11:57 | Physical Therapy Daily Note ---
PT Daily Note-Current Subjective Pt agreeable to PT session. Pain Numeric Pain Scale: 4 Location: Right Location Body Site: Hip Comment: increases to 10 with bed tx's and bed mobility, L knee also pain on steps Appearance Pt sitting up in recliner upon arrival. Pt requesting and assisted to bathroom demo mod I with all toileting and kellie care. At end of session, pt sitting up in recliner with call light, phone and bedside table within reach. Mental Status Patient Orientation: Person, Place, Time, Eyes Open, Situation Transfers SCALE: Activities may be completed with or without assistive devices. 3-Twdcjvgqkb-nthmplj completes the activity by him/herself with no assistance from a helper. 5-Set-up or Clean-up Assistance-helper sets up or cleans up; patient completes activity. [place] assists only prior to or following the activity. 4-Supervision or Touching Assistance-helper provides verbal cues and/or touching/steadying and/or contact guard assistance as patient completes activity. Assistance may be provided throughout the activity or intermittently. 3-Partial/Moderate Assistance-helper does LESS THAN HALF the effort. [place] lifts, holds or supports trunk or limbs, but provides less than half the effort. 2-Substantial/Maximal Assistance-helper does MORE THAN HALF the effort. [place] lifts or holds trunk or limbs and provides more than half the effort. 0-Gjvnkuita-aehwzf does ALL the effort. Patient does none of the effort to complete the activity. Or, the assistance of 2 or more helpers is required for the patient to complete the activity. If activity was not attempted, code reason: 7-Patient Refused. 9-Not Applicable-not attempted and the patient did not perform the activity before the current illness, exacerbation or injury. 10-Not Attempted due to Environmental Limitations-(lack of equipment, weather restraints, etc.). 88-Not Attempted due to Medical Conditions or Safety Concerns. Roll Left & Right (QC): 3 (rolling L with min A, rolling R Ind) Sit to Lying (QC): 3 (min A with LE's) Lying to Sitting/Side of Bed(Q: 3 (min A with LE's) Sit to Stand (QC): 6 Toilet Transfer (QC): 6 Car Transfer (QC): 5 pt unable to maneuver LE's in or out of bed without physical A, states she will not be sleeping in her bed anyway, that she will be sleeping in her recliner. Weight Bearing Right Lower Extremity: Right Weight Bearing/Tolerated Left Lower Extremity: Left Full Weight Bearing Gait Training Does the Patient Walk?: Yes Distance: 200 x2 Walk 10 feet (QC): 6 Walk 50 ft with 2 Turns(QC): 6 Walk 150 ft (QC): 6 Walking 10ft/uneven surface-QC: 4 (CGA for safety) Gait Persons Needed: 1 (on uneven surfaces for safety/unsteadiness and fall preventions) Gait Assistive Device: FWW slight fwd flexed posture, min antalgic gait but improving with distance, no LOB or unsteadiness, min to mod fatigue Wheelchair Training Does the Pt Use a Wheelchair?: No Stair Training Stair Training: Handrails/: 2 handrails #of Steps: 4 1 Step (curb) (QC): 4 (CGA for steadying, safety and balance) 4 Steps (QC): 3 (increased effort required, min A required for pt pt to be able to lift self up onto 1st 2 steps, CGA for safety and balance) 12 Steps (QC): 88 Stairs: Pattern: Step to Balance Picking up an Object (QC): 6 (standing in walker using grabber stick) Exercises Standing: Hip Abduction, Heel/toe raises, 3 way Ex=Flex, Abd, Ext, Marching, Mini squats, Retro gait, Sit to Stand Standing Reps: 20 (increased sitting rest breaks required) Treatments education, safety, transfers, bed mobility, toileting/kellie care, gait, activity tolerance, functional mobility, strength, balance, stairs Assessment Current Status: Good Progress PT Short Term Goals Short Term Goals Time Frame: May 24, 2019 Roll Left & Right: 4 (SBA) Sit to lyin (Cheng) Lying to sitting on side of be: 4 (CGA) Sit to stand: 4 (SBA) Chair/vcs-wm-kzyqi transfer: 4 (SBA) Toilet transfer: 4 (SBA) Car transfer: 4 (SBA) Walk 10 feet: 4 (SBA) Walk 50 feet with two turns: 4 (SBA) Walk 150 feet: 4 (SBA) Walking 10ft on uneven surface: 4 (SBA) 1 step (curb): 4 (SBA) 4 steps: 4 (SBA) PT [employer] Program Director Goals [employer] Program Director Goals PT [employer] Program Director Goals Time Frame: Jun 07, 2019 Roll Left & Right (QC): 6 Sit to Lying (QC): 6 Lying-Sitting on Side/Bed(QC): 6 Sit to Stand (QC): 6 Chair/Coc-jp-Cnxlk Xfer(QC): 6 Toilet Transfer (QC): 6 Car Transfer (QC): 6 Does the Patient Walk: Yes Walk 10 feet (QC): 6 Walk 50ft with 2 Turns (QC): 6 Walk 150 ft (QC): 6 Walking 10ft on Uneven Surface: 5 1 Step (curb) (QC): 4 4 Steps (QC): 4 12 Steps (QC): 4 Picking up an Object (QC): 4 Does the Pt use WC or Scooter?: No Type: N/A Type: N/A PT Plan Treatment/Plan Treatment Plan: Continue Plan of Care Treatment Plan: Bed Mobility, Concurrent Therapy, Education, Functional Activity [place], Functional Strength, Group Therapy, Gait, Safety, Therapeutic Exercise, Transfers Treatment Duration: Jun 07, 2019 Frequency: At least 5 of 7 days/Wk (IRF) Estimated Hrs Per Day: 1.5 hours per day Patient and/or Family Agrees t: Yes Safety Risks/Education Patient Education: Gait Training, Transfer Techniques, Steps, Reviewed Precautions, Safety Issues Teaching Recipient: Patient Teaching Methods: Demonstration, Discussion Response to Teaching: Verbalize Understanding, Return Demonstration Time/GCodes Time In: 1100 Time Out: 1200 Total Billed Treatment Time: 60 Total Billed Treatment 1 visit, GT x15 min, FA x30 min, EX x15 min GAIL CHINO DIGITAL CAMPAIGN MANAGER May 23, 2019 11:57 POS
--- NOTE | 2019-05-23 12:23 | Occupational Ther Daily Note ---
OT Current Status-Daily Note Subjective Pt no complaint of pain. Appearance Pt seated in recliner when OT entered the room. Pt agrees to therapy treatment. Mental Status/Objective Patient Orientation: Person, Place, Time, Situation ADL-Treatment Therapy Code Descriptions/Definitions Functional [place] Measure: 0=Not Assessed/NA 4=Minimal Assistance 1=Total Assistance 5=Supervision or Setup 2=Maximal Assistance 6=Modified [place] 3=Moderate Assistance 7=Complete IndependenceSCALE: Activities may be completed with or without assistive devices. 5-Celrwvezzo-azecjol completes the activity by him/herself with no assistance from a helper. 5-Set-up or Clean-up Assistance-helper sets up or cleans up; patient completes activity. [place] assists only prior to or following the activity. 4-Supervision or Touching Assistance-helper provides verbal cues and/or touching/steadying and/or contact guard assistance as patient completes acti vity. Assistance may be provided throughout the activity or intermittently. 3-Partial/Moderate Assistance-helper does LESS THAN HALF the effort. [place] lifts, holds or supports trunk or limbs, but provides less than half the effort. 2-Substantial/Maximal Assistance-helper does MORE THAN HALF the effort. [place] lifts or holds trunk or limbs and provides more than half the effort. 2-Pbtfrjpey-eskivi does ALL the effort. Patient does none of the effort to complete the activity. Or, the assistance of 2 or more helpers is required for the patient to complete the activity. If activity was not attempted, code reason: 7-Patient Refused. 9-Not Applicable-not attempted and the patient did not perform the activity before the current illness, exacerbation or injury. 10-Not Attempted due to Environmental Limitations-(lack of equipment, weather restraints, etc.). 88-Not Attempted due to Medical Conditions or Safety Concerns. Oral Hygiene (QC): 6 (Per pt. report) Shower/Bathe Self (QC): 7 Upper Body Dressing (QC): 6 (Per pt. report) Lower Body Dressing (QC): 6 (per pt. report) Toileting Hygiene (QC): 6 (Using walker and grabbars, pt completed cleansing a nd manipulating clothing independently.) Toilet Transfer (QC): 4 (Pt required SBA when transferring with walker to the toilet.) Footwear (5) Pt completed donning socks and shoes with set up, with use of AE. Pt was seated when completing the task. Other Treatment Pt reported that she woke up early this morning and completed her own dressing and brushed her teeth. Pt declined shower/spongebath. Pt agreed to change socks only with set up. Pt ambulated to therapy gym with walker and SBA. Pt donned 1 lb wrist weights bilaterally and completed fine motor strengthening exercises. Pt participated in matching cards, ring arch to increase visual scanning, range of motion and reaching for functional tasks. Pt ambulated back to the room with walker and SBA for safety. Pt seated in recliner at the end of session. Call light/phone in reach. All needs met in room. Education OT Patient Education: Correct positioning, Exercise program, Modified ADL techniques, Progress toward Goal/Update tx plan, Purpose of tx/functional activities, Reviewed precautions, Rehab process, Safety issues, Transfer techniques, Use of adapted equipment Teaching Recipient: Patient Teaching Methods: Demonstration, Discussion Response to Teaching: Verbalize Understanding, Return Demonstration OT Shelter Goals Shelter Goals Time Frame: May 31, 2019 Eating (QC): 6 Oral Hygiene (QC): 6 Toileting Hygiene (QC): 6 Shower/Bathe Self (QC): 6 Upper Body Dressing (QC): 6 Lower Body Dressing (QC): 6 On/Off Footwear (QC): 6 Additional Goals: 1-Demonstrate ADL Tasks, 2-Verbalize Understanding, 3- ImproveStrength/[place] 1=Demonstrate adherence to instructed precautions during ADL tasks. 2=Patient will verbalize/demonstrate understanding of assistive devices/modifications for ADL. 3=Patient will improve strength/tolerance for activity to enable patient to perform ADL's. OT Education/Plan Problem List/Assessment Assessment: Decreased Activ Tolerance, Decreased UE Strength, Impaired I ADL's, Impaired Self-Care Skills Discharge Recommendations Plan/Recommendations: Continue POC Therapy Discharge Recommendati: Post Acute OT Equpiment Recommendations-D/C: Hip Kit Treatment Plan/Plan of Care Treatment,Training & Education: Yes Patient would benefit from OT for education, treatment and training to promote independence in ADL's, mobility, safety and/or upper extremity function for ADL's. Plan of Care: ADL Retraining, Caregiver Training, Concurrent Therapy, Functional Mobility, Group Exercise/Act as Ind, UE Funct Exercise/Act Treatment Duration: May 31, 2019 Frequency: At least 5 of 7 days/Wk (IRF) Estimated Hrs Per Day: 1.5 hours per day Agreement: Yes Rehab Potential: Good Time/GCodes Start Time: 08:15 Stop Time: 09:15 Total Time Billed (hr/min): 60 Billed Treatment Time 1, ADL x2 ( 30 Min) EX x2 ( 30 Min) HONG VÁSQUEZ OT May 23, 2019 12:23 POS
[2019-05-23] MEDS: ENOXAPARIN 40 MG/0.4 ML (LOVENOX) SYR SC SCH (13:14)
--- NOTE | 2019-05-23 13:57 | Occupational Ther Daily Note ---
OT Current Status-Daily Note Subjective No c/o of pain. Appearance Pt in room when OT entered the room. Pt agrees to work with therapy. Mental Status/Objective Patient Orientation: Person, Place, Time, Situation ADL-Treatment Therapy Code Descriptions/Definitions Functional [place] Measure: 0=Not Assessed/NA 4=Minimal Assistance 1=Total Assistance 5=Supervision or Setup 2=Maximal Assistance 6=Modified [place] 3=Moderate Assistance 7=Complete IndependenceSCALE: Activities may be completed with or without assistive devices. 6-Pnzeqxfvvj-zfutpkv completes the activity by him/herself with no assistance from a helper. 5-Set-up or Clean-up Assistance-helper sets up or cleans up; patient completes activity. [place] assists only prior to or following the activity. 4-Supervision or Touching Assistance-helper provides verbal cues and/or touching/steadying and/or contact guard assistance as patient completes activity. Assistance may be provided throughout the activity or intermittently. 3-Partial/Moderate Assistance-helper does LESS THAN HALF the effort. [place] lifts, holds or supports trunk or limbs, but provides less than half the effort. 2-Substantial/Maximal Assistance-helper does MORE THAN HALF the effort. [place] lifts or holds trunk or limbs and provides more than half the effort. 6-Yegmpnnlk-wcwfaz does ALL the effort. Patient does none of the effort to complete the activity. Or, the assistance of 2 or more helpers is required for the patient to complete the activity. If activity was not attempted, code reason: 7-Patient Refused. 9-Not Applicable-not attempted and the patient did not perform the activity before the current illness, exacerbation or injury. 10-Not Attempted due to Environmental Limitations-(lack of equipment, weather restraints, etc.). 88-Not Attempted due to Medical Conditions or Safety Concerns. Toileting Hygiene (QC): 6 (Pt cleansed self while standing with walker.) Toilet Transfer (QC): 4 (Pt required SBA when transferring to the toilet with walker.) Other Treatment Pt ambulated with walker to therapy gym with SBA. Pt participated in BUE strengthening exercise, pt completed armbike min, min resistance to improve overall strength and activity tolerance for functional tasks. Pt ambulated back to room with walker and SBA for safety. Pt transferred to the toilet with walker. Pt seated in recliner with call light/phone in reach. All needs met in room. Education OT Patient Education: Exercise program, Modified ADL techniques, Progress toward Goal/Update tx plan, Purpose of tx/functional activities, Rehab process, Transfer techniques Teaching Recipient: Patient Teaching Methods: Demonstration, Discussion Response to Teaching: Verbalize Understanding, Return Demonstration OT Care Home Goals Care Home Goals Time Frame: May 31, 2019 Eating (QC): 6 Oral Hygiene (QC): 6 Toileting Hygiene (QC): 6 Shower/Bathe Self (QC): 6 Upper Body Dressing (QC): 6 Lower Body Dressing (QC): 6 On/Off Footwear (QC): 6 Additional Goals: 1-Demonstrate ADL Tasks, 2-Verbalize Understanding, 3- ImproveStrength/[place] 1=Demonstrate adherence to instructed precautions during ADL tasks. 2=Patient will verbalize/demonstrate understanding of assistive devices/modifications for ADL. 3=Patient will improve strength/tolerance for activity to enable patient to perform ADL's. OT Education/Plan Problem List/Assessment Assessment: Decreased Activ Tolerance, Decreased UE Strength, Impaired Self- Care Skills Discharge Recommendations Plan/Recommendations: Continue POC Therapy Discharge Recommendati: Post Acute OT Equpiment Recommendations-D/C: Hip Kit Treatment Plan/Plan of Care Treatment,Training & Education: Yes Patient would benefit from OT for education, treatment and training to promote independence in ADL's, mobility, safety and/or upper extremity function for ADL's. Plan of Care: ADL Retraining, Caregiver Training, Concurrent Therapy, Functional Mobility, Group Exercise/Act as Ind, UE Funct Exercise/Act Treatment Duration: May 31, 2019 Frequency: At least 5 of 7 days/Wk (IRF) Estimated Hrs Per Day: 1.5 hours per day Agreement: Yes Rehab Potential: Good Time/GCodes Start Time: 13:00 Stop Time: 13:30 Total Time Billed (hr/min): 30 Billed Treatment Time 1, ADL x1 (10Min) EX x1 (20Min) HONG VÁSQUEZ OT May 23, 2019 13:57 POS
[2019-05-23] MEDS: HYDROcodone/APAP 5 MG/325 MG (LORTAB) TAB PO PRN ×2 (14:40→22:06)
--- NOTE | 2019-05-23 14:45 | Physical Therapy Daily Note ---
PT Daily Note-Current Subjective Pt agreeable to PT session, but stating I'm not really looking forward to this stating her thigh and hip are really bothering her but reluctant to take pain meds. Nsg did arrive and pt agreed to take pain med during therapy session. States she was very concerned that if she took it now, then she would not be able to have one tonight, pt reassured pt that she would be able to have one also tonight before bed. Pain Numeric Pain Scale: 5-Moderate Pain Location: Right Comment: hip and thigh Appearance Pt sitting up in recliner asleep upon arrival, easily aroused. At end of sessio n, pt requesting and assisted to bathroom, call light cord within reach. Mental Status Patient Orientation: Person, Place, Time, Situation, Normal For Age Transfers SCALE: Activities may be completed with or without assistive devices. 5-Pvqvoluojq-pkphdyn completes the activity by him/herself with no assistance from a helper. 5-Set-up or Clean-up Assistance-helper sets up or cleans up; patient completes activity. [place] assists only prior to or following the activity. 4-Supervision or Touching Assistance-helper provides verbal cues and/or touching/steadying and/or contact guard assistance as patient completes activity. Assistance may be provided throughout the activity or intermittently. 3-Partial/Moderate Assistance-helper does LESS THAN HALF the effort. [place] lifts, holds or supports trunk or limbs, but provides less than half the effort. 2-Substantial/Maximal Assistance-helper does MORE THAN HALF the effort. [place] lifts or holds trunk or limbs and provides more than half the effort. 7-Vwllrlucg-dpnqgp does ALL the effort. Patient does none of the effort to complete the activity. Or, the assistance of 2 or more helpers is required for the patient to complete the activity. If activity was not attempted, code reason: 7-Patient Refused. 9-Not Applicable-not attempted and the patient did not perform the activity before the current illness, exacerbation or injury. 10-Not Attempted due to Environmental Limitations-(lack of equipment, weather restraints, etc.). 88-Not Attempted due to Medical Conditions or Safety Concerns. Sit to Stand (QC): 6 Toilet Transfer (QC): 6 Weight Bearing Right Lower Extremity: Right Weight Bearing/Tolerated Left Lower Extremity: Left Full Weight Bearing Gait Training Does the Patient Walk?: Yes Distance: 175 x2 Walk 10 feet (QC): 6 Walk 50 ft with 2 Turns(QC): 6 Walk 150 ft (QC): 6 Gait Assistive Device: FWW slight fwd flexed trunk, slow pace, antalgic gait improving with distance, no LOB or unsteadiness Wheelchair Training Does the Pt Use a Wheelchair?: No Exercises NuStep Minutes: 15 NuStep Workload: 5 (seat 10, arms 10) Treatments education, safety, transfers, gait, strength, balance, activity tolerance, functional mobility, toileting Assessment Current Status: Good Progress PT Short Term Goals Short Term Goals Time Frame: May 24, 2019 Roll Left & Right: 4 (SBA) Sit to lyin (Cheng) Lying to sitting on side of be: 4 (CGA) Sit to stand: 4 (SBA) Chair/nhm-ed-sawuo transfer: 4 (SBA) Toilet transfer: 4 (SBA) Car transfer: 4 (SBA) Walk 10 feet: 4 (SBA) Walk 50 feet with two turns: 4 (SBA) Walk 150 feet: 4 (SBA) Walking 10ft on uneven surface: 4 (SBA) 1 step (curb): 4 (SBA) 4 steps: 4 (SBA) PT Jail Goals Heating Engineer Goals PT Heating Engineer Goals Time Frame: Jun 07, 2019 Roll Left & Right (QC): 6 Sit to Lying (QC): 6 Lying-Sitting on Side/Bed(QC): 6 Sit to Stand (QC): 6 Chair/Xlh-ya-Cskgg Xfer(QC): 6 Toilet Transfer (QC): 6 Car Transfer (QC): 6 Does the Patient Walk: Yes Walk 10 feet (QC): 6 Walk 50ft with 2 Turns (QC): 6 Walk 150 ft (QC): 6 Walking 10ft on Uneven Surface: 5 1 Step (curb) (QC): 4 4 Steps (QC): 4 12 Steps (QC): 4 Picking up an Object (QC): 4 Does the Pt use WC or Scooter?: No Type: N/A Type: N/A PT Plan Treatment/Plan Treatment Plan: Continue Plan of Care Treatment Plan: Bed Mobility, Concurrent Therapy, Education, Functional Activity [place], Functional Strength, Group Therapy, Gait, Safety, Therapeutic Exercise, Transfers Treatment Duration: Jun 07, 2019 Frequency: At least 5 of 7 days/Wk (IRF) Estimated Hrs Per Day: 1.5 hours per day Patient and/or Family Agrees t: Yes Safety Risks/Education Patient Education: Gait Training, Transfer Techniques, Safety Issues Teaching Recipient: Patient Teaching Methods: Discussion Response to Teaching: Verbalize Understanding Time/GCodes Time In: 1430 Time Out: 1500 Total Billed Treatment Time: 30 Total Billed Treatment 1 visit, GT x15 min, EX x15 min GAIL CHINO POLYMER CHEMIST May 23, 2019 14:45 POS
--- NOTE | 2019-05-23 15:36 | NUR ---
Patient will discharge tomorrow, all plans finalized with physician, patient, and family. [facility]: Coordinated with [facility], confirmed with agency patient has been accepted for initiation of services. RN, PT and possibly OT if indicated. DME: As earlier noted, patient has history of orthopedic interventions and has all recommended DME for home use. Patient's daughter Delmy Ambriz notified, she will come for patient in a.m. Patient's sister will be brought from [place] by her daughter and that is one stress off of Delmy regarding the overall discharge activities. Sister will stay with patient 1-2 weeks depending on need. All discharge planning activities completed unless unexpected situations arise.
[2019-05-23 16:16] VITALS: BP 121/75
[2019-05-24 05:42] VITALS: BP 126/75
[2019-05-24] MEDS: CYANOCOBALAMIN 1,000 MCG (VITAMIN B-12) TABLET PO SCH (06:14)
[2019-05-24] MEDS: PANTOPRAZOLE 40 MG (PROTONIX) TAB PO SCH (06:14)
[2019-05-24] MEDS: MELOXICAM 7.5 MG (MOBIC) TABLET PO SCH (06:14)
[2019-05-24] MEDS: HYDROcodone/APAP 5 MG/325 MG (LORTAB) TAB PO PRN (08:20)
--- NOTE | 2019-05-24 08:46 | Discharge Summary ---
Diagnosis/Chief Complaint Date of Admission May 17, 2019 at 13:20 Date of Discharge Discharge Date: May 24, 2019 Discharge Diagnosis Assessment: Right hip replacement Severe pain started after block dissipated last night Deafness Low vision Plan: BM regimen Pain control IRF protocol Maintain IS use DC tomorrow (1) Status post right hip replacement (2) Deafness Status: Chronic (3) Low vision Status: Chronic (4) Arthritis Status: Chronic Discharge Summary Discharge Physical Examination Allergies: Coded Allergies: Sulfa (Sulfonamide Antibiotics) (Verified Allergy, Severe, 02/15/19) bezafibrate (Verified Allergy, Severe, 02/15/19) doxycycline (Verified Allergy, Severe, 02/15/19) gadoteridol (Verified Allergy, Severe, 02/15/19) phenazopyridine (Verified Allergy, Severe, 02/15/19) propoxyphene (Verified Allergy, Severe, 02/15/19) Vitals & I&Os Vital Signs Date Time Temp Pulse Resp B/P (MAP) Pulse Ox O2 Delivery O2 Flow Rate FiO2 05/24/19 09:35 05/24/19 08:00 Room Air 05/24/19 05:42 36.6 79 16 93 General Appearance: Alert, Oriented X3, Cooperative Respiratory: Clear to Auscultation, Normal Air Movement Cardiovascular: Regular Rate Neuro: Normal Gait, Normal Speech, Strength at 5/5 X4 Ext Psych/Mental Status: Mental Status NL Hospital Course Was the Problem List Reviewed?: Yes Hospital Course: Pt had an uneventful 7 day hospital course after she was admitted after a right total hip replacement and due to deafness and blindness she met criteria for slow recovery in intensive rehab prior to going home for independent living alone. She was deemed stable for DC, maintained on adequate pain medication, that script was printed out. Her bowels returned back to normal and overall was having no issues precluding the DC as planned. Labs (last 24 hrs) Laboratory Tests 05/18/19 06:45: White Blood Count 10.4, Red Blood Count 4.55, Hemoglobin 12.8, Hematocrit 40, Mean Corpuscular Volume 88, Mean Corpuscular Hemoglobin 28, Mean Corpuscular Hemoglobin Concent 32, Red Cell Distribution Width 15.6H, Platelet Count 274, Mean Platelet Volume 10.0, Neutrophils (%) (Auto) 70, Lymphocytes (%) (Auto) 23, Monocytes (%) (Auto) 6, Eosinophils (%) (Auto) 1, Basophils (%) (Auto) 0, Neutrophils # (Auto) 7.2, Lymphocytes # (Auto) 2.4, Monocytes # (Auto) 0.6, Eosinophils # (Auto) 0.1, Basophils # (Auto) 0.0, Sodium Level 144, Potassium Level 4.1, Chloride Level 107, Carbon Dioxide Level 26, Anion Gap 11, Blood Urea Nitrogen 16, Creatinine 0.67, Estimat Glomerular Filtration Rate > 60, BUN/Creatinine Ratio 24, Glucose Level 106H, Calcium Level 9.6, Corrected Calcium 9.4, Total Bilirubin 0.5, Aspartate Amino Transf (AST/SGOT) 27, Alanine Aminotransferase (ALT/SGPT) 19, Alkaline Phosphatase 64, Total Protein 6.9, Albumin 4.2 05/22/19 09:30: White Blood Count 8.2, Red Blood Count 4.50, Hemoglobin 12.9, Hematocrit 40, Mean Corpuscular Volume 89, Mean Corpuscular Hemoglobin 29, Mean Corpuscular Hemoglobin Concent 32, Red Cell Distribution Width 16.1H, Platelet Count 335, Mean Platelet Volume 9.4, Neutrophils (%) (Auto) 68, Lymphocytes (%) (Auto) 22, Monocytes (%) (Auto) 6, Eosinophils (%) (Auto) 5, Basophils (%) (Auto) 0, Neutrophils # (Auto) 5.5, Lymphocytes # (Auto) 1.8, Monocytes # (Auto) 0.5, Eosinophils # (Auto) 0.4H, Basophils # (Auto) 0.0, Sodium Level 140, Potassium Level 4.0, Chloride Level 104, Carbon Dioxide Level 25, Anion Gap 11, Blood Urea Nitrogen 16, Creatinine 0.67, Estimat Glomerular Filtration Rate > 60, BUN/Creatinine Ratio 24, Glucose Level 115H, Calcium Level 9.5, Corrected Calcium 9.4, Total Bilirubin 0.5, Aspartate Amino Transf (AST/SGOT) 24, Alanine Aminotransferase (ALT/SGPT) 22, Alkaline Phosphatase 60, Total Protein 7.2, Albumin 4.1 Pending Labs Laboratory Tests 05/18/19 06:45: White Blood Count 10.4, Red Blood Count 4.55, Hemoglobin 12.8, Hematocrit 40, Mean Corpuscular Volume 88, Mean Corpuscular Hemoglobin 28, Mean Corpuscular Hemoglobin Concent 32, Red Cell Distribution Width 15.6, Platelet Count 274, Mean Platelet Volume 10.0, Neutrophils (%) (Auto) 70, Lymphocytes (%) (Auto) 23, Monocytes (%) (Auto) 6, Eosinophils (%) (Auto) 1, Basophils (%) (Auto) 0, Neutrophils # (Auto) 7.2, Lymphocytes # (Auto) 2.4, Monocytes # (Auto) 0.6, Eosinophils # (Auto) 0.1, Basophils # (Auto) 0.0, Sodium Level 144, Potassium Level 4.1, Chloride Level 107, Carbon Dioxide Level 26, Anion Gap 11, Blood Urea Nitrogen 16, Creatinine 0.67, Estimat Glomerular Filtration Rate > 60, BUN/Creatinine Ratio 24, Glucose Level 106, Calcium Level 9.6, Corrected Calcium 9.4, Total Bilirubin 0.5, Aspartate Amino Transf (AST/SGOT) 27, Alanine Aminotransferase (ALT/SGPT) 19, Alkaline Phosphatase 64, Total Protein 6.9, Albumin 4.2 05/22/19 09:30: White Blood Count 8.2, Red Blood Count 4.50, Hemoglobin 12.9, Hematocrit 40, Mean Corpuscular Volume 89, Mean Corpuscular Hemoglobin 29, Mean Corpuscular Hemoglobin Concent 32, Red Cell Distribution Width 16.1, Platelet Count 335, Mean Platelet Volume 9.4, Neutrophils (%) (Auto) 68, Lymphocytes (%) (Auto) 22, Monocytes (%) (Auto) 6, Eosinophils (%) (Auto) 5, Basophils (%) (Auto) 0, Neutrophils # (Auto) 5.5, Lymphocytes # (Auto) 1.8, Monocytes # (Auto) 0.5, Eosinophils # (Auto) 0.4, Basophils # (Auto) 0.0, Sodium Level 140, Potassium Level 4.0, Chloride Level 104, Carbon Dioxide Level 25, Anion Gap 11, Blood Urea Nitrogen 16, Creatinine 0.67, Estimat Glomerular Filtration Rate > 60, BUN/Creatinine Ratio 24, Glucose Level 115, Calcium Level 9.5, Corrected Calcium 9.4, Total Bilirubin 0.5, Aspartate Amino Transf (AST/SGOT) 24, Alanine Aminotransferase (ALT/SGPT) 22, Alkaline Phosphatase 60, Total Protein 7.2, Albumin 4.1 Discharge Home Medications: Active Scripts Active Hydrocodone/Acetaminophen 5/325mg Tablet (Acetaminophen/Hydrocodone Bitart) 1 Tab Tab 1 Tab PO Q4H PRN Reported Ibu-200 (Ibuprofen) 200 Mg Tablet 200 Mg PO Q6H PRN Vitamin B-12 (Cyanocobalamin (Vitamin B-12)) 1,000 Mcg/1 Ml Drops 1,000 Mcg PO DAILY Colace (Docusate Sodium) 100 Mg Capsule 100 Mg PO DAILY Turmeric (Turmeric Root Extract) 538 Mg Capsule 500 Mg PO DAILY Aspirin 81 Mg Tab.chew 81 Mg PO DAILY Vitamin D3 (Cholecalciferol (Vitamin D3)) 1,000 Unit Capsule 1,000 Unit PO DAILY [Gotu Gigi 395MG] 395 Mg PO DAILY Flaxseed Oil 1,000 Mg Capsule 1,000 Mg PO DAILY [Dandelion 920MG] 920 Mg PO DAILY Potassium (Potassium Gluconate) 99 Mg Tablet 99 Mg PO DAILY Instructions to patient/family Please see electronic discharge instructions given to patient. Diagnosis/Problems Diagnosis/Problems (1) Status post right hip replacement (2) Deafness Status: Chronic (3) Low vision Status: Chronic (4) Arthritis Status: Chronic Clinical Quality Measures DVT/VTE Risk/Contraindication: Risk Factor Score Per Nursin RFS Level Per Nursing on Admit: 4+=Very High JÚNIOR RANGEL DO May 24, 2019 08:46 POS
--- NOTE | 2019-05-24 09:14 | Occupational Ther Daily Note ---
OT Current Status-Daily Note Subjective No c/o of pain. Pt agitated after receiving message from daughter about discharge this morning. OT educated pt about completing shower this morning. Appearance Pt seated in recliner when OT entered the room. Pt agrees to therapy treatment. Mental Status/Objective Patient Orientation: Person, Place, Time, Situation ADL-Treatment Therapy Code Descriptions/Definitions Functional [place] Measure: 0=Not Assessed/NA 4=Minimal Assistance 1=Total Assistance 5=Supervision or Setup 2=Maximal Assistance 6=Modified [place] 3=Moderate Assistance 7=Complete IndependenceSCALE: Activities may be completed with or without assistive devices. 4-Hxeglsaldk-suvvogn completes the activity by him/herself with no assistance from a helper. 5-Set-up or Clean-up Assistance-helper sets up or cleans up; patient completes activity. [place] assists only prior to or following the activity. 4-Supervision or Touching Assistance-helper provides verbal cues and/or touching/steadying and/or contact guard assistance as patient completes activi ty. Assistance may be provided throughout the activity or intermittently. 3-Partial/Moderate Assistance-helper does LESS THAN HALF the effort. [place] lifts, holds or supports trunk or limbs, but provides less than half the effort. 2-Substantial/Maximal Assistance-helper does MORE THAN HALF the effort. [place] lifts or holds trunk or limbs and provides more than half the effort. 7-Syzdqsyua-gbpkny does ALL the effort. Patient does none of the effort to complete the activity. Or, the assistance of 2 or more helpers is required for the patient to complete the activity. If activity was not attempted, code reason: 7-Patient Refused. 9-Not Applicable-not attempted and the patient did not perform the activity before the current illness, exacerbation or injury. 10-Not Attempted due to Environmental Limitations-(lack of equipment, weather restraints, etc.). 88-Not Attempted due to Medical Conditions or Safety Concerns. Eating (QC): 6 (Pt completed meal this a.m. independently.) Oral Hygiene (QC): 6 (Pt completed oral hygiene seated at the sink.) Bathing Location: L Arm, R Arm, L Upper Leg, R Upper Leg, L Lower Leg (including foot), R Lower Leg (including foot), Chest, Abdomen, Buttocks, Perin eal Area Shower/Bathe Self (QC): 6 (Pt completed shower independently seated on the bench and grabbar to stand to cleanse buttocks/kellie area.) Upper Body Dressing (QC): 6 (Pt completed UB dressing independently. ) Lower Body Dressing (QC): 6 (Pt completed LB dressing independently. Pt utilized dressing stick/line driver to complete dressing.) Toileting Hygiene (QC): 6 (Pt able to manipulate dressing and self cleansed standing with walker.) Toilet Transfer (QC): 6 (Using walker, pt transferred independently to the toilet.) Footwear (QC) 6 Pt utilized sock aid and shoe horn independently to don socks and shoes bilateral. Other Treatment Pt had clothes set up for today. Pt ambulated independently with walker to the shower room. Pt transferred to the toilet and then to the shower bench independently. Pt completed shower seated on the bench. Pt transferred independently to the chair to complete dressing. Pt brushed hair and applied make up while seated at the sink. Pt ambulated independently to the recliner. Pt daughter arrived. Pt seated in recliner at the end of session. Call light/phone in reach. All needs met. Daughter in room. Education OT Patient Education: Modified ADL techniques, Progress toward Goal/Update tx p breanna, Purpose of tx/functional activities, Use of adapted equipment Teaching Recipient: Patient Teaching Methods: Demonstration, Discussion Response to Teaching: Verbalize Understanding, Return Demonstration OT Banding Machine Operator Goals [facility] Goals Time Frame: May 31, 2019 Eating (QC): 6 Oral Hygiene (QC): 6 Toileting Hygiene (QC): 6 Shower/Bathe Self (QC): 6 Upper Body Dressing (QC): 6 Lower Body Dressing (QC): 6 On/Off Footwear (QC): 6 Additional Goals: 1-Demonstrate ADL Tasks, 2-Verbalize Understanding, 3- ImproveStrength/[place] 1=Demonstrate adherence to instructed precautions during ADL tasks. 2=Patient will verbalize/demonstrate understanding of assistive devices/modifications for ADL. 3=Patient will improve strength/tolerance for activity to enable patient to perform ADL's. OT Education/Plan Problem List/Assessment Assessment: No Skilled OT Needs ID'd Discharge Recommendations Plan/Recommendations: Discharge/Goals Met Therapy Discharge Recommendati: Home & Family Treatment Plan/Plan of Care Treatment,Training & Education: Yes Plan of Care: OTHER (Pt. discharging today. No further OT indicated at this time.) Treatment Duration: May 31, 2019 Frequency: At least 5 of 7 days/Wk (IRF) Estimated Hrs Per Day: 1.5 hours per day Agreement: Yes Rehab Potential: Good Time/GCodes Start Time: 08:15 Stop Time: 08:55 Total Time Billed (hr/min): 40 Billed Treatment Time 1, ADL x3 (40Min) HONG VÁSQUEZ OT May 24, 2019 09:14 POS
--- NOTE | 2019-05-24 09:28 | Therapy Team Discharge Summary ---
Therapy Discharge Summary Discharge Recommendations Date of Discharge 05/24/19 Therapy D/C Recommendations: Physical Therapy Home Care Physical Therapy this patient admitted to ARU after acute stay for an elective right THR. Prior to her surgery, she was living alone and mod indep with all functional mobility. Upon admission to this unit, she is min assist with transfers and CGA with gait approx 120 ft with FWW; she was able to go up/down a curb step with min assist. Treatment has focused on functional strength and balance to promote transfers and gait to allow her to return home at a mod indep level. She has made good progress and has achieved goals to a satisfactory level to allow her to return home. At last visit, she required min assist with rolling in bed (but plans to sleep in a recliner), mod indep with transfers, supervision with car transfer, mod indep gait and some assist with a step but does not have steps at home. She is to discharge home with family support. Recommned [facility] PT to follow. DC from ARU at this time. Occupational Therapy Decreased Activ Tolerance, Decreased UE Strength, Impaired Self-Care Skills PT Artificial Breeding Technician Goals Correction Goals PT Artificial Breeding Technician Goals Time Frame: Jun 07, 2019 Roll Left to Right (QC): 6 (scored a3) Sit to Lying (QC): 6 (scored 3) Lying-Sitting on Side/Bed(QC): 6 (scored 3) Sit to Stand (QC): 6 (met) Chair/[place] Xfer(QC): 6 (met) Car Transfer (QC): 6 (scored 5) Does the Patient Walk: Yes Walk 10 feet (QC): 6 (met) Walk 10ft-Uneven Surface(QC): 5 (met) Walk 50ft with 2 Turns (QC): 6 (met) Walk 150 ft (QC): 6 (met) Does the Pt use WC or Scooter?: No 1 Step (curb) (QC): 4 (met) 4 Steps (QC): 4 (met) 12 Steps (QC): 4 Picking up an Object (QC): 4 goals met to a satisfactory level; pt plans to sleep in a recliner and does not have steps at home. OT Artificial Breeding Technician Goals Correction Goals Time Frame: May 31, 2019 Eating (QC): 6 Oral Hygiene (QC): 6 Shower/Bathe Self (QC): 6 Upper Body Dressing (QC): 6 Lower Body Dressing (QC): 6 On/Off Footwear (QC): 6 Toileting Hygiene (QC): 6 Toilet/Commode Transfer (QC): 6 Additional Goals: 1-Demonstrate ADL Tasks, 2-Verbalize Understanding, 3- ImproveStrength/Haydee 1=Demonstrate adherence to instructed precautions during ADL tasks. 2=Patient will verbalize/demonstrate understanding of assistive devices/liz fications for ADL. 3=Patient will improve strength/tolerance for activity to enable patient to perform ADL's. KYLEE ATKINSON PT May 24, 2019 09:28 POS
--- NOTE | 2019-05-24 09:34 | NUR ---
Daughter Delmy here early a.m. to warehouse order picker patient as planned. HHC: Updated [facility] of discharge and alerted them final orders are faxing at this time. Unit RN updated intermittently this a.m.
--- NOTE | 2019-05-24 09:47 | Therapy Team Discharge Summary ---
Therapy Discharge Summary Discharge Recommendations Date of Discharge 05-24-19 Therapy D/C Recommendations: Physical Therapy Home Care Occupational Therapy Pt. has been seen by occupational therapy to increase overall independence with daily skills. Pt. has met all goals. Pt. has all needed equipment at home for ADL needs. Demonstrated independence with this equipment at this facility. No further equipment needs for pt. noted by this therapist. No further OT goals at this time. Pt. discharged home with daughter support. No Skilled OT Needs ID'd PT Halfway Goals Halfway Goals PT Halfway Goals Time Frame: Jun 07, 2019 Roll Left to Right (QC): 6 (scored a3) Sit to Lying (QC): 6 (scored 3) Lying-Sitting on Side/Bed(QC): 6 (scored 3) Sit to Stand (QC): 6 (met) Chair/Ewk-hr-Nzjmb Xfer(QC): 6 (met) Car Transfer (QC): 6 (scored 5) Does the Patient Walk: Yes Walk 10 feet (QC): 6 (met) Walk 10ft-Uneven Surface(QC): 5 (met) Walk 50ft with 2 Turns (QC): 6 (met) Walk 150 ft (QC): 6 (met) Does the Pt use WC or Scooter?: No 1 Step (curb) (QC): 4 (met) 4 Steps (QC): 4 (met) 12 Steps (QC): 4 Picking up an Object (QC): 4 OT Halfway Goals Halfway Goals Time Frame: May 31, 2019 Eating (QC): 6 (Met) Oral Hygiene (QC): 6 (Met) Shower/Bathe Self (QC): 6 (met) Upper Body Dressing (QC): 6 (met) Lower Body Dressing (QC): 6 (met) On/Off Footwear (QC): 6 (met) Toileting Hygiene (QC): 6 (met) Toilet/Commode Transfer (QC): 6 (met) Additional Goals: 1-Demonstrate ADL Tasks, 2-Verbalize Understanding, 3- ImproveStrength/Haydee 1=Demonstrate adherence to instructed precautions during ADL tasks. 2=Patient will verbalize/demonstrate understanding of assistive devices/modifications for ADL. 3=Patient will improve strength/tolerance for activity to enable patient to perform ADL's. HONG VÁSQUEZ OT May 24, 2019 09:47 POS
== END 2019-05-24 09:35 | disposition home health service (06) | DRG 561 ==
PROVIDERS: ADMIT Internal Medicine; ATTEND Internal Medicine
DX: Z47.1 Aftercare following joint replacement surgery (principal); Z96.641 Presence of right artificial hip joint; H91.90 Unspecified hearing loss, unspecified ear; F32.9 Major depressive disorder, single episode, unspecified; H54.3 Unqualified visual loss, both eyes; R32 Unspecified urinary incontinence; R39.15 Urgency of urination
CPT/HCPCS: 36415; 80053; 85025

== ENCOUNTER → 2020-04-03 | Outpatient (CLI) | payer MEDICARE, OTHER ==
[~2020-04-03] MED LIST changes: +ACHD5005 PO; +ASPI-1238 PO; -ASPI-983 PO; +CHOL10007 PO; +CYAN100081 PO; +DOCU-143 PO; +HYDR-34 PO; -HYDR-3816 PO; +IBUP-47 PO; -TRAM50TA2 PO; +TRM50T PO; +TURM538C PO
== END ==
LOC: CARD 13:36
PROVIDERS: ATTEND Physician Assistant
DX: I10 Essential (primary) hypertension (principal); E66.9 Obesity, unspecified; R06.00 Dyspnea, unspecified; R00.2 Palpitations
CPT/HCPCS: 93306

== ENCOUNTER → 2020-04-15 | Outpatient (CLI) | payer MEDICARE, OTHER ==
[~2020-04-15] VITALS: Ht 170 cm; Wt 87.0 kg
[~2020-04-15] MED LIST changes: +REGADENOSON 0.4 MG/5 ML SYR (LEXISCAN) IV ONE
[2020-04-15] MEDS: CATHETER FLUSH 10 ML SYR IV PRN ×2 (07:49→08:56)
[2020-04-15 08:55] VITALS: BP 148/79
--- NOTE | 2020-04-15 11:22 | Cardiology Stress Test Report ---
Stress Test Report Date of Procedure/Referring: Date of Procedure: Apr 15, 2020 Scarlett Recio Admitting Physician Nya Gibson DO Indications: Dyspnea on exertion Baseline Heart Rate: 67 Baseline Blood Pressure: Blood Pressure Systolic: 148 Blood Pressure Diastolic: 79 Baseline Vitals Vital Signs Date Time Temp Pulse Resp B/P (MAP) Pulse Ox O2 Delivery O2 Flow Rate FiO2 04/15/20 08:55 67 148/79 (102) 97 Room Air Baseline EKG: Baseline EKG: normal sinus rhythm Summary After explaining the procedure to the patient, she signed a consent and then brought to the stress nuclear laboratory. Patient received 0.4 mg Lexiscan for stress test, ECG, heart rate and blood pressure were monitored continuously. Resting and stress dose of radio tracer were injected, imaging was acquired and reviewed in short axis, horizontal long axis and vertical long axis views. TID: 1.07 SSS: 7 SDS: 0 EF: 72 1. Patient tolerated Lexiscan well 2. Increased intestinal uptake affecting the quality of the images with decreased uptake involving the mid to apical inferior wall with no reversibility 3. Normal left ventricular size, EF 72 percent BREANNA PENA MD Apr 15, 2020 11:22
== END ==
LOC: CARD 07:39
PROVIDERS: ATTEND Physician Assistant
DX: I10 Essential (primary) hypertension (principal); E66.9 Obesity, unspecified; R06.00 Dyspnea, unspecified; R00.2 Palpitations
CPT/HCPCS: 78452; 93017; A9502